=== PATIENT | male | born 1955 | race Caucasian/White ===

== ENCOUNTER 2017-04-11 06:36 | Inpatient (IN) | payer OTHER ==
[2017-04-04 09:37] VITALS: BMI 37.0
--- NOTE | 2017-04-04 10:21 | PAT Medication Instructions ---
Service Date Apr 04, 2017. Current Home Medication List Albuterol Sulf (Proventil 0.083% 2.5MG/3ML), 2.5 MG INH QID PRN for SOB/Wheezing Albuterol Sulfate (Proair Hfa), 2 PUFFS QID PRN Aspirin (Aspirin Ec), 81 MG PO QAM Atorvastatin (Lipitor), 40 MG PO QAM Indomethacin (Indocin), 25 MG PO TID PRN for GOUT Mometasone Furoate-Formoterol (Dulera 100/5 Mcg), 2 PUFFS INH BID Montelukast Sodium (Singulair), 10 MG PO QAM Sennosides-Docusate Sodium (Stool Softener), 1 TAB PO BID Medication Instructions For Your Scheduled Surgery - Check with surgeon for instructions: Indomethacin (Indocin), 25 MG PO TID PRN for GOUT - Hold the following medications the morning of surgery: Montelukast Sodium (Singulair), 10 MG PO QAM Sennosides-Docusate Sodium (Stool Softener), 1 TAB PO BID - Take the following medications the morning of surgery with a sip of water: Mometasone Furoate-Formoterol (Dulera 100/5 Mcg), 2 PUFFS INH BID Albuterol Sulf (Proventil 0.083% 2.5MG/3ML), 2.5 MG INH QID PRN for SOB/ Wheezing (if needed) Albuterol Sulfate (Proair Hfa), 2 PUFFS QID PRN (use if needed; please bring with you to hospital morning of surgery) Atorvastatin (Lipitor), 40 MG PO QAM Aspirin (Aspirin Ec), 81 MG PO QAM (okay to continue per surgeon) - Take the following medications as scheduled the night before surgery: Sennosides-Docusate Sodium (Stool Softener), 1 TAB PO BID Mometasone Furoate-Formoterol (Dulera 100/5 Mcg), 2 PUFFS INH BID Albuterol Sulf (Proventil 0.083% 2.5MG/3ML), 2.5 MG INH QID PRN for SOB/ Wheezing (if needed) Albuterol Sulfate (Proair Hfa), 2 PUFFS QID PRN (if needed) If you have any questions please call us at [phone] or [phone] or [phone]
--- NOTE | 2017-04-04 10:52 | DIAGNOSTIC IMAGING REPORT ---
CHEST PREADMISSION(PA/LAT) CLINICAL HISTORY: 62 years-old Male presenting with shortness of breath. TECHNIQUE: PA and lateral views of the chest were obtained. COMPARISON: 01/05/2014. FINDINGS: Atherosclerosis of the aortic arch. Normal cardiac silhouette. Lungs and pleural spaces clear. Osseous structures and upper abdomen normal. IMPRESSION: 1. No acute cardiopulmonary disease. Electronically signed by: Apollo Vincent 04/04/2017 10:51 AM Dictated Date/Time: 04/04/2017 10:49 AM
[2017-04-04 11:17] LABS: BASO % 0.5 %; BASO ABS # 0.03 K/uL (0-0.2); COMPLETE YES; EOS % 1.2 %; HEMATOCRIT 43.5 % (42-52); IG% 0.2 %; LYMPH % 20.2 %; LYMPH ABS # 1.32 K/uL (1.2-3.4); MEAN CELL VOLUME 88.6 fL (80-100); MEAN CORPUSCULAR HGB CONC 34.9 g/dl (32-36); MEAN PLATELET VOLUME 8.5 fL (7.4-10.4); MONO % 7.3 %; NEUT % 70.6 %; PLATELET COUNT 238 K/uL (130-400); RED BLOOD COUNT 4.91 M/uL (4.7-6.1); WHITE BLOOD COUNT 6.54 K/uL (4.8-10.8)
[2017-04-04 11:26] LABS: BUN/CREATININE RATIO 8.4 (10-20); CALCIUM 9.5 mg/dl (8.5-10.1); CREATININE 0.74 mg/dl (0.60-1.40); POTASSIUM 3.9 mmol/L (3.5-5.1)
[2017-04-11] VITALS (25 sets, daily range): BP systolic 113–151; BP diastolic 53–97; PULSE 59–105; TEMP 36.7–36.9; O2SAT 91–99; Ht 167.6 cm; Wt 97.2 kg
[~2017-04-11] VITALS: Ht 167.6 cm; Wt 97.2 kg
[~2017-04-11 06:36] MED LIST: ALBINS/ INH; ALBU1AER9; ASPI81TA28 PO; ATOR-24 PO; INDO-22 PO; LACTATED RINGER'S 1000ML 1,000 ML IV SCH; MOME100A INH; MONT1TAB3 PO; SENNTAB23 PO
--- NOTE | 2017-04-11 06:49 | History & Physical Bridge Note ---
H&P Re-Evaluation Bridge Note: I have examined the patient, reviewed the History & Physical and in the interval since the performance of the History & Physical I have noted the following changes of clinical significance: No changes noted pt marked
[2017-04-11] MEDS ORDERED: DEXAMETHASONE SOD INJ 4 MG/ML VIAL ONE ×2 (07:32→14:28)
[2017-04-11] MEDS ORDERED: MIDAZOLAM HCL 1 MG/ML 2ML VIAL ONE (07:32)
[2017-04-11] MEDS ORDERED: GLYCOPYRROLATE INJ 0.2 MG/ML VIAL ONE ×3 (07:32→14:28)
[2017-04-11] MEDS ORDERED: FENTANYL CITRATE INJ 50 MCG/1 ML 2 ML VIAL ONE ×3 (07:32→14:28)
[2017-04-11] MEDS ORDERED: LIDOCAINE HCL 2% 2 ML VIAL (20MG/ML) ONE ×2 (07:32→14:28)
[2017-04-11] MEDS ORDERED: ROCURONIUM BROMIDE 10 MG/ML 5 ML VIAL ONE ×2 (07:32→14:28)
[2017-04-11] MEDS ORDERED: NEOSTIGMINE METHYLSULFATE 5 MG/5 ML SYR ONE ×2 (07:32→14:28)
[2017-04-11] MEDS ORDERED: ONDANSETRON INJ 2 MG/ML 2 ML VIAL ONE ×2 (07:32→14:28)
[2017-04-11] MEDS ORDERED: PROPOFOL IV EMULSION 10 MG/ML 20 ML VIAL IV ONE ×3 (07:32→14:28)
[2017-04-11] MEDS ORDERED: HEPARIN SOD (PORCINE) 1000 UNIT/ML 10 ML VIAL ONE ×2 (07:56→09:06)
[2017-04-11] MEDS ORDERED: LIDOCAINE/EPINEPHRINE 1% 20 ML VIAL ONE (07:56)
[2017-04-11] MEDS ORDERED: BACITRACIN 50000 UNIT VIAL ONE (07:56)
[2017-04-11] MEDS ORDERED: PHENYLEPHRINE HCL INJ 10 MG/ML VIAL ONE (08:04)
[2017-04-11] MEDS ORDERED: NALOXONE HCL 0.4 MG/1 ML VIAL/CARP IV PRN ×2 (08:15→15:15)
[2017-04-11] MEDS ORDERED: FLUMAZENIL 0.1 MG/1 ML 10 ML VIAL IV PRN ×2 (08:15→15:15)
[2017-04-11] MEDS ORDERED: PHENYLEPHRINE 100MCG/ML 5ML SYR IV PRN ×2 (08:15→15:15)
[2017-04-11] MEDS ORDERED: ATROPINE SULFATE 0.1 MG/ML 5ML SYR IV PRN ×2 (08:15→15:15)
[2017-04-11] MEDS ORDERED: HYDROmorphone INJ 2 MG/ML SYR/VIAL IV PRN ×2 (08:15→15:15)
[2017-04-11] MEDS ORDERED: ONDANSETRON INJ 2 MG/ML 2 ML VIAL IV PRN ×3 (08:15→15:15)
[2017-04-11] MEDS ORDERED: MEPERIDINE HCL 25 MG/ML CARP IV PRN ×2 (08:15→15:15)
[2017-04-11] MEDS ORDERED: EpHEDrine SULFATE INJ 50 MG/ML AMP IV PRN ×2 (08:15→15:15)
[2017-04-11] MEDS ORDERED: FENTANYL CITRATE INJ 50 MCG/1 ML 2 ML VIAL IV PRN ×2 (08:15→15:15)
[2017-04-11] MEDS ORDERED: LABETALOL HCL IV 5 MG/ML 20ML IV PRN ×2 (08:15→15:15)
[2017-04-11] MEDS ORDERED: CEFAZOLIN SOD 1 GM VIAL ONE (08:46)
[2017-04-11] MEDS ORDERED: LARYING-O-JET KIT (LTA) ONE ×2 (08:48)
[2017-04-11] MEDS ORDERED: EpHEDrine SULFATE 50MG/5ML SYR ONE (08:55)
[2017-04-11] MEDS ORDERED: LABETALOL HCL IV 5 MG/ML 20ML IV ONE (09:14)
[2017-04-11] MEDS ORDERED: NITROGLYCERIN/D5W 100 MCG/ML 250 ML IV PRN (10:33)
[2017-04-11] MEDS ORDERED: HYDR-5688 PO (10:39)
--- NOTE | 2017-04-11 10:41 | Discharge Instructions ---
Discharge Instructions Date of Service Apr 11, 2017. Admission Reason for Admission: Carotid Artery Disease Discharge Discharge Diagnosis / Problem: carotid endarterectomy Discharge Goals Goal(s): Improve disease control Activity Recommendations Activity Limitations: as noted below Shower/Bathe: no limitations (ok to shower) Driving or Machine Use: no driving for 1 week . Instructions / Follow-Up Instructions / Follow-Up Dr. Childers in 1 week, call [phone] if you do not already have an appt or for any questions Current Hospital Diet Patient's current hospital diet: Clear Liquid Diet Discharge Diet Recommended Diet: Regular Diet Procedures Procedures Performed: Right Carotid Endarterectomy with Bovine Patch Pending Studies Studies pending at discharge: no Medical Emergencies . Who to Call and When: Medical Emergencies: If at any time you feel your situation is an emergency, please call 911 immediately. . Non-Emergent Contact Non-Emergency issues call your: Surgeon Call Non-Emergent contact if: you have a fever, temperature is above 101.5, your pain is not controlled, wound has increased redness, you have any medication questions . "Provider Documentation" section prepared by Leonidas Purdy. . VTE Core Measure Inpt VTE Proph given/why not?: SCD's [place] Drug Monitoring Program Search Results: no issues identified
[2017-04-11] MEDS ORDERED: MoRPHine SULFATE 2 MG/ML CARP IV PRN (10:45)
[2017-04-11] MEDS ORDERED: ALBUTEROL HFA 8 GM INHALER INH PRN (10:45)
[2017-04-11] MEDS ORDERED: HYDROCODONE/ACETAMOPHEN 5/325MG TAB PO PRN (10:45)
[2017-04-11] MEDS ORDERED: MoRPHine SULFATE 4 MG/ML 1 ML CARP\\VIAL IV PRN (10:45)
--- NOTE | 2017-04-11 11:23 | Anesthesiology Progress Note ---
Anesthesia Post Op Note Date & Time Apr 11, 2017 at 11:23 Vital Signs Pain Intensity: 0 Vital Signs Past 12 Hours Date Time Temp Pulse Resp B/P (MAP) Pulse Ox O2 Delivery O2 Flow Rate FiO2 04/11/17 11:21 148/82 04/11/17 11:18 67 11 04/11/17 11:18 67 11 93 04/11/17 11:16 126/72 04/11/17 11:15 36.6 61 15 126/72 93 Nasal Cannula 2 142/63 (93) 04/11/17 11:13 61 27 93 04/11/17 11:13 61 27 04/11/17 11:11 120/68 04/11/17 11:08 63 18 04/11/17 11:08 63 18 92 04/11/17 11:06 123/67 04/11/17 11:05 60 17 123/67 91 Nasal Cannula 2 121/51 (76) 04/11/17 11:03 64 13 96 04/11/17 11:03 64 13 04/11/17 11:01 134/78 04/11/17 10:58 62 14 04/11/17 10:58 62 14 99 04/11/17 10:56 128/67 04/11/17 10:53 68 15 98 04/11/17 10:53 69 15 04/11/17 10:52 123/81 04/11/17 10:51 66 21 98 04/11/17 10:51 58 21 04/11/17 10:46 78 24 133/83 99 04/11/17 10:46 78 24 04/11/17 10:43 127/57 04/11/17 10:41 69 22 99 04/11/17 10:41 69 22 04/11/17 10:37 126/70 04/11/17 10:36 36.2 73 16 126/70 100 Mask 10 04/11/17 10:36 65 23 04/11/17 10:36 67 23 94 04/11/17 07:55 60 18 95 Mask 6.0 04/11/17 07:08 36.8 59 20 116/68 91 Room Air 132/72 Notes Mental Status: alert / awake / arousable, participated in evaluation Pt Amnestic to Procedure: Yes Nausea / Vomiting: adequately controlled Pain: adequately controlled Airway Patency, RR, SpO2: stable & adequate BP & HR: stable & adequate Hydration State: stable & adequate Anesthetic Complications: no major complications apparent The patient did well. He is hemodynamically stable. He is awake and comfortable and moving all extremities.
--- NOTE | 2017-04-11 11:55 | [facility] Operative Report ---
Operative Report Operative Date Apr 11, 2017. Pre-Operative Diagnosis Critical Right Carotid Stenosis Post-Operative Diagnosis Critical Right Carotid Stenosis Procedure(s) Performed Right Carotid Endarterectomy with Bovine Patch angioplasty Surgeon Dr. Joey Childers Launch Check Out Surgeon(s) Leonidas Purdy PA-C Estimated Blood Loss 100ml Findings near total occlusion int car Specimens plaque Drains 1/4 inch brigitte op field via stab Disposition Surgical ICU Indications critical right car stenosis s/p acute total occlusion 1 year ago treated with TPA Description of Procedure general endotracheal anesthesia. sterile field 1% xyl with epi(6cc) injected along ant aspect SCM dissected ext int amd common controlled with vessel loops identified hypoglossal and retracted with vessel loop divided digastric, suspensory ligament 00442 U of heparin waited 5 minutes clamped int then ext and common, louie scissors for arteriotomy, int car fraible near total occlusion dissection started common circular fibers, inversion endarterectomy ext car ' endar taken to int car matt 4 cm beyond take off intima adherent at end point parachuted down bovine patch onto int car with 6-0 prolene and sutured circumferentially, prior to tying down patch 4 Bakes dilator intoint car past patch back bleeding controlled with [place] pick ups, flushed common ext, suctioned out artery before tying patch, ext car opened, 25 gauge needle punctured patch to free trapped air, common car clamp removed, few suture line bleeders controlled with 6-0 prolene flow reestablished int car, good pulse no thrill in int car past patch, minimal bleeding ,heparint not reversed, 1/4 brigitte via stab wound between heads of SCM placed along car bed, wound closed multiple layers interrupted vicryl 2-0 gumaro skin edges, dressing applied pt woke up neurologically intact and taken extubated to rec room ebl 100cc spec plaque I attest to the content of the Intraoperative Record and any orders documented therein. Any exceptions are noted below.
[2017-04-11] MEDS: SODIUM CHLORIDE 0.9% 1000ML 1,000 ML IV SCH (13:12)
[2017-04-11] MEDS: ALBUTEROL 0.083% NEBU SOLN 3 ML VIAL INH PRN ×2 (13:14→19:00)
--- NOTE | 2017-04-11 13:30 | Critical Care Consultation ---
Critical Care Consultation Date of Consultation: Apr 11, 2017. Attending Physician: Joey Childers M.D. Reason for Consultation: Hypertension/neurological monitoring--CEA History of Present Illness History of cerebrovascular disease and TPA in the past for a right hemispheric event. Critical stenosis in the left was treated surgical. Evaluation of the left also disclosed critical stenosis. CEA was performed today. Underlying mild asthma reported. HTN and hyperlipidemia also noted. The procedure went well. I spoke personally with the surgeon. Arterial line in place for close B/P monitoring and management. He is awake and alert. No new neurological changes. No target pain. Appears to be tolerating Rx well. Social History Smoking Status: Former Smoker Drug Use: none Marital Status: single Housing Status: lives alone Occupation Status: retired Allergies Coded Allergies: Dust (Verified Allergy, Unknown, hay fever, 04/04/17) NO KNOWN DRUG ALLERGIES (Verified Allergy, Unknown, NKDA, 04/04/17) POLLEN (Verified Allergy, Unknown, HAY FEVER, 04/04/17) Home Medications Scheduled Aspirin (Aspirin Ec), 81 MG PO QAM Atorvastatin (Lipitor), 40 MG PO QAM Mometasone Furoate-Formoterol (Dulera 100/5 Mcg), 2 PUFFS INH BID Montelukast Sodium (Singulair), 10 MG PO QAM Sennosides-Docusate Sodium (Stool Softener), 1 TAB PO BID Scheduled PRN Albuterol Sulf (Proventil 0.083% 2.5MG/3ML), 2.5 MG INH QID PRN for SOB/Wheezing Albuterol Sulfate (Proair Hfa), 2 PUFFS QID PRN Hydrocodone/Acetaminophen 5MG/325MG ([employer] 5MG/325MG), 1 TABLET PO Q4H PRN for Pain Indomethacin (Indocin), 25 MG PO TID PRN for GOUT Current Inpatient Medications Current Inpatient Medications Medications (Trade) Dose Ordered Sig/Linda Route Start Time Stop Time Status Last Admin Dose Admin Lactated Ringer's 1,000 ml @ 15 mls/hr Q24H IV 04/11/17 06:00 04/12/17 05:59 Morphine Sulfate (MoRPHine SULFATE INJ) 2 mg Q2H PRN IV 04/11/17 10:45 04/25/17 10:44 Nitroglycerin/ Dextrose 250 ml @ 0 mls/hr Q0M PRN IV 04/11/17 10:33 05/11/17 10:32 Ondansetron HCl (Zofran Inj) 4 mg Q6H PRN IV 04/11/17 10:45 05/11/17 10:44 Sodium Chloride 1,000 ml @ 100 mls/hr Q10H IV 04/11/17 13:00 05/11/17 12:59 04/11/17 13:12 100 MLS/HR Morphine Sulfate (MoRPHine SULFATE INJ) 4 mg Q4H PRN IV 04/11/17 10:45 04/25/17 10:44 Acetaminophen/ Hydrocodone Bitart ([employer] 5/325 Tab) FOR MODERATE PAIN ... Q4H PRN PO 04/11/17 10:45 04/25/17 10:44 Albuterol Sulfate (Ventolin 0.083% 2.5MG/3ML Neb) 2.5 mg QIDR PRN INH 04/11/17 10:45 05/11/17 10:44 04/11/17 13:14 2.5 MG Aspirin (Ecotrin Tab) 81 mg QAM PO 04/12/17 09:00 05/12/17 08:59 Atorvastatin Calcium (Lipitor Tab) 40 mg QAM PO 04/12/17 09:00 05/12/17 08:59 Montelukast Sodium (Singulair Tab) 10 mg HS PO 04/11/17 21:00 05/11/17 20:59 Senna/Docusate Sodium (Senokot S Tab) 1 tab BID PO 04/11/17 21:00 05/11/17 20:59 Miscellaneous Information (Order Awaiting Action) 1 ea QS N/A 04/11/17 16:00 05/11/17 15:59 Review of Systems 14 point is negative except for some mild dyspnea and wheezing. No new targets. The surgery was well tolerated. Physical Exam Date Time Temp Pulse Resp B/P (MAP) Pulse Ox O2 Delivery O2 Flow Rate FiO2 04/11/17 13:14 105 18 96 Nasal Cannula 4.0 04/11/17 11:27 64 12 04/11/17 11:27 67 12 93 04/11/17 11:26 121/67 04/11/17 11:25 36.6 60 16 121/67 94 Nasal Cannula 2 122/55 (77) 04/11/17 11:22 68 13 92 04/11/17 11:22 68 13 04/11/17 11:21 148/82 04/11/17 11:18 67 11 04/11/17 11:18 67 11 93 04/11/17 11:16 126/72 04/11/17 11:15 36.6 61 15 126/72 93 Nasal Cannula 2 142/63 (93) 04/11/17 11:13 61 27 93 04/11/17 11:13 61 27 04/11/17 11:11 120/68 04/11/17 11:08 63 18 04/11/17 11:08 63 18 92 04/11/17 11:06 123/67 04/11/17 11:05 60 17 123/67 91 Nasal Cannula 2 121/51 (76) 04/11/17 11:03 64 13 96 04/11/17 11:03 64 13 04/11/17 11:01 134/78 04/11/17 10:58 62 14 04/11/17 10:58 62 14 99 04/11/17 10:56 128/67 04/11/17 10:53 68 15 98 04/11/17 10:53 69 15 04/11/17 10:52 123/81 04/11/17 10:51 66 21 98 04/11/17 10:51 58 21 04/11/17 10:46 78 24 133/83 99 04/11/17 10:46 78 24 04/11/17 10:43 127/57 04/11/17 10:41 69 22 99 04/11/17 10:41 69 22 04/11/17 10:37 126/70 04/11/17 10:36 36.2 73 16 126/70 100 Mask 10 04/11/17 10:36 65 23 04/11/17 10:36 67 23 94 04/11/17 07:55 60 18 95 Mask 6.0 04/11/17 07:08 36.8 59 20 116/68 91 Room Air 132/72 The right neck is bandaged HEENT--no target new focal changes--expected edema Pulmonary--sparse exp. wheeze--exchange is ok Cardio--rate and volume appears acceptable GI-functional --negative Musculoskeletal--no edema/no erythema Neuro--no acute new focal changes. Psych--appropriate Derm--some bleeding at the drain==pressure application in progress. Assessment & Plan CEA/Cerebrovascular Disease/Mild Asthma 1. Neuro--stable 2. Pulmonary--toilette and Beta-2 if needed 3. Cardio--b/p good. Volume appropriate 4. GI--OBR 5. Dispo--pending response
[2017-04-11] MEDS: BACITRACIN 50000 UNIT VIAL ONE ×2 (14:00→15:00)
[2017-04-11] MEDS: HEPARIN SOD (PORCINE) 1000 UNIT/ML 10 ML VIAL ONE ×2 (14:00→15:00)
--- NOTE | 2017-04-11 14:11 | Surgery Progress Note ---
Surgery Progress Note Date of Service Apr 11, 2017. Subjective post op check apparently last few hours had bleeding from drain site and with direct pressure from Icu team appeared to stop Objective Vital Signs: Date Time Temp Pulse Resp B/P (MAP) Pulse Ox O2 Delivery O2 Flow Rate FiO2 04/11/17 13:14 105 18 96 Nasal Cannula 4.0 04/11/17 11:27 64 12 04/11/17 11:27 67 12 93 04/11/17 11:26 121/67 04/11/17 11:25 36.6 60 16 121/67 94 Nasal Cannula 2 122/55 (77) 04/11/17 11:22 68 13 92 04/11/17 11:22 68 13 04/11/17 11:21 148/82 04/11/17 11:18 67 11 04/11/17 11:18 67 11 93 04/11/17 11:16 126/72 04/11/17 11:15 36.6 61 15 126/72 93 Nasal Cannula 2 142/63 (93) 04/11/17 11:13 61 27 93 04/11/17 11:13 61 27 04/11/17 11:11 120/68 04/11/17 11:08 63 18 04/11/17 11:08 63 18 92 04/11/17 11:06 123/67 04/11/17 11:05 60 17 123/67 91 Nasal Cannula 2 121/51 (76) 04/11/17 11:03 64 13 96 04/11/17 11:03 64 13 04/11/17 11:01 134/78 04/11/17 10:58 62 14 04/11/17 10:58 62 14 99 04/11/17 10:56 128/67 04/11/17 10:53 68 15 98 04/11/17 10:53 69 15 04/11/17 10:52 123/81 04/11/17 10:51 66 21 98 04/11/17 10:51 58 21 04/11/17 10:46 78 24 133/83 99 04/11/17 10:46 78 24 04/11/17 10:43 127/57 04/11/17 10:41 69 22 99 04/11/17 10:41 69 22 04/11/17 10:37 126/70 04/11/17 10:36 36.2 73 16 126/70 100 Mask 10 04/11/17 10:36 65 23 04/11/17 10:36 67 23 94 04/11/17 07:55 60 18 95 Mask 6.0 04/11/17 07:08 36.8 59 20 116/68 91 Room Air 132/72 General Appearance: + pertinent finding (alert coherent in no dtress some trouble swallowing) Neck: + pertinent finding (marked swelling ant to incision consistent with large hematoma, trachea midline, venous oozing from drain) Respiratory/Chest: + pertinent finding (no respiratory compromise) Diagnostic Interpretation: post op hematoma bleed Assessment & Plan take back to [place] for neck incision exploration and evacuation hematoma discussed with pt and sister suspect tie came off s vein since pt had significant coughing spell prior to bleeding
[2017-04-11] MEDS: LIDOCAINE/EPINEPHRINE 1% 20 ML VIAL ONE ×2 (14:15→15:15)
--- NOTE | 2017-04-11 14:43 | DIAGNOSTIC IMAGING REPORT ---
CHEST ONE VIEW PORTABLE CLINICAL HISTORY: Difficulty breathing. COMPARISON STUDY: Chest radiograph April 04, 2017. FINDINGS: Right neck surgical skin gumaro are present. There is no pneumothorax or pleural effusion. There is mild left basilar opacity. There is no evidence of pulmonary edema. IMPRESSION: 1. Mild left basilar opacity. The appearance favors atelectasis although pneumonia could appear similar. 2. No evidence of pulmonary edema. 3. No pneumothorax. Electronically signed by: Pradip Jon M.D. 04/11/2017 2:42 PM Dictated Date/Time: 04/11/2017 2:41 PM
--- NOTE | 2017-04-11 15:34 | [facility] Operative Report ---
Operative Report Operative Date Apr 11, 2017. Pre-Operative Diagnosis Hematoma post op right car enadarterectomy Post-Operative Diagnosis same no active bleeder Procedure(s) Performed Evaluation Right Carotid Wound, Evacuation of Hematoma Surgeon Dr. Childers Director Of Health Care Marketing Surgeon(s) EDWARD Stallings Estimated Blood Loss 0 ml Findings tense hematoma but no active bleeding vessel Specimens none per surgeon Drains 1/4 inch brigitte op field via stab Complication(s) None Disposition Surgical ICU Indications post op hematoma Description of Procedure general area right neck prepped gumaro removed sub cut sutures removed subfscail platysma tense hematoma found evacuated , brigitte removed explored patch and whole op field no active bleeder found very smala amount of oozing appreciated scm sutures, area irrigated brigitte 1/4 placed wound closed multiple layers and gumaro for skin edges,dressing applied procedure tolerated well, no blood loss frpom exploration but found matt 10cc clothed blood I attest to the content of the Intraoperative Record and any orders documented therein. Any exceptions are noted below.
[2017-04-11] MEDS ORDERED: SURGICEL ABSORB HEMOSTAT 2IN X 14IN TOP ONE (15:52)
[2017-04-11] MEDS ORDERED: COUGH DROP (SUGAR FREE) LOZ 24 LOZ/1 BOX PO PRN (16:00)
--- NOTE | 2017-04-11 18:21 | Anesthesiology Progress Note ---
Anesthesia Post Op Note Date & Time Apr 11, 2017 at 18:20 Vital Signs Pain Intensity: 0.0 Vital Signs Past 12 Hours Date Time Temp Pulse Resp B/P (MAP) Pulse Ox O2 Delivery O2 Flow Rate FiO2 04/11/17 18:01 72 14 123/69 (85) 98 137/63 04/11/17 18:00 Nasal Cannula 4.0 04/11/17 17:31 77 24 128/87 (113) 96 146/69 04/11/17 17:05 Nasal Cannula 4.0 04/11/17 17:04 Nasal Cannula 4.0 04/11/17 17:03 36.9 04/11/17 17:02 75 14 121/74 (88) 94 04/11/17 16:46 79 18 133/83 (97) 95 04/11/17 16:15 81 15 126/70 93 Nasal Cannula 4 04/11/17 16:05 79 18 139/83 99 Mask 10 04/11/17 15:55 90 16 159/88 100 Mask 10 04/11/17 15:45 36.1 91 16 138/95 100 Mask 10 Arterial Line 04/11/17 14:01 72 22 127/78 (107) 94 138/68 04/11/17 14:00 74 21 (96) 93 144/70 04/11/17 13:30 70 15 (99) 95 144/74 04/11/17 13:14 105 18 96 Nasal Cannula 4.0 04/11/17 13:01 72 14 143/65 (107) 94 149/75 04/11/17 13:00 74 22 (101) 96 149/73 04/11/17 12:45 71 19 (104) 96 151/77 04/11/17 12:30 70 21 (85) 94 126/62 04/11/17 12:15 68 25 (83) 93 126/60 04/11/17 12:01 36.8 65 17 131/69 (95) 93 127/59 04/11/17 11:27 64 12 04/11/17 11:27 67 12 93 04/11/17 11:26 121/67 04/11/17 11:25 36.6 60 16 121/67 94 Nasal Cannula 2 122/55 (77) 04/11/17 11:22 68 13 92 04/11/17 11:22 68 13 04/11/17 11:21 148/82 04/11/17 11:18 67 11 04/11/17 11:18 67 11 93 04/11/17 11:16 126/72 04/11/17 11:15 36.6 61 15 126/72 93 Nasal Cannula 2 142/63 (93) 04/11/17 11:13 61 27 93 04/11/17 11:13 61 27 04/11/17 11:11 120/68 04/11/17 11:08 63 18 04/11/17 11:08 63 18 92 04/11/17 11:06 123/67 04/11/17 11:05 60 17 123/67 91 Nasal Cannula 2 121/51 (76) 04/11/17 11:03 64 13 96 04/11/17 11:03 64 13 04/11/17 11:01 134/78 04/11/17 10:58 62 14 04/11/17 10:58 62 14 99 04/11/17 10:56 128/67 04/11/17 10:53 68 15 98 04/11/17 10:53 69 15 04/11/17 10:52 123/81 04/11/17 10:51 66 21 98 04/11/17 10:51 58 21 04/11/17 10:46 78 24 133/83 99 04/11/17 10:46 78 24 04/11/17 10:43 127/57 04/11/17 10:41 69 22 99 04/11/17 10:41 69 22 04/11/17 10:37 126/70 04/11/17 10:36 36.2 73 16 126/70 100 Mask 10 04/11/17 10:36 65 23 04/11/17 10:36 67 23 94 04/11/17 07:55 60 18 95 Mask 6.0 04/11/17 07:08 36.8 59 20 116/68 91 Room Air 132/72 Notes Mental Status: alert / awake / arousable, participated in evaluation Pt Amnestic to Procedure: Yes Nausea / Vomiting: adequately controlled Pain: adequately controlled Airway Patency, RR, SpO2: stable & adequate BP & HR: stable & adequate Hydration State: stable & adequate Anesthetic Complications: no major complications apparent The patient did well following his take back. He is awake and comfortable.
[2017-04-11] MEDS: DOCUSATE SODIUM/SENNA 50/8.6MG TAB PO SCH (20:55)
[2017-04-11] MEDS ORDERED: MONTELUKAST SOD 10 MG TAB PO SCH (21:00)
[2017-04-12] VITALS (20 sets, daily range): BP systolic 99–151; BP diastolic 44–84; PULSE 55–72; TEMP 36.8–37.2; O2SAT 94–99
[2017-04-12] MEDS: SODIUM CHLORIDE 0.9% 1000ML 1,000 ML IV SCH ×2 (00:19→01:19)
[2017-04-12] MEDS: ALBUTEROL 0.083% NEBU SOLN 3 ML VIAL INH PRN (03:53)
[2017-04-12 05:48] LABS: BASO % 0.1 %; BASO ABS # 0.01 K/uL (0-0.2); COMPLETE YES; EOS % 0.1 %; HEMATOCRIT 34.3 % (42-52); IG% 0.1 %; LYMPH % 11.3 %; LYMPH ABS # 1.09 K/uL (1.2-3.4); MEAN CELL VOLUME 88.6 fL (80-100); MEAN CORPUSCULAR HGB CONC 33.8 g/dl (32-36); MEAN PLATELET VOLUME 8.6 fL (7.4-10.4); NEUT % 78.4 %; PLATELET COUNT 237 K/uL (130-400); RED BLOOD COUNT 3.87 M/uL (4.7-6.1); WHITE BLOOD COUNT 9.63 K/uL (4.8-10.8)
[2017-04-12 06:24] LABS: BUN/CREATININE RATIO 12.2 (10-20); CALCIUM 8.2 mg/dl (8.5-10.1); CREATININE 0.63 mg/dl (0.60-1.40)
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
--- NOTE | 2017-04-12 07:41 | Anesthesiology Progress Note ---
Anesthesia Post Op Note Date & Time Apr 12, 2017 at 07:40 Vital Signs Pain Intensity: 0.0 Vital Signs Past 12 Hours Date Time Temp Pulse Resp B/P (MAP) Pulse Ox O2 Delivery O2 Flow Rate FiO2 04/12/17 06:01 60 13 129/69 (108) 97 127/44 04/12/17 05:01 56 11 134/73 (105) 98 129/53 04/12/17 04:01 65 15 123/75 (84) 99 145/61 04/12/17 04:00 98 Nasal Cannula 2.0 04/12/17 04:00 36.8 04/12/17 03:53 62 14 98 Nasal Cannula 2.0 04/12/17 03:02 58 14 126/55 (88) 96 144/59 04/12/17 02:01 56 12 99/49 (77) 99 126/53 04/12/17 01:01 57 19 110/57 (82) 98 121/51 04/12/17 00:01 56 16 108/48 (80) 98 119/52 04/11/17 23:59 97 Nasal Cannula 2.0 04/11/17 23:59 36.7 04/11/17 23:01 60 12 119/66 (75) 95 135/56 04/11/17 22:01 61 12 121/67 (74) 97 130/53 04/11/17 21:01 69 18 121/97 (101) 96 130/56 04/11/17 20:01 83 17 113/70 (74) 96 121/54 04/11/17 20:00 97 Nasal Cannula 3.0 04/11/17 20:00 36.9 Notes Mental Status: alert / awake / arousable, participated in evaluation Pt Amnestic to Procedure: Yes Nausea / Vomiting: adequately controlled Pain: adequately controlled Airway Patency, RR, SpO2: stable & adequate BP & HR: stable & adequate Hydration State: stable & adequate Anesthetic Complications: no major complications apparent
[2017-04-12] MEDS: DOCUSATE SODIUM/SENNA 50/8.6MG TAB PO SCH (07:50)
[2017-04-12] MEDS ORDERED: ASPIRIN 81 MG ECTAB PO SCH (09:00)
[2017-04-12] MEDS ORDERED: ATORVASTATIN 20 MG TAB PO SCH (09:00)
--- NOTE | 2017-04-12 09:51 | Critical Care Progress Note ---
Critical Care Progress Note Date of Service Apr 12, 2017. ICU Day ICU Day Number: [address] Ordonez Subjective The neurological status is stable. No cardiopulmonary complaints. Rx tolerated. Objective HEENT--dressing looking dry Neuro--no focal changes. Cardio--B/P and volume ok Pulmonary--exchange is adequate GI--functional --negative Psych--stable Derm--no new active changes. Assessment & Plan CEA--clinically stable. Appropriate for move out of ICU per surgery. Consults & Procedures Consultants: see orders Procedures: none Data Medications: Current Inpatient Medications Medications (Trade) Dose Ordered Sig/Linda Route Start Time Stop Time Status Last Admin Dose Admin Ondansetron HCl (Zofran Inj) 4 mg Q6H PRN IV 04/11/17 10:45 05/11/17 10:44 Acetaminophen/ Hydrocodone Bitart ([place] 5/325 Tab) FOR MODERATE PAIN ... Q4H PRN PO 04/11/17 10:45 04/25/17 10:44 Albuterol Sulfate (Ventolin 0.083% 2.5MG/3ML Neb) 2.5 mg QIDR PRN INH 04/11/17 10:45 05/11/17 10:44 04/12/17 03:53 2.5 MG Aspirin (Ecotrin Tab) 81 mg QAM PO 04/12/17 09:00 05/12/17 08:59 04/12/17 07:50 81 MG Atorvastatin Calcium (Lipitor Tab) 40 mg QAM PO 04/12/17 09:00 05/12/17 08:59 04/12/17 07:50 40 MG Montelukast Sodium (Singulair Tab) 10 mg HS PO 04/11/17 21:00 05/11/17 20:59 04/11/17 20:55 10 MG Senna/Docusate Sodium (Senokot S Tab) 1 tab BID PO 04/11/17 21:00 05/11/17 20:59 04/12/17 07:50 1 TAB Miscellaneous Information (Order Awaiting Action) 1 ea QS N/A 04/11/17 16:00 05/11/17 15:59 Menthol (Nice Sergei) 1 sergei Q1HWA PRN PO 04/11/17 16:00 05/11/17 15:59 Vital Signs: Date Time Temp Pulse Resp B/P (MAP) Pulse Ox O2 Delivery O2 Flow Rate FiO2 04/12/17 09:24 37.2 58 16 151/84 (106) 99 Nasal Cannula 2.0 04/12/17 07:30 Nasal Cannula 2.0 04/12/17 07:30 37.2 60 16 147/72 (97) 99 Nasal Cannula 2.0 04/12/17 06:01 60 13 129/69 (108) 97 127/44 04/12/17 05:01 56 11 134/73 (105) 98 129/53 04/12/17 04:01 65 15 123/75 (84) 99 145/61 04/12/17 04:00 98 Nasal Cannula 2.0 04/12/17 04:00 36.8 04/12/17 03:53 62 14 98 Nasal Cannula 2.0 04/12/17 03:02 58 14 126/55 (88) 96 144/59 04/12/17 02:01 56 12 99/49 (77) 99 126/53 04/12/17 01:01 57 19 110/57 (82) 98 121/51 04/12/17 00:01 56 16 108/48 (80) 98 119/52 04/11/17 23:59 97 Nasal Cannula 2.0 04/11/17 23:59 36.7 04/11/17 23:01 60 12 119/66 (75) 95 135/56 04/11/17 22:01 61 12 121/67 (74) 97 130/53 04/11/17 21:01 69 18 121/97 (101) 96 130/56 04/11/17 20:01 83 17 113/70 (74) 96 121/54 04/11/17 20:00 97 Nasal Cannula 3.0 04/11/17 20:00 36.9 04/11/17 19:01 75 17 140/76 (94) 99 143/67 04/11/17 19:00 76 18 97 Nasal Cannula 3.0 04/11/17 18:01 72 14 123/69 (85) 98 137/63 04/11/17 18:00 Nasal Cannula 4.0 04/11/17 17:31 77 24 128/87 (113) 96 146/69 04/11/17 17:05 Nasal Cannula 4.0 04/11/17 17:04 Nasal Cannula 4.0 04/11/17 17:03 36.9 04/11/17 17:02 75 14 121/74 (88) 94 04/11/17 16:46 79 18 133/83 (97) 95 04/11/17 16:15 81 15 126/70 93 Nasal Cannula 4 04/11/17 16:05 79 18 139/83 99 Mask 10 04/11/17 15:55 90 16 159/88 100 Mask 10 04/11/17 15:45 36.1 91 16 138/95 100 Mask 10 Arterial Line 04/11/17 14:01 72 22 127/78 (107) 94 138/68 04/11/17 14:00 74 21 (96) 93 144/70 04/11/17 13:30 70 15 (99) 95 144/74 04/11/17 13:14 105 18 96 Nasal Cannula 4.0 04/11/17 13:01 72 14 143/65 (107) 94 149/75 04/11/17 13:00 74 22 (101) 96 149/73 04/11/17 12:45 71 19 (104) 96 151/77 04/11/17 12:30 70 21 (85) 94 126/62 04/11/17 12:15 68 25 (83) 93 126/60 04/11/17 12:01 36.8 65 17 131/69 (95) 93 127/59 04/11/17 11:27 64 12 04/11/17 11:27 67 12 93 04/11/17 11:26 121/67 04/11/17 11:25 36.6 60 16 121/67 94 Nasal Cannula 2 122/55 (77) 04/11/17 11:22 68 13 92 04/11/17 11:22 68 13 04/11/17 11:21 148/82 04/11/17 11:18 67 11 04/11/17 11:18 67 11 93 04/11/17 11:16 126/72 04/11/17 11:15 36.6 61 15 126/72 93 Nasal Cannula 2 142/63 (93) 04/11/17 11:13 61 27 93 04/11/17 11:13 61 27 04/11/17 11:11 120/68 04/11/17 11:08 63 18 04/11/17 11:08 63 18 92 04/11/17 11:06 123/67 04/11/17 11:05 60 17 123/67 91 Nasal Cannula 2 121/51 (76) 04/11/17 11:03 64 13 96 04/11/17 11:03 64 13 04/11/17 11:01 134/78 04/11/17 10:58 62 14 04/11/17 10:58 62 14 99 04/11/17 10:56 128/67 04/11/17 10:53 68 15 98 04/11/17 10:53 69 15 04/11/17 10:52 123/81 04/11/17 10:51 66 21 98 04/11/17 10:51 58 21 04/11/17 10:46 78 24 133/83 99 04/11/17 10:46 78 24 04/11/17 10:43 127/57 04/11/17 10:41 69 22 99 04/11/17 10:41 69 22 04/11/17 10:37 126/70 04/11/17 10:36 36.2 73 16 126/70 100 Mask 10 04/11/17 10:36 65 23 04/11/17 10:36 67 23 94 Laboratory Results: Last 24 Hours Test 04/11/17 17:15 04/11/17 20:50 04/12/17 05:28 04/12/17 05:33 Bedside Glucose 128 mg/dl 135 mg/dl 114 mg/dl White Blood Count 9.63 K/uL Red Blood Count 3.87 M/uL Hemoglobin 11.6 g/dL Hematocrit 34.3 % Mean Corpuscular Volume 88.6 fL Mean Corpuscular Hemoglobin 30.0 pg Mean Corpuscular Hemoglobin Concent 33.8 g/dl Platelet Count 237 K/uL Mean Platelet Volume 8.6 fL Neutrophils (%) (Auto) 78.4 % Lymphocytes (%) (Auto) 11.3 % Monocytes (%) (Auto) 10.0 % Eosinophils (%) (Auto) 0.1 % Basophils (%) (Auto) 0.1 % Neutrophils # (Auto) 7.55 K/uL Lymphocytes # (Auto) 1.09 K/uL Monocytes # (Auto) 0.96 K/uL Eosinophils # (Auto) 0.01 K/uL Basophils # (Auto) 0.01 K/uL RDW Standard Deviation 44.8 fL RDW Coefficient of Variation 13.8 % Immature Granulocyte % (Auto) 0.1 % Immature Granulocyte # (Auto) 0.01 K/uL Sodium Level 136 mmol/L Potassium Level 4.0 mmol/L Chloride Level 103 mmol/L Carbon Dioxide Level 27 mmol/L Anion Gap 6.0 mmol/L Blood Urea Nitrogen 8 mg/dl Creatinine 0.63 mg/dl Est Creatinine Clear Calc Drug Dose 129.2 ml/min Estimated GFR () 120.7 Estimated GFR (Non- 104.1 BUN/Creatinine Ratio 12.2 Random Glucose 106 mg/dl Calcium Level 8.2 mg/dl Hepatitis C Antibody Screen NEG
--- NOTE | 2017-04-12 10:09 | Discharge Summary ---
Discharge Summary Date of Service Apr 12, 2017. Admission Date/Reason Apr 11, 2017 at 10:38 Carotid Artery Disease. Discharge Date/Disposition Apr 12, 2017 Home Diagnosis Principal Diagnosis: Critical Right Carotid Stenosis Secondary Diagnoses/Problems: 1. Asthma 2. Dyslipidemia Procedure(s) Performed 1. Right Carotid Endarterectomy with Bovine Patch angioplasty 2. Evaluation Right Carotid Wound, Evacuation of Hematoma Consultations [facility] Libr[facility] Medication Reconciliation New Medications: Hydrocodone/Acetaminophen 5MG/325MG ([place] 5MG/325MG) Tab 1 TABLET PO Q4H PRN for Pain, #20 TAB Continued Medications: Albuterol Sulf (Proventil 0.083% 2.5MG/3ML) 2.5 Mg/3 Ml Nebu 2.5 MG INH QID PRN for SOB/Wheezing, EA Albuterol Sulfate (Proair Hfa) 108 Mcg/ Aer 2 PUFFS QID PRN Aspirin (Aspirin Ec) 81 Mg Tab 81 MG PO QAM Atorvastatin (Lipitor) 40 Mg Tab 40 MG PO QAM, TAB Indomethacin (Indocin) 25 Mg Cap 25 MG PO TID PRN for GOUT, CAP Mometasone Furoate-Formoterol (Dulera 100/5 Mcg) 1 Aer Aer 2 PUFFS INH BID for 30 Days, #13 GM 5 Refills Montelukast Sodium (Singulair) 10 Mg Tab 10 MG PO QAM, TAB Sennosides-Docusate Sodium (Stool Softener) 1 Tab Tab 1 TAB PO BID Admission Physical Exam As per Admitting History & Physical. Hospital Course 62 y/o male with critical right carotid stenosis brought in for right carotid endarterectomy. The procedure was well tolerated, he was transferred to ICU and arterial line continued for blood pressure monitoring. He had some coughing, he began to have oozing around the brigitte drain. He had increasing hematoma during the afternoon and was taken back to the operating room for wound exploration. Tense hematoma was evacuated although no active bleeding was identified. He was returned to ICU and did well overnight. Blood pressure remained stable. He had a small amount of drainage from the brigitte which was removed in the morning. Neurovascular exam remained intact. He was stable for discharge later in the day. Discharge Instructions Follow-up in [address] Childers Please refer to the electronic Patient Visit Report (Discharge Instructions) for additional information.
[2017-04-16] MEDS ORDERED: LVQ750 PO (11:19)
[2017-04-16] MEDS ORDERED: PRED10TA PO (11:19)
== END 2017-04-12 11:39 | disposition home or self-care (01) | DRG 38 ==
LOC: C.ACU 06:36 → C.MSICU 09:16 → UNDOADMIN 09:16 → C.MSICU 10:38 → ENRESERV 11:07
PROVIDERS: ADMIT Surgery; ATTEND Surgery
PROC: 03CM0ZZ Extirpation of Matter from Right External Carotid Artery, Open Approach (ICD-10-PCS; 2017-04-11)
PROC: 03CH0ZZ Extirpation of Matter from Right Common Carotid Artery, Open Approach (ICD-10-PCS; principal; 2017-04-11 08:30)
DX: I65.21 Occlusion and stenosis of right carotid artery (principal); I97.638 Postprocedural hematoma of a circulatory system organ or structure following other circulatory system procedure; E66.9 Obesity, unspecified; I10 Essential (primary) hypertension; E78.5 Hyperlipidemia, unspecified; J45.909 Unspecified asthma, uncomplicated; E78.00 Pure hypercholesterolemia, unspecified; M10.9 Gout, unspecified; Y92.230 Patient room in hospital as the place of occurrence of the external cause; R00.1 Bradycardia, unspecified; Y83.8 Other surgical procedures as the cause of abnormal reaction of the patient, or of later complication, without mention of misadventure at the time of the procedure; Z86.73 Personal history of transient ischemic attack (TIA), and cerebral infarction without residual deficits; Z79.82 Long term (current) use of aspirin; Z68.34 Body mass index [BMI] 34.0-34.9, adult; Z87.891 Personal history of nicotine dependence; Z79.51 Long term (current) use of inhaled steroids; Z79.899 Other long term (current) drug therapy

== ENCOUNTER 2017-04-14 08:07 | Inpatient (IN) | payer OTHER ==
[~2017-04-14] VITALS: Ht 167.6 cm; Wt 102.0 kg
[2017-04-14] VITALS (8 sets, daily range): BP systolic 122–145; BP diastolic 66–90; PULSE 65–88; TEMP 36.3–37; O2SAT 93–99; Ht 167.6 cm; Wt 102.0 kg
[~2017-04-14 08:07] MED LIST changes: +HYDR-5688 PO; -LACTATED RINGER'S 1000ML 1,000 ML IV SCH
[2017-04-14] MEDS ORDERED: METHYLPREDNISOLONE 125 MG VIAL IV STA (08:42)
[2017-04-14] MEDS ORDERED: SODIUM CHLORIDE 0.9% 1000ML 1,000 ML IV STA ×2 (08:42)
[2017-04-14] MEDS ORDERED: ALBUT/IPRATROP 3MG/0.5MG NEB 3 ML VIAL INH STA (08:42)
[2017-04-14 08:57] LABS: BASO % 0.1 %; BASO ABS # 0.01 K/uL (0-0.2); COMPLETE YES; EOS % 0.5 %; IG% 0.1 %; LYMPH % 7.3 %; LYMPH ABS # 0.63 K/uL (1.2-3.4); MEAN CELL VOLUME 89.1 fL (80-100); MEAN CORPUSCULAR HGB CONC 33.6 g/dl (32-36); MEAN PLATELET VOLUME 8.4 fL (7.4-10.4); MONO % 8.2 %; NEUT % 83.8 %; PLATELET COUNT 265 K/uL (130-400); RED BLOOD COUNT 4.04 M/uL (4.7-6.1); WHITE BLOOD COUNT 8.64 K/uL (4.8-10.8)
[2017-04-14] MEDS ORDERED: ALBU18002 INH (08:58)
--- NOTE | 2017-04-14 08:59 | DIAGNOSTIC IMAGING REPORT ---
CHEST ONE VIEW PORTABLE CLINICAL HISTORY: EVALUATE WEAKNESS dyspnea COMPARISON STUDY: 04/11/2017 FINDINGS: Improving atelectatic/infiltrative change left base. Lungs otherwise are clear. Diaphragms smooth. IMPRESSION: Improving atelectatic and/or infiltrative change left base. The above report was generated using voice recognition software. It may contain grammatical, syntax or spelling errors. Electronically signed by: Jorge Power M.D. 04/14/2017 8:58 AM Dictated Date/Time: 04/14/2017 8:57 AM
[2017-04-14 09:05] LABS: BUN/CREATININE RATIO 10.2 (10-20); CALCIUM 8.5 mg/dl (8.5-10.1); CREATININE 0.65 mg/dl (0.60-1.40); MAGNESIUM 1.8 mg/dl (1.8-2.4)
[2017-04-14 09:07] LABS: PARTIAL THROMBOPLASTIN RATIO 1.2; PROTHROMBIN TIME (PATIENT) 10.7 SECONDS (9.0-12.0)
[2017-04-14 09:20] LABS: CKMB/CK RATIO 1.2 (0-3.0); THYROID STIMULATING HORMONE 0.446 uIu/ml (0.300-4.500)
[2017-04-14] MEDS ORDERED: OPTIRAY 320 IV PRN (09:45)
--- NOTE | 2017-04-14 10:12 | DIAGNOSTIC IMAGING REPORT ---
(CHEST FOR PE) ANGIO WITH CT DOSE: 696.03 mGy.cm HISTORY: Chest pain dyspnea TECHNIQUE: Multiaxial CT images of the chest were performed following the intravenous administration of contrast to evaluate the pulmonary arteries. Maximal intensity projection images were also obtained. COMPARISON STUDY: None. FINDINGS: Vascular shows mild left ischemic change. There is no evidence for aneurysm or dissection. Pulmonary arteriovascular tear enhances appropriately. There is a parenchymal infiltrate at the left base. There is mild generalized peribronchial thickening throughout both hemithoraces. Minimal infiltrate right base There is moderate generalized soft tissue wall thickening. There is a very small hiatal hernia. IMPRESSION: No evidence for pulmonary embolus. Parenchymal infiltrate left base. Moderate generalized peribronchial thickening. Minimal infiltrative change right base. Generalized esophageal wall thickening The above report was generated using voice recognition software. It may contain grammatical, syntax or spelling errors. Electronically signed by: Jorge Power M.D. 04/14/2017 10:11 AM Dictated Date/Time: 04/14/2017 10:06 AM
[2017-04-14] MEDS ORDERED: LEVAQUIN 750MG / 150ML D5W IV STA (10:34)
[2017-04-14] MEDS ORDERED: VANCOMYCIN INJ 2,000 MG in SODIUM CHLORIDE 0.9% 500ML 500 ML IV STA (10:37)
[2017-04-14] MEDS ORDERED: ACETAMINOPHEN 325 MG TAB PO PRN (11:45)
[2017-04-14] MEDS ORDERED: ONDANSETRON INJ 2 MG/ML 2 ML VIAL IV PRN (11:45)
--- NOTE | 2017-04-14 11:55 | History and Physical ---
History & Physical Date & Time of Service: Apr 14, 2017 at 11:52 Chief Complaint: Asthma,Chest Tightness Primary Care Physician: Aydin Sylvester D.OAlex History of Present Illness Source: patient Patient is a 62 yr male with PMH of Carotid artery stenosis, Asthma, Gout, HLP, CVA with no residual weakness and former smoking history who was discharged 3 days ago after undergoing right carotid endarterectomy presents with history of developing diffuse chest tightness, chills, palpitations, cough which started yesterday night. He states chest tightness resolved after he received nebulizer treatment in ED. Denies any radiation of chest pain, no relation to exertion, also denies nausea, vomiting, dizziness, diaphoresis and believes it is similar to his asthma attack that he had previously. He used inhaler at home which did not help. Also reports having fever and chills this morning which resolved after take 2 aspirin at home. Reports yellowish productive cough and SOB associated with intermittent wheezing. Denies leg swelling, orthopnea, headache , visual changes, abdominal pain, urinary symptoms, numbness, weakness, diarrhea. Reports having mild soreness of neck at surgical site. CT chest was negative for PE. He was found to be hypoxic at 76% on Room air in ED. Past Medical/Surgical History Medical Problems: (1) Carotid artery stenosis Status: Resolved (2) Dyslipidemia Status: Chronic (3) Ischemic stroke Status: Resolved Family History Heart disease Hypertension Not contributory Social History Smoking Status: Former Smoker Alcohol Use: none Drug Use: none Marital Status: single Housing status: lives alone Occupational Status: retired Immunizations History of Influenza Vaccine: Unknown Influenza Vaccine Date: Jun 30, 2013 History of Tetanus Vaccine?: Unknown History of Pneumococcal: Unknown History of Hepatitis B Vaccine: Unknown Multi-Drug Resistant Organisms History of MDRO: No Allergies Coded Allergies: Dust (Verified Allergy, Unknown, hay fever, 04/14/17) NO KNOWN DRUG ALLERGIES (Verified Allergy, Unknown, NKDA, 04/14/17) POLLEN (Verified Allergy, Unknown, HAY FEVER, 04/14/17) Home Medications Scheduled Aspirin (Aspirin Ec), 81 MG PO QAM Atorvastatin (Lipitor), 40 MG PO QAM Mometasone Furoate-Formoterol (Dulera 100/5 Mcg), 2 PUFFS INH BID Montelukast Sodium (Singulair), 10 MG PO QAM Sennosides-Docusate Sodium (Stool Softener), 1 TAB PO BID Scheduled PRN Albuterol Sulf (Proventil 0.083% 2.5MG/3ML), 2.5 MG INH QID PRN for SOB/Wheezing Albuterol Sulfate (Proair Respiclick), 2 PUFFS INH QID PRN for SOB/Wheezing Indomethacin (Indocin), 25 MG PO TID PRN for GOUT Review of Systems See HPI for pertinent positives & negatives. A total of 10 systems reviewed and were otherwise negative. Physical Exam Vital Signs Date Time Temp Pulse Resp B/P (MAP) Pulse Ox O2 Delivery O2 Flow Rate FiO2 04/14/17 10:32 96 20 174/99 98 Mask 8.0 04/14/17 09:44 97 Mask 8.0 04/14/17 09:29 95 04/14/17 09:13 78 20 159/131 97 Nebulizer 04/14/17 09:13 96 Mask 8.0 04/14/17 08:11 36.7 106 24 139/87 76 Room Air General Appearance: WD/WN, no apparent distress Head: normocephalic, atraumatic Eyes: normal inspection, PERRL, EOMI, sclerae normal ENT: normal ENT inspection, hearing grossly normal Neck: supple, trachea midline, + pertinent finding (Surgical gumaro on right side of neck in bandage) Respiratory/Chest: chest non-tender, lungs clear, no respiratory distress, no accessory muscle use, + decreased breath sounds Cardiovascular: regular rate, rhythm, no murmur, + pertinent finding (Trace leg edema) Abdomen/GI: normal bowel sounds, non tender, soft, + pertinent finding ( Protuberant) Back: normal inspection Extremities/Musculoskelatal: normal inspection, + pertinent finding (Trace pedal edema) Neurologic/Psych: communications associate II-XII nml as tested, no motor/sensory deficits, alert, normal mood/affect, oriented x 3 Skin: normal color, warm/dry Diagnostics Laboratory Results Results Past 24 Hours Test 04/14/17 08:30 04/14/17 08:41 04/14/17 11:34 Range/Units White Blood Count 8.64 4.8-10.8 K/uL Red Blood Count 4.04 4.7-6.1 M/uL Hemoglobin 12.1 14.0-18.0 g/dL Hematocrit 36.0 42-52 % Mean Corpuscular Volume 89.1 80-100 fL Mean Corpuscular Hemoglobin 30.0 25-34 pg Mean Corpuscular Hemoglobin Concent 33.6 32-36 g/dl Platelet Count 265 130-400 K/uL Mean Platelet Volume 8.4 7.4-10.4 fL Neutrophils (%) (Auto) 83.8 % Lymphocytes (%) (Auto) 7.3 % Monocytes (%) (Auto) 8.2 % Eosinophils (%) (Auto) 0.5 % Basophils (%) (Auto) 0.1 % Neutrophils # (Auto) 7.24 1.4-6.5 K/uL Lymphocytes # (Auto) 0.63 1.2-3.4 K/uL Monocytes # (Auto) 0.71 0.11-0.59 K/uL Eosinophils # (Auto) 0.04 0-0.5 K/uL Basophils # (Auto) 0.01 0-0.2 K/uL RDW Standard Deviation 45.0 36.4-46.3 fL RDW Coefficient of Variation 13.6 11.5-14.5 % Immature Granulocyte % (Auto) 0.1 % Immature Granulocyte # (Auto) 0.01 0.00-0.02 K/uL Prothrombin Time 10.7 9.0-12.0 SECONDS Prothromb Time International Ratio 1.0 0.9-1.1 Activated Partial Thromboplast Time 31.0 21.0-31.0 SECONDS Partial Thromboplastin Ratio 1.2 Sodium Level 135 136-145 mmol/L Potassium Level 4.0 3.5-5.1 mmol/L Chloride Level 99 98-107 mmol/L Carbon Dioxide Level 31 21-32 mmol/L Anion Gap 5.0 3-11 mmol/L Blood Urea Nitrogen 7 7-18 mg/dl Creatinine 0.65 0.60-1.40 mg/dl Est Creatinine Clear Calc Drug Dose 128.4 ml/min Estimated GFR () 119.2 Estimated GFR (Non- 102.8 BUN/Creatinine Ratio 10.2 10-20 Random Glucose 114 70-99 mg/dl Calcium Level 8.5 8.5-10.1 mg/dl Magnesium Level 1.8 1.8-2.4 mg/dl Total Bilirubin 0.6 0.2-1 mg/dl Direct Bilirubin 0.1 0-0.2 mg/dl Aspartate Amino Transf (AST/SGOT) 19 15-37 U/L Alanine Aminotransferase (ALT/SGPT) 22 12-78 U/L Alkaline Phosphatase 66 45-117 U/L Total Creatine Kinase 208 39-308 U/L Creatine Kinase MB 2.5 0.5-3.6 ng/ml Creatine Kinase MB Ratio 1.2 0-3.0 Troponin I 0.090 0-0.045 ng/ml Total Protein 7.0 6.4-8.2 gm/dl Albumin 3.3 3.4-5.0 gm/dl Lipase 63 73-393 U/L Thyroid Stimulating Hormone (TSH) 0.446 0.300-4.500 uIu/ml Bedside Lactic Acid Venous 0.75 0.90-1.70 mmol/L Microbiology Results 04/14/17 Blood Culture, Received Pending 04/14/17 Blood Culture, Received Pending Diagnostic Radiology CT chest: No evidence for pulmonary embolus. Parenchymal infiltrate left base. Moderate generalized peribronchial thickening. Minimal infiltrative change right base. Generalized esophageal wall thickening Impression Assessment and Plan Acute respiratory failure secondary to Asthma Exacerbation and Pneumonia (HCAP) Hypoxia Start on broad spectrum antibiotics: Vanco, Zosyn and Levaquin Obtain blood and sputum cultures Start IV solumedrol, Bronchodilators No signs of sepsis Oxygen support PRN Appreciate Pulmonary input Troponin elevation: Likely secondary to demand ischemia from hypoxia Currently denies chest pain VICTOR HUGO: no signs of ischemia Trend cardiac enzymes Carotid artery stenosis S/P R endarterectomy Continue wound care Pain control Continue ASA, statins Gout: No acute issues Stable HLP: Continue statins H/O CVA: Continue ASA, statins DVT Px: Lovenox SQ Disposition: Monitor in tele Advanced Directives Existing Living Will: No Existing Power of Industrial Waste Treatment Technician: No VTE Prophylaxis VTE Risk Assessment Done? Y/N: Yes Risk Level: Low
[2017-04-14] MEDS ORDERED: HYDROCODONE/ACETAMOPHEN 5/325MG TAB PO PRN (12:00)
[2017-04-14 13:08] LABS: ARTERIAL BLD GAS O2 SATURATION 96.7 % (90-95); ARTERIAL BLOOD GAS BASE EXCESS 3.2 mEq/L (-9-1.8); ARTERIAL BLOOD GAS HCO3 28 mmol/L (19-24); ARTERIAL BLOOD GAS PO2 88 mm/Hg (80-95); ARTERIAL BLOOD GAS pH 7.42 (7.35-7.45)
[2017-04-14 13:09] LABS: ALLEN TEST POS (POS); O2 ADMINISTRATION 9L
--- NOTE | 2017-04-14 13:54 | EMERGENCY ROOM VISIT NOTE ---
History Report prepared by Sage: Delfina Lobo Under the Supervision of: Dr. Fitz Magaña M.D. First contact with patient: 08:34 Chief Complaint: RESPIRATORY PROBLEMS Stated Complaint: ASTHMA,CHEST TIGHTNESS Nursing Triage Summary: c/o SOB and increased swelling of right side of neck since surgery by gabriela productive cough and fever History of Present Illness The patient is a 62 year old male who presents to the Emergency Room with complaints of worsening respiratory problems that started last night. The patient used an inhaler at home prior to coming into the ED and it offered him minimal relief of his symptoms. He is also experiencing chest tightness and palpitations. He states that it feels like his heart is "racing." The patient is also experiencing fevers and a productive cough. Pt denies LOC, headache, chills, diaphoresis, visual changes, neck pain in the back of his neck, chest pain, nausea, vomiting, abdominal pain, back pain, melena, hematochezia, urinary symptoms, numbness, weakness, lymphadenopathy, rash, or other complaints. The patient states that he experienced similar respiratory problems in the past with asthma. The patient had surgery on his right carotid by Dr. Childers - Thoracic Surgery 3 days ago. The patient states that the edema in his neck is unchanged since the procedure and he states that it is not worse. The patient has a history of pneumonia. The patient adds that he had a stroke 4 years ago. Source of History: patient Onset: last night Position: chest Quality: other (respiratory problems) Timing: worsening Associated Symptoms: + fevers, + cough (productive) Note: chest tightness, palpitations Review of Systems See HPI for pertinent positives and negatives. A total of ten systems were reviewed and were otherwise negative. Past Medical & Surgical Medical Problems: (1) Carotid artery stenosis (2) Dyslipidemia (3) Ischemic stroke (4) Pneumonia Family History Heart disease Hypertension Social History Smoking Status: Former Smoker Alcohol Use: none Drug Use: none Marital Status: single Housing Status: lives alone Occupation Status: retired Current/Historical Medications Scheduled Aspirin (Aspirin Ec), 81 MG PO QAM Atorvastatin (Lipitor), 40 MG PO QAM Mometasone Furoate-Formoterol (Dulera 100/5 Mcg), 2 PUFFS INH BID Montelukast Sodium (Singulair), 10 MG PO QAM Sennosides-Docusate Sodium (Stool Softener), 1 TAB PO BID Scheduled PRN Albuterol Sulf (Proventil 0.083% 2.5MG/3ML), 2.5 MG INH QID PRN for SOB/Wheezing Albuterol Sulfate (Proair Respiclick), 2 PUFFS INH QID PRN for SOB/Wheezing Indomethacin (Indocin), 25 MG PO TID PRN for GOUT Allergies Coded Allergies: Dust (Verified Allergy, Unknown, hay fever, 04/14/17) NO KNOWN DRUG ALLERGIES (Verified Allergy, Unknown, NKDA, 04/14/17) POLLEN (Verified Allergy, Unknown, HAY FEVER, 04/14/17) Physical Exam Vital Signs Date Time Temp Pulse Resp B/P (MAP) Pulse Ox O2 Delivery O2 Flow Rate FiO2 04/14/17 10:32 96 20 174/99 98 Mask 8.0 04/14/17 09:44 97 Mask 8.0 04/14/17 09:29 95 04/14/17 09:13 78 20 159/131 97 Nebulizer 04/14/17 09:13 96 Mask 8.0 04/14/17 08:11 36.7 106 24 139/87 76 Room Air Physical Exam GENERAL: Awake, alert, well-appearing, in no distress HENT: Normocephalic, atraumatic. Oropharynx unremarkable. EYES: Normal conjunctiva. Sclera non-icteric. NECK: Supple. Surgical gumaro in place over right neck with minimal swelling. No nuchal rigidity. FROM. No JVD. RESPIRATORY: Wheezes and rhonchi bilaterally. CARDIAC: Regular rate, normal rhythm. Extremities warm and well perfused. Pulses equal. ABDOMEN: Soft, non-distended. No tenderness to palpation. No rebound or guarding. No masses. RECTAL: Deferred. MUSCULOSKELETAL: Ecchymosis to anterior chest wall. Chest examination reveals no tenderness. The back is symmetrical on inspection without obvious abnormality. There is no CVA tenderness to palpation. No joint edema. LOWER EXTREMITIES: Calves are equal size bilaterally and non-tender. 1+ edema bilaterally. No discoloration. NEURO: Normal sensorium. No sensory or motor deficits noted. SKIN: No rash or jaundice noted. Medical Decision & Procedures ER Provider Diagnostic Interpretation: Radiology results as stated below per my review and radiologist interpretation: CHEST ONE VIEW PORTABLE FINDINGS: Improving atelectatic/infiltrative change left base. Lungs otherwise are clear. Diaphragms smooth. IMPRESSION: Improving atelectatic and/or infiltrative change left base. The above report was generated using voice recognition software. It may contain grammatical, syntax or spelling errors. Electronically signed by: Jorge Power M.D. 04/14/2017 8:58 AM Dictated Date/Time: 04/14/2017 8:57 AM (CHEST FOR PE) ANGIO WITH FINDINGS: Vascular shows mild left ischemic change. There is no evidence for aneurysm or dissection. Pulmonary arteriovascular tear enhances appropriately. There is a parenchymal infiltrate at the left base. There is mild generalized peribronchial thickening throughout both hemithoraces. Minimal infiltrate right base There is moderate generalized soft tissue wall thickening. There is a very small hiatal hernia. IMPRESSION: No evidence for pulmonary embolus. Parenchymal infiltrate left base. Moderate generalized peribronchial thickening. Minimal infiltrative change right base. Generalized esophageal wall thickening The above report was generated using voice recognition software. It may contain grammatical, syntax or spelling errors. Electronically signed by: Jorge Power M.D. 04/14/2017 10:11 AM Dictated Date/Time: 04/14/2017 10:06 AM Laboratory Results 04/14/17 08:30 Red Blood Count 4.04, Mean Corpuscular Volume 89.1, Mean Corpuscular Hemoglobin 30.0, Mean Corpuscular Hemoglobin Concent 33.6, Mean Platelet Volume 8.4, Neutrophils (%) (Auto) 83.8, Lymphocytes (%) (Auto) 7.3, Monocytes (%) (Auto) 8.2, Eosinophils (%) (Auto) 0.5, Basophils (%) (Auto) 0.1, Neutrophils # (Auto) 7.24, Lymphocytes # (Auto) 0.63, Monocytes # (Auto) 0.71, Eosinophils # (Auto) 0.04, Basophils # (Auto) 0.01 04/14/17 08:30 Test 04/14/17 08:30 04/14/17 08:41 White Blood Count 8.64 K/uL (4.8-10.8) Red Blood Count 4.04 M/uL (4.7-6.1) Hemoglobin 12.1 g/dL (14.0-18.0) Hematocrit 36.0 % (42-52) Mean Corpuscular Volume 89.1 fL (80-100) Mean Corpuscular Hemoglobin 30.0 pg (25-34) Mean Corpuscular Hemoglobin Concent 33.6 g/dl (32-36) Platelet Count 265 K/uL (130-400) Mean Platelet Volume 8.4 fL (7.4-10.4) Neutrophils (%) (Auto) 83.8 % Lymphocytes (%) (Auto) 7.3 % Monocytes (%) (Auto) 8.2 % Eosinophils (%) (Auto) 0.5 % Basophils (%) (Auto) 0.1 % Neutrophils # (Auto) 7.24 K/uL (1.4-6.5) Lymphocytes # (Auto) 0.63 K/uL (1.2-3.4) Monocytes # (Auto) 0.71 K/uL (0.11-0.59) Eosinophils # (Auto) 0.04 K/uL (0-0.5) Basophils # (Auto) 0.01 K/uL (0-0.2) RDW Standard Deviation 45.0 fL (36.4-46.3) RDW Coefficient of Variation 13.6 % (11.5-14.5) Immature Granulocyte % (Auto) 0.1 % Immature Granulocyte # (Auto) 0.01 K/uL (0.00-0.02) Prothrombin Time 10.7 SECONDS (9.0-12.0) Prothromb Time International Ratio 1.0 (0.9-1.1) Activated Partial Thromboplast Time 31.0 SECONDS (21.0-31.0) Partial Thromboplastin Ratio 1.2 Anion Gap 5.0 mmol/L (3-11) Est Creatinine Clear Calc Drug Dose 128.4 ml/min Estimated GFR () 119.2 Estimated GFR (Non- 102.8 BUN/Creatinine Ratio 10.2 (10-20) Calcium Level 8.5 mg/dl (8.5-10.1) Magnesium Level 1.8 mg/dl (1.8-2.4) Total Bilirubin 0.6 mg/dl (0.2-1) Direct Bilirubin 0.1 mg/dl (0-0.2) Aspartate Amino Transf (AST/SGOT) 19 U/L (15-37) Alanine Aminotransferase (ALT/SGPT) 22 U/L (12-78) Alkaline Phosphatase 66 U/L (45-117) Total Creatine Kinase 208 U/L (39-308) Creatine Kinase MB 2.5 ng/ml (0.5-3.6) Creatine Kinase MB Ratio 1.2 (0-3.0) Troponin I 0.090 ng/ml (0-0.045) Total Protein 7.0 gm/dl (6.4-8.2) Albumin 3.3 gm/dl (3.4-5.0) Lipase 63 U/L (73-393) Thyroid Stimulating Hormone (TSH) 0.446 uIu/ml (0.300-4.500) Bedside Lactic Acid Venous 0.75 mmol/L (0.90-1.70) Laboratory results reviewed by me Medications Administered Medications (Trade) Dose Ordered Sig/Linda Route Start Time Stop Time Status Last Admin Dose Admin Sodium Chloride 1,000 ml @ 999 mls/hr Q1H1M STAT IV 04/14/17 08:42 04/14/17 09:42 DC 04/14/17 09:11 999 MLS/HR Sodium Chloride 1,000 ml @ 125 mls/hr Q8H STAT IV 04/14/17 08:42 04/14/17 12:46 DC 04/14/17 09:13 125 MLS/HR Albuterol/ Ipratropium (Duoneb) 3 ml NOW STAT INH 04/14/17 08:42 04/14/17 08:44 DC 04/14/17 09:07 3 ML Methylprednisolone Sodium Succinate (Solu-Medrol IV) 125 mg NOW STAT IV 04/14/17 08:42 04/14/17 08:44 DC 04/14/17 09:08 125 MG Levofloxacin (Levaquin / D5W) 750 mg NOW STAT IV 04/14/17 10:34 04/14/17 10:37 DC 04/14/17 10:59 750 MG Vancomycin HCl 2000 mg/Sodium Chloride 540 ml @ 200 mls/hr ONE STAT IV 04/14/17 10:37 04/14/17 13:18 DC 04/14/17 10:59 200 MLS/HR ECG Indication: SOB/dyspnea Rate (beats per minute): 97 Rhythm: normal sinus Findings: no acute ischemic change, no ectopy ED Course 0839: The patient was evaluated in room A11. A complete history and physical exam was performed. 0842: Ordered Solu-Medrol 125 mg IV, DuoNeb 3 ml INH, Sodium Chloride 1000 ml @ 125 mls/hr IV, Sodium Chloride 1000 ml @ 999 mls/hr IV 0928: I reassessed the patient and updated his family. 1034: Ordered Levofloxacin 750 mg IV 1037: Ordered Vancomycin HCl 2000 mg/Sodium Chloride 540 ml @ 200 mls/hr IV 1040: Upon reexamination, the patient was resting comfortably. I discussed the test results and treatment plan with the patient and his family. The patient will be evaluated for further management. 1052: Discussed the patient's case with Dr. Doherty of the [facility]. The patient will be evaluated for further treatment and disposition. Medical Decision Medication Reconciliation: I attest that I have personally reviewed the patient' s current medication list Blood pressure screening: Patient was found to have an elevated blood pressure and was referred to their primary doctor for recheck and further treatment. Triage Nursing notes reviewed. The patient's presentation and history were concerning for hypoxia and respiratory difficulty. Etiologies such as pneumonia, COPD, reactive airway disease, CHF, cardiac ischemia, pulmonary embolism, pneumothorax, musculoskeletal, infections, gastrointestinal, as well as others were entertained. The patient was evaluated. He was given supplemental oxygen. A DuoNeb and Solu -Medrol were given. The patient felt better with this. Chest imaging seemed to show improvement of the infiltrative process. His CBC and chemistry panel are unremarkable. The patient had an elevated troponin. ECG was nonischemic. The patient underwent CT imaging of his chest to rule out pulmonary embolism. This did show bibasilar infiltrates. Because of his recent surgery the patient was started on IV Levaquin and vancomycin. He will need further evaluation and management in the hospital. The patient was reassessed. He was in agreement. I did discuss his case with his family who was present in the room. He states was made with internal medicine. The patient was evaluated in the Emergency Room for further management. Consults Time Called: 103 Consulting Physician: Dr. Bessy Pepper Returned Call: [phone] Discussed the patient's case with Dr. Doherty of the [facility] Service. The patient will be evaluated for further treatment and disposition. Impression Primary Impression: Pneumonia Additional Impressions: Hypoxia Elevated troponin Scribe Attestation The scribe's documentation has been prepared under my direction and personally reviewed by me in its entirety. I confirm that the note above accurately reflects all work, treatment, procedures, and medical decision making performed by me. Departure Information Dispostion Being Evaluated By Hospitalist Referrals Aydin Sylvester D.O. (PCP) Patient Instructions My [facility] Problem Qualifiers Primary Impression: Pneumonia Pneumonia type: due to unspecified organism Laterality: bilateral Lung location: lower lobe of lung Qualified Codes: J18.9 - Pneumonia, unspecified organism
[2017-04-14] MEDS ORDERED: ENOXAPARIN 40 MG/0.4 ML SYR SC SCH (14:00)
[2017-04-14 14:39] LABS: URINE APPEARANCE CLEAR (CLEAR); URINE BILIRUBIN NEG (NEG); URINE COLOR YELLOW; URINE EPITHELIAL CELL AUTO 0-5 /lpf (0-5); URINE NITRITE NEG (NEG); URINE SPECIFIC GRAVITY 1.037 (1.000-1.030); UROBILINOGEN NEG (NEG); ZZUR CULT IF INDIC CLEAN CATCH NO
[2017-04-14 14:41] LABS: MANUAL MICROSCOPIC REQUIRED? NO; REVIEW REQ? NO
[2017-04-14] MEDS: LEVALBUTEROL 0.31MG/3 ML VIAL INH SCH ×2 (15:00→19:20)
--- NOTE | 2017-04-14 15:44 | Pulmonary Consultation ---
History General Date of Service: Apr 14, 2017. Stated Complaint: Asthma,Pneumonia HPI The patient is a 62 year old male who presents to [facility] [address] with complaints of Asthma,Pneumonia. The patient's primary care provider is Aydin Sylvester D.O.. Mr. Sainz is a 62-year-old male who presented this morning with complaints of acute chest tightness, palpitations, productive cough with yellowish sputum and intermittent wheezing that started last evening. He states that he took his albuterol nebulizer without symptomatic relief. He also noted that he had a low-grade fever of 100F which resolved with Tylenol. He feels that his symptoms are similar to previous asthma exacerbations. He states that he tries to be compliant with his medication and takes Dulera twice a day, Singulair po daily and albuterol when necessary. He denies any chills, shortness of breath , chest pain dyspnea on exertion, lower extremity swelling or weakness. He denies any abdominal pain, nausea, vomiting, diarrhea or constipation. He denies any genitourinary symptoms. He is status post right carotid endarterectomy done on 04/11/2017 with a short stay in ICU. He notes in right- sided mild neck pain and swelling pos procedure. Upon his initial presentation , his vital signs were temperature 36.7, pulse of 106 bpm, respiratory rate of 24, blood pressure 139/87 and pulse ox of 76% on room air. 8 L facemask and pulse ox improved to 96%. Chest x-ray showed infiltrate at left lung base. CT A of chest was done to rule out PE and negative. It was consistent with left lower lobe consolidation and peribronchial thickening. In the ED he received Solu-Medrol 125 mg IV, DuoNeb 3 mg nebulizer, Levaquin 750 mg IV, vancomycin IV , 2 L normal saline. Labs reviewed. ABG of pH 7.42, PCO2 of 45, PCO2 of 88, bicarbonate 28, O2 saturation of 96% on 9 L. At the time of my evaluation patient states he feels much improved and chest tightness and shortness of breath have resolved. He is currently saturating 95 % on 4 L nasal cannula. Historian: patient Onset: other (yesterday evening) Severity: moderate Complaint Status: improved Quality of Pain: other (patient denies any pain) Review of Systems Constitutional: reports: fever Eyes: reports: no symptoms ENT: reports: no symptoms, denies: stridor Cardiovascular: reports: no symptoms Respiratory: reports: as stated in HPI, cough, shortness of breath, wheezing, sputum production, denies: stridor, cyanosis, WU, PND, hemoptysis Gastrointestinal: reports: no symptoms Genitourinary - Male: reports: no symptoms Musculoskeletal: reports: no symptoms Integumentary: reports: as stated in HPI Neurologic: reports: no symptoms Psychiatric: reports: no symptoms (U1 week) Hematologic / Lymphatic: no symptoms Allergic / Immunologic: environmental allergies Past Medical History Past Medical History: Past medical history is significant for CVA in 2013 status post TPA with no residual weakness, morbid obesity, hyperlipidemia and asthma Past Surgical History: Previous surgical sutures today his sutures in her left hand after laceration of hand from glass. Family History Heart disease Hypertension Family history significant for hypertension and heart disease in both parents. Social History Patient lives with his sister. 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 Patient states that he has had asthma since childhood and his primary triggers are stress, heat and humidity. He denies any recent exacerbation and has never been intubated for asthma. He has previous history of tobacco use. Denies alcohol or illicit drug use. Hx Tobacco Use In Past Year?: No Smoking Status: Former Smoker Marital status: single Housing status: lives alone Occupational Status: retired Immunizations History of Influenza Vaccine: Unknown Influenza Vaccine Date: Jun 30, 2013 History of Tetanus Vaccine?: Unknown History of Pneumococcal: Unknown History of Hepatitis B Vaccine: Unknown History of MDRO History of MDRO: No Allergies Coded Allergies: Dust (Verified Allergy, Unknown, hay fever, 04/14/17) NO KNOWN DRUG ALLERGIES (Verified Allergy, Unknown, NKDA, 04/14/17) POLLEN (Verified Allergy, Unknown, HAY FEVER, 04/14/17) Current Medications Reported Home Medications Medications Dose Route/Sig Max Daily Dose Days Date Category Proair Respiclick (Albuterol Sulfate) 108 Mcg/Act Aer 2 Puffs INH QID PRN 04/14/17 Reported Indocin (Indomethacin) 25 Mg Cap 25 Mg PO TID PRN 04/04/17 Reported Dulera 100/5 Mcg (Mometasone Furoate-Formoterol) 1 Aer Aer 2 Puffs INH BID 30 04/04/17 Reported Aspirin Ec (Aspirin) 81 Mg Tab 81 Mg PO QAM 04/04/17 Reported Proventil 0.083% 2.5MG/3ML (Albuterol Sulf) 2.5 Mg/3 Ml Nebu 2.5 Mg INH QID PRN 04/04/17 Reported Stool Softener (Sennosides-Docusate Sodium) 1 Tab Tab 1 Tab PO BID 08/11/13 Reported Lipitor (Atorvastatin Calcium) 40 Mg Tab 40 Mg PO QAM 07/12/13 Reported Singulair (Montelukast Sodium) 10 Mg Tab 10 Mg PO QAM 03/21/13 Reported Physical Physical Exam Vital Signs: Date Time Temp Pulse Resp B/P (MAP) Pulse Ox O2 Delivery O2 Flow Rate FiO2 04/14/17 15:34 88 20 Nasal Cannula 2.0 04/14/17 12:30 37.0 80 20 145/87 (106) 99 Oxymask 8.0 04/14/17 12:30 Oxymask 8.0 04/14/17 12:14 82 20 134/90 99 04/14/17 11:56 82 20 134/90 99 Mask 8.0 04/14/17 11:46 111 04/14/17 10:32 96 20 174/99 98 Mask 8.0 04/14/17 09:44 97 Mask 8.0 04/14/17 09:29 95 04/14/17 09:13 78 20 159/131 97 Nebulizer 04/14/17 09:13 96 Mask 8.0 04/14/17 08:11 36.7 106 24 139/87 76 Room Air GENERAL: Awake, alert, well-appearing, in no distress HENT: Normocephalic, atraumatic. Oropharynx unremarkable. EYES: Normal conjunctiva. Sclera non-icteric. NECK: Supple. Right neck mildly edematous with sutures in place. Tender at incision site. No JVD, no nuchal rigidity. PULMONARY: No acute respiratory distress. Speaking in full sentences. Good air entry, no wheezing, sporadic rhonchi. There is no chest tenderness. CARDIAC: Regular rate, normal rhythm. Extremities warm and well perfused. Pulses equal. ABDOMEN: Soft, non-distended. No tenderness to palpation. No rebound or guarding. No masses. MUSCULOSKELETAL: Ecchymosis to anterior chest wall. Chest examination reveals no tenderness. The back is symmetrical on inspection without obvious abnormality. There is no CVA tenderness to palpation. No joint edema. LOWER EXTREMITIES: Trace edema bilaterally, no cyanosis, no clubbing bilaterally. Some excoriations noted on bilateral anterior shins. NEURO: Normal sensorium. No sensory or motor deficits noted. Mild speech impediment. SKIN: No rash or jaundice noted. Diagnostics Labs Results Past 24 Hours Test 04/14/17 08:30 04/14/17 08:41 04/14/17 12:48 04/14/17 14:15 Range/Units White Blood Count 8.64 4.8-10.8 K/uL Red Blood Count 4.04 4.7-6.1 M/uL Hemoglobin 12.1 14.0-18.0 g/dL Hematocrit 36.0 42-52 % Mean Corpuscular Volume 89.1 80-100 fL Mean Corpuscular Hemoglobin 30.0 25-34 pg Mean Corpuscular Hemoglobin Concent 33.6 32-36 g/dl Platelet Count 265 130-400 K/uL Mean Platelet Volume 8.4 7.4-10.4 fL Neutrophils (%) (Auto) 83.8 % Lymphocytes (%) (Auto) 7.3 % Monocytes (%) (Auto) 8.2 % Eosinophils (%) (Auto) 0.5 % Basophils (%) (Auto) 0.1 % Neutrophils # (Auto) 7.24 1.4-6.5 K/uL Lymphocytes # (Auto) 0.63 1.2-3.4 K/uL Monocytes # (Auto) 0.71 0.11-0.59 K/uL Eosinophils # (Auto) 0.04 0-0.5 K/uL Basophils # (Auto) 0.01 0-0.2 K/uL RDW Standard Deviation 45.0 36.4-46.3 fL RDW Coefficient of Variation 13.6 11.5-14.5 % Immature Granulocyte % (Auto) 0.1 % Immature Granulocyte # (Auto) 0.01 0.00-0.02 K/uL Prothrombin Time 10.7 9.0-12.0 SECONDS Prothromb Time International Ratio 1.0 0.9-1.1 Activated Partial Thromboplast Time 31.0 21.0-31.0 SECONDS Partial Thromboplastin Ratio 1.2 Sodium Level 135 136-145 mmol/L Potassium Level 4.0 3.5-5.1 mmol/L Chloride Level 99 98-107 mmol/L Carbon Dioxide Level 31 21-32 mmol/L Anion Gap 5.0 3-11 mmol/L Blood Urea Nitrogen 7 7-18 mg/dl Creatinine 0.65 0.60-1.40 mg/dl Est Creatinine Clear Calc Drug Dose 128.4 ml/min Estimated GFR () 119.2 Estimated GFR (Non- 102.8 BUN/Creatinine Ratio 10.2 10-20 Random Glucose 114 70-99 mg/dl Calcium Level 8.5 8.5-10.1 mg/dl Magnesium Level 1.8 1.8-2.4 mg/dl Total Bilirubin 0.6 0.2-1 mg/dl Direct Bilirubin 0.1 0-0.2 mg/dl Aspartate Amino Transf (AST/SGOT) 19 15-37 U/L Alanine Aminotransferase (ALT/SGPT) 22 12-78 U/L Alkaline Phosphatase 66 45-117 U/L Total Creatine Kinase 208 39-308 U/L Creatine Kinase MB 2.5 0.5-3.6 ng/ml Creatine Kinase MB Ratio 1.2 0-3.0 Troponin I 0.090 0-0.045 ng/ml Total Protein 7.0 6.4-8.2 gm/dl Albumin 3.3 3.4-5.0 gm/dl Lipase 63 73-393 U/L Thyroid Stimulating Hormone (TSH) 0.446 0.300-4.500 uIu/ml Bedside Lactic Acid Venous 0.75 0.90-1.70 mmol/L Arterial Blood pH 7.42 7.35-7.45 Arterial Blood Partial Pressure CO2 45 35-46 mmHg Arterial Blood Partial Pressure O2 88 80-95 mm/Hg Arterial Blood HCO3 28 19-24 mmol/L Arterial Blood Oxygen Saturation 96.7 90-95 % Arterial Blood Base Excess 3.2 -9-1.8 mEq/L Arterial Blood Gas Delivery 9L Collins Test POS POS Urine Color YELLOW Urine Appearance CLEAR CLEAR Urine pH 6.0 4.5-7.5 Urine Specific [place] 1.037 1.000-1.030 Urine Protein 1+ NEG Urine Glucose (UA) NEG NEG Urine Ketones 1+ NEG Urine Occult Blood NEG NEG Urine Nitrite NEG NEG Urine Bilirubin NEG NEG Urine Urobilinogen NEG NEG Urine Leukocyte Esterase NEG NEG Urine WBC (Auto) 0 0-5 /hpf Urine RBC (Auto) 0-4 0-4 /hpf Urine Hyaline Casts (Auto) 0 0-5 /lpf Urine Epithelial Cells (Auto) 0-5 0-5 /lpf Urine Bacteria (Auto) NEG NEG Test 04/14/17 14:22 Range/Units Creatine Kinase MB 2.1 0.5-3.6 ng/ml Creatine Kinase MB Ratio 0-3.0 Troponin I 0.080 0-0.045 ng/ml Microbiology Results 04/14/17 Blood Culture, Received Pending 04/14/17 Blood Culture, Received Pending Diagnostic Radiology Chest x-ray FINDINGS: Improving atelectatic/infiltrative change left base. Lungs otherwise are clear. Diaphragms smooth. IMPRESSION: Improving atelectatic and/or infiltrative change left base. CTA chest FINDINGS: Vascular shows mild left ischemic change. There is no evidence for aneurysm or dissection. Pulmonary arteriovascular tear enhances appropriately. There is a parenchymal infiltrate at the left base. There is mild generalized peribronchial thickening throughout both hemithoraces. Minimal infiltrate right base. There is moderate generalized soft tissue wall thickening. There is a very small hiatal hernia. IMPRESSION: No evidence for pulmonary embolus. Parenchymal infiltrate left base. Moderate generalized peribronchial thickening. Minimal infiltrative change right base. Generalized esophageal wall thickening Impression Assessment and Plan Hypoxia Asthma exacerbation Pneumonia Mr. Sainz appears to have an episode of acute respiratory distress suggestive of an exacerbation of asthma secondary to pneumonia. In light of patient's recent hospitalization I would treat this as a hospital acquired pneumonia to cover for MRSA as well as pseudomonas. I will obtain sputum cultures and Gram stain at this time. His symptoms have improved greatly after receiving Solu-Medrol and nebulizer treatments. He can continue with his home medications of Dulera twice a day as well as Singulair. There appears to be some radiological features of bronchiectasis on CT imaging. This may be chronic due to multiple episodes of pneumonia. He is a With his history of previous stroke and coughing while eating I feel that he may have some aspiration. He should have a barium swallow to rule this out. Continue with supplemental oxygenation to keep his SaO2 between 88-92%. The patient should have worsening respiratory distress at trial of BiPAP is warranted. I appreciate the consult. Please call me if you have any further questions or concerns.
[2017-04-14] MEDS ORDERED: PIPERACILL/TAZOBAC IV 4.5 GM in DEXTROSE 5% 100ML 100 ML IV ONE (16:40)
[2017-04-14] MEDS ORDERED: VANCOMYCIN CONSULT ACTIVE PRN (16:42)
[2017-04-14] MEDS: VANCOMYCIN INJ 1,450 MG in SODIUM CHLORIDE 0.9% 500ML 500 ML IV SCH (17:45)
[2017-04-14] MEDS: METHYLPREDNISOLONE IV 40 MG in SYRINGE 0 ML IV SCH (20:10)
[2017-04-14] MEDS: DOCUSATE SODIUM/SENNA 50/8.6MG TAB PO SCH (20:10)
[2017-04-14] MEDS ORDERED: PIPERACILL/TAZOBAC CONSULT ACTIVE PRN (20:30)
[2017-04-14] MEDS: PIPERACILL/TAZOBAC IV 4.5 GM in DEXTROSE 5% 100ML IV SCH (21:23)
--- NOTE | 2017-04-14 21:25 | Pharmacy Progress Note ---
Pharmacy Abx Initial Consult Date of Service Apr 14, 2017. Pharmacy Dosing Scope Date of Consult: 04/14/17 Consultation requested by: Dr. Doherty Pharmacy is consulted to initiate Vancomycin and Zosyn IV dosing therapy, order appropriate labs and adjust drug dose/frequency. Subjective The patient is a 62 year old male admitted on Apr 14, 2017 at 11:40. Objective Height (Feet): 5 Height (Inches): 6.00 Weight (Kilograms): 102.000 Vital Signs (Past 12Hrs) Vital Signs Past 12 Hours Date Time Temp Pulse Resp B/P (MAP) Pulse Ox O2 Delivery O2 Flow Rate FiO2 04/14/17 19:25 36.3 70 22 135/90 (105) 98 Room Air 04/14/17 19:20 87 20 97 Nasal Cannula 4.0 04/14/17 16:00 Nasal Cannula 4.0 04/14/17 15:34 88 20 Nasal Cannula 2.0 04/14/17 15:15 37.0 80 20 122/78 (93) 93 Nasal Cannula 5.0 04/14/17 12:30 37.0 80 20 145/87 (106) 99 Oxymask 8.0 04/14/17 12:30 Oxymask 8.0 04/14/17 12:14 82 20 134/90 99 04/14/17 11:56 82 20 134/90 99 Mask 8.0 04/14/17 11:46 111 04/14/17 10:32 96 20 174/99 98 Mask 8.0 04/14/17 09:44 97 Mask 8.0 04/14/17 09:29 95 04/14/17 09:13 78 20 159/131 97 Nebulizer 04/14/17 09:13 96 Mask 8.0 Lab Results (24Hrs) Laboratory Tests (24 Hours) Test 04/14/17 08:30 White Blood Count 8.64 K/uL (4.8-10.8) Red Blood Count 4.04 M/uL (4.7-6.1) L Hemoglobin 12.1 g/dL (14.0-18.0) L Hematocrit 36.0 % (42-52) L Mean Corpuscular Volume 89.1 fL (80-100) Mean Corpuscular Hemoglobin 30.0 pg (25-34) Mean Corpuscular Hemoglobin Concent 33.6 g/dl (32-36) Platelet Count 265 K/uL (130-400) Mean Platelet Volume 8.4 fL (7.4-10.4) Neutrophils (%) (Auto) 83.8 % Lymphocytes (%) (Auto) 7.3 % Monocytes (%) (Auto) 8.2 % Eosinophils (%) (Auto) 0.5 % Basophils (%) (Auto) 0.1 % Neutrophils # (Auto) 7.24 K/uL (1.4-6.5) H Lymphocytes # (Auto) 0.63 K/uL (1.2-3.4) L Monocytes # (Auto) 0.71 K/uL (0.11-0.59) H Eosinophils # (Auto) 0.04 K/uL (0-0.5) Basophils # (Auto) 0.01 K/uL (0-0.2) Total Creatine Kinase 208 U/L (39-308) Micro Results Date/Time Source Procedure Growth Status 04/14/17 08:30 Blood Blood Culture Pending Received 04/14/17 08:25 Blood Blood Culture Pending Received 04/14/17 16:30 Nasal MRSA DNA Surveillance Screen - Final Specimen Negative for MRSA by DNA Probe Complete 04/14/17 17:04 Sputum Expectorated Sputum Gram Stain Pending Received 04/14/17 17:04 Sputum Expectorated Sputum Sputum Culture Pending Received Risk Factors for Resistance * Resident in a [facility] or extended-care facility * Hospitalization for 48 hours or more within the past 90 days * Current hospitalization > 5 days * Chronic dialysis within the past 30 days * Immunocompromised (chronic steroid therapy, chemotherapy, immunomodulators) * History of infection with a multidrug-resistant organism: [organism] [site of infection] [date] * Antimicrobial use within the last 90 days [include specific drugs, if known] Assessment & Plan Assessment 62 year old male on empiric IV Vancomycin, Zosyn, and Levaquin (not a consult) for HCAP. Renal function appears to be at baseline. Most recent sCr = 0.65 mg/ dL with estimated CrCl >100 mL/min. Estimated pharmacokinetic parameters: * Ke ~0.104/hr, T1/2 ~6.7 hrs * Patient's BMI is 36.3 kg/m2; patient is at risk for drug accumulation, therefore will need to be cautious with dosing. Plan Vancomycin IV * Loading dose: 2000 mg (~20 mg/kg) * Maintenance dose: 1450 mg IV (~14 mg/kg) every 10 hours * Goal trough level for pneumonia : 15 to 20 mcg/mL * Trough level ordered for 04/16 @ 0930 (5th dose and therefore should be reflective of steady state) * A less than traditional dose and/or extended dosing interval has/have been selected due to likelihood of drug accumulation in obese patient Piperacillin/tazobactam * 4.5 g bolus administered over 30 minutes, then 4.5 g IV extended infusion every 8 hours for CrCl greater than 20 mL/min * Aggressive dosing selected due to critically ill status/BMI 35 or more/ history of cystic fibrosis. Pharmacy will continue to follow and will adjust dose/frequency as necessary. Thank you.
[2017-04-15] VITALS (13 sets, daily range): BP systolic 109–140; BP diastolic 65–85; PULSE 58–87; TEMP 36.7–37.2; O2SAT 93–100
[2017-04-15] MEDS: LEVALBUTEROL 0.31MG/3 ML VIAL INH SCH ×4 (02:04→19:13)
--- NOTE | 2017-04-15 03:53 | Surgery Consultation ---
Consultation Date of Consultation: Apr 15, 2017. Attending Physician: Panchito Doherty MD History of Present Illness Patient is a 62 yr male with PMH of Carotid artery stenosis, Asthma, Gout, HLP, CVA with no residual weakness and former smoking history who was discharged 3 days ago after undergoing right carotid endarterectomy presents with history of developing diffuse chest tightness, chills, palpitations, cough which started yesterday night. He states chest tightness resolved after he received nebulizer treatment in ED. Denies any radiation of chest pain, no relation to exertion, also denies nausea, vomiting, dizziness, diaphoresis and believes it is similar to his asthma attack that he had previously. He used inhaler at home which did not help. Also reports having fever and chills this morning which resolved after take 2 aspirin at home. Reports yellowish productive cough and SOB associated with intermittent wheezing. Denies leg swelling, orthopnea, headache , visual changes, abdominal pain, urinary symptoms, numbness, weakness, diarrhea. Reports having mild soreness of neck at surgical site. CT chest was negative for PE. He was found to be hypoxic at 76% on Room air in ED. patient had RCEA last week, with complicated incision bleeding, I got a call to check pt's incision, the right neck incision is intact, some swelling. pt denies fever, no drainage from right neck incision, Past Medical/Surgical History Medical Problems: (1) Elevated troponin Status: Acute (2) Hypoxia Status: Acute Family History Heart disease Hypertension Social History Smoking Status: Former Smoker Smokeless Tobacco Use: Unknown Alcohol Use: none Drug Use: none Marital Status: single Housing Status: lives alone Occupation Status: retired Allergies Coded Allergies: Dust (Verified Allergy, Unknown, hay fever, 04/14/17) NO KNOWN DRUG ALLERGIES (Verified Allergy, Unknown, NKDA, 04/14/17) POLLEN (Verified Allergy, Unknown, HAY FEVER, 04/14/17) Home Medications Scheduled Aspirin (Aspirin Ec), 81 MG PO QAM Atorvastatin (Lipitor), 40 MG PO QAM Mometasone Furoate-Formoterol (Dulera 100/5 Mcg), 2 PUFFS INH BID Montelukast Sodium (Singulair), 10 MG PO QAM Sennosides-Docusate Sodium (Stool Softener), 1 TAB PO BID Scheduled PRN Albuterol Sulf (Proventil 0.083% 2.5MG/3ML), 2.5 MG INH QID PRN for SOB/Wheezing Albuterol Sulfate (Proair Respiclick), 2 PUFFS INH QID PRN for SOB/Wheezing Indomethacin (Indocin), 25 MG PO TID PRN for GOUT Current Inpatient Medications Current Inpatient Medications Medications (Trade) Dose Ordered Sig/Linda Route Start Time Stop Time Status Last Admin Dose Admin Ioversol (Optiray 320) 111 ml UD PRN IV 04/14/17 09:45 04/18/17 09:44 Enoxaparin Sodium (Lovenox Inj) 40 mg Q24H SC 04/14/17 14:00 05/14/17 13:59 Future Hold 04/14/17 13:30 40 MG Acetaminophen (Tylenol Tab) 650 mg Q4H PRN PO 04/14/17 11:45 05/14/17 11:44 Ondansetron HCl (Zofran Inj) 4 mg Q6H PRN IV 04/14/17 11:45 05/14/17 11:44 Levofloxacin 750 mg/Prmx 150 ml @ 100 mls/hr Q24H IV 04/15/17 10:00 04/20/17 11:29 Methylprednisolone Sodium Succinate 40 mg/Syringe 0.64 ml @ 1.5 mls/min Q12H IV 04/14/17 21:00 05/14/17 20:59 04/14/17 20:10 1.5 MLS/MIN Levalbuterol (Xopenex 0.31MG/ 3ML Neb) 0.31 mg Q6R INH 04/14/17 15:00 05/14/17 14:59 04/14/17 19:20 0.31 MG Aspirin (Ecotrin Tab) 81 mg QAM PO 04/15/17 09:00 05/15/17 08:59 Atorvastatin Calcium (Lipitor Tab) 40 mg QAM PO 04/15/17 09:00 05/15/17 08:59 Montelukast Sodium (Singulair Tab) 10 mg QAM PO 04/15/17 09:00 05/15/17 08:59 Senna/Docusate Sodium (Senokot S Tab) 1 tab BID PO 04/14/17 21:00 8/15/17 20:59 04/14/17 20:10 1 TAB Miscellaneous Information (Order Awaiting Action) 1 ea QS N/A 04/14/17 16:00 05/14/17 15:59 Acetaminophen/ Hydrocodone Bitart ([place] 5/325 Tab) 1 tab Q6H PRN PO 04/14/17 12:00 04/28/17 11:59 Vancomycin HCl 1450 mg/Sodium Chloride 529 ml @ 200 mls/hr Q10H IV 04/14/17 18:00 04/21/17 17:59 04/14/17 17:45 200 MLS/HR Vancomycin HCl (Consult) 1 ea UD PRN N/A 04/14/17 16:42 05/14/17 16:41 Piperacillin Sod/ Tazobactam Sod 4.5 gm/Dextrose 120 ml @ 30 mls/hr Q8H IV 04/14/17 22:00 04/21/17 21:59 04/14/17 21:23 30 MLS/HR Piperacillin Sod/ Tazobactam Sod (Consult) 1 ea UD PRN N/A 04/14/17 20:30 05/14/17 20:29 Review of Systems Constitutional: No fever, No chills, No sweats, No weight loss, No weakness, No fatigue, No problem reported Eyes: No worsening of vision, No eye pain, No redness, No discharge, No diplopia, No problem reported ENT: No hearing loss, No unusual epistaxis, No nasal symptoms, No sore throat, No tinnitus, No dental problems, No trouble swallowing, No problem reported Respiratory: + cough, + sputum, + wheezing, + shortness of breath Cardiovascular: + problem reported (cardiac surgery history, ), No chest pain, No orthopnea, No PND, No edema, No claudication, No palpitations Abdomen: No pain, No nausea, No vomiting, No diarrhea, No constipation, No GI bleeding, No problem reported Musculoskeletal: No joint pain, No muscle pain, No swelling, No calf pain, No problem reported Neurologic: No memory loss, No paralysis, No weakness, No numbness/tingling, No vertigo, No balance problems, No problem reported Psychiatric: No depression symptoms, No anhedonism, No anxiety, No insomnia, No substance abuse, No problem reported Endocrine: No fatigue, No excessive thirst, No excessive urination, No problem reported Hematologic / Lymphatic: No abnormal bleeding/bruising, No clotting problems, No swollen lymph nodes, No night sweats, No problem reported Physical Exam Date Time Temp Pulse Resp B/P (MAP) Pulse Ox O2 Delivery O2 Flow Rate FiO2 04/15/17 00:00 98 Oxymask 4.0 04/14/17 23:25 36.5 65 14 123/66 (85) 95 Oxymask 4.0 04/14/17 20:00 96 Nasal Cannula 3.0 04/14/17 19:25 36.3 70 22 135/90 (105) 98 Room Air 04/14/17 19:20 87 20 97 Nasal Cannula 4.0 04/14/17 16:00 Nasal Cannula 4.0 04/14/17 15:34 88 20 Nasal Cannula 2.0 04/14/17 15:15 37.0 80 20 122/78 (93) 93 Nasal Cannula 5.0 04/14/17 12:30 37.0 80 20 145/87 (106) 99 Oxymask 8.0 04/14/17 12:30 Oxymask 8.0 04/14/17 12:14 82 20 134/90 99 04/14/17 11:56 82 20 134/90 99 Mask 8.0 04/14/17 11:46 111 04/14/17 10:32 96 20 174/99 98 Mask 8.0 04/14/17 09:44 97 Mask 8.0 04/14/17 09:29 95 04/14/17 09:13 78 20 159/131 97 Nebulizer 04/14/17 09:13 96 Mask 8.0 04/14/17 08:11 36.7 106 24 139/87 76 Room Air General Appearance: WD/WN, no apparent distress Head: normocephalic Eyes: normal inspection ENT: normal ENT inspection Neck: supple, no adenopathy, no JVD (the right neck incision is intact, some swelling, no redness, slightly tenderness, no drainage from incision , ) Respiratory/Chest: chest non-tender, lungs clear Cardiovascular: regular rate, rhythm, no edema, no gallop Abdomen/GI: normal bowel sounds, non tender, soft Extremities/Musculoskelatal: normal inspection, no calf tenderness Neurologic/Psych: alert, normal mood/affect Laboratory Results Last 24 Hours Test 04/14/17 08:30 04/14/17 08:41 04/14/17 12:48 04/14/17 14:15 White Blood Count 8.64 K/uL Red Blood Count 4.04 M/uL Hemoglobin 12.1 g/dL Hematocrit 36.0 % Mean Corpuscular Volume 89.1 fL Mean Corpuscular Hemoglobin 30.0 pg Mean Corpuscular Hemoglobin Concent 33.6 g/dl Platelet Count 265 K/uL Mean Platelet Volume 8.4 fL Neutrophils (%) (Auto) 83.8 % Lymphocytes (%) (Auto) 7.3 % Monocytes (%) (Auto) 8.2 % Eosinophils (%) (Auto) 0.5 % Basophils (%) (Auto) 0.1 % Neutrophils # (Auto) 7.24 K/uL Lymphocytes # (Auto) 0.63 K/uL Monocytes # (Auto) 0.71 K/uL Eosinophils # (Auto) 0.04 K/uL Basophils # (Auto) 0.01 K/uL RDW Standard Deviation 45.0 fL RDW Coefficient of Variation 13.6 % Immature Granulocyte % (Auto) 0.1 % Immature Granulocyte # (Auto) 0.01 K/uL Prothrombin Time 10.7 SECONDS Prothromb Time International Ratio 1.0 Activated Partial Thromboplast Time 31.0 SECONDS Partial Thromboplastin Ratio 1.2 Sodium Level 135 mmol/L Potassium Level 4.0 mmol/L Chloride Level 99 mmol/L Carbon Dioxide Level 31 mmol/L Anion Gap 5.0 mmol/L Blood Urea Nitrogen 7 mg/dl Creatinine 0.65 mg/dl Est Creatinine Clear Calc Drug Dose 128.4 ml/min Estimated GFR () 119.2 Estimated GFR (Non- 102.8 BUN/Creatinine Ratio 10.2 Random Glucose 114 mg/dl Calcium Level 8.5 mg/dl Magnesium Level 1.8 mg/dl Total Bilirubin 0.6 mg/dl Direct Bilirubin 0.1 mg/dl Aspartate Amino Transf (AST/SGOT) 19 U/L Alanine Aminotransferase (ALT/SGPT) 22 U/L Alkaline Phosphatase 66 U/L Total Creatine Kinase 208 U/L Creatine Kinase MB 2.5 ng/ml Creatine Kinase MB Ratio 1.2 Troponin I 0.090 ng/ml Total Protein 7.0 gm/dl Albumin 3.3 gm/dl Lipase 63 U/L Thyroid Stimulating Hormone (TSH) 0.446 uIu/ml Bedside Lactic Acid Venous 0.75 mmol/L Arterial Blood pH 7.42 Arterial Blood Partial Pressure CO2 45 mmHg Arterial Blood Partial Pressure O2 88 mm/Hg Arterial Blood HCO3 28 mmol/L Arterial Blood Oxygen Saturation 96.7 % Arterial Blood Base Excess 3.2 mEq/L Arterial Blood Gas Delivery 9L Collins Test POS Urine Color YELLOW Urine Appearance CLEAR Urine pH 6.0 Urine Specific [place] 1.037 Urine Protein 1+ Urine Glucose (UA) NEG Urine Ketones 1+ Urine Occult Blood NEG Urine Nitrite NEG Urine Bilirubin NEG Urine Urobilinogen NEG Urine Leukocyte Esterase NEG Urine WBC (Auto) 0 /hpf Urine RBC (Auto) 0-4 /hpf Urine Hyaline Casts (Auto) 0 /lpf Urine Epithelial Cells (Auto) 0-5 /lpf Urine Bacteria (Auto) NEG Test 04/14/17 14:22 04/14/17 20:15 Creatine Kinase MB 2.1 ng/ml 2.0 ng/ml Creatine Kinase MB Ratio Troponin I 0.080 ng/ml 0.065 ng/ml Assessment & Plan S/P RCEA the right neck incision is intact, no redness, no infection signs, no indication of surgery now pt will F/U his surgeon sign off today please call me if pt's incision condition is changed, Thanks.
[2017-04-15] MEDS: VANCOMYCIN INJ 1,450 MG in SODIUM CHLORIDE 0.9% 500ML 500 ML IV SCH ×2 (04:37→14:13)
[2017-04-15 06:34] LABS: COMPLETE YES; HEMATOCRIT 33.5 % (42-52); IG% 0.2 %; LYMPH ABS # 0.42 K/uL (1.2-3.4); MEAN CELL VOLUME 88.2 fL (80-100); MEAN CORPUSCULAR HEMOGLOBIN 29.7 pg (25-34); MEAN CORPUSCULAR HGB CONC 33.7 g/dl (32-36); MEAN PLATELET VOLUME 8.6 fL (7.4-10.4); MONO % 4.2 %; NEUT % 91.6 %; PLATELET COUNT 270 K/uL (130-400); WHITE BLOOD COUNT 10.39 K/uL (4.8-10.8)
--- NOTE | 2017-04-15 06:52 | Surgery Progress Note ---
Surgery Progress Note Date of Service Apr 15, 2017. Subjective Post OP Day: 4 + feeling well as per Dr Winslow's note readmitted yesterday with SOB pt well known to me 04/11/17 had rce with take back to evacuate hematoma(pt had persistent cough post car end that may have contributed to hematoma formation since no suture line bleed appeared to be venous in nature( no active bleeder found) was d/c next day 04/12 no further coughing and room ox 94% readmitted 04/14/17 neurologically intact wants more to eat Objective Vital Signs: Date Time Temp Pulse Resp B/P (MAP) Pulse Ox O2 Delivery O2 Flow Rate FiO2 04/15/17 04:00 100 Oxymask 4.0 04/15/17 03:38 37.2 58 24 140/65 (90) 98 04/15/17 00:00 98 Oxymask 4.0 04/14/17 23:25 36.5 65 14 123/66 (85) 95 Oxymask 4.0 04/14/17 20:00 96 Nasal Cannula 3.0 04/14/17 19:25 36.3 70 22 135/90 (105) 98 Room Air 04/14/17 19:20 87 20 97 Nasal Cannula 4.0 04/14/17 16:00 Nasal Cannula 4.0 04/14/17 15:34 88 20 Nasal Cannula 2.0 04/14/17 15:15 37.0 80 20 122/78 (93) 93 Nasal Cannula 5.0 04/14/17 12:30 37.0 80 20 145/87 (106) 99 Oxymask 8.0 04/14/17 12:30 Oxymask 8.0 04/14/17 12:14 82 20 134/90 99 04/14/17 11:56 82 20 134/90 99 Mask 8.0 04/14/17 11:46 111 04/14/17 10:32 96 20 174/99 98 Mask 8.0 04/14/17 09:44 97 Mask 8.0 04/14/17 09:29 95 04/14/17 09:13 78 20 159/131 97 Nebulizer 04/14/17 09:13 96 Mask 8.0 04/14/17 08:11 36.7 106 24 139/87 76 Room Air General Appearance: WD/WN, no apparent distress Head: + pertinent finding (good strong right sup temp pulse) Neck: + pertinent finding (result of hematoma unchanged some expected ecchymosis ant chest drain site without drainage) Incision(s): findings (intact no cellulitis or drainage healing well) Laboratory Results: Results Past 24 Hours Test 04/14/17 08:30 04/14/17 08:41 04/14/17 12:48 04/14/17 14:15 Range/Units White Blood Count 8.64 4.8-10.8 K/uL Red Blood Count 4.04 4.7-6.1 M/uL Hemoglobin 12.1 14.0-18.0 g/dL Hematocrit 36.0 42-52 % Mean Corpuscular Volume 89.1 80-100 fL Mean Corpuscular Hemoglobin 30.0 25-34 pg Mean Corpuscular Hemoglobin Concent 33.6 32-36 g/dl Platelet Count 265 130-400 K/uL Mean Platelet Volume 8.4 7.4-10.4 fL Neutrophils (%) (Auto) 83.8 % Lymphocytes (%) (Auto) 7.3 % Monocytes (%) (Auto) 8.2 % Eosinophils (%) (Auto) 0.5 % Basophils (%) (Auto) 0.1 % Neutrophils # (Auto) 7.24 1.4-6.5 K/uL Lymphocytes # (Auto) 0.63 1.2-3.4 K/uL Monocytes # (Auto) 0.71 0.11-0.59 K/uL Eosinophils # (Auto) 0.04 0-0.5 K/uL Basophils # (Auto) 0.01 0-0.2 K/uL RDW Standard Deviation 45.0 36.4-46.3 fL RDW Coefficient of Variation 13.6 11.5-14.5 % Immature Granulocyte % (Auto) 0.1 % Immature Granulocyte # (Auto) 0.01 0.00-0.02 K/uL Prothrombin Time 10.7 9.0-12.0 SECONDS Prothromb Time International Ratio 1.0 0.9-1.1 Activated Partial Thromboplast Time 31.0 21.0-31.0 SECONDS Partial Thromboplastin Ratio 1.2 Sodium Level 135 136-145 mmol/L Potassium Level 4.0 3.5-5.1 mmol/L Chloride Level 99 98-107 mmol/L Carbon Dioxide Level 31 21-32 mmol/L Anion Gap 5.0 3-11 mmol/L Blood Urea Nitrogen 7 7-18 mg/dl Creatinine 0.65 0.60-1.40 mg/dl Est Creatinine Clear Calc Drug Dose 128.4 ml/min Estimated GFR () 119.2 Estimated GFR (Non- 102.8 BUN/Creatinine Ratio 10.2 10-20 Random Glucose 114 70-99 mg/dl Calcium Level 8.5 8.5-10.1 mg/dl Magnesium Level 1.8 1.8-2.4 mg/dl Total Bilirubin 0.6 0.2-1 mg/dl Direct Bilirubin 0.1 0-0.2 mg/dl Aspartate Amino Transf (AST/SGOT) 19 15-37 U/L Alanine Aminotransferase (ALT/SGPT) 22 12-78 U/L Alkaline Phosphatase 66 45-117 U/L Total Creatine Kinase 208 39-308 U/L Creatine Kinase MB 2.5 0.5-3.6 ng/ml Creatine Kinase MB Ratio 1.2 0-3.0 Troponin I 0.090 0-0.045 ng/ml Total Protein 7.0 6.4-8.2 gm/dl Albumin 3.3 3.4-5.0 gm/dl Lipase 63 73-393 U/L Thyroid Stimulating Hormone (TSH) 0.446 0.300-4.500 uIu/ml Bedside Lactic Acid Venous 0.75 0.90-1.70 mmol/L Arterial Blood pH 7.42 7.35-7.45 Arterial Blood Partial Pressure CO2 45 35-46 mmHg Arterial Blood Partial Pressure O2 88 80-95 mm/Hg Arterial Blood HCO3 28 19-24 mmol/L Arterial Blood Oxygen Saturation 96.7 90-95 % Arterial Blood Base Excess 3.2 -9-1.8 mEq/L Arterial Blood Gas Delivery 9L Collins Test POS POS Urine Color YELLOW Urine Appearance CLEAR CLEAR Urine pH 6.0 4.5-7.5 Urine Specific [place] 1.037 1.000-1.030 Urine Protein 1+ NEG Urine Glucose (UA) NEG NEG Urine Ketones 1+ NEG Urine Occult Blood NEG NEG Urine Nitrite NEG NEG Urine Bilirubin NEG NEG Urine Urobilinogen NEG NEG Urine Leukocyte Esterase NEG NEG Urine WBC (Auto) 0 0-5 /hpf Urine RBC (Auto) 0-4 0-4 /hpf Urine Hyaline Casts (Auto) 0 0-5 /lpf Urine Epithelial Cells (Auto) 0-5 0-5 /lpf Urine Bacteria (Auto) NEG NEG Test 04/14/17 14:22 04/14/17 20:15 04/15/17 05:25 Range/Units Creatine Kinase MB 2.1 2.0 0.5-3.6 ng/ml Creatine Kinase MB Ratio 0-3.0 Troponin I 0.080 0.065 0-0.045 ng/ml White Blood Count 10.39 4.8-10.8 K/uL Red Blood Count 3.80 4.7-6.1 M/uL Hemoglobin 11.3 14.0-18.0 g/dL Hematocrit 33.5 42-52 % Mean Corpuscular Volume 88.2 80-100 fL Mean Corpuscular Hemoglobin 29.7 25-34 pg Mean Corpuscular Hemoglobin Concent 33.7 32-36 g/dl Platelet Count 270 130-400 K/uL Mean Platelet Volume 8.6 7.4-10.4 fL Neutrophils (%) (Auto) 91.6 % Lymphocytes (%) (Auto) 4.0 % Monocytes (%) (Auto) 4.2 % Eosinophils (%) (Auto) 0.0 % Basophils (%) (Auto) 0.0 % Neutrophils # (Auto) 9.51 1.4-6.5 K/uL Lymphocytes # (Auto) 0.42 1.2-3.4 K/uL Monocytes # (Auto) 0.44 0.11-0.59 K/uL Eosinophils # (Auto) 0.00 0-0.5 K/uL Basophils # (Auto) 0.00 0-0.2 K/uL RDW Standard Deviation 44.0 36.4-46.3 fL RDW Coefficient of Variation 13.5 11.5-14.5 % Immature Granulocyte % (Auto) 0.2 % Immature Granulocyte # (Auto) 0.02 0.00-0.02 K/uL Microbiology Results 04/14/17 Blood Culture, Received Pending 04/14/17 Blood Culture, Received Pending 04/14/17 MRSA DNA Surveillance Screen - Final, Complete Specimen Negative for MRSA by DNA Probe 04/14/17 Gram Stain, Received Pending 04/14/17 Sputum Culture, Received Pending Assessment & Plan 04/15/17 can be d[facility]c at [facility] will leave [facility] in matt 1 week(can f/u office later this week if d/c)
[2017-04-15 07:02] LABS: BUN/CREATININE RATIO 15.3 (10-20); CALCIUM 8.6 mg/dl (8.5-10.1); CREATININE 0.58 mg/dl (0.60-1.40); POTASSIUM 4.1 mmol/L (3.5-5.1)
[2017-04-15] MEDS: PIPERACILL/TAZOBAC IV 4.5 GM in DEXTROSE 5% 100ML IV SCH ×3 (07:09→22:09)
[2017-04-15] MEDS: METHYLPREDNISOLONE IV 40 MG in SYRINGE 0 ML IV SCH (07:55)
[2017-04-15] MEDS: ATORVASTATIN 40 MG TAB PO SCH (07:55)
[2017-04-15] MEDS: DOCUSATE SODIUM/SENNA 50/8.6MG TAB PO SCH ×2 (07:55→22:09)
[2017-04-15] MEDS: MONTELUKAST SOD 10 MG TAB PO SCH (07:56)
[2017-04-15] MEDS: ASPIRIN 81 MG ECTAB PO SCH (07:56)
--- NOTE | 2017-04-15 08:47 | Progress Note ---
Internal Med Progress Note Date of Service: Apr 15, 2017. Provider Documentation: SUBJECTIVE: Seen and examined at bedside. States SOB, cough and wheezing improved. Denies any chest pain. Offers no other complaints. OBJECTIVE: Vital Signs-as noted below General Appearance: WD/WN, no apparent distress Head: normocephalic, atraumatic Eyes: normal inspection, PERRL, EOMI, sclerae normal ENT: normal ENT inspection, hearing grossly normal Neck: supple, trachea midline, + pertinent finding (Surgical gumaro on right side of neck in bandage) Respiratory/Chest: chest non-tender, lungs clear, no respiratory distress, no accessory muscle use, + decreased breath sounds Cardiovascular: regular rate, rhythm, no murmur, + pertinent finding (Trace leg edema) Abdomen/GI: normal bowel sounds, non tender, soft, + pertinent finding ( Protuberant) Back: normal inspection Extremities/Musculoskelatal: normal inspection, + pertinent finding (Trace pedal edema) Neurologic/Psych: auditor tax II-XII nml as tested, no motor/sensory deficits, alert, normal mood/affect, oriented x 3 Skin: normal color, warm/dry Lab data as noted below. ASSESSMENT & PLAN: Acute respiratory failure secondary to Asthma Exacerbation and HCAP likely gram negative Hypoxia Continue Zosyn and Levaquin blood and sputum cultures pending Continue IV solumedrol, Bronchodilators No signs of sepsis Oxygen support PRN Appreciate Pulmonary input Barium swallow today to R/O Aspiration Titrate off oxygen as able Troponin elevation: Likely secondary to demand ischemia from hypoxia Denies chest pain VICTOR HUGO: no signs of ischemia Troponin trended down Carotid artery stenosis S/P R endarterectomy Continue wound care Pain control Continue ASA, statins No surgical needs Follow up with surgery as outpatient Gout: No acute issues Stable HLP: Continue statins H/O CVA: Continue ASA, statins DVT Px: Lovenox SQ Disposition: Monitor in tele Vital Signs: Date Time Temp Pulse Resp B/P (MAP) Pulse Ox O2 Delivery O2 Flow Rate FiO2 04/16/17 07:33 36.8 63 20 143/75 (97) 99 2.0 04/16/17 06:57 58 12 98 Nasal Cannula 2.0 04/16/17 04:40 36.9 59 18 130/75 (93) 92 Room Air 04/16/17 04:00 89 Room Air 04/16/17 00:00 88 Room Air 04/16/17 00:00 36.7 65 18 112/56 (74) 95 Room Air 04/15/17 20:00 94 Room Air 04/15/17 19:43 36.7 67 23 97 04/15/17 19:13 66 12 95 Nasal Cannula 2.0 04/15/17 18:43 36.7 67 23 120/74 (89) 97 Room Air 04/15/17 16:15 Nasal Cannula 1.5 04/15/17 15:11 37.0 79 20 109/69 (82) 94 Nasal Cannula 2.0 04/15/17 14:20 66 12 97 Nasal Cannula 2.0 04/15/17 12:10 Nasal Cannula 1.5 04/15/17 11:39 36.7 74 18 127/81 (96) 93 Nasal Cannula 2.0 04/15/17 08:20 93 Nasal Cannula 4.0 Lab Results:
--- NOTE | 2017-04-15 10:03 | Pulmonology Progress Note ---
Pulmonary Progress Note Date of Service Apr 15, 2017. Attending Dr. Huff Subjective Patient seen and examined today. He denies any episodes of further shortness of breath, chest tightness, cough or wheezing. He ate a full breakfast without any difficulty. States he feels much better and would like to go home. Objective Vital signs, medications, and laboratory data reviewed and listed below. GENERAL: Awake, alert, well-appearing, in no distress HENT: Normocephalic, atraumatic. Oropharynx unremarkable. EYES: Normal conjunctiva. Sclera non-icteric. NECK: Supple. Right neck mildly edematous with sutures in place. Tender at incision site. No JVD, no nuchal rigidity. PULMONARY: No acute respiratory distress. Speaking in full sentences. Good air entry, no wheezing, sporadic rhonchi. There is no chest tenderness. CARDIAC: Regular rate, normal rhythm. Extremities warm and well perfused. Pulses equal. ABDOMEN: Soft, non-distended. No tenderness to palpation. No rebound or guarding. No masses. MUSCULOSKELETAL: Ecchymosis to anterior chest wall. Chest examination reveals no tenderness. The back is symmetrical on inspection without obvious abnormality. There is no CVA tenderness to palpation. No joint edema. LOWER EXTREMITIES: Trace edema bilaterally, no cyanosis, no clubbing bilaterally. Some excoriations noted on bilateral anterior shins. NEURO: Normal sensorium. No sensory or motor deficits noted. Mild speech impediment. SKIN: No rash or jaundice noted. Sputum culture-normal selwyn Assessment & Plan Hypoxia Asthma exacerbation Pneumonia Mr. Sainz appears to have an episode of acute respiratory distress suggestive of an exacerbation of asthma secondary to pneumonia. There appears to be some radiological features of bronchiectasis on CT imaging. This may be chronic due to multiple episodes of pneumonia. Due to history of previous stroke and coughing while eating I feel that he may have some aspiration. Follow-up barium swallow. He is currently being treated for hospital-acquired pneumonia with vancomycin, Zosyn and Levaquin. Sputum culture and Gram stain are negative thus far. Can can be switched to 5 day prednisone taper. Continue with home medications of Dulera twice daily and Singulair. Continue with bronchodilators when necessary. His overall clinical status appears to be improving with less requirement of oxygen. Continue with supplemental oxygen as needed to maintain oxygen saturation between 88-92%. Last 24 Hours Test 04/14/17 12:48 04/14/17 14:15 04/14/17 14:22 04/14/17 20:15 Arterial Blood pH 7.42 Arterial Blood Partial Pressure CO2 45 mmHg Arterial Blood Partial Pressure O2 88 mm/Hg Arterial Blood HCO3 28 mmol/L Arterial Blood Oxygen Saturation 96.7 % Arterial Blood Base Excess 3.2 mEq/L Arterial Blood Gas Delivery 9L Collins Test POS Urine Color YELLOW Urine Appearance CLEAR Urine pH 6.0 Urine Specific [place] 1.037 Urine Protein 1+ Urine Glucose (UA) NEG Urine Ketones 1+ Urine Occult Blood NEG Urine Nitrite NEG Urine Bilirubin NEG Urine Urobilinogen NEG Urine Leukocyte Esterase NEG Urine WBC (Auto) 0 /hpf Urine RBC (Auto) 0-4 /hpf Urine Hyaline Casts (Auto) 0 /lpf Urine Epithelial Cells (Auto) 0-5 /lpf Urine Bacteria (Auto) NEG Creatine Kinase MB 2.1 ng/ml 2.0 ng/ml Creatine Kinase MB Ratio Troponin I 0.080 ng/ml 0.065 ng/ml Test 04/15/17 05:25 White Blood Count 10.39 K/uL Red Blood Count 3.80 M/uL Hemoglobin 11.3 g/dL Hematocrit 33.5 % Mean Corpuscular Volume 88.2 fL Mean Corpuscular Hemoglobin 29.7 pg Mean Corpuscular Hemoglobin Concent 33.7 g/dl Platelet Count 270 K/uL Mean Platelet Volume 8.6 fL Neutrophils (%) (Auto) 91.6 % Lymphocytes (%) (Auto) 4.0 % Monocytes (%) (Auto) 4.2 % Eosinophils (%) (Auto) 0.0 % Basophils (%) (Auto) 0.0 % Neutrophils # (Auto) 9.51 K/uL Lymphocytes # (Auto) 0.42 K/uL Monocytes # (Auto) 0.44 K/uL Eosinophils # (Auto) 0.00 K/uL Basophils # (Auto) 0.00 K/uL RDW Standard Deviation 44.0 fL RDW Coefficient of Variation 13.5 % Immature Granulocyte % (Auto) 0.2 % Immature Granulocyte # (Auto) 0.02 K/uL Sodium Level 137 mmol/L Potassium Level 4.1 mmol/L Chloride Level 102 mmol/L Carbon Dioxide Level 31 mmol/L Anion Gap 4.0 mmol/L Blood Urea Nitrogen 9 mg/dl Creatinine 0.58 mg/dl Est Creatinine Clear Calc Drug Dose 143.9 ml/min Estimated GFR () 124.9 Estimated GFR (Non- 107.7 BUN/Creatinine Ratio 15.3 Random Glucose 125 mg/dl Calcium Level 8.6 mg/dl Data Medications: Current Inpatient Medications Medications (Trade) Dose Ordered Sig/Linda Route Start Time Stop Time Status Last Admin Dose Admin Ioversol (Optiray 320) 111 ml UD PRN IV 04/14/17 09:45 04/18/17 09:44 Enoxaparin Sodium (Lovenox Inj) 40 mg Q24H SC 04/14/17 14:00 05/14/17 13:59 Future Hold 04/14/17 13:30 40 MG Acetaminophen (Tylenol Tab) 650 mg Q4H PRN PO 04/14/17 11:45 05/14/17 11:44 Ondansetron HCl (Zofran Inj) 4 mg Q6H PRN IV 04/14/17 11:45 05/14/17 11:44 Levofloxacin 750 mg/Prmx 150 ml @ 100 mls/hr Q24H IV 04/15/17 10:00 04/20/17 11:29 Methylprednisolone Sodium Succinate 40 mg/Syringe 0.64 ml @ 1.5 mls/min Q12H IV 04/14/17 21:00 05/14/17 20:59 04/15/17 07:55 1.5 MLS/MIN Levalbuterol (Xopenex 0.31MG/ 3ML Neb) 0.31 mg Q6R INH 04/14/17 15:00 05/14/17 14:59 04/15/17 07:06 0.31 MG Aspirin (Ecotrin Tab) 81 mg QAM PO 04/15/17 09:00 05/15/17 08:59 04/15/17 07:56 81 MG Atorvastatin Calcium (Lipitor Tab) 40 mg QAM PO 04/15/17 09:00 05/15/17 08:59 04/15/17 07:55 40 MG Montelukast Sodium (Singulair Tab) 10 mg QAM PO 04/15/17 09:00 05/15/17 08:59 04/15/17 07:56 10 MG Senna/Docusate Sodium (Senokot S Tab) 1 tab BID PO 04/14/17 21:00 8/15/17 20:59 04/15/17 07:55 1 TAB Miscellaneous Information (Order Awaiting Action) 1 ea QS N/A 04/14/17 16:00 05/14/17 15:59 Acetaminophen/ Hydrocodone Bitart ([place] 5/325 Tab) 1 tab Q6H PRN PO 04/14/17 12:00 04/28/17 11:59 Vancomycin HCl 1450 mg/Sodium Chloride 529 ml @ 200 mls/hr Q10H IV 04/14/17 18:00 04/21/17 17:59 04/15/17 04:37 200 MLS/HR Vancomycin HCl (Consult) 1 ea UD PRN N/A 04/14/17 16:42 05/14/17 16:41 Piperacillin Sod/ Tazobactam Sod 4.5 gm/Dextrose 120 ml @ 30 mls/hr Q8H IV 04/14/17 22:00 04/21/17 21:59 04/15/17 07:09 30 MLS/HR Piperacillin Sod/ Tazobactam Sod (Consult) 1 ea UD PRN N/A 04/14/17 20:30 05/14/17 20:29 Vital Signs: Date Time Temp Pulse Resp B/P (MAP) Pulse Ox O2 Delivery O2 Flow Rate FiO2 04/15/17 08:20 93 Nasal Cannula 4.0 04/15/17 07:18 36.9 87 18 140/85 (103) 93 Room Air 04/15/17 07:06 65 12 98 Mask 4.0 04/15/17 04:00 100 Oxymask 4.0 04/15/17 03:38 37.2 58 24 140/65 (90) 98 04/15/17 00:00 98 Oxymask 4.0 04/14/17 23:25 36.5 65 14 123/66 (85) 95 Oxymask 4.0 04/14/17 20:00 96 Nasal Cannula 3.0 04/14/17 19:25 36.3 70 22 135/90 (105) 98 Room Air 04/14/17 19:20 87 20 97 Nasal Cannula 4.0 04/14/17 16:00 Nasal Cannula 4.0 04/14/17 15:34 88 20 Nasal Cannula 2.0 04/14/17 15:15 37.0 80 20 122/78 (93) 93 Nasal Cannula 5.0 04/14/17 12:30 37.0 80 20 145/87 (106) 99 Oxymask 8.0 04/14/17 12:30 Oxymask 8.0 04/14/17 12:14 82 20 134/90 99 04/14/17 11:56 82 20 134/90 99 Mask 8.0 04/14/17 11:46 111 04/14/17 10:32 96 20 174/99 98 Mask 8.0 Laboratory Results: Last 24 Hours Test 04/14/17 12:48 04/14/17 14:15 04/14/17 14:22 04/14/17 20:15 Arterial Blood pH 7.42 Arterial Blood Partial Pressure CO2 45 mmHg Arterial Blood Partial Pressure O2 88 mm/Hg Arterial Blood HCO3 28 mmol/L Arterial Blood Oxygen Saturation 96.7 % Arterial Blood Base Excess 3.2 mEq/L Arterial Blood Gas Delivery 9L Collins Test POS Urine Color YELLOW Urine Appearance CLEAR Urine pH 6.0 Urine Specific [place] 1.037 Urine Protein 1+ Urine Glucose (UA) NEG Urine Ketones 1+ Urine Occult Blood NEG Urine Nitrite NEG Urine Bilirubin NEG Urine Urobilinogen NEG Urine Leukocyte Esterase NEG Urine WBC (Auto) 0 /hpf Urine RBC (Auto) 0-4 /hpf Urine Hyaline Casts (Auto) 0 /lpf Urine Epithelial Cells (Auto) 0-5 /lpf Urine Bacteria (Auto) NEG Creatine Kinase MB 2.1 ng/ml 2.0 ng/ml Creatine Kinase MB Ratio Troponin I 0.080 ng/ml 0.065 ng/ml Test 04/15/17 05:25 White Blood Count 10.39 K/uL Red Blood Count 3.80 M/uL Hemoglobin 11.3 g/dL Hematocrit 33.5 % Mean Corpuscular Volume 88.2 fL Mean Corpuscular Hemoglobin 29.7 pg Mean Corpuscular Hemoglobin Concent 33.7 g/dl Platelet Count 270 K/uL Mean Platelet Volume 8.6 fL Neutrophils (%) (Auto) 91.6 % Lymphocytes (%) (Auto) 4.0 % Monocytes (%) (Auto) 4.2 % Eosinophils (%) (Auto) 0.0 % Basophils (%) (Auto) 0.0 % Neutrophils # (Auto) 9.51 K/uL Lymphocytes # (Auto) 0.42 K/uL Monocytes # (Auto) 0.44 K/uL Eosinophils # (Auto) 0.00 K/uL Basophils # (Auto) 0.00 K/uL RDW Standard Deviation 44.0 fL RDW Coefficient of Variation 13.5 % Immature Granulocyte % (Auto) 0.2 % Immature Granulocyte # (Auto) 0.02 K/uL Sodium Level 137 mmol/L Potassium Level 4.1 mmol/L Chloride Level 102 mmol/L Carbon Dioxide Level 31 mmol/L Anion Gap 4.0 mmol/L Blood Urea Nitrogen 9 mg/dl Creatinine 0.58 mg/dl Est Creatinine Clear Calc Drug Dose 143.9 ml/min Estimated GFR () 124.9 Estimated GFR (Non- 107.7 BUN/Creatinine Ratio 15.3 Random Glucose 125 mg/dl Calcium Level 8.6 mg/dl
--- NOTE | 2017-04-15 10:54 | Clinical Documentation Query ---
CLINICAL DOCUMENTATION QUERY 62 year old male who was just DCed from this facility on 04/12 after having a CEA. Since that time he has developed pneumonia. In your clinical opinion is this patient being managed for: ( x ) Likely Staphylococcal or Gram negative pneumonia in setting of HCAP treated with IV Levofloxacin, IV Zosyn, IV Vancomycin ( ) Other explanation of clinical findings (Please Explain) ( ) Unable to determine (Please Define) ( ) Need to Discuss ( ) Not Agree The medical record reflects the following clinical findings, treatment, and risk factors. Clinical Indicators: As above. Hypoxia 76%, Treatment: IV Levofloxacin, IV Zosyn, IV Vancomycin, IV Solumedrol, Risk Factors: Recent healthcare facility contact. Please clarify and document your clinical opinion in the progress notes and discharge summary. Terms such as "probable", "suspected", "likely", "questionable", "possible", or "still to be ruled out" are acceptable. IF IN AGREEMENT, YOU MUST DOCUMENT ABOVE DIAGNOSTIC STATEMENT IN DAILY PROGRESS NOTES AND DISCHARGE SUMMARY. This document is not part of the patient's record. Thank You, Jonas Carrillo, VIVIAN [phone]
[2017-04-15] MEDS: LEVOFLOXACIN / D5W 750 MG in PREMIXED IN D5W 150 ML IV SCH (11:11)
--- NOTE | 2017-04-15 14:05 | DIAGNOSTIC IMAGING REPORT ---
(BARIUM SWALLOW) ESOPHAGUS CLINICAL HISTORY: 62 years-old Male presenting with r/o silent aspiration. TECHNIQUE: A standard air contrast barium esophagram is performed. Multiple spot images of the esophagus are acquired both upright and prone. COMPARISON: CT from 04/14/2017. FINDINGS: Postsurgical changes of the neck are evident with skin gumaro in place. The patient was able to ingest barium and the barium pill without difficulty. Pressure contractions evident in the esophagus consistent with dysmotility. No mucosal abnormality. No evidence of intrinsic or extrinsic mass lesion. No aspiration observed. The gastroesophageal junction distended normally. No gastroesophageal reflux observed. Fluoroscopy time: 1.4 minutes. Fluoroscopic images: 23. IMPRESSION: 1. No aspiration. If there is continuing clinical concern, a dedicated video swallow study could be obtained. 2. Esophageal dysmotility, likely presbyesophagus. Electronically signed by: Apollo Vincent M.D. 04/15/2017 2:04 PM Dictated Date/Time: 04/15/2017 2:02 PM
[2017-04-16] VITALS (7 sets, daily range): BP systolic 112–149; BP diastolic 56–75; PULSE 58–78; TEMP 36.7–36.9; O2SAT 88–99
[2017-04-16] MEDS: LEVALBUTEROL 0.31MG/3 ML VIAL INH SCH ×2 (02:25→06:56)
[2017-04-16] MEDS: PIPERACILL/TAZOBAC IV 4.5 GM in DEXTROSE 5% 100ML IV SCH (05:37)
[2017-04-16] MEDS: ATORVASTATIN 40 MG TAB PO SCH (07:57)
[2017-04-16] MEDS: ASPIRIN 81 MG ECTAB PO SCH (07:57)
[2017-04-16] MEDS: DOCUSATE SODIUM/SENNA 50/8.6MG TAB PO SCH (07:58)
[2017-04-16] MEDS: MONTELUKAST SOD 10 MG TAB PO SCH (07:58)
[2017-04-16] MEDS ORDERED: METHYLPREDNISOLONE IV 40 MG in SYRINGE 0 ML IV SCH (09:00)
[2017-04-16] MEDS: LEVOFLOXACIN / D5W 750 MG in PREMIXED IN D5W 150 ML IV SCH (09:19)
[2017-04-16] MEDS ORDERED: VANCOMYCIN TROUGH ONE (09:30)
--- NOTE | 2017-04-16 11:12 | Progress Note ---
Internal Med Progress Note Date of Service: Apr 16, 2017. Provider Documentation: SUBJECTIVE: Seen and examined at bedside. Patient feels well. Patient requests to be discharged secondary to Insurance issues despite explaining the risks and consequences Reports chronic wheezing. Denies any chest pain, SOB. Offers no other complaints. OBJECTIVE: Vital Signs-as noted below General Appearance: WD/WN, no apparent distress Head: normocephalic, atraumatic Eyes: normal inspection, PERRL, EOMI, sclerae normal ENT: normal ENT inspection, hearing grossly normal Neck: supple, trachea midline, + pertinent finding (Surgical gumaro on right side of neck in bandage) Respiratory/Chest: no respiratory distress, no accessory muscle use, + decreased breath sounds Cardiovascular: regular rate, rhythm, no murmur, + pertinent finding (Trace leg edema) Abdomen/GI: normal bowel sounds, non tender, soft, + pertinent finding ( Protuberant) Back: normal inspection Extremities/Musculoskelatal: normal inspection, + pertinent finding (Trace pedal edema) Neurologic/Psych: felt checker II-XII nml as tested, no motor/sensory deficits, alert, normal mood/affect, oriented x 3 Skin: normal color, warm/dry Lab data as noted below. ASSESSMENT & PLAN: Acute respiratory failure secondary to Asthma Exacerbation and HCAP likely gram negative Hypoxia Continue Zosyn and Levaquin>>> Will continue Levaquin blood and sputum cultures pending Continue IV solumedrol, Bronchodilators >>> taper to prednisone No signs of sepsis Oxygen support PRN Appreciate Pulmonary input Barium swallow today to R/O Aspiration Currently saturating 94% on room air 2 step: Did not qualify for oxygen Nocturnal Oximetry: Requires 2 L at bedtime Troponin elevation: Likely secondary to demand ischemia from hypoxia Denies chest pain VICTOR HUGO: no signs of ischemia Troponin trended down Carotid artery stenosis S/P R endarterectomy Continue wound care Pain control Continue ASA, statins No surgical needs Follow up with surgery as outpatient Gout: No acute issues Stable HLP: Continue statins H/O CVA: Continue ASA, statins DVT Px: Lovenox SQ Disposition: Plan to discharge home today Follow up with on Saturday04/19/17 at 11:15AM at [facility] office Follow up with for post surgery follow up Complete the antibiotic and prednisone course as prescribed. Seek immediate medical attention if your symptoms reoccur or worsen Get sleep study done as outpatient as advised. Use 2 liters of Oxygen via Nasal Cannula at bedtime as advised Vital Signs: Date Time Temp Pulse Resp B/P (MAP) Pulse Ox O2 Delivery O2 Flow Rate FiO2 04/16/17 07:33 36.8 63 20 143/75 (97) 99 2.0 04/16/17 07:30 Nasal Cannula 2.0 04/16/17 06:57 58 12 98 Nasal Cannula 2.0 04/16/17 04:40 36.9 59 18 130/75 (93) 92 Room Air 04/16/17 04:00 89 Room Air 04/16/17 00:00 88 Room Air 04/16/17 00:00 36.7 65 18 112/56 (74) 95 Room Air 04/15/17 20:00 94 Room Air 04/15/17 19:43 36.7 67 23 97 04/15/17 19:13 66 12 95 Nasal Cannula 2.0 04/15/17 18:43 36.7 67 23 120/74 (89) 97 Room Air 04/15/17 16:15 Nasal Cannula 1.5 04/15/17 15:11 37.0 79 20 109/69 (82) 94 Nasal Cannula 2.0 04/15/17 14:20 66 12 97 Nasal Cannula 2.0 04/15/17 12:10 Nasal Cannula 1.5 04/15/17 11:39 36.7 74 18 127/81 (96) 93 Nasal Cannula 2.0
[2017-04-16] MEDS ORDERED: LVQ750 PO (11:19)
[2017-04-16] MEDS ORDERED: PRED10TA PO (11:19)
--- NOTE | 2017-04-16 11:22 | Discharge Summary ---
Discharge Summary Date of Service Apr 16, 2017. Discharge Summary Admission Date: Apr 14, 2017 at 11:40 Discharge Date: Apr 16, 2017 Discharge Disposition: Home Principal Diagnosis: Asthma Exacerbation, Pneumonia Procedures: CTA: No evidence for pulmonary embolus. Parenchymal infiltrate left base. Moderate generalized peribronchial thickening. Minimal infiltrative change right base. Generalized esophageal wall thickening Barium Swallow: 1. No aspiration. If there is continuing clinical concern, a dedicated video swallow study could be obtained. 2. Esophageal dysmotility, likely presbyesophagus. Consultations: Pulmonology Pending Studies/Follow-Up: Follow up with on Saturday04/19/17 at 11:15AM at [facility] office Follow up with for post surgery follow up Complete the antibiotic and prednisone course as prescribed. Seek immediate medical attention if your symptoms reoccur or worsen Get sleep study done as outpatient as advised. Use 2 liters of Oxygen via Nasal Cannula at bedtime as advised Medication Reconciliation New Medications: Levofloxacin (Levofloxacin) 750 Mg Tab 750 MG PO DAILY for 5 Days, #5 Prednisone Tab (Prednisone) 10 Mg Tab 10 MG PO UD for 8 Days, #20 TAB Start taking daily 40mg for 2 days, then 30mg for 2 days, then 20mg for 2 days, then 10mg for 2 days and stop Continued Medications: Albuterol Sulf (Proventil 0.083% 2.5MG/3ML) 2.5 Mg/3 Ml Nebu 2.5 MG INH QID PRN for SOB/Wheezing, EA Albuterol Sulfate (Proair Respiclick) 108 Mcg/Act Aer 2 PUFFS INH QID PRN for SOB/Wheezing Aspirin (Aspirin Ec) 81 Mg Tab 81 MG PO QAM Atorvastatin (Lipitor) 40 Mg Tab 40 MG PO QAM, TAB Indomethacin (Indocin) 25 Mg Cap 25 MG PO TID PRN for GOUT, CAP Mometasone Furoate-Formoterol (Dulera 100/5 Mcg) 1 Aer Aer 2 PUFFS INH BID for 30 Days, #13 GM 5 Refills Montelukast Sodium (Singulair) 10 Mg Tab 10 MG PO QAM, TAB Sennosides-Docusate Sodium (Stool Softener) 1 Tab Tab 1 TAB PO BID Admission Information HPI (per Admitting provider): Patient is a 62 yr male with PMH of Carotid artery stenosis, Asthma, Gout, HLP, CVA with no residual weakness and former smoking history who was discharged 3 days ago after undergoing right carotid endarterectomy presents with history of developing diffuse chest tightness, chills, palpitations, cough which started yesterday night. He states chest tightness resolved after he received nebulizer treatment in ED. Denies any radiation of chest pain, no relation to exertion, also denies nausea, vomiting, dizziness, diaphoresis and believes it is similar to his asthma attack that he had previously. He used inhaler at home which did not help. Also reports having fever and chills this morning which resolved after take 2 aspirin at home. Reports yellowish productive cough and SOB associated with intermittent wheezing. Denies leg swelling, orthopnea, headache , visual changes, abdominal pain, urinary symptoms, numbness, weakness, diarrhea. Reports having mild soreness of neck at surgical site. CT chest was negative for PE. He was found to be hypoxic at 76% on Room air in ED. Physical Exam (per Admitting): General Appearance: WD/WN, no apparent distress Head: normocephalic, atraumatic Eyes: normal inspection, PERRL, EOMI, sclerae normal ENT: normal ENT inspection, hearing grossly normal Neck: supple, trachea midline, + pertinent finding (Surgical gumaro on right side of neck in bandage) Respiratory/Chest: chest non-tender, lungs clear, no respiratory distress, no accessory muscle use, + decreased breath sounds Cardiovascular: regular rate, rhythm, no murmur, + pertinent finding (Trace leg edema) Abdomen/GI: normal bowel sounds, non tender, soft, + pertinent finding ( Protuberant) Back: normal inspection Extremities/Musculoskelatal: normal inspection, + pertinent finding (Trace pedal edema) Neurologic/Psych: resume specialist II-XII nml as tested, no motor/sensory deficits, alert , normal mood/affect, oriented x 3 Skin: normal color, warm/dry Hospital Course Acute respiratory failure secondary to Asthma Exacerbation and HCAP likely gram negative Hypoxia Continue Zosyn and Levaquin>>> Will continue Levaquin blood and sputum cultures pending Continue IV solumedrol, Bronchodilators >>> taper to prednisone No signs of sepsis Oxygen support PRN Appreciate Pulmonary input Barium swallow today to R/O Aspiration Currently saturating 94% on room air 2 step: Did not qualify for oxygen Nocturnal Oximetry: Requires 2 L at bedtime Troponin elevation: Likely secondary to demand ischemia from hypoxia Denies chest pain VICTOR HUGO: no signs of ischemia Troponin trended down Carotid artery stenosis S/P R endarterectomy Continue wound care Pain control Continue ASA, statins No surgical needs Follow up with surgery as outpatient Gout: No acute issues Stable HLP: Continue statins H/O CVA: Continue ASA, statins DVT Px: Lovenox SQ Disposition: Plan to discharge home today Follow up with on Saturday04/19/17 at 11:15AM at [facility] office Follow up with for post surgery follow up Complete the antibiotic and prednisone course as prescribed. Seek immediate medical attention if your symptoms reoccur or worsen Get sleep study done as outpatient as advised. Use 2 liters of Oxygen via Nasal Cannula at bedtime as advised Total time spent on discharge = 35 minutes This includes examination of the patient, discharge planning, medication reconciliation, and communication with other providers. Discharge Instructions Discharge Instructions Date of Service Apr 16, 2017. Admission Reason for Admission: Asthma,Pneumonia Discharge Discharge Diagnosis / Problem: Asthma Exacerbation, Pneumonia Discharge Goals Goal(s): Decrease discomfort, Improve function Activity Recommendations Activity Limitations: resume your previous activity Exercise/Sports Limitations: as tolerated . Instructions / Follow-Up Instructions / Follow-Up Follow up with on Saturday04/19/17 at 11:15AM at [facility] office Follow up with for post surgery follow up Complete the antibiotic and prednisone course as prescribed. Seek immediate medical attention if your symptoms reoccur or worsen Get sleep study done as outpatient as advised. Use 2 liters of Oxygen via Nasal Cannula at bedtime as advised Current Hospital Diet Patient's current hospital diet: AHA Diet (Heart Healthy) Discharge Diet Recommended Diet: AHA Diet (Heart Healthy) Pending Studies Studies pending at discharge: no Medical Emergencies . Who to Call and When: Medical Emergencies: If at any time you feel your situation is an emergency, please call 911 immediately. . Non-Emergent Contact Non-Emergency issues call your: Primary Care Provider Call Non-Emergent contact if: you have a fever, your pain is not controlled, your pain is worsening, your pain is unusual for you, you have any medication questions If you have shortness of breath or your wheezing is worsening . . "Provider Documentation" section prepared by Panchito Doherty. . VTE Core Measure Inpt VTE Proph given/why not?: Enoxaparin (Lovenox)SQ
== END 2017-04-16 12:45 | disposition home or self-care (01) | DRG 177 ==
LOC: C.EDB 08:08 → C.2E 11:40 → ENRESERV 11:59
PROVIDERS: ADMIT Internal Medicine; ATTEND Internal Medicine
DX: J15.6 Pneumonia due to other Gram-negative bacteria (principal); J96.01 Acute respiratory failure with hypoxia; J45.901 Unspecified asthma with (acute) exacerbation; I24.8 Other forms of acute ischemic heart disease; E66.01 Morbid (severe) obesity due to excess calories; M1A.9XX0 Chronic gout, unspecified, without tophus (tophi); E78.5 Hyperlipidemia, unspecified; Z86.73 Personal history of transient ischemic attack (TIA), and cerebral infarction without residual deficits; Z87.891 Personal history of nicotine dependence; Z98.890 Other specified postprocedural states; Z68.36 Body mass index [BMI] 36.0-36.9, adult

== ENCOUNTER 2017-11-15 13:09 | Inpatient (IN) | payer OTHER ==
[2017-11-15] VITALS (11 sets, daily range): BP systolic 112–149; BP diastolic 67–89; PULSE 58–92; TEMP 36.3–37.3; O2SAT 88–98; Ht 170.2 cm; Wt 90.6 kg
[~2017-11-15] VITALS: Ht 170.2 cm; Wt 90.6 kg
[~2017-11-15 13:09] MED LIST changes: +ALBU18002 INH; -ALBU1AER9; -HYDR-5688 PO; +LVQ750 PO
[2017-11-15] MEDS ORDERED: METHYLPREDNISOLONE 125 MG VIAL IV STA (13:27)
[2017-11-15] MEDS ORDERED: ALBUT/IPRATROP 3MG/0.5MG NEB 3 ML VIAL INH ONE (13:30)
--- NOTE | 2017-11-15 13:31 | EMERGENCY ROOM VISIT NOTE ---
History Report prepared by Sage: Ritchie Angel Under the Supervision of: Dr. Dillon Hunter M.D. First contact with patient: 13:24 Chief Complaint: SHORTNESS OF BREATH Stated Complaint: BREATHING DIFFICULTY Nursing Triage Summary: triage note: Pt reports shortness of breath for the past couple weeks. pt reports he has a productive cough "sometimes." pt was seen at [facility] today and sent to ed for further eval. pt refused ambulace to ed. History of Present Illness The patient is a 62 year old male who presents to the Emergency Room for shortness of breath. 3 weeks worsening breathing with shortness of breath. Worse with exertion. Associated productive cough, fevers and lightheaded. Denies chest pain, syncope, nausea, vomiting, falls, leg swelling, nor other symptoms. No history of cardiac disease. Smoker formerly. No medications prior to arrival. Worse with exertion, better with sitting up/rest. Seen by PCP who sent for evaluation. Denies sick contacts. Source of History: patient Onset: 3 weeks Position: other (global) Timing: constant Associated Symptoms: + fevers, + cough, + SOB Review of Systems See HPI for pertinent positives & negatives. A total of 10 systems reviewed and were otherwise negative. Past Medical & Surgical Medical Problems: (1) Carotid artery stenosis (2) Dyslipidemia (3) Ischemic stroke (4) Pneumonia (5) Respiratory failure Family History Heart disease Hypertension Social History Smoking Status: Former Smoker Alcohol Use: none Drug Use: none Marital Status: single Housing Status: lives alone Occupation Status: retired Current/Historical Medications Scheduled Aspirin (Aspirin Ec), 81 MG PO QAM Atorvastatin (Lipitor), 80 MG PO DAILY Mometasone Furoate-Formoterol (Dulera 100/5 Mcg), 2 PUFFS INH BID Montelukast Sodium (Singulair), 10 MG PO QAM Scheduled PRN Albuterol Sulfate (Proair Respiclick), 2 PUFFS INH QID PRN for SOB/Wheezing Allergies Coded Allergies: Dust (Verified Allergy, Unknown, hay fever, 11/15/17) NO KNOWN DRUG ALLERGIES (Verified Allergy, Unknown, NKDA, 11/15/17) POLLEN (Verified Allergy, Unknown, HAY FEVER, 11/15/17) Physical Exam Vital Signs Date Time Temp Pulse Resp B/P (MAP) Pulse Ox O2 Delivery O2 Flow Rate FiO2 11/15/17 15:00 81 24 146/76 94 Non-Rebreather 15.0 11/15/17 14:33 76 22 114/62 97 BiPAP 70 11/15/17 14:05 71 24 114/68 97 BiPAP 70 11/15/17 13:54 78 96 65 11/15/17 13:53 78 18 93 Non-Rebreather 15.0 11/15/17 13:37 78 11/15/17 13:16 37.6 87 20 127/78 76 Room Air Physical Exam GENERAL: Patient is acutely ill appearing and in mild distress. Disheveled. HEENT: No acute trauma, normocephalic atraumatic, mucous membranes moist, no nasal congestion, no scleral icterus. NECK: No stridor, no adenopathy, no meningismus, trachea is midline. LUNGS: Severely dyspneic, tachypneic, with diffuse wheezing. Wet cough. Clear to auscultation and equal bilaterally. No rhonchi. Multifocal pneumonia. HEART: Regular rate and rhythm. No murmurs, rubs, gallops appreciated. ABDOMEN: Soft, nontender, bowel sounds positive, no masses appreciated, no peritonitis. BACK: No midline tenderness, no CVA tenderness EXTREMITIES: Normal motion all extremities, no cyanosis, no edema. NEUROLOGIC: Alert and oriented, no acute motor or sensory deficits, no focal weakness, cranial nerves grossly intact. SKIN: No rash, no jaundice, no diaphoresis. Medical Decision & Procedures ER Provider Diagnostic Interpretation: Radiology results and stated below per my review and radiologist interpretation: CHEST ONE VIEW PORTABLE HISTORY: 62 years-old Male SHOB acute shortness of breath with dyspnea COMPARISON: Chest radiograph 04/14/2017, CTA of the chest 04/14/2017 TECHNIQUE: Portable AP view of the chest FINDINGS: Cardiomediastinal and hilar silhouettes are within normal limits. There is atherosclerosis of the aorta. There is no pneumothorax or pleural effusion. Patchy ill-defined airspace opacities are noted within the lateral left midlung, right midlung and left lung base. No overt pulmonary edema. Bones of the chest appear grossly intact. Mild convex left curvature of the lower thoracic spine. IMPRESSION: Patchy alveolar opacities of the mid lungs and left lung base suggest multifocal pneumonia. Follow-up imaging to document resolution is recommended. The above report was generated using voice recognition software. It may contain grammatical, syntax or spelling errors. Electronically signed by: Jerry Avery M.D. 11/15/2017 1:52 PM Dictated Date/Time: 11/15/2017 1:50 PM Laboratory Results 11/15/17 13:30 Red Blood Count 4.78, Mean Corpuscular Volume 85.4, Mean Corpuscular Hemoglobin 29.9, Mean Corpuscular Hemoglobin Concent 35.0, Mean Platelet Volume 9.1, Neutrophils (%) (Auto) 82.2, Lymphocytes (%) (Auto) 7.8, Monocytes (%) (Auto) 9.4, Eosinophils (%) (Auto) 0.0, Basophils (%) (Auto) 0.1, Neutrophils # (Auto) 9.10, Lymphocytes # (Auto) 0.86, Monocytes # (Auto) 1.04, Eosinophils # (Auto) 0.00, Basophils # (Auto) 0.01 11/15/17 13:30 Test 11/15/17 13:30 11/15/17 13:42 11/15/17 13:45 11/15/17 13:49 White Blood Count 11.06 K/uL (4.8-10.8) Red Blood Count 4.78 M/uL (4.7-6.1) Hemoglobin 14.3 g/dL (14.0-18.0) Hematocrit 40.8 % (42-52) Mean Corpuscular Volume 85.4 fL (80-100) Mean Corpuscular Hemoglobin 29.9 pg (25-34) Mean Corpuscular Hemoglobin Concent 35.0 g/dl (32-36) Platelet Count 192 K/uL (130-400) Mean Platelet Volume 9.1 fL (7.4-10.4) Neutrophils (%) (Auto) 82.2 % Lymphocytes (%) (Auto) 7.8 % Monocytes (%) (Auto) 9.4 % Eosinophils (%) (Auto) 0.0 % Basophils (%) (Auto) 0.1 % Neutrophils # (Auto) 9.10 K/uL (1.4-6.5) Lymphocytes # (Auto) 0.86 K/uL (1.2-3.4) Monocytes # (Auto) 1.04 K/uL (0.11-0.59) Eosinophils # (Auto) 0.00 K/uL (0-0.5) Basophils # (Auto) 0.01 K/uL (0-0.2) RDW Standard Deviation 48.0 fL (36.4-46.3) RDW Coefficient of Variation 15.2 % (11.5-14.5) Immature Granulocyte % (Auto) 0.5 % Immature Granulocyte # (Auto) 0.05 K/uL (0.00-0.02) Prothrombin Time 11.5 SECONDS (9.0-12.0) Prothromb Time International Ratio 1.1 (0.9-1.1) Activated Partial Thromboplast Time 27.5 SECONDS (21.0-31.0) Partial Thromboplastin Ratio 1.1 D-Dimer 890 ug/L FEU (0-500) Est Creatinine Clear Calc Drug Dose 124.6 ml/min Estimated GFR () 122.3 Estimated GFR (Non- 105.5 BUN/Creatinine Ratio 12.0 (10-20) Calcium Level 9.5 mg/dl (8.5-10.1) Magnesium Level 1.9 mg/dl (1.8-2.4) Total Creatine Kinase 68 U/L (39-308) Creatine Kinase MB 1.0 ng/ml (0.5-3.6) Creatine Kinase MB Ratio 1.5 (0-3.0) Troponin I < 0.015 ng/ml (0-0.045) Pro-B-Type Natriuretic Peptide 190 pg/ml (0-900) Bedside Hemoglobin 14.3 g/dl (14.0-18.0) Bedside Hematocrit 42 % (42-52) Bedside Sodium 133 mEq/L (135-144) Bedside Potassium 3.3 mEq/L (3.3-5.0) Bedside Chloride 92 mEq/L (101-112) Bedside Total CO2 27 mEq/l (24-31) Anion Gap 18.0 mmol/L (16-25) Bedside Blood Urea Nitrogen 7 mg/dl (7-18) Bedside Creatinine 0.5 mg/dl (0.6-1.3) Bedside Glucose (other) 108 mg/dl (70-99) Bedside Ionized Calcium (Mariaa) 1.10 mmol/l (1.12-1.32) Venous Blood pH 7.46 (7.36-7.41) Venous Blood Partial Pressure CO2 43 mmHg (38.0-50.0) Venous Blood Partial Pressure O2 51 mmHg Venous Blood HCO3 30 mmol/L Venous Blood Oxygen Saturation 84.8 % Venous Blood Base Excess 5.8 mEq/L Bedside Lactic Acid Venous 1.08 mmol/L (0.90-1.70) Test 11/15/17 13:50 Influenza Type A Antigen Neg for Influ A (NEG) Influenza Type B Antigen Neg for Influ B (NEG) Laboratory results as reviewed by me. Medications Administered Medications (Trade) Dose Ordered Sig/Linda Route Start Time Stop Time Status Last Admin Dose Admin Albuterol/ Ipratropium (Duoneb) 12 ml ONE ONCE INH 11/15/17 13:30 11/15/17 13:31 DC 11/15/17 13:51 12 ML Methylprednisolone Sodium Succinate (Solu-Medrol IV) 125 mg NOW STAT IV 11/15/17 13:27 11/15/17 13:29 DC 11/15/17 13:58 125 MG Piperacillin Sod/ Tazobactam Sod (Zosyn Iv) 4.5 gm NOW STAT IV 11/15/17 13:54 11/15/17 13:56 DC 11/15/17 14:04 4.5 GM Vancomycin HCl 2000 mg/Sodium Chloride 540 ml @ 200 mls/hr ONE STAT IV 11/15/17 13:54 11/15/17 16:35 DC 11/15/17 14:53 200 MLS/HR Miscellaneous Information (Consult) 1 ea UD PRN N/A 11/15/17 14:00 11/15/17 18:11 DC 11/15/17 14:20 1 EA ECG Per My Interpretation Indication: SOB/dyspnea Rate (beats per minute): 81 Rhythm: normal sinus Findings: no acute ischemic change, no ectopy Change: EKG: Electrocardiogram per my interpretation. ED Course 1324: The patient was evaluated in room A1. A complete history and physical exam was performed. 1354: I checked on the patient and he feels much better. His oxygen saturation is at 97%. 1439: I discussed the patient's case with Ivory Pabon PA-C. The patient will be evaluated for further treatment and disposition. 1445: I spoke with the patient and he is agreeable to admission. He is currently breathing on BiPAP. 1515: Upon reevaluation, the patient is doing well. Discussed results and treatment plan with the patient. He verbalized understanding and agreement with the treatment plan. The patient will be evaluated for further management. Medical Decision Differential: Infectious, Reactive Airway Disease, Pneumonia, Pneumothorax, COPD , CHF, ACS, Pulmonary Embolism, MSK, GI, Dissection, amongst other etiologies entertained. 62 yr old male arrives with acute shortness of breath in respiratory failure. Hypoxic and in severe distress. He was urgently placed in bipap with continuous neb and IV steroids with vast improvement in his breathing and much more comfortable He is no longer in extremis and is feeling much better. Cultures, lactic acid obtained. CXR with multifocal pneumonia noted for which broad spectrum abx given. No clear evidence of ACS nor acute CHF by exam. Symptoms not consistent with dissection. Given he has pneumonia and symptoms there-of I do not feel this is PE nor requires CT PE emergently. Hospitalist consulted for further evaluation/treatment. Medication Reconcilliation Current Medication List: was personally reviewed by me Blood Pressure Screening Patient's blood pressure: Normal blood pressure Blood pressure disposition: Did not require urgent referral Consults Time Called: [id number] Consulting Physician: Ivory Pabon PA-C Returned Call: [phone] Discussed the patient's case. The patient will be evaluated for further treatment and disposition. Impression Primary Impression: Acute respiratory failure Additional Impressions: Multifocal pneumonia Hypoxia Critical Care I have personally spent greater than 45 minutes of critical care time in the direct management of this patient. This was a life/limb threatening event. This includes time spent evaluating patient, direct bedside care, chart review, placing orders, interpretation of diagnostic studies, discussion with consultants, patient, and family members, as well as other required patient management activities. This 45 minutes is in excess of all separately billable procedures. Scribe Attestation The scribe's documentation has been prepared under my direction and personally reviewed by me in its entirety. I confirm that the note above accurately reflects all work, treatment, procedures, and medical decision making performed by me. Departure Information Referrals No Doctor, Assigned (PCP) Patient Instructions [facility] Problem Qualifiers
[2017-11-15 13:49] LABS: BASO % 0.1 %; BASO ABS # 0.01 K/uL (0-0.2); HEMATOCRIT 40.8 % (42-52); HEMOGLOBIN 14.3 g/dL (14.0-18.0); IG# 0.05 K/uL (0.00-0.02); LYMPH % 7.8 %; LYMPH ABS # 0.86 K/uL (1.2-3.4); MEAN CELL VOLUME 85.4 fL (80-100); MEAN CORPUSCULAR HEMOGLOBIN 29.9 pg (25-34); MEAN PLATELET VOLUME 9.1 fL (7.4-10.4); MONO % 9.4 %; MONO ABS # 1.04 K/uL (0.11-0.59); NEUT % 82.2 %; PLATELET COUNT 192 K/uL (130-400); RED CELL DISTRIBUTION WIDTH CV 15.2 % (11.5-14.5); WHITE BLOOD COUNT 11.06 K/uL (4.8-10.8)
--- NOTE | 2017-11-15 13:53 | DIAGNOSTIC IMAGING REPORT ---
CHEST ONE VIEW PORTABLE HISTORY: 62 years-old Male SHOB acute shortness of breath with dyspnea COMPARISON: Chest radiograph 04/14/2017, CTA of the chest 04/14/2017 TECHNIQUE: Portable AP view of the chest FINDINGS: Cardiomediastinal and hilar silhouettes are within normal limits. There is atherosclerosis of the aorta. There is no pneumothorax or pleural effusion. Patchy ill-defined airspace opacities are noted within the lateral left midlung, right midlung and left lung base. No overt pulmonary edema. Bones of the chest appear grossly intact. Mild convex left curvature of the lower thoracic spine. IMPRESSION: Patchy alveolar opacities of the mid lungs and left lung base suggest multifocal pneumonia. Follow-up imaging to document resolution is recommended. The above report was generated using voice recognition software. It may contain grammatical, syntax or spelling errors. Electronically signed by: Jerry Avery M.D. 11/15/2017 1:52 PM Dictated Date/Time: 11/15/2017 1:50 PM
[2017-11-15] MEDS ORDERED: PIPERACILLIN/TAZOBACTAM 4.5 GM/100ML D5W IV STA (13:54)
[2017-11-15] MEDS ORDERED: VANCOMYCIN INJ 2,000 MG in SODIUM CHLORIDE 0.9% 500ML 500 ML IV STA (13:54)
[2017-11-15 13:57] LABS: ISTAT CREATININE 0.5 mg/dl (0.6-1.3); ISTAT IONIZED CALCIUM 1.1 mmol/l (1.12-1.32); ISTAT POTASSIUM 3.3 mEq/L (3.3-5.0)
[2017-11-15 13:59] LABS: INR 1.1 (0.9-1.1); PTT PATIENT 27.5 SECONDS (21.0-31.0)
[2017-11-15] MEDS ORDERED: VANCOMYCIN CONSULT ACTIVE PRN ×2 (14:00→18:30)
[2017-11-15 14:05] LABS: BLOOD UREA NITROGEN 7 mg/dl (7-18); CALCIUM 9.5 mg/dl (8.5-10.1); CARBON DIOXIDE 28 mmol/L (21-32); CREATININE 0.61 mg/dl (0.60-1.40); GLUCOSE 100 mg/dl (70-99); POTASSIUM 3.3 mmol/L (3.5-5.1); SODIUM 131 mmol/L (136-145)
[2017-11-15 14:22] LABS: INFLUENZA B ANTIGEN Neg for Influ B (NEG)
[2017-11-15] MEDS ORDERED: ATOR-26 PO (14:55)
--- NOTE | 2017-11-15 15:07 | History and Physical ---
History & Physical Date & Time of Service: Nov 15, 2017 at 15:07 Chief Complaint: Breathing Difficulty Primary Care Physician: No Doctor, Assigned History of Present Illness Source: patient, clinic records, hospital records 62 yo M with past medical hx of Asthma , COPD , carotid artery disease , presented to Clinic at [facility] with complain of progressive SOB pt mentions that past 2-3 weeks , he has been experiencing SOB , WU, coughing , nasal congestion and wheeze pt was evaluated at the Clinic on Nov 08 for similar symptom and prescribed oral prednisone taper and Z pack -with no improvement of symptom pt was found to be tachypneic, Spo2 77% in RA , pt was directed to ER on arrival to ER ,pt continued to be hypoxic , required Bipap support CT chest shows bilateral multifocal pneumonia with cavitary lesions Past Medical/Surgical History Medical Problems: (1) Carotid artery stenosis Status: Resolved (2) Dyslipidemia Status: Chronic (3) Ischemic stroke Status: Resolved Family History Heart disease Hypertension Social History Smoking Status: Former Smoker Drug Use: none Marital Status: single Housing status: lives alone Occupational Status: retired Immunizations History of Influenza Vaccine: Unknown Influenza Vaccine Date: Jun 30, 2013 History of Tetanus Vaccine?: Unknown History of Pneumococcal: Unknown History of Hepatitis B Vaccine: Unknown Multi-Drug Resistant Organisms History of MDRO: No Allergies Coded Allergies: Dust (Verified Allergy, Unknown, hay fever, 11/15/17) NO KNOWN DRUG ALLERGIES (Verified Allergy, Unknown, NKDA, 11/15/17) POLLEN (Verified Allergy, Unknown, HAY FEVER, 11/15/17) Home Medications Scheduled Aspirin (Aspirin Ec), 81 MG PO QAM Atorvastatin (Lipitor), 80 MG PO DAILY Mometasone Furoate-Formoterol (Dulera 100/5 Mcg), 2 PUFFS INH BID Montelukast Sodium (Singulair), 10 MG PO QAM Scheduled PRN Albuterol Sulfate (Proair Respiclick), 2 PUFFS INH QID PRN for SOB/Wheezing Review of Systems Constitutional: + fever, + chills, + sweats, + weight loss, + weakness, + fatigue ENT: + sore throat Respiratory: + cough, + sputum, + wheezing, + shortness of breath, + dyspnea on exertion, + dyspnea at rest Cardiovascular: + orthopnea Neurologic: + weakness, + numbness/tingling, + vertigo Psychiatric: + anxiety Physical Exam Vital Signs Date Time Temp Pulse Resp B/P (MAP) Pulse Ox O2 Delivery O2 Flow Rate FiO2 11/15/17 15:00 81 24 146/76 94 Non-Rebreather 15.0 11/15/17 14:33 76 22 114/62 97 BiPAP 70 11/15/17 14:05 71 24 114/68 97 BiPAP 70 11/15/17 13:54 78 96 65 11/15/17 13:53 78 18 93 Non-Rebreather 15.0 11/15/17 13:37 78 11/15/17 13:16 37.6 87 20 127/78 76 Room Air General Appearance: no apparent distress Head: normocephalic, atraumatic Eyes: sclerae normal Neck: no JVD Respiratory/Chest: + decreased breath sounds, + crackles Cardiovascular: regular rate, rhythm Abdomen/GI: normal bowel sounds, non tender, soft Neurologic/Psych: no motor/sensory deficits, alert, oriented x 3 Diagnostics Laboratory Results Results Past 24 Hours Test 11/15/17 13:30 11/15/17 13:42 11/15/17 13:45 11/15/17 13:49 Range/Units White Blood Count 11.06 4.8-10.8 K/uL Red Blood Count 4.78 4.7-6.1 M/uL Hemoglobin 14.3 14.0-18.0 g/dL Hematocrit 40.8 42-52 % Mean Corpuscular Volume 85.4 80-100 fL Mean Corpuscular Hemoglobin 29.9 25-34 pg Mean Corpuscular Hemoglobin Concent 35.0 32-36 g/dl Platelet Count 192 130-400 K/uL Mean Platelet Volume 9.1 7.4-10.4 fL Neutrophils (%) (Auto) 82.2 % Lymphocytes (%) (Auto) 7.8 % Monocytes (%) (Auto) 9.4 % Eosinophils (%) (Auto) 0.0 % Basophils (%) (Auto) 0.1 % Neutrophils # (Auto) 9.10 1.4-6.5 K/uL Lymphocytes # (Auto) 0.86 1.2-3.4 K/uL Monocytes # (Auto) 1.04 0.11-0.59 K/uL Eosinophils # (Auto) 0.00 0-0.5 K/uL Basophils # (Auto) 0.01 0-0.2 K/uL RDW Standard Deviation 48.0 36.4-46.3 fL RDW Coefficient of Variation 15.2 11.5-14.5 % Immature Granulocyte % (Auto) 0.5 % Immature Granulocyte # (Auto) 0.05 0.00-0.02 K/uL Prothrombin Time 11.5 9.0-12.0 SECONDS Prothromb Time International Ratio 1.1 0.9-1.1 Activated Partial Thromboplast Time 27.5 21.0-31.0 SECONDS Partial Thromboplastin Ratio 1.1 Sodium Level 131 136-145 mmol/L Potassium Level 3.3 3.5-5.1 mmol/L Chloride Level 93 98-107 mmol/L Carbon Dioxide Level 28 21-32 mmol/L Anion Gap 10.0 18.0 16-25 mmol/L Blood Urea Nitrogen 7 7-18 mg/dl Creatinine 0.61 0.60-1.40 mg/dl Est Creatinine Clear Calc Drug Dose 124.6 ml/min Estimated GFR () 122.3 Estimated GFR (Non- 105.5 BUN/Creatinine Ratio 12.0 10-20 Random Glucose 100 70-99 mg/dl Calcium Level 9.5 8.5-10.1 mg/dl Magnesium Level 1.9 1.8-2.4 mg/dl Total Creatine Kinase 68 39-308 U/L Creatine Kinase MB 1.0 0.5-3.6 ng/ml Creatine Kinase MB Ratio 1.5 0-3.0 Troponin I < 0.015 0-0.045 ng/ml Pro-B-Type Natriuretic Peptide 190 0-900 pg/ml Bedside Hemoglobin 14.3 14.0-18.0 g/dl Bedside Hematocrit 42 42-52 % Bedside Sodium 133 135-144 mEq/L Bedside Potassium 3.3 3.3-5.0 mEq/L Bedside Chloride 92 101-112 mEq/L Bedside Total CO2 27 24-31 mEq/l Bedside Blood Urea Nitrogen 7 7-18 mg/dl Bedside Creatinine 0.5 0.6-1.3 mg/dl Bedside Glucose (other) 108 70-99 mg/dl Bedside Ionized Calcium (Mariaa) 1.10 1.12-1.32 mmol/l Venous Blood pH 7.46 7.36-7.41 Venous Blood Partial Pressure CO2 43 38.0-50.0 mmHg Venous Blood Partial Pressure O2 51 mmHg Venous Blood HCO3 30 mmol/L Venous Blood Oxygen Saturation 84.8 % Venous Blood Base Excess 5.8 mEq/L Bedside Lactic Acid Venous 1.08 0.90-1.70 mmol/L Test 11/15/17 13:50 Range/Units Influenza Type A Antigen Neg for Influ A NEG Influenza Type B Antigen Neg for Influ B NEG Microbiology Results 11/15/17 Blood Culture, Received Pending 11/15/17 Blood Culture, Received Pending Diagnostic Radiology CHEST ONE VIEW PORTABLE HISTORY: 62 years-old Male SHOB acute shortness of breath with dyspnea COMPARISON: Chest radiograph 04/14/2017, CTA of the chest 04/14/2017 TECHNIQUE: Portable AP view of the chest FINDINGS: Cardiomediastinal and hilar silhouettes are within normal limits. There is atherosclerosis of the aorta. There is no pneumothorax or pleural effusion. Patchy ill-defined airspace opacities are noted within the lateral left midlung, right midlung and left lung base. No overt pulmonary edema. Bones of the chest appear grossly intact. Mild convex left curvature of the lower thoracic spine. IMPRESSION: Patchy alveolar opacities of the mid lungs and left lung base suggest multifocal pneumonia. Follow-up imaging to document resolution is recommended. CT CHEST WITH CONTRAST : IMPRESSION: 1. No pulmonary emboli identified although segmental and subsegmental pulmonary arteries suboptimally assessed due to respiratory motion. 2. Extensive multifocal airspace opacities throughout the lungs, including a 3.3 cm cavitary opacity within the superior segment of the left lower lobe. The findings suggest multifocal pneumonia with cavitation. Statistically, the findings represent a typical bacterial pneumonia. However, tuberculosis is within the differential. Fungal infection or septic emboli could appear similar. Discussed with Dr. Kessler at time of dictation. 3. Bilateral lower lobe tree-in-bud nodules with bronchial wall thickening consistent with an infectious process. 4. Mild mediastinal and left hilar lymphadenopathy which is likely reactive. EKG Vent. rate 81 BPM ND interval 128 ms QRS duration 82 ms QT/QTc 370/429 ms P-R-T axes 68 39 31 Normal sinus rhythm Normal ECG When compared with ECG of 14-APR-2017 08:25, No significant change was found Impression Assessment and Plan ACUTE HYPOXEMIC RESPIRATORY FAILURE : presents with 2-3 wks SOB , cough , fever developed wheeze, respiratory distress -possible due to PNA failed out pt treatment respiratory status improved with Bipap now able to be transitioned to Nasal Canula Pulmonology consult requested cont resp support , ordered for neb tx , IV steroids MULTIFOCAL PNEUMONIA WITH CAVITARY LESION noted in CT chest with contrast possible bacterial pneumonia -ordered for sputum for culture and gram statin blood culture X2 ordered rule out TB , no hx of exposure ordered sputum for ABF stain /Quatifron TB test cont Isolation protocol /negative pressure empiric Abx with Zosyn and Vancomycin ID and Pulm eval requested CAROTID ARTERY DISEASE : cont aspirin /statin FULL CODE DVT PROPHYLAXIS : sub q heparin DISPOSITION : expected to be discharged home when medically stable PT/OT eval requested social service consulted for discharge planning Level of Care Telemetry Resuscitation Status FULL RESUSCITATION VTE Prophylaxis VTE Risk Assessment Done? Y/N: Yes Risk Level: Moderate Given or contraindicated: Unfractionated heparin SQ Additional Copies To Cindy Chaidez D.O.
[2017-11-15] MEDS ORDERED: OPTIRAY 320 IV PRN (15:45)
[2017-11-15] MEDS ORDERED: ACETAMINOPHEN 325 MG TAB PO PRN (18:00)
[2017-11-15] MEDS ORDERED: NITROGLYCERIN 0.4 MG SL PER TAB CHARGE SL PRN (18:00)
[2017-11-15] MEDS ORDERED: ALUMINUM/MAGNESIUM/SIMETH (MAALOX MAX) 30 ML UDC PO PRN (18:00)
[2017-11-15] MEDS ORDERED: MAGNESIUM HYDROXIDE SUSP 30 ML UDC PO PRN (18:00)
[2017-11-15] MEDS ORDERED: NSS + 20MEQ KCL 1000ML 1,000 ML IV SCH (18:00)
[2017-11-15] MEDS ORDERED: POLYETHYLENE (MIRALAX) 17 GM PACK PO PRN (18:00)
[2017-11-15] MEDS ORDERED: POTASSIUM CHLORIDE 10 MEQ TABCR PO STA (18:07)
--- NOTE | 2017-11-15 18:17 | DIAGNOSTIC IMAGING REPORT ---
CT ANGIOGRAPHY OF THE CHEST, PULMONARY EMBOLUS PROTOCOL CLINICAL HISTORY: Shortness of breath. Hypoxia. Breathing difficulty. COMPARISON STUDY: Chest CT April 14, 2017 and chest radiograph performed earlier today. TECHNIQUE: Following IV administration of 96 mL of [id number]-320, helical axial images of the chest were obtained utilizing the pulmonary embolus protocol. Maximal intensity projections and sagittal and coronal reformats were viewed on an independent 3D workstation. IV contrast was administered without complication. A dose lowering technique was utilized adhering to the principles of ALARA. CT DOSE: 420.70 mGy.cm FINDINGS: No pulmonary emboli are identified although the segmental and subsegmental pulmonary arteries are suboptimally assessed due to respiratory motion. The heart is mildly enlarged. There is no pericardial effusion. Note is made of a mildly enlarged subcarinal lymph node measures 1.3 cm in short axis diameter. A prominent left hilar node measures 1 cm in short axis diameter. There is no thoracic aortic dissection. Multifocal airspace opacities are noted within the lungs, including a cavitary 3.3 cm opacity within the superior segment of the left lower lobe. Extensive bilateral lower lobe tree-in-bud nodules are noted with extensive bronchial wall thickening. There is no pneumothorax. There may be trace bilateral pleural effusions. Lungs are suboptimally assessed due to respiratory motion. There may be slight cavitation of a opacity within the anterior segment of the right upper lobe. Bony thorax is unremarkable with exception of multiple old bilateral rib fractures. Left adrenal nodularity is unchanged since exam of April 14, 2017. IMPRESSION: 1. No pulmonary emboli identified although segmental and subsegmental pulmonary arteries suboptimally assessed due to respiratory motion. 2. Extensive multifocal airspace opacities throughout the lungs, including a 3.3 cm cavitary opacity within the superior segment of the left lower lobe. The findings suggest multifocal pneumonia with cavitation. Statistically, the findings represent a typical bacterial pneumonia. However, tuberculosis is within the differential. Fungal infection or septic emboli could appear similar. Discussed with Dr. Kessler at time of dictation. 3. Bilateral lower lobe tree-in-bud nodules with bronchial wall thickening consistent with an infectious process. 4. Mild mediastinal and left hilar lymphadenopathy which is likely reactive. Electronically signed by: Pradip Jon M.D. 11/15/2017 6:16 PM Dictated Date/Time: 11/15/2017 4:32 PM
[2017-11-15] MEDS ORDERED: PIPERACILL/TAZOBAC CONSULT ACTIVE PRN (18:30)
[2017-11-15] MEDS ORDERED: ALBUTEROL HFA 8 GM INHALER INH PRN (18:45)
[2017-11-15] MEDS ORDERED: LEVALBUTEROL 1.25MG/0.5ML NEB INH PRN (19:00)
[2017-11-15] MEDS ORDERED: IPRATROPIUM BROMIDE NEB SOLN 0.02% 2.5 ML VIAL INH PRN (19:00)
[2017-11-15] MEDS: LEVOFLOXACIN / D5W 750 MG in PREMIXED IN D5W 150 ML IV SCH (19:00)
[2017-11-15] MEDS: PIPERACILL/TAZOBAC IV 3.375 GM in DEXTROSE 5% 100ML 100 ML IV SCH (19:56)
[2017-11-15] MEDS: LEVALBUTEROL 1.25MG/0.5ML NEB INH SCH (20:53)
[2017-11-15] MEDS: IPRATROPIUM BROMIDE NEB SOLN 0.02% 2.5 ML VIAL INH SCH (20:53)
[2017-11-15] MEDS ORDERED: LEVALBUTEROL/IPRATROPIUM NEB INH SCH (21:00)
--- NOTE | 2017-11-15 21:02 | Pharmacy Progress Note ---
Pharmacy Abx Initial Consult Date of Service Nov 15, 2017. Pharmacy Dosing Scope Date of Consult: 11/15/17 Consultation requested by: Dr. Kessler Pharmacy is consulted to initiate Vanc and Zosyn IV dosing therapy, order appropriate labs and adjust drug dose/frequency. Subjective The patient is a 62 year old male admitted on Nov 15, 2017 at 15:06. Objective Height (Feet): 5 Height (Inches): 7.00 Weight (Kilograms): 84.400 Vital Signs (Past 12Hrs) Vital Signs Past 12 Hours Date Time Temp Pulse Resp B/P (MAP) Pulse Ox O2 Delivery O2 Flow Rate FiO2 11/15/17 20:54 79 21 98 BiPAP/CPAP 60 11/15/17 19:08 79 97 60 11/15/17 18:00 37.3 92 22 146/67 (93) 90 Nasal Cannula 6.0 11/15/17 17:34 88 BiPAP 11/15/17 17:27 37.0 88 22 132/67 11/15/17 17:00 90 BiPAP 11/15/17 17:00 37.0 88 22 132/67 (88) 88 Non-Rebreather 11/15/17 16:05 81 30 131/62 94 11/15/17 15:00 81 24 146/76 94 Non-Rebreather 15.0 11/15/17 14:33 76 22 114/62 97 BiPAP 70 11/15/17 14:05 71 24 114/68 97 BiPAP 70 11/15/17 13:54 78 96 65 11/15/17 13:53 78 18 93 Non-Rebreather 15.0 11/15/17 13:37 78 11/15/17 13:16 37.6 87 20 127/78 76 Room Air Lab Results (24Hrs) Laboratory Tests (24 Hours) Test 11/15/17 13:30 11/15/17 19:16 White Blood Count 11.06 K/uL (4.8-10.8) H Red Blood Count 4.78 M/uL (4.7-6.1) Hemoglobin 14.3 g/dL (14.0-18.0) Hematocrit 40.8 % (42-52) L Mean Corpuscular Volume 85.4 fL (80-100) Mean Corpuscular Hemoglobin 29.9 pg (25-34) Mean Corpuscular Hemoglobin Concent 35.0 g/dl (32-36) Platelet Count 192 K/uL (130-400) Mean Platelet Volume 9.1 fL (7.4-10.4) Neutrophils (%) (Auto) 82.2 % Lymphocytes (%) (Auto) 7.8 % Monocytes (%) (Auto) 9.4 % Eosinophils (%) (Auto) 0.0 % Basophils (%) (Auto) 0.1 % Neutrophils # (Auto) 9.10 K/uL (1.4-6.5) H Lymphocytes # (Auto) 0.86 K/uL (1.2-3.4) L Monocytes # (Auto) 1.04 K/uL (0.11-0.59) H Eosinophils # (Auto) 0.00 K/uL (0-0.5) Basophils # (Auto) 0.01 K/uL (0-0.2) Total Creatine Kinase 68 U/L (39-308) Procalcitonin < 0.05 ng/ml (0-0.5) Micro Results Date/Time Source Procedure Growth Status 11/15/17 13:45 Blood Blood Culture Pending Received 11/15/17 13:39 Blood Blood Culture Pending Received 11/15/17 00:00 Nasal MRSA DNA Surveillance Screen - Final Specimen Negative for MRSA by DNA Probe Complete Assessment & Plan Assessment 62 year old male admitted with SOB, cough and fever. Empiric antibiotic therapy initiated for pneumonia * Mild leukocytosis and febrile at time of admission Plan Vanc, Zosyn, and Levaquin IV for treatment of pneumonia Vancomycin IV * Loading dose: 2000 mg (24 mg/kg) * Maintenance dose: 1250 mg IV (15 mg/kg) every 8 hours * Goal trough level for pnx : 15 to 20 mcg/mL * Trough level ordered for 11/16/17 Zosyn * 4.5g IV load in the ER, then 3.375g IV q 8 hours (extended infusion) Levaquin 750 mg IV q24 hours - not pharmacy consult Pharmacy will continue to follow and will adjust dose/frequency as necessary. Thank you.
[2017-11-15] MEDS: VANCOMYCIN INJ 1,250 MG in SODIUM CHLORIDE 0.9% 250ML 250 ML IV SCH (21:22)
[2017-11-15] MEDS: METHYLPREDNISOLONE IV 40 MG in SYRINGE 0 ML IV SCH (21:22)
[2017-11-15] MEDS: HEPARIN SOD 5000 UNIT/0.5 ML CARP SQ SCH (21:23)
[2017-11-16] VITALS (11 sets, daily range): BP systolic 127–160; BP diastolic 68–87; PULSE 59–85; TEMP 36.3–36.9; O2SAT 89–96
[2017-11-16] MEDS: IPRATROPIUM BROMIDE NEB SOLN 0.02% 2.5 ML VIAL INH SCH ×4 (02:13→19:59)
[2017-11-16] MEDS: LEVALBUTEROL 1.25MG/0.5ML NEB INH SCH ×4 (02:13→19:59)
[2017-11-16] MEDS: PIPERACILL/TAZOBAC IV 3.375 GM in DEXTROSE 5% 100ML 100 ML IV SCH ×3 (03:17→19:50)
[2017-11-16 05:50] LABS: HEMATOCRIT 36.3 % (42-52); HEMOGLOBIN 12.8 g/dL (14.0-18.0); MEAN CORPUSCULAR HGB CONC 35.3 g/dl (32-36); MEAN PLATELET VOLUME 9.5 fL (7.4-10.4); PLATELET COUNT 183 K/uL (130-400); RED CELL DISTRIBUTION WIDTH CV 15.3 % (11.5-14.5); RED CELL DISTRIBUTION WIDTH SD 47.5 fL (36.4-46.3); WHITE BLOOD COUNT 6.38 K/uL (4.8-10.8)
[2017-11-16] MEDS: METHYLPREDNISOLONE IV 40 MG in SYRINGE 0 ML IV SCH ×3 (06:08→21:06)
[2017-11-16] MEDS: VANCOMYCIN INJ 1,250 MG in SODIUM CHLORIDE 0.9% 250ML 250 ML IV SCH ×2 (06:08→14:00)
[2017-11-16] MEDS: HEPARIN SOD 5000 UNIT/0.5 ML CARP SQ SCH ×3 (06:09→21:06)
[2017-11-16 06:27] LABS: CALCIUM 8.4 mg/dl (8.5-10.1); CREATININE 0.7 mg/dl (0.60-1.40); POTASSIUM 3.7 mmol/L (3.5-5.1)
--- NOTE | 2017-11-16 06:41 | DIAGNOSTIC IMAGING REPORT ---
BILATERAL LOWER EXTREMITY VENOUS DOPPLER HISTORY: Leg swelling. COMPARISON STUDY: None. FINDINGS: There is normal compressibility, flow, and augmentation within the bilateral lower extremity deep venous systems. IMPRESSION: No DVT within the right or left lower extremity. Electronically signed by: Álvaro Palomo M.D. 11/16/2017 6:40 AM Dictated Date/Time: 11/16/2017 6:40 AM
[2017-11-16] MEDS: ATORVASTATIN 40 MG TAB PO SCH (08:02)
[2017-11-16] MEDS: ASPIRIN 81 MG ECTAB PO SCH (08:02)
[2017-11-16] MEDS: MONTELUKAST SOD 10 MG TAB PO SCH (08:03)
[2017-11-16] MEDS ORDERED: VANCOMYCIN TROUGH ONE (13:30)
--- NOTE | 2017-11-16 14:13 | Pharmacy Progress Note ---
Pharmacy Abx Dose Short Note Date of Service Nov 16, 2017. Assessment & Plan Assessment 62 year old male receiving vanc/zosyn for treatment of pneumonia Day # 2 of antimicrobial therapy. Plan Vancomycin * Trough level of 15.4 mcg/mL is therapeutic. * Continue dose of 1250 mg IV every 8 hours * Goal trough level for pneumonia : 15 to 20 mcg/mL * Trough or random level ordered for: repeat as clinically indicated Pharmacy will continue to follow and will adjust dose/frequency as necessary. Thank you.
--- NOTE | 2017-11-16 14:19 | Pulmonary Consultation ---
History General Date of Service: Nov 16, 2017. Stated Complaint: Respiratory Failure, and diffuse pulmonary infiltrates/cavitary nodule seen on CT imaging. HPI The patient is a 62 year old male who presents to [facility] with complaints of Respiratory Failure. The patient's primary care provider is No Doctor, Assigned. This 62-year-old gentleman with admission to the [facility] for acute on chronic respiratory insufficiency. He has a PmHx: Significant for COPD/ACOS, carotid artery disease, dyslipidemia, ischemic stroke 2013 status post tPA and history of morbid obesity. The patient was previously admitted to the [facility] in March of [address] Snow Huff from the Pulmonary Division at that time was noted to have a COPD/asthma exacerbation with infiltrate/bronchiectatic changes and his lower lobes left greater than right with possible aspiration. A barium swallow performed 04/15/2017 showed some esophageal dysmotility but no signs of karen aspiration. On speaking with the patient he notes since that time in even probably 6 months prior he is having progressive fatigue and shortness of Breath but no consistent cough, mucus production, pleurisy or chest pain noted. He also denied hemoptysis or other B type symptoms are GI signs and symptoms over that time as well. This really started coming to a head 2-3 weeks ago when he noted progressive dyspnea on exertion and presented to [facility] clinic on 11/08/2017 and treated with prednisone and a Z-Terence with no notable improvement. He went to the clinic once again on the day of admission was notably showing signs of respiratory insufficiency with tachypnea and had an SaO2 of only 77% on room air. He was then placed on supplemental oxygen and brought to the emergency room. Since his admission his saturations have ranged from 76% (RA) to 98% with oxygen supplementation. During the time of our conversation the patient continues to reiterate he is feeling ill in notably fatigue but has a difficult time characterizing his illness. Patient does note he lost over 100 pounds in the last 2 years which he says was intentional and per our records from [id number] he lost 50 pounds. Current workup EKG normal sinus rhythm rate of 73 WBC: 11K (Neut#>9.10----6K Platelet: 183K VB.46/43 corrected to 7.49/36 CEA: >3.3 PSA: =0.275 Procalcitonin: <0.05 Microbiology: Pending (blood, sputum) Influenza a antigen: Negative Influenza B antigen: Negative Legionella culture: Canceled Legionella urine antigen: Pending Aspergillus antibodies: Pending QuantiFERON GOLD study: Pending Beta D galactomannan: Pending CT angio of the chest 11/15/2017 Mediastinal adenopathy, subcarinal and 4R regions notably prominent No pulmonary emboli noted Bilateral lower lobe atelectasis left greater than right Bilateral ground-glass changes upper and middle lobe predominant Left lower lobe nodule possibly cavitating with possible air-fluid level Previous workup Pulmonary function studies 08/18/2015 Pre post %W[place]low FEV1/FVC 65 FEV1 1.62/50% 1.59/49% -1 FVC 2.47/61% 2.42/59% -2 SVC 2.45/60% TLC 11.85/191% RV/TLC 79 DLCO 51% DL/VA 83% Barium swallow 04/15/2017 Esophageal dysmotility No aspiration noted Historian: patient, EMS Review of Systems Constitutional: reports: malaise, weakness, weight loss Eyes: reports: no symptoms ENT: reports: no symptoms Cardiovascular: reports: as stated in HPI Respiratory: reports: as stated in HPI Gastrointestinal: reports: as stated in HPI Genitourinary - Male: reports: no symptoms Musculoskeletal: reports: myalgias Integumentary: reports: no symptoms Neurologic: reports: no symptoms Psychiatric: reports: anxiety Endocrine: no symptoms Hematologic / Lymphatic: no symptoms Allergic / Immunologic: no symptoms Past Medical History Past Medical History: 1. Carotid artery disease 2. Gout 3. High cholesterol 4. Asthma since childhood 5. Asthma combined obstructive syndrome (ACOS) 6. Dyslipidemia 7. Ischemic stroke 2012/status post TPA with no associated residual weakness 8. Morbid obesity Past Surgical History: 1. History of Carotid Thromboendarterectomy 2. Right carotid endarterectomy 04/11/2017 3. History of Complete Colonoscopy 4. 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 [employer] Hx Tobacco Use In Past Year?: No Smoking Status: Former Smoker Marital status: single Housing status: lives alone Occupational Status: retired Immunizations History of Influenza Vaccine: Unknown Influenza Vaccine Date: Jun 30, 2013 History of Tetanus Vaccine?: Unknown History of Pneumococcal: Unknown History of Hepatitis B Vaccine: Unknown History of MDRO History of MDRO: No Allergies Coded Allergies: Dust (Verified Allergy, Unknown, hay fever, 11/15/17) NO KNOWN DRUG ALLERGIES (Verified Allergy, Unknown, NKDA, 11/15/17) POLLEN (Verified Allergy, Unknown, HAY FEVER, 11/15/17) Current Medications Reported Home Medications Medications Dose Route/Sig Max Daily Dose Days Date Category Lipitor (Atorvastatin Calcium) 80 Mg Tab 80 Mg PO DAILY 11/15/17 Reported Proair Respiclick (Albuterol Sulfate) 108 Mcg/Act Aer 2 Puffs INH QID PRN 04/14/17 Reported Dulera 100/5 Mcg (Mometasone Furoate-Formoterol) 1 Aer Aer 2 Puffs INH BID 04/04/17 Reported Aspirin Ec (Aspirin) 81 Mg Tab 81 Mg PO QAM 04/04/17 Reported Singulair (Montelukast Sodium) 10 Mg Tab 10 Mg PO QAM 03/21/13 Reported Physical Physical Exam Vital Signs: Date Time Temp Pulse Resp B/P (MAP) Pulse Ox O2 Delivery O2 Flow Rate FiO2 11/16/17 12:00 36.7 80 18 127/70 (89) 89 Nasal Cannula 5.0 11/16/17 12:00 89 Nasal Cannula 5.0 11/16/17 08:00 90 Nasal Cannula 5.0 11/16/17 08:00 36.8 72 18 132/76 (94) 90 Nasal Cannula 5.0 11/16/17 07:19 59 18 90 Nasal Cannula 5.0 11/16/17 04:00 96 Nasal Cannula 5.0 11/16/17 04:00 36.4 74 19 160/87 (111) 96 Nasal Cannula 3.0 11/16/17 02:13 68 18 93 Nasal Cannula 5.0 11/15/17 23:59 93 Nasal Cannula 5.0 11/15/17 23:59 36.7 58 17 149/89 (109) 93 Nasal Cannula 5.0 11/15/17 20:54 79 21 98 BiPAP/CPAP 60 11/15/17 20:06 36.3 64 22 112/71 (85) 96 Nasal Cannula 5.0 11/15/17 20:00 95 BiPAP 70 11/15/17 19:08 79 97 60 11/15/17 18:00 37.3 92 22 146/67 (93) 90 Nasal Cannula 6.0 11/15/17 17:34 88 BiPAP 11/15/17 17:27 37.0 88 22 132/67 11/15/17 17:00 90 BiPAP 11/15/17 17:00 37.0 88 22 132/67 (88) 88 Non-Rebreather 11/15/17 16:05 81 30 131/62 94 11/15/17 15:00 81 24 146/76 94 Non-Rebreather 15.0 11/15/17 14:33 76 22 114/62 97 BiPAP 70 11/15/17 14:05 71 24 114/68 97 BiPAP 70 11/15/17 13:54 78 96 65 11/15/17 13:53 78 18 93 Non-Rebreather 15.0 General Appearance: uncomfortable Head: NORMOCEPHALIC, ATRAUMATIC Eyes: PERRLA, NO DISCHARGE, EOMI ENT: NORMAL EAR EXAM, NORMAL NASAL EXAM, NORMAL MOUTH EXAM, NORMAL THROAT EXAM Neck: NORMAL RANGE OF MOTION, NO TENDERNESS, TRACHEA MIDLINE Respiratory: other (Expiratory wheezing bilaterally with minimal rhonchi) Cardiovasular: other (Tachycardia but S1-S2 no murmurs rubs or gallops appreciated) Abdomen: NON TENDER, NORMAL BOWEL SOUNDS, NO REBOUND, NO MASSES, NO GUARDING, NO ORGANOMEGALY Genitourinary - Male: EXTERNAL GENITALIA NORMAL Back: NORMAL INSPECTION, NO MIDLINE TENDERNESS, NO CVA TENDERNESS, NO PARAVERTEBRAL TTP Upper Extremities: NO EDEMA, NO DEFORMITY, NORMAL ROM Lower Extremities: NO EDEMA, NO DEFORMITY, NORMAL ROM Pulses: carotid (R) (1+), carotid (L) (1+), posterior tibial (R) (2+), posterior tibial (L) (2+) Neuro: ALERT, ORIENTED x 3, NORMAL MOTOR EXAM, NORMAL SENSATION Reflexes: biceps (R) (2+), bicpes (L) (2+), achilles (R) (2+), achilles (L) (2+ ) Babinski Testing: right (downgoing), left (downgoing) Psychiatric: flat affect Diagnostics Labs Results Past 24 Hours Test 11/15/17 13:49 11/15/17 13:50 11/15/17 18:09 11/15/17 19:16 Range/Units Bedside Lactic Acid Venous 1.08 0.90-1.70 mmol/L Influenza Type A Antigen Neg for Influ A NEG Influenza Type B Antigen Neg for Influ B NEG Carcinoembryonic Antigen 3.3 0-2.5 ng/ml Prostate Specific Antigen 0.275 0.000-4.000 ng/ml Procalcitonin < 0.05 0-0.5 ng/ml Test 11/15/17 22:00 11/16/17 05:26 11/16/17 13:24 Range/Units White Blood Count 6.38 4.8-10.8 K/uL Red Blood Count 4.27 4.7-6.1 M/uL Hemoglobin 12.8 14.0-18.0 g/dL Hematocrit 36.3 42-52 % Mean Corpuscular Volume 85.0 80-100 fL Mean Corpuscular Hemoglobin 30.0 25-34 pg Mean Corpuscular Hemoglobin Concent 35.3 32-36 g/dl RDW Standard Deviation 47.5 36.4-46.3 fL RDW Coefficient of Variation 15.3 11.5-14.5 % Platelet Count 183 130-400 K/uL Mean Platelet Volume 9.5 7.4-10.4 fL Sodium Level 134 136-145 mmol/L Potassium Level 3.7 3.5-5.1 mmol/L Chloride Level 99 98-107 mmol/L Carbon Dioxide Level 28 21-32 mmol/L Anion Gap 7.0 3-11 mmol/L Blood Urea Nitrogen 13 7-18 mg/dl Creatinine 0.70 0.60-1.40 mg/dl Est Creatinine Clear Calc Drug Dose 109.2 ml/min Estimated GFR () 115.6 Estimated GFR (Non- 99.7 BUN/Creatinine Ratio 19.0 10-20 Random Glucose 143 70-99 mg/dl Calcium Level 8.4 8.5-10.1 mg/dl Magnesium Level 2.0 1.8-2.4 mg/dl Diagnostic Radiology CT angio of the chest 11/15/2017 Mediastinal adenopathy, subcarinal and 4R regions notably prominent No pulmonary emboli noted Bilateral lower lobe atelectasis left greater than right Bilateral ground-glass changes upper and middle lobe predominant Left lower lobe nodule possibly cavitating with possible air-fluid level EKG Interpretation: NORMAL EKG Impression Assessment and Plan 62-year-old male admitted with acute on chronic respiratory insufficiency: 1. Respiratory Insufficiency: This patient did have pulmonary function studies performed 08/18/2015 that did show moderately severe obstructive ventilatory disease based off ATS standards. Was also no signs of reversibility suggesting asthma at that time. I do believe we should continue the patient on steroids but I will decrease the dose to q.12 hour window as well as continue on his nebulizers. Patient will also require continued oxygen supplementation at this time. 2. Abnormal CT scan: The patient does have an abnormal CT scan with notable left lower lobe possibly even cavitary nodule. The nodule also appears to have an air-fluid level but this is difficult to discern as there was a great deal of motion artifact associated with this imaging. I would like the patient is stable eyes and then possibly repeat his high-resolution CT scan in the next 24- 48 hours to help better define his nodules. Is concerning as the patient has lost a great deal of weight in the last 6-8 months and now presents with progressive fatigue, dyspnea and abnormal CT scan. This will most likely require a bronchoscopic intervention but poor advance with EBUS and ENB bronchoscopy when the patient is stable enough to move forward with the procedures. I did send off a CEA but is only mildly elevated. Also waiting on a fungal workup at this time. I will also send off a sed rate and an ANCA for further evaluation. 3. Pneumonia: Patient is currently on vancomycin, Zosyn and levofloxacin 750 mg. At this time I will discontinue the vancomycin as the patient's nasal swab is negative as well as his Zosyn as previous swallow evaluation did not show signs of aspiration. He also is notable that the patient's procalcitonin and white blood cell count were within normal limits. I will continue the levofloxacin at current dosing of 750 mg as the patient is at high risk for community-acquired infection and was treated with steroids prior to admission and could possibly be immuno incompetent secondary to underlying malignancy versus vasculitis. The as the patient could be immuno incompetent and was previously treated with steroids I will also send off a PCR influenza A and B study. I will hold off on initiating Tamiflu as the patient does not have classic presentation and could have secondary etiology for his current condition such as malignancy and/or vasculitic disorder.
--- NOTE | 2017-11-16 14:21 | ECHOCARDIOGRAM REPORT ---
*NOTICE TO RECEIVING [employer] This information is strictly Confidential and protected under [place] law. [place] law prohibits you from making any further disclosure of this information unless further disclosure is expressly permitted by the written consent of the person to whom it pertains or is authorized by law. A general authorization for the release of medical or other information is not sufficient for this purpose. Hospital accepts no responsibility if the information is made available to any other person, INCLUDING THE PATIENT. Interpretation Summary * Name: KIANA FARMER Study Date: 11/16/2017 09:29 AM BP: 132/76 mmHg * Patient Location: .MSICU\S\E105\S\1 HR: 72 * : 1955 (M/d/yyy) Gender: Male Height: 67 in * Age: 62 yrs Ethnicity: CA Weight: 186 lb * Ordering Physician: Chen Kessler * Referring Physician: Self, Referred * Performed By: Sandy Cervantes RDCS * * Reason For Study: CHEST PAIN * BSA: 2.0 m2 * -- Conclusions -- * The left ventricle is normal in size. * There is normal left ventricular wall thickness. * The left ventricular wall motion is normal. * Left ventricular systolic function is normal. * Ejection Fraction = 60-65%. * Aortic valve sclerosis mild, without significant aortic valvular stenosis. * The aortic root is normal size. * There is no pericardial effusion. Procedure Details * A contrast injection of Definity was performed to improve assessment of LV function. * Contrast was injected into an intravenous site in the right arm. * One vial of Definity ultrasound contrast was diluted in normal saline to a total volume of 10 ml. A total of '1' ml of solution was administered during imaging. * Lot # [id number] of Definity utilized for procedure. * Expiration date OCT 18. * The attending nurse who injected the contrast agent was JOO MCKEON RN. * A complete two-dimensional transthoracic echocardiogram was performed (2D, M-mode, Doppler and color flow Doppler). Left Ventricle * The left ventricle is normal in size. * There is normal left ventricular wall thickness. * Ejection Fraction = 60-65%. * Left ventricular systolic function is normal. * The left ventricular wall motion is normal. Right Ventricle * The right ventricle is normal in size and function. Atria * The left atrium is mildly dilated. * Right atrial size is normal. * No ASD detected; PFO is not assessed. Mitral Valve * The mitral valve anatomy is normal. * There is no mitral valve stenosis. * There is trace mitral regurgitation. Tricuspid Valve * The tricuspid valve anatomy is normal. * There is no tricuspid stenosis. * There is trace tricuspid regurgitation. Aortic Valve * Aortic valve sclerosis mild, without significant aortic valvular stenosis. * No aortic regurgitation is present. Pulmonic Valve * The pulmonic valve is not well visualized. Great Vessels * The aortic root is normal size. Pericardium/Pleural * There is no pericardial effusion. Great Vessels * Normal inferior vena cava diameter and respiratory variation suggests normal central venous pressure. Left Ventricular Diastolic Function * Diastolic dysfunction, Grade II (pseudonormalization pattern). MMode 2D Measurements and Calculations IVSd 0.91 cm IVSs 1.3 cm LVIDd 4.7 cm LVIDs 3.1 cm LVPWd 1.1 cm LVPWs 1.6 cm IVS/LVPW 0.83 FS 33.8 % EDV(Teich) 101.0 ml ESV(Teich) 37.8 ml EF(Teich) 62.6 % EDV(cubed) 102.1 ml ESV(cubed) 29.6 ml EF(cubed) 71.0 % % IVS thick 41.9 % % LVPW thick 45.6 % LV mass(C)d 164.1 grams LV mass(C)dI 83.7 grams/m\S\2 LV mass(C)s 154.5 grams LV mass(C)sI 78.8 grams/m\S\2 SV(Teich) 63.3 ml SI(Teich) 32.3 ml/m\S\2 SV(cubed) 72.5 ml SI(cubed) 37.0 ml/m\S\2 Ao root diam 3.2 cm Ao root area 8.0 cm\S\2 LA dimension 4.4 cm LA/Ao 1.4 LVAd ap4 36.7 cm\S\2 LVLd ap4 9.0 cm EDV(MOD-sp4) 122.0 ml EDV(sp4-el) 126.8 ml LVAs ap4 19.6 cm\S\2 LVLs ap4 7.5 cm ESV(MOD-sp4) 42.8 ml ESV(sp4-el) 43.5 ml EF(MOD-sp4) 64.9 % EF(sp4-el) 65.7 % LVAd ap2 32.3 cm\S\2 LVLd ap2 8.0 cm EDV(MOD-sp2) 107.9 ml EDV(sp2-el) 110.1 ml LVAs ap2 17.7 cm\S\2 LVLs ap2 6.6 cm ESV(MOD-sp2) 38.4 ml ESV(sp2-el) 40.8 ml EF(MOD-sp2) 64.4 % EF(sp2-el) 62.9 % LVLd %diff -11.96 % EDV(MOD-bp) 121.8 ml LVLs %diff -14.75 % ESV(MOD-bp) 42.5 ml EF(MOD-bp) 65.1 % SV(MOD-sp4) 79.2 ml SI(MOD-sp4) 40.4 ml/m\S\2 SV(MOD-sp2) 69.5 ml SI(MOD-sp2) 35.4 ml/m\S\2 SV(MOD-bp) 79.3 ml SI(MOD-bp) 40.5 ml/m\S\2 SV(sp4-el) 83.4 ml SI(sp4-el) 42.5 ml/m\S\2 SV(sp2-el) 69.3 ml SI(sp2-el) 35.4 ml/m\S\2 Doppler Measurements and Calculations MV E max edvin 98.7 cm/sec MV A max edvin 83.1 cm/sec MV E/A 1.2 MV dec time 0.19 sec Ao V2 max 133.6 cm/sec Ao max PG 7.1 mmHg Ao max PG (full) 2.0 mmHg LV V1 max PG 5.1 mmHg LV V1 max 113.3 cm/sec
[2017-11-16 15:40] LABS: INFLUENZA A PCR Neg for Influ A (NEG); INFLUENZA B PCR Neg for Influ B (NEG)
--- NOTE | 2017-11-16 17:09 | Progress Note ---
Medicine Progress Note Date & Time of Visit: Nov 16, 2017 at 16:48. Subjective Pt was seen and examined Sitting at the edge of the bed Continue required 5L oxygen Denies any chest pain, palpitation, dizziness Objective Last 8 Hrs Date Time Temp Pulse Resp B/P (MAP) Pulse Ox O2 Delivery O2 Flow Rate FiO2 11/16/17 16:00 36.9 74 20 132/68 (89) 92 Nasal Cannula 5.0 11/16/17 16:00 92 Nasal Cannula 5.0 11/16/17 12:00 36.7 80 18 127/70 (89) 89 Nasal Cannula 5.0 11/16/17 12:00 89 Nasal Cannula 5.0 Physical Exam: General- No acute distress Head- atraumatic Eyes- PERRL, EOMI ENT- oropharynx clear Neck- supple, no JVD Lungs- +wheezing Heart- regular rhythm Abdomen- normal bowel sounds Neuro- alert, oriented x 3; PERRL Skin- warm & dry Laboratory Results: Last 24 Hours Test 11/15/17 18:09 11/15/17 19:16 11/15/17 22:00 11/16/17 05:26 Carcinoembryonic Antigen 3.3 ng/ml Prostate Specific Antigen 0.275 ng/ml Procalcitonin < 0.05 ng/ml White Blood Count 6.38 K/uL Red Blood Count 4.27 M/uL Hemoglobin 12.8 g/dL Hematocrit 36.3 % Mean Corpuscular Volume 85.0 fL Mean Corpuscular Hemoglobin 30.0 pg Mean Corpuscular Hemoglobin Concent 35.3 g/dl RDW Standard Deviation 47.5 fL RDW Coefficient of Variation 15.3 % Platelet Count 183 K/uL Mean Platelet Volume 9.5 fL Sodium Level 134 mmol/L Potassium Level 3.7 mmol/L Chloride Level 99 mmol/L Carbon Dioxide Level 28 mmol/L Anion Gap 7.0 mmol/L Blood Urea Nitrogen 13 mg/dl Creatinine 0.70 mg/dl Est Creatinine Clear Calc Drug Dose 109.2 ml/min Estimated GFR () 115.6 Estimated GFR (Non- 99.7 BUN/Creatinine Ratio 19.0 Random Glucose 143 mg/dl Calcium Level 8.4 mg/dl Magnesium Level 2.0 mg/dl Test 11/16/17 13:24 11/16/17 14:30 Vancomycin Level Trough 15.4 mcg/ml Influenza Type A (RT-PCR) Neg for Influ A Influenza Type B (RT-PCR) Neg for Influ B Date/Time Source Procedure Growth Status 11/16/17 14:30 Sputum Expectorated Sputum Acid Fast Stain Pending Received 11/16/17 14:30 Sputum Expectorated Sputum Mycobacterial Culture Pending Received 11/16/17 14:30 Sputum Expectorated Sputum Gram Stain Pending Received 11/16/17 14:30 Sputum Expectorated Sputum Sputum Culture Pending Received Assessment & Plan ACUTE HYPOXEMIC RESPIRATORY FAILURE Mostly related to Pneumonia CTA chest showed Extensive multifocal airspace opacities throughout the lungs, including a 3.3 cm cavitary opacity within the superior segment of the left lower lobe Continue oxygen supplement NO evidence of PE on CTA chest Pulmonology on board Plan to repeat CT chest after 24 to 48 hr Will need a bronch once medically stable to assess for the lung cavity Will decrease solumedrol to q12h Will d/c vanco Continue levaquin and Zosyn for now quantiferon, Sputum AFB, aspergillus ab, antigen pcr, anca, ESR blood cx and sputum cx pending ID on board Continue monitor Echo showed * The left ventricle is normal in size. * There is normal left ventricular wall thickness. * The left ventricular wall motion is normal. * Left ventricular systolic function is normal. * Ejection Fraction = 60-65%. * Aortic valve sclerosis mild, without significant aortic valvular stenosis. * The aortic root is normal size. * There is no pericardial effusion. MULTIFOCAL PNEUMONIA WITH CAVITARY LESION possible related to bacterial pneumonia Need to R/o TB and malignancy Sputum for AFB /Quatifron TB test /Sputum cx and Aspergillus pending Blood cx pending Continue airbones isoloation D/C vanvo On Zosyn and levaquin procalcitonin negative Will need bronch once medically stable CAROTID ARTERY DISEASE : cont aspirin /statin stable FULL CODE DVT PROPHYLAXIS : sub q heparin CODE STATUS FULL CODE Consultants: Pulm ID Current Inpatient Medications: Current Inpatient Medications Medications (Trade) Dose Ordered Sig/Linda Route Start Time Stop Time Status Last Admin Dose Admin Ioversol (Optiray 320) 125 ml UD PRN IV 11/15/17 15:45 11/19/17 15:44 Heparin Sodium (Porcine) (Heparin Sq 5000 Unit/0.5ml) 5,000 unit Q8 SQ 11/15/17 22:00 12/15/17 21:59 11/16/17 14:00 5,000 UNIT Acetaminophen (Tylenol Tab) 650 mg Q4H PRN PO 11/15/17 18:00 12/15/17 17:59 Al Hydrox/Mg Hydrox/Simethicone (Maalox Max Susp) 15 ml Q4H PRN PO 11/15/17 18:00 12/15/17 17:59 Magnesium Hydroxide (Milk Of Magnesia Susp) 30 ml Q12H PRN PO 11/15/17 18:00 12/15/17 17:59 Nitroglycerin (Nitrostat Tab) 0.4 mg UD PRN SL 11/15/17 18:00 12/15/17 17:59 Polyethylene (Miralax Powder Packet) 17 gm DAILY PRN PO 11/15/17 18:00 12/15/17 17:59 Piperacillin Sod/ Tazobactam Sod 3.375 gm/Dextrose 115 ml @ 28.75 mls/ hr Q8H IV 11/15/17 20:00 11/22/17 13:59 11/16/17 11:23 28.75 MLS/HR Miscellaneous Information (Consult) 1 ea UD PRN N/A 11/15/17 18:30 12/15/17 18:29 Vancomycin HCl 1250 mg/Sodium Chloride 275 ml @ 125 mls/hr Q8H IV 11/15/17 22:00 11/22/17 14:59 11/16/17 14:00 125 MLS/HR Miscellaneous Information (Consult) 1 ea UD PRN N/A 11/15/17 18:30 12/15/17 18:29 Aspirin (Ecotrin Tab) 81 mg QAM PO 11/16/17 09:00 12/16/17 08:59 11/16/17 08:02 81 MG Atorvastatin Calcium (Lipitor Tab) 80 mg DAILY PO 11/16/17 09:00 12/16/17 08:59 11/16/17 08:02 80 MG Montelukast Sodium (Singulair Tab) 10 mg QAM PO 11/16/17 09:00 12/16/17 08:59 11/16/17 08:03 10 MG Albuterol (Ventolin Hfa Inhaler) 2 puffs QID PRN INH 11/15/17 18:45 12/15/17 18:44 Miscellaneous Information (Order Awaiting Action) 1 ea QS N/A 11/16/17 00:00 12/16/17 00:00 Methylprednisolone Sodium Succinate 40 mg/Syringe 0.64 ml @ 1.5 mls/min Q8H IV 11/15/17 22:00 12/15/17 21:59 11/16/17 14:01 1.5 MLS/MIN Ipratropium [place] (Atrovent 0.02% 0.5MG/2.5ML Neb) 0.5 mg Q6R INH 11/15/17 21:00 12/15/17 20:59 11/16/17 07:19 0.5 MG Levalbuterol (Xopenex 1.25MG/ 0.5ML Neb) 1.25 mg Q6R INH 11/15/17 21:00 12/15/17 20:59 11/16/17 07:19 1.25 MG Levalbuterol (Xopenex 1.25MG/ 0.5ML Neb) 1.25 mg Q2H PRN INH 11/15/17 19:00 12/15/17 18:59 Ipratropium [place] (Atrovent 0.02% 0.5MG/2.5ML Neb) 0.5 mg Q2H PRN INH 11/15/17 19:00 12/15/17 18:59 Levofloxacin 750 mg/Prmx 150 ml @ 100 mls/hr Q24H IV 11/15/17 19:00 11/22/17 18:59 11/15/17 19:00 100 MLS/HR
--- NOTE | 2017-11-16 17:23 | Medical Consult ---
Consultation Date of Consultation: Nov 16, 2017. Attending Physician: Colin Menjivar M.D. Reason for Consultation: Multifocal pneumonia, cavitary lesion History of Present Illness 62-year-old male with longstanding COPD, admission in March for respiratory infection with pneumonia with possibility of aspiration, who was now readmitted to the hospital with several weeks of progressively worsening shortness of breath and cough. He was seen earlier this month and treated with a course of prednisone and azithromycin without improvement. Shortness of breath continued to worsen, and patient is now found to be significantly hypoxic. Chest x-ray and CT scan, read by me, shows evidence of multifocal pneumonia with possible cavitary lesion. Patient admits to 50 lb weight loss over the last 6 months. Denies hemoptysis. No significant fever. Cultures are pending. Past Medical/Surgical History Medical Problems: (1) Acute respiratory failure Status: Acute (2) Elevated troponin Status: Acute (3) Hypoxia Status: Acute (4) Hypoxia Status: Acute (5) Multifocal pneumonia Status: Acute Past Medical History Past Medical History: 1. Carotid artery disease 2. Gout 3. High cholesterol 4. Asthma since childhood 5. Asthma combined obstructive syndrome (ACOS) 6. Dyslipidemia 7. Ischemic stroke 2012/status post TPA with no associated residual weakness 8. Morbid obesity Past Surgical History: 1. History of Carotid Thromboendarterectomy 2. Right carotid endarterectomy 04/11/2017 3. History of Complete Colonoscopy 4. Sutures and left hand laceration/trauma Family History Heart disease Hypertension Social History Smoking Status: Former Smoker Drug Use: none Marital Status: single Housing Status: lives alone Occupation Status: retired Allergies Coded Allergies: Dust (Verified Allergy, Unknown, hay fever, 11/15/17) NO KNOWN DRUG ALLERGIES (Verified Allergy, Unknown, NKDA, 11/15/17) POLLEN (Verified Allergy, Unknown, HAY FEVER, 11/15/17) Current Inpatient Medications Current Inpatient Medications Medications (Trade) Dose Ordered Sig/Linda Route Start Time Stop Time Status Last Admin Dose Admin Ioversol (Optiray 320) 125 ml UD PRN IV 11/15/17 15:45 11/19/17 15:44 Heparin Sodium (Porcine) (Heparin Sq 5000 Unit/0.5ml) 5,000 unit Q8 SQ 11/15/17 22:00 12/15/17 21:59 11/16/17 14:00 5,000 UNIT Acetaminophen (Tylenol Tab) 650 mg Q4H PRN PO 11/15/17 18:00 12/15/17 17:59 Al Hydrox/Mg Hydrox/Simethicone (Maalox Max Susp) 15 ml Q4H PRN PO 11/15/17 18:00 12/15/17 17:59 Magnesium Hydroxide (Milk Of Magnesia Susp) 30 ml Q12H PRN PO 11/15/17 18:00 12/15/17 17:59 Nitroglycerin (Nitrostat Tab) 0.4 mg UD PRN SL 11/15/17 18:00 12/15/17 17:59 Polyethylene (Miralax Powder Packet) 17 gm DAILY PRN PO 11/15/17 18:00 12/15/17 17:59 Piperacillin Sod/ Tazobactam Sod 3.375 gm/Dextrose 115 ml @ 28.75 mls/ hr Q8H IV 11/15/17 20:00 11/22/17 13:59 11/16/17 11:23 28.75 MLS/HR Miscellaneous Information (Consult) 1 ea UD PRN N/A 11/15/17 18:30 12/15/17 18:29 Miscellaneous Information (Consult) 1 ea UD PRN N/A 11/15/17 18:30 12/15/17 18:29 Aspirin (Ecotrin Tab) 81 mg QAM PO 11/16/17 09:00 12/16/17 08:59 11/16/17 08:02 81 MG Atorvastatin Calcium (Lipitor Tab) 80 mg DAILY PO 11/16/17 09:00 12/16/17 08:59 11/16/17 08:02 80 MG Montelukast Sodium (Singulair Tab) 10 mg QAM PO 11/16/17 09:00 12/16/17 08:59 11/16/17 08:03 10 MG Albuterol (Ventolin Hfa Inhaler) 2 puffs QID PRN INH 11/15/17 18:45 12/15/17 18:44 Miscellaneous Information (Order Awaiting Action) 1 ea QS N/A 11/16/17 00:00 12/16/17 00:00 Ipratropium [place] (Atrovent 0.02% 0.5MG/2.5ML Neb) 0.5 mg Q6R INH 11/15/17 21:00 12/15/17 20:59 11/16/17 07:19 0.5 MG Levalbuterol (Xopenex 1.25MG/ 0.5ML Neb) 1.25 mg Q6R INH 11/15/17 21:00 12/15/17 20:59 11/16/17 07:19 1.25 MG Levalbuterol (Xopenex 1.25MG/ 0.5ML Neb) 1.25 mg Q2H PRN INH 11/15/17 19:00 12/15/17 18:59 Ipratropium [place] (Atrovent 0.02% 0.5MG/2.5ML Neb) 0.5 mg Q2H PRN INH 11/15/17 19:00 12/15/17 18:59 Levofloxacin 750 mg/Prmx 150 ml @ 100 mls/hr Q24H IV 11/15/17 19:00 11/22/17 18:59 11/15/17 19:00 100 MLS/HR Methylprednisolone Sodium Succinate 40 mg/Syringe 0.64 ml @ 1.5 mls/min Q12 IV 11/16/17 21:00 12/15/17 21:59 UNV Review of Systems Constitutional: + weight loss, + fatigue, No fever Eyes: No problem reported ENT: No problem reported Respiratory: + cough, + shortness of breath, No hemoptysis Cardiovascular: No chest pain Abdomen: No problem reported Musculoskeletal: No problem reported Genitourinary - Male: No problem reported Neurologic: No problem reported Psychiatric: No problem reported Endocrine: No problem reported Hematologic / Lymphatic: No problem reported Integumentary: No problem reported Allergic / Immunologic: No problem reported Physical Exam Date Time Temp Pulse Resp B/P (MAP) Pulse Ox O2 Delivery O2 Flow Rate FiO2 11/16/17 16:00 36.9 74 20 132/68 (89) 92 Nasal Cannula 5.0 11/16/17 16:00 92 Nasal Cannula 5.0 11/16/17 12:00 36.7 80 18 127/70 (89) 89 Nasal Cannula 5.0 11/16/17 12:00 89 Nasal Cannula 5.0 11/16/17 08:00 90 Nasal Cannula 5.0 11/16/17 08:00 36.8 72 18 132/76 (94) 90 Nasal Cannula 5.0 11/16/17 07:19 59 18 90 Nasal Cannula 5.0 11/16/17 04:00 96 Nasal Cannula 5.0 11/16/17 04:00 36.4 74 19 160/87 (111) 96 Nasal Cannula 3.0 11/16/17 02:13 68 18 93 Nasal Cannula 5.0 11/15/17 23:59 93 Nasal Cannula 5.0 11/15/17 23:59 36.7 58 17 149/89 (109) 93 Nasal Cannula 5.0 11/15/17 20:54 79 21 98 BiPAP/CPAP 60 11/15/17 20:06 36.3 64 22 112/71 (85) 96 Nasal Cannula 5.0 11/15/17 20:00 95 BiPAP 70 11/15/17 19:08 79 97 60 11/15/17 18:00 37.3 92 22 146/67 (93) 90 Nasal Cannula 6.0 11/15/17 17:34 88 BiPAP 11/15/17 17:27 37.0 88 22 132/67 General Appearance: WD/WN, no apparent distress Head: normocephalic, atraumatic Eyes: normal inspection, EOMI, sclerae normal ENT: normal ENT inspection, hearing grossly normal, pharynx normal Neck: supple, no adenopathy, thyroid normal, trachea midline Respiratory/Chest: chest non-tender, no respiratory distress, no accessory muscle use, + rhonchi, + wheezing Cardiovascular: regular rate, rhythm, no gallop, no murmur Abdomen/GI: normal bowel sounds, non tender, soft, no organomegaly Back: normal inspection, no CVA tenderness Extremities/Musculoskelatal: no calf tenderness, normal capillary refill, non- tender Neurologic/Psych: alert, oriented x 3 Skin: normal color, warm/dry, no rash Lymphatic: no adenopathy Laboratory Results Date/Time Source Procedure Growth Status 11/16/17 14:30 Sputum Expectorated Sputum Acid Fast Stain Pending Received 11/16/17 14:30 Sputum Expectorated Sputum Mycobacterial Culture Pending Received 11/16/17 14:30 Sputum Expectorated Sputum Gram Stain Pending Received 11/16/17 14:30 Sputum Expectorated Sputum Sputum Culture Pending Received Last 24 Hours Test 11/15/17 18:09 2/16/18 19:16 11/15/17 22:00 11/16/17 05:26 Carcinoembryonic Antigen 3.3 ng/ml Prostate Specific Antigen 0.275 ng/ml Procalcitonin < 0.05 ng/ml White Blood Count 6.38 K/uL Red Blood Count 4.27 M/uL Hemoglobin 12.8 g/dL Hematocrit 36.3 % Mean Corpuscular Volume 85.0 fL Mean Corpuscular Hemoglobin 30.0 pg Mean Corpuscular Hemoglobin Concent 35.3 g/dl RDW Standard Deviation 47.5 fL RDW Coefficient of Variation 15.3 % Platelet Count 183 K/uL Mean Platelet Volume 9.5 fL Sodium Level 134 mmol/L Potassium Level 3.7 mmol/L Chloride Level 99 mmol/L Carbon Dioxide Level 28 mmol/L Anion Gap 7.0 mmol/L Blood Urea Nitrogen 13 mg/dl Creatinine 0.70 mg/dl Est Creatinine Clear Calc Drug Dose 109.2 ml/min Estimated GFR () 115.6 Estimated GFR (Non- 99.7 BUN/Creatinine Ratio 19.0 Random Glucose 143 mg/dl Calcium Level 8.4 mg/dl Magnesium Level 2.0 mg/dl Test 11/16/17 13:24 11/16/17 14:30 Vancomycin Level Trough 15.4 mcg/ml Influenza Type A (RT-PCR) Neg for Influ A Influenza Type B (RT-PCR) Neg for Influ B Patient Name: KIANA FARMER Unit Number: [id number] Dictated: 11/15/171631 Transcribed: 11/15/171647 JOY Printed Date/Time: [~ rep prt dt]/[~ rep prt tm] [~ rep ct labl] - [~ rep ct ivnm] [facility] [place] [address] Dictated: 11/15/171631 Transcribed: 11/15/171647 JOY Printed Date/Time: [~ rep prt dt]/[~ rep prt tm] [~ rep ct labl] - [~ rep ct ivnm] CT ANGIOGRAPHY OF THE CHEST, PULMONARY EMBOLUS PROTOCOL CLINICAL HISTORY: Shortness of breath. Hypoxia. Breathing difficulty. COMPARISON STUDY: Chest CT April 14, 2017 and chest radiograph performed earlier today. TECHNIQUE: Following IV administration of 96 mL of [id number]-320, helical axial images of the chest were obtained utilizing the pulmonary embolus protocol. Maximal intensity projections and sagittal and coronal reformats were viewed on an independent 3D workstation. IV contrast was administered without complication. A dose lowering technique was utilized adhering to the principles of ALARA. CT DOSE: 420.70 mGy.cm FINDINGS: No pulmonary emboli are identified although the segmental and subsegmental pulmonary arteries are suboptimally assessed due to respiratory motion. The heart is mildly enlarged. There is no pericardial effusion. Note is made of a mildly enlarged subcarinal lymph node measures 1.3 cm in short axis diameter. A prominent left hilar node measures 1 cm in short axis diameter. There is no thoracic aortic dissection. Multifocal airspace opacities are noted within the lungs, including a cavitary 3.3 cm opacity within the superior segment of the left lower lobe. Extensive bilateral lower lobe tree-in-bud nodules are noted with extensive bronchial wall thickening. There is no pneumothorax. There may be trace bilateral pleural effusions. Lungs are suboptimally assessed due to respiratory motion. There may be slight cavitation of a opacity within the anterior segment of the right upper lobe. Bony thorax is unremarkable with exception of multiple old bilateral rib fractures. Left adrenal nodularity is unchanged since exam of April 14, 2017. IMPRESSION: 1. No pulmonary emboli identified although segmental and subsegmental pulmonary arteries suboptimally assessed due to respiratory motion. 2. Extensive multifocal airspace opacities throughout the lungs, including a 3.3 cm cavitary opacity within the superior segment of the left lower lobe. The findings suggest multifocal pneumonia with cavitation. Statistically, the findings represent a typical bacterial pneumonia. However, tuberculosis is within the differential. Fungal infection or septic emboli could appear similar. Discussed with Dr. Kessler at time of dictation. 3. Bilateral lower lobe tree-in-bud nodules with bronchial wall thickening consistent with an infectious process. 4. Mild mediastinal and left hilar lymphadenopathy which is likely reactive. Electronically signed by: Pradip Jon M.D. 11/15/2017 6:16 PM Dictated Date/Time: 11/15/2017 4:32 PM The status of this report is Signed. Draft = Not yet reviewed or approved by Radiologist. Signed = Reviewed and approved by Radiologist. <AttendingPhy>Colin Menjivar M.D.</AttendingPhy> <FamilyPhy>No Doctor, Assigned</FamilyPhy> <PrimaryPhy>No Doctor, Assigned</PrimaryPhy> <UnitNumber> [id number]</UnitNumber> <VisitNumber>[id number]</VisitNumber> <PatientName> KIANA FARMER</PatientName> <DateOfBirth>1955</DateOfBirth> < Location>[facility]</Location> <ServiceDate>11/15/17</ServiceDate> <MNE>ESINDI</MNE > <OrderingPhy>Chen Kessler MD</OrderingPhy> <OrderingPhyMNE>f rep ord dr betancourt</OrderingPhyMNE> <DictatingPhyMNE>f rep dict dr betancourt</DictatingPhyMNE> < CCListMNE>f rep ct mne</CCListMNE> <AdmittingPhyMNE>f pt admit dr betancourt</ AdmittingPhyMNE> <AttendingPhyMNE>f pt attend dr betancourt</AttendingPhyMNE> <ConsultingPhyMNE>f pt consult dr betancourt</ConsultingPhyMNE> <FamilyPhyMNE>f pt fam dr betancourt</FamilyPhyMNE> <OtherPhyMNE>f pt other dr betancourt</OtherPhyMNE> < PrimaryPhyMNE>f pt prim care dr betancourt</PrimaryPhyMNE> <ReferringPhyMNE>f pt referring dr betancourt</ReferringPhyMNE> Assessment & Plan 62-year-old male presents with respiratory failure with bilateral infiltrates with possible cavitary lesion. Given normal procalcitonin, weight loss, and chronicity worry about possibility of malignancy. However, agree with treatment for possible community-acquired pneumonia with levofloxacin pending further culture results and lab data. Agree that patient will likely require bronchoscopy for definitive diagnosis. Will follow.
[2017-11-16] MEDS: LEVOFLOXACIN / D5W 750 MG in PREMIXED IN D5W 150 ML IV SCH (19:50)
[2017-11-17] VITALS (20 sets, daily range): BP systolic 118–156; BP diastolic 66–98; PULSE 59–74; TEMP 36.4–37; O2SAT 86–96
[2017-11-17] MEDS: LEVALBUTEROL 1.25MG/0.5ML NEB INH SCH ×4 (01:38→20:20)
[2017-11-17] MEDS: IPRATROPIUM BROMIDE NEB SOLN 0.02% 2.5 ML VIAL INH SCH ×4 (01:38→20:20)
[2017-11-17] MEDS: PIPERACILL/TAZOBAC IV 3.375 GM in DEXTROSE 5% 100ML 100 ML IV SCH ×2 (03:48→11:36)
[2017-11-17] MEDS: HEPARIN SOD 5000 UNIT/0.5 ML CARP SQ SCH ×3 (06:24→20:56)
[2017-11-17] MEDS: MONTELUKAST SOD 10 MG TAB PO SCH (07:17)
[2017-11-17] MEDS: ASPIRIN 81 MG ECTAB PO SCH (07:17)
[2017-11-17] MEDS: ATORVASTATIN 40 MG TAB PO SCH (07:17)
[2017-11-17] MEDS: METHYLPREDNISOLONE IV 40 MG in SYRINGE 0 ML IV SCH ×2 (07:18→20:55)
--- NOTE | 2017-11-17 07:39 | DIAGNOSTIC IMAGING REPORT ---
CHEST ONE VIEW PORTABLE CLINICAL HISTORY: MULTIFOCAL PNEUMONIA COMPARISON STUDY: Chest radiograph and chest CT November 15, 2017. FINDINGS: There is no pneumothorax or pleural effusion. The left upper lobe focus is less prominent. Left basilar opacity persists. Cardiomediastinal silhouette is stable. There is no evidence for pulmonary edema. IMPRESSION: 1. Interval improvement in the left upper lobe cavitary opacity. 2. Persistent bibasilar opacities, left greater than right, which could reflect an infectious process or atelectasis. Electronically signed by: Pradip Jon M.D. 11/17/2017 7:37 AM Dictated Date/Time: 11/17/2017 7:35 AM
[2017-11-17 08:00] LABS: HEMATOCRIT 36.1 % (42-52); HEMOGLOBIN 12.6 g/dL (14.0-18.0); MEAN CELL VOLUME 85.7 fL (80-100); MEAN CORPUSCULAR HEMOGLOBIN 29.9 pg (25-34); MEAN CORPUSCULAR HGB CONC 34.9 g/dl (32-36); MEAN PLATELET VOLUME 9.5 fL (7.4-10.4); PLATELET COUNT 237 K/uL (130-400); RED CELL DISTRIBUTION WIDTH CV 15.1 % (11.5-14.5); RED CELL DISTRIBUTION WIDTH SD 47.7 fL (36.4-46.3); WHITE BLOOD COUNT 12.56 K/uL (4.8-10.8)
[2017-11-17 08:31] LABS: CALCIUM 8.6 mg/dl (8.5-10.1); CREATININE 0.62 mg/dl (0.60-1.40); POTASSIUM 3.4 mmol/L (3.5-5.1)
--- NOTE | 2017-11-17 10:06 | Pulmonology Progress Note ---
Pulmonary Progress Note Date of Service Nov 17, 2017. Attending Dr. Andrews Subjective Patient continues to have dyspnea on exertion but does note some mild improvement on the high flow system. He does find the high flow system difficult to work with. 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 muscular function 5 out of 5 bilaterally Echocardiogram 11/16/2017 LV: EF=60-65%, function WNL RV: WNL Left Atrium: Mildly dilated Right atrium: Normal size IVC: Normal collapsibility Grade 2 pseudonormalization pattern/diastolic dysfunction CT angio of the chest 11/15/2017 Mediastinal adenopathy, subcarinal and 4R regions notably prominent No pulmonary emboli noted Bilateral lower lobe atelectasis left greater than right Bilateral ground-glass changes upper and middle lobe predominant Left lower lobe nodule possibly cavitating with possible air-fluid level Previous workup Pulmonary function studies 08/18/2015 Pre post %[place] FEV1/FVC 65 FEV1 1.62/50% 1.59/49% -1 FVC 2.47/61% 2.42/59% -2 SVC 2.45/60% TLC 11.85/191% RV/TLC 79 DLCO 51% DL/VA 83% Assessment & Plan 62-year-old male admitted with acute on chronic respiratory insufficiency and multiple pulmonary nodules: 1. Respiratory Insufficiency/Hypoxia: We will switch the patient to a high flow system as he was notably desaturating on 5-6 L of nasal cannula down to the mid 80s. No evidence of patient have an acute inflammatory process pneumonia versus metastatic disease and also has underlying moderate severe obstructive ventilatory disease and possibly diastolic dysfunction evaluated by echocardiogram on 11/16/2016. This time I continued high flow system, current medication regimen and monitor the patient's eyes and nose. 2. Abnormal CT Scan: Patient has multiple pulmonary infiltrates largest being in the superior subsegment of the left lower lobe with possible cavitation and even an air-fluid level. There was some much motion artifact that is difficult to get a clear view of these particular infiltrative process. When the patient is stable I do suggest we move forward with a repeat high resolution CAT scan for more definitive image. There continues to be infiltrative process I do believe moving forward at that time with an EBUS/ENT evaluation would be warranted but is difficult as the patient is notably to hypoxic at this time. If the patient does require intubation I would like to perform bronchoscopy at that time and BAL for more definitive workup for infection and sent off for cytologic evaluation as well. 3. Pneumonia: Currently being treated with levofloxacin 750 mg and Zosyn. I did discontinue the vancomycin yesterday after the negative nasal swab but the patient did have a mild increase in his WBC count from 11K to 13K clinically has been stable so will not reintroduce the vancomycin at this time. The patient was seen by infectious disease and I will defer to their judgment as to his antibiotic course Data Medications: Current Inpatient Medications Medications (Trade) Dose Ordered Sig/Linda Route Start Time Stop Time Status Last Admin Dose Admin Ioversol (Optiray 320) 125 ml UD PRN IV 11/15/17 15:45 11/19/17 15:44 Heparin Sodium (Porcine) (Heparin Sq 5000 Unit/0.5ml) 5,000 unit Q8 SQ 11/15/17 22:00 12/15/17 21:59 11/17/17 06:24 5,000 UNIT Acetaminophen (Tylenol Tab) 650 mg Q4H PRN PO 11/15/17 18:00 12/15/17 17:59 Al Hydrox/Mg Hydrox/Simethicone (Maalox Max Susp) 15 ml Q4H PRN PO 11/15/17 18:00 12/15/17 17:59 Magnesium Hydroxide (Milk Of Magnesia Susp) 30 ml Q12H PRN PO 11/15/17 18:00 12/15/17 17:59 Nitroglycerin (Nitrostat Tab) 0.4 mg UD PRN SL 11/15/17 18:00 12/15/17 17:59 Polyethylene (Miralax Powder Packet) 17 gm DAILY PRN PO 11/15/17 18:00 12/15/17 17:59 Piperacillin Sod/ Tazobactam Sod 3.375 gm/Dextrose 115 ml @ 28.75 mls/ hr Q8H IV 11/15/17 20:00 2/23/18 13:59 11/17/17 03:48 28.75 MLS/HR Miscellaneous Information (Consult) 1 ea UD PRN N/A 11/15/17 18:30 12/15/17 18:29 Aspirin (Ecotrin Tab) 81 mg QAM PO 11/16/17 09:00 12/16/17 08:59 11/17/17 07:17 81 MG Atorvastatin Calcium (Lipitor Tab) 80 mg DAILY PO 11/16/17 09:00 12/16/17 08:59 11/17/17 07:17 80 MG Montelukast Sodium (Singulair Tab) 10 mg QAM PO 11/16/17 09:00 12/16/17 08:59 11/17/17 07:17 10 MG Albuterol (Ventolin Hfa Inhaler) 2 puffs QID PRN INH 11/15/17 18:45 12/15/17 18:44 Miscellaneous Information (Order Awaiting Action) 1 ea QS N/A 11/16/17 00:00 12/16/17 00:00 Ipratropium [place] (Atrovent 0.02% 0.5MG/2.5ML Neb) 0.5 mg Q6R INH 11/15/17 21:00 12/15/17 20:59 11/17/17 07:24 0.5 MG Levalbuterol (Xopenex 1.25MG/ 0.5ML Neb) 1.25 mg Q6R INH 11/15/17 21:00 12/15/17 20:59 11/17/17 07:24 1.25 MG Levalbuterol (Xopenex 1.25MG/ 0.5ML Neb) 1.25 mg Q2H PRN INH 11/15/17 19:00 12/15/17 18:59 Ipratropium [place] (Atrovent 0.02% 0.5MG/2.5ML Neb) 0.5 mg Q2H PRN INH 11/15/17 19:00 12/15/17 18:59 Levofloxacin 750 mg/Prmx 150 ml @ 100 mls/hr Q24H IV 11/15/17 19:00 11/22/17 18:59 11/16/17 19:50 100 MLS/HR Methylprednisolone Sodium Succinate 40 mg/Syringe 0.64 ml @ 1.5 mls/min Q12H IV 11/16/17 21:00 12/16/17 20:59 11/17/17 07:18 1.5 MLS/MIN Vital Signs: Date Time Temp Pulse Resp B/P (MAP) Pulse Ox O2 Delivery O2 Flow Rate FiO2 11/17/17 08:00 91 Nasal Cannula 5.0 11/17/17 07:25 74 16 92 Nasal Cannula 5.0 11/17/17 07:00 36.5 69 20 144/66 (92) 91 Nasal Cannula 5.0 11/17/17 06:00 65 20 86 11/17/17 05:00 71 20 95 11/17/17 04:00 36.4 60 20 94 11/17/17 04:00 90 Nasal Cannula 5.0 11/17/17 03:51 71 20 156/73 (100) 95 11/17/17 03:00 70 20 93 11/17/17 02:00 68 20 92 11/17/17 01:38 64 16 96 Nasal Cannula 5.0 11/17/17 01:00 59 20 94 11/17/17 00:10 36.5 63 20 122/70 (87) 93 11/17/17 00:00 90 Nasal Cannula 5.0 11/17/17 00:00 62 20 93 11/16/17 23:00 72 20 90 11/16/17 22:00 64 20 89 11/16/17 21:00 71 20 90 11/16/17 20:00 90 Nasal Cannula 5.0 11/16/17 20:00 63 18 95 Nasal Cannula 5.0 11/16/17 20:00 36.3 65 20 96 11/16/17 19:00 85 20 95 11/16/17 16:00 36.9 74 20 132/68 (89) 92 Nasal Cannula 5.0 11/16/17 16:00 92 Nasal Cannula 5.0 11/16/17 12:00 36.7 80 18 127/70 (89) 89 Nasal Cannula 5.0 11/16/17 12:00 89 Nasal Cannula 5.0 Laboratory Results: Last 24 Hours Test 11/16/17 13:24 11/16/17 14:30 11/17/17 07:47 Vancomycin Level Trough 15.4 mcg/ml Influenza Type A (RT-PCR) Neg for Influ A Influenza Type B (RT-PCR) Neg for Influ B White Blood Count 12.56 K/uL Red Blood Count 4.21 M/uL Hemoglobin 12.6 g/dL Hematocrit 36.1 % Mean Corpuscular Volume 85.7 fL Mean Corpuscular Hemoglobin 29.9 pg Mean Corpuscular Hemoglobin Concent 34.9 g/dl RDW Standard Deviation 47.7 fL RDW Coefficient of Variation 15.1 % Platelet Count 237 K/uL Mean Platelet Volume 9.5 fL Erythrocyte Sedimentation Rate 34 mm/hr Sodium Level 135 mmol/L Potassium Level 3.4 mmol/L Chloride Level 97 mmol/L Carbon Dioxide Level 28 mmol/L Anion Gap 9.0 mmol/L Blood Urea Nitrogen 13 mg/dl Creatinine 0.62 mg/dl Est Creatinine Clear Calc Drug Dose 124.5 ml/min Estimated GFR () 121.5 Estimated GFR (Non- 104.8 BUN/Creatinine Ratio 21.1 Random Glucose 138 mg/dl Calcium Level 8.6 mg/dl Magnesium Level 1.9 mg/dl Prealbumin 10.7 mg/dl Procalcitonin < 0.05 ng/ml
[2017-11-17] MEDS ORDERED: POTASSIUM CHLORIDE 20 MEQ TABCR PO ONE (13:45)
--- NOTE | 2017-11-17 18:07 | Progress Note ---
Medicine Progress Note Date & Time of Visit: Nov 17, 2017 at 18:00. Subjective Pt was seen and examined Lying in bed, continue required high flow oxygen Sister at bedside and was updated (patient gave permission) He said that he feels slightly better Denies any chest pain, palpitation and fever Objective Last 8 Hrs Date Time Temp Pulse Resp B/P (MAP) Pulse Ox O2 Delivery O2 Flow Rate FiO2 11/17/17 16:00 90 Nasal Cannula 5.0 11/17/17 16:00 36.7 71 16 145/73 (97) 90 Nasal Cannula 5.0 11/17/17 14:51 70 18 90 Nasal Cannula 4.5 11/17/17 12:00 88 Nasal Cannula 5.0 11/17/17 12:00 37.0 71 20 118/98 (105) 88 Nasal Cannula 5.0 Physical Exam: General- No acute distress Head- atraumatic Eyes- PERRL, EOMI ENT- oropharynx clear Neck- supple, no JVD Lungs- +wheezing Heart- regular rhythm Abdomen- normal bowel sounds Neuro- alert, oriented x 3; PERRL Skin- warm & dry Laboratory Results: Last 24 Hours Test 11/17/17 07:47 White Blood Count 12.56 K/uL Red Blood Count 4.21 M/uL Hemoglobin 12.6 g/dL Hematocrit 36.1 % Mean Corpuscular Volume 85.7 fL Mean Corpuscular Hemoglobin 29.9 pg Mean Corpuscular Hemoglobin Concent 34.9 g/dl RDW Standard Deviation 47.7 fL RDW Coefficient of Variation 15.1 % Platelet Count 237 K/uL Mean Platelet Volume 9.5 fL Erythrocyte Sedimentation Rate 34 mm/hr Sodium Level 135 mmol/L Potassium Level 3.4 mmol/L Chloride Level 97 mmol/L Carbon Dioxide Level 28 mmol/L Anion Gap 9.0 mmol/L Blood Urea Nitrogen 13 mg/dl Creatinine 0.62 mg/dl Est Creatinine Clear Calc Drug Dose 124.5 ml/min Estimated GFR () 121.5 Estimated GFR (Non- 104.8 BUN/Creatinine Ratio 21.1 Random Glucose 138 mg/dl Calcium Level 8.6 mg/dl Magnesium Level 1.9 mg/dl Prealbumin 10.7 mg/dl Procalcitonin < 0.05 ng/ml Assessment & Plan ACUTE HYPOXEMIC RESPIRATORY FAILURE Mostly related to Pneumonia CTA chest showed Extensive multifocal airspace opacities throughout the lungs, including a 3.3 cm cavitary opacity within the superior segment of the left lower lobe Continue oxygen supplement NO evidence of PE on CTA chest Pulmonology on board Plan to repeat CT chest after 24 to 48 hr Will need a bronch once medically stable to assess for the lung cavity Continue solumedrol to q12h D/C Vanco and Zosyn Continue levaquin Elevated ESR blood cx and sputum cx no growth Quantiferon, Sputum AFB, aspergillus ab, antigen pcr, anca, ID on board Continue monitor Echo showed * The left ventricle is normal in size. * There is normal left ventricular wall thickness. * The left ventricular wall motion is normal. * Left ventricular systolic function is normal. * Ejection Fraction = 60-65%. * Aortic valve sclerosis mild, without significant aortic valvular stenosis. * The aortic root is normal size. * There is no pericardial effusion. MULTIFOCAL PNEUMONIA WITH CAVITARY LESION possible related to bacterial pneumonia Need to R/o TB and malignancy Sputum for AFB /Quatifron TB test /Sputum cx and Aspergillus pending Repeat CXR today showed interval improvement in the left upper lobe cavitary opacity Blood cx no growth Procalcitonin normal Continue airbones isolation D/C vanvo and Zosyn Continue Levaquin Pulmonary on board and consider bronch once medically stable ELEVATED WBC Mostly related to steroid Afebrile procalcitonin normal continue monitor CBC Continue levaquin CAROTID ARTERY DISEASE : cont aspirin /statin stable FULL CODE DVT PROPHYLAXIS : sub q heparin CODE STATUS FULL CODE Consultants: Pulm ID Current Inpatient Medications: Current Inpatient Medications Medications (Trade) Dose Ordered Sig/Linda Route Start Time Stop Time Status Last Admin Dose Admin Ioversol (Optiray 320) 125 ml UD PRN IV 11/15/17 15:45 11/19/17 15:44 Heparin Sodium (Porcine) (Heparin Sq 5000 Unit/0.5ml) 5,000 unit Q8 SQ 11/15/17 22:00 12/15/17 21:59 11/17/17 13:45 5,000 UNIT Acetaminophen (Tylenol Tab) 650 mg Q4H PRN PO 11/15/17 18:00 12/15/17 17:59 Al Hydrox/Mg Hydrox/Simethicone (Maalox Max Susp) 15 ml Q4H PRN PO 11/15/17 18:00 12/15/17 17:59 Magnesium Hydroxide (Milk Of Magnesia Susp) 30 ml Q12H PRN PO 11/15/17 18:00 12/15/17 17:59 Nitroglycerin (Nitrostat Tab) 0.4 mg UD PRN SL 11/15/17 18:00 12/15/17 17:59 Polyethylene (Miralax Powder Packet) 17 gm DAILY PRN PO 11/15/17 18:00 12/15/17 17:59 Aspirin (Ecotrin Tab) 81 mg QAM PO 11/16/17 09:00 12/16/17 08:59 11/17/17 07:17 81 MG Atorvastatin Calcium (Lipitor Tab) 80 mg DAILY PO 11/16/17 09:00 12/16/17 08:59 11/17/17 07:17 80 MG Montelukast Sodium (Singulair Tab) 10 mg QAM PO 11/16/17 09:00 12/16/17 08:59 11/17/17 07:17 10 MG Albuterol (Ventolin Hfa Inhaler) 2 puffs QID PRN INH 11/15/17 18:45 12/15/17 18:44 Miscellaneous Information (Order Awaiting Action) 1 ea QS N/A 11/16/17 00:00 12/16/17 00:00 Ipratropium [place] (Atrovent 0.02% 0.5MG/2.5ML Neb) 0.5 mg Q6R INH 11/15/17 21:00 12/15/17 20:59 11/17/17 14:51 0.5 MG Levalbuterol (Xopenex 1.25MG/ 0.5ML Neb) 1.25 mg Q6R INH 11/15/17 21:00 12/15/17 20:59 11/17/17 14:51 1.25 MG Levalbuterol (Xopenex 1.25MG/ 0.5ML Neb) 1.25 mg Q2H PRN INH 11/15/17 19:00 12/15/17 18:59 Ipratropium [place] (Atrovent 0.02% 0.5MG/2.5ML Neb) 0.5 mg Q2H PRN INH 11/15/17 19:00 12/15/17 18:59 Levofloxacin 750 mg/Prmx 150 ml @ 100 mls/hr Q24H IV 11/15/17 19:00 11/22/17 18:59 11/16/17 19:50 100 MLS/HR Methylprednisolone Sodium Succinate 40 mg/Syringe 0.64 ml @ 1.5 mls/min Q12H IV 11/16/17 21:00 12/16/17 20:59 11/17/17 07:18 1.5 MLS/MIN
[2017-11-17] MEDS: LEVOFLOXACIN / D5W 750 MG in PREMIXED IN D5W 150 ML IV SCH (20:56)
[2017-11-18] VITALS (10 sets, daily range): BP systolic 121–145; BP diastolic 56–85; PULSE 58–84; TEMP 36.2–36.8; O2SAT 90–100
[2017-11-18] MEDS: IPRATROPIUM BROMIDE NEB SOLN 0.02% 2.5 ML VIAL INH SCH ×4 (01:51→19:19)
[2017-11-18] MEDS: LEVALBUTEROL 1.25MG/0.5ML NEB INH SCH ×4 (01:51→19:19)
[2017-11-18 05:57] LABS: CALCIUM 8.4 mg/dl (8.5-10.1); CREATININE 0.69 mg/dl (0.60-1.40); POTASSIUM 3.6 mmol/L (3.5-5.1)
[2017-11-18] MEDS: HEPARIN SOD 5000 UNIT/0.5 ML CARP SQ SCH ×3 (06:00→21:37)
[2017-11-18 09:24] LABS: HEMOGLOBIN 12.2 g/dL (14.0-18.0); MEAN CELL VOLUME 85.2 fL (80-100); MEAN CORPUSCULAR HEMOGLOBIN 29.7 pg (25-34); MEAN CORPUSCULAR HGB CONC 34.9 g/dl (32-36); MEAN PLATELET VOLUME 8.8 fL (7.4-10.4); PLATELET COUNT 270 K/uL (130-400); RED CELL DISTRIBUTION WIDTH CV 15.3 % (11.5-14.5); RED CELL DISTRIBUTION WIDTH SD 47.8 fL (36.4-46.3); WHITE BLOOD COUNT 11.18 K/uL (4.8-10.8)
[2017-11-18 09:58] LABS: CALCIUM 8.6 mg/dl (8.5-10.1); CREATININE 0.63 mg/dl (0.60-1.40); POTASSIUM 3.3 mmol/L (3.5-5.1)
[2017-11-18] MEDS: METHYLPREDNISOLONE IV 40 MG in SYRINGE 0 ML IV SCH ×3 (10:19→21:34)
[2017-11-18] MEDS: MONTELUKAST SOD 10 MG TAB PO SCH (10:19)
[2017-11-18] MEDS: ASPIRIN 81 MG ECTAB PO SCH (10:20)
[2017-11-18] MEDS: ATORVASTATIN 40 MG TAB PO SCH (10:20)
[2017-11-18] MEDS ORDERED: POTASSIUM CHLORIDE 20 MEQ TABCR PO ONE (12:00)
[2017-11-18 13:19] LABS: QUANTIF MITOGEN-NIL 1.29 IU/ML; QUANTIFERON NEGATIVE (NEGATIVE); QUANTIFERON NIL 0.04 IU/ML
--- NOTE | 2017-11-18 15:45 | Pulmonology Progress Note ---
Pulmonary Progress Note Date of Service Nov 18, 2017. Attending Dr. Anival Belcher The patient continued on oxygen mask with FiO2 requirement approximately 6 L. The patient denies any shortness of breath. He does have cough occasionally without sputum production. No hemoptysis. The patient denies any hematuria, no rash, no increased swelling in his lower extremity. 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 5 out of 5 bilaterally Echocardiogram 11/16/2017 LV: EF=60-65%, function WNL RV: WNL Left Atrium: Mildly dilated Right atrium: Normal size IVC: Normal collapsibility Grade 2 pseudonormalization pattern/diastolic dysfunction CT angio of the chest 11/15/2017 Mediastinal adenopathy, subcarinal and 4R regions notably prominent No pulmonary emboli noted Bilateral lower lobe atelectasis left greater than right Bilateral ground-glass changes upper and middle lobe predominant Left lower lobe nodule possibly cavitating with possible air-fluid level Previous workup Pulmonary function studies 08/18/2015 Pre post %[place] FEV1/FVC 65 FEV1 1.62/50% 1.59/49% -1 FVC 2.47/61% 2.42/59% -2 SVC 2.45/60% TLC 11.85/191% RV/TLC 79 DLCO 51% DL/VA 83% The CAT scan of the chest reviewed personally, which revealed multiple infiltrates appear to be metastatic in nature with cavitation in 2 of them highly suspicious for septic emboli. On 11/18/2017, his physical exam revealed stable vital signs, the patient does have scattered crackles bilaterally, S1-S2 regular rate and rhythm, pacemaker in place, abdomen is benign, no edema in the periphery. Assessment & Plan 62-year-old male admitted with acute on chronic respiratory insufficiency and multiple pulmonary nodules: 1. Respiratory Insufficiency/Hypoxia: We will switch the patient to a high flow system as he was notably desaturating on 5-6 L of nasal cannula down to the mid 80s. No evidence of patient have an acute inflammatory process pneumonia versus metastatic disease and also has underlying moderate severe obstructive ventilatory disease and possibly diastolic dysfunction evaluated by echocardiogram on 11/16/2016. This time I continued high flow system, current medication regimen and monitor the patient's eyes and nose. 2. Abnormal CT Scan: Patient has multiple pulmonary infiltrates largest being in the superior subsegment of the left lower lobe with possible cavitation and even an air-fluid level. There was some much motion artifact that is difficult to get a clear view of these particular infiltrative process. When the patient is stable I do suggest we move forward with a repeat high resolution CAT scan for more definitive image. There continues to be infiltrative process I do believe moving forward at that time with an EBUS/ENT evaluation would be warranted but is difficult as the patient is notably to hypoxic at this time. If the patient does require intubation I would like to perform bronchoscopy at that time and BAL for more definitive workup for infection and sent off for cytologic evaluation as well. 3. Pneumonia: Currently being treated with levofloxacin 750 mg and Zosyn. I did discontinue the vancomycin yesterday after the negative nasal swab but the patient did have a mild increase in his WBC count from 11K to 13K clinically has been stable so will not reintroduce the vancomycin at this time. The patient was seen by infectious disease and I will defer to their judgment as to his antibiotic course Pulmonary assessment and plan on 11/18/2017. #1 multiple infiltrate with cavitation is classic for septic emboli until proven otherwise. #2 Mediastinal lymphadenopathy of unknown etiology likely infectious. #3 other infectious process in the differential including Nocardia and Actinomyces to a lesser degree. Fungal infection such as aspergillosis cannot be totally ruled out as well. However, I would expect the patient to be a lot sicker and had comorbidity. I be surprised if it is malignant process. And the patient also showing features that could be related to vasculitis. Mostly MPA versus North's. Very unlikely with absence of eosinophils to be CSS. #4 history of COPD and currently have bilateral wheezing. Plan: #1 I have sent serology to evaluate for connective tissue disease. #2 obtaining PRACHI. #3 start the patient empirically on steroids. #4 continue bronchodilators. #5 oxygen via Oxymizer mask. #6 agree with my colleague Dr. Andrews notes. Thank you, will follow. Data Medications: Current Inpatient Medications Medications (Trade) Dose Ordered Sig/Linda Route Start Time Stop Time Status Last Admin Dose Admin Ioversol (Optiray 320) 125 ml UD PRN IV 11/15/17 15:45 11/19/17 15:44 Heparin Sodium (Porcine) (Heparin Sq 5000 Unit/0.5ml) 5,000 unit Q8 SQ 11/15/17 22:00 12/15/17 21:59 11/18/17 12:36 5,000 UNIT Acetaminophen (Tylenol Tab) 650 mg Q4H PRN PO 11/15/17 18:00 12/15/17 17:59 Al Hydrox/Mg Hydrox/Simethicone (Maalox Max Susp) 15 ml Q4H PRN PO 11/15/17 18:00 12/15/17 17:59 Magnesium Hydroxide (Milk Of Magnesia Susp) 30 ml Q12H PRN PO 11/15/17 18:00 12/15/17 17:59 Nitroglycerin (Nitrostat Tab) 0.4 mg UD PRN SL 11/15/17 18:00 12/15/17 17:59 Polyethylene (Miralax Powder Packet) 17 gm DAILY PRN PO 11/15/17 18:00 12/15/17 17:59 Aspirin (Ecotrin Tab) 81 mg QAM PO 11/16/17 09:00 12/16/17 08:59 11/18/17 10:20 81 MG Atorvastatin Calcium (Lipitor Tab) 80 mg DAILY PO 11/16/17 09:00 12/16/17 08:59 11/18/17 10:20 80 MG Montelukast Sodium (Singulair Tab) 10 mg QAM PO 11/16/17 09:00 12/16/17 08:59 11/18/17 10:19 10 MG Albuterol (Ventolin Hfa Inhaler) 2 puffs QID PRN INH 11/15/17 18:45 12/15/17 18:44 Miscellaneous Information (Order Awaiting Action) 1 ea QS N/A 11/16/17 00:00 12/16/17 00:00 Ipratropium [place] (Atrovent 0.02% 0.5MG/2.5ML Neb) 0.5 mg Q6R INH 11/15/17 21:00 12/15/17 20:59 11/18/17 14:27 0.5 MG Levalbuterol (Xopenex 1.25MG/ 0.5ML Neb) 1.25 mg Q6R INH 11/15/17 21:00 12/15/17 20:59 11/18/17 14:27 1.25 MG Levalbuterol (Xopenex 1.25MG/ 0.5ML Neb) 1.25 mg Q2H PRN INH 11/15/17 19:00 12/15/17 18:59 Ipratropium [place] (Atrovent 0.02% 0.5MG/2.5ML Neb) 0.5 mg Q2H PRN INH 11/15/17 19:00 12/15/17 18:59 Levofloxacin 750 mg/Prmx 150 ml @ 100 mls/hr Q24H IV 11/15/17 19:00 11/22/17 18:59 11/17/17 20:56 100 MLS/HR Methylprednisolone Sodium Succinate 40 mg/Syringe 0.64 ml @ 1.5 mls/min Q6H IV 11/18/17 16:00 12/18/17 15:59 I & O: 24-Hour Column 11/19/17 08:00 Intake Total 325 ml Output Total 100 ml Balance 225 ml Vital Signs: Date Time Temp Pulse Resp B/P (MAP) Pulse Ox O2 Delivery O2 Flow Rate FiO2 11/18/17 14:27 58 20 100 Mask 6.0 11/18/17 12:00 Oxymask 6.0 11/18/17 11:40 36.7 65 19 136/65 (88) 90 Nasal Cannula 7.0 11/18/17 08:18 36.7 80 20 121/56 (77) 92 Mask 7.0 11/18/17 08:00 Oxymask 6.0 11/18/17 07:10 78 20 92 Mask 7.0 11/18/17 04:00 Nasal Cannula 6.0 Oxymask 11/18/17 03:12 36.3 84 26 138/74 (95) 90 Oxymask 7.0 11/18/17 01:51 65 18 90 Nasal Cannula 5.0 11/18/17 00:00 Nasal Cannula 5.0 11/17/17 23:26 36.6 69 21 149/79 (102) 91 Nasal Cannula 5.0 11/17/17 20:20 63 18 91 Nasal Cannula 5.0 11/17/17 20:00 Nasal Cannula 5.0 11/17/17 19:55 36.6 66 24 136/67 (90) 90 Nasal Cannula 5.0 11/17/17 18:10 36.6 72 22 149/74 (99) 89 Nasal Cannula 5.0 11/17/17 16:00 90 Nasal Cannula 5.0 11/17/17 16:00 36.7 71 16 145/73 (97) 90 Nasal Cannula 5.0 Laboratory Results: Last 24 Hours Test 11/18/17 04:53 11/18/17 08:50 11/18/17 13:04 11/18/17 13:56 Sodium Level 135 mmol/L 134 mmol/L Potassium Level 3.6 mmol/L 3.3 mmol/L Chloride Level 99 mmol/L 99 mmol/L Carbon Dioxide Level 28 mmol/L 30 mmol/L Anion Gap 8.0 mmol/L 5.0 mmol/L Blood Urea Nitrogen 13 mg/dl 12 mg/dl Creatinine 0.69 mg/dl 0.63 mg/dl Est Creatinine Clear Calc Drug Dose 111.8 ml/min 122.4 ml/min Estimated GFR () 116.3 120.7 Estimated GFR (Non- 100.3 104.1 BUN/Creatinine Ratio 18.9 19.2 Random Glucose 194 mg/dl 169 mg/dl Calcium Level 8.4 mg/dl 8.6 mg/dl Magnesium Level 1.8 mg/dl White Blood Count 11.18 K/uL Red Blood Count 4.11 M/uL Hemoglobin 12.2 g/dL Hematocrit 35.0 % Mean Corpuscular Volume 85.2 fL Mean Corpuscular Hemoglobin 29.7 pg Mean Corpuscular Hemoglobin Concent 34.9 g/dl RDW Standard Deviation 47.8 fL RDW Coefficient of Variation 15.3 % Platelet Count 270 K/uL Mean Platelet Volume 8.8 fL Cyclic Citrullinated Peptide IgG Ab < 0.40 U/mL Erythrocyte Sedimentation Rate 29 mm/hr
--- NOTE | 2017-11-18 18:47 | Progress Note ---
Medicine Progress Note Date & Time of Visit: Nov 18, 2017 at 11:44. Subjective Pt was seen and examined Sitting in chair with no distress Pt said that he feels a little better today he continue required 5-6 L oxygen Denies any SOB, palpitation and chest pain Objective Last 8 Hrs Date Time Temp Pulse Resp B/P (MAP) Pulse Ox O2 Delivery O2 Flow Rate FiO2 11/18/17 16:37 36.8 71 18 130/85 (100) 91 Oxymask 6.0 11/18/17 16:01 Oxymask 6.0 11/18/17 14:27 58 20 100 Mask 6.0 11/18/17 12:00 Oxymask 6.0 11/18/17 11:40 36.7 65 19 136/65 (88) 90 Nasal Cannula 7.0 Physical Exam: General- No acute distress Head- atraumatic Eyes- PERRL, EOMI ENT- oropharynx clear Neck- supple, no JVD Lungs- +wheezing Heart- regular rhythm Abdomen- normal bowel sounds Neuro- alert, oriented x 3; PERRL Skin- warm & dry Laboratory Results: Last 24 Hours Test 11/18/17 04:53 11/18/17 08:50 11/18/17 13:04 11/18/17 13:56 Sodium Level 135 mmol/L 134 mmol/L Potassium Level 3.6 mmol/L 3.3 mmol/L Chloride Level 99 mmol/L 99 mmol/L Carbon Dioxide Level 28 mmol/L 30 mmol/L Anion Gap 8.0 mmol/L 5.0 mmol/L Blood Urea Nitrogen 13 mg/dl 12 mg/dl Creatinine 0.69 mg/dl 0.63 mg/dl Est Creatinine Clear Calc Drug Dose 111.8 ml/min 122.4 ml/min Estimated GFR () 116.3 120.7 Estimated GFR (Non- 100.3 104.1 BUN/Creatinine Ratio 18.9 19.2 Random Glucose 194 mg/dl 169 mg/dl Calcium Level 8.4 mg/dl 8.6 mg/dl Magnesium Level 1.8 mg/dl White Blood Count 11.18 K/uL Red Blood Count 4.11 M/uL Hemoglobin 12.2 g/dL Hematocrit 35.0 % Mean Corpuscular Volume 85.2 fL Mean Corpuscular Hemoglobin 29.7 pg Mean Corpuscular Hemoglobin Concent 34.9 g/dl RDW Standard Deviation 47.8 fL RDW Coefficient of Variation 15.3 % Platelet Count 270 K/uL Mean Platelet Volume 8.8 fL Cyclic Citrullinated Peptide IgG Ab < 0.40 U/mL Erythrocyte Sedimentation Rate 29 mm/hr Date/Time Source Procedure Growth Status 11/18/17 05:20 Stool C.difficile Toxin B Gene (PCR) - Final No C. difficile toxin B gene detected Complete Assessment & Plan ACUTE HYPOXEMIC RESPIRATORY FAILURE Mostly related to Pneumonia CTA chest showed Extensive multifocal airspace opacities throughout the lungs, including a 3.3 cm cavitary opacity within the superior segment of the left lower lobe Continue oxygen supplement NO evidence of PE on CTA chest Pulmonology on board Plan to repeat CT chest after 24 to 48 hr Will need a bronch once medically stable to assess for the lung cavity Continue solumedrol to q12h D/C Vanco and Zosyn Continue levaquin Elevated ESR blood cx and sputum cx no growth Quantiferon, Sputum AFB, aspergillus ab, antigen pcr, anca, pending ID on board Continue monitor Echo showed * The left ventricle is normal in size. * There is normal left ventricular wall thickness. * The left ventricular wall motion is normal. * Left ventricular systolic function is normal. * Ejection Fraction = 60-65%. * Aortic valve sclerosis mild, without significant aortic valvular stenosis. * The aortic root is normal size. * There is no pericardial effusion. MULTIFOCAL PNEUMONIA WITH CAVITARY LESION possible related to bacterial pneumonia Need to R/o TB and malignancy Sputum for AFB /Quatifron TB test /Sputum cx and Aspergillus pending Repeat CXR today showed interval improvement in the left upper lobe cavitary opacity Blood cx no growth Procalcitonin normal Continue airbones isolation D/C vanvo and Zosyn Continue Levaquin Pulmonary on board and consider bronch once medically stable ELEVATED WBC Mostly related to steroid Afebrile procalcitonin normal continue monitor CBC Continue Levaquin CAROTID ARTERY DISEASE : cont aspirin /statin stable FULL CODE DVT PROPHYLAXIS : sub q heparin CODE STATUS FULL CODE Consultants: Pulm ID Current Inpatient Medications: Current Inpatient Medications Medications (Trade) Dose Ordered Sig/Linda Route Start Time Stop Time Status Last Admin Dose Admin Ioversol (Optiray 320) 125 ml UD PRN IV 11/15/17 15:45 11/19/17 15:44 Heparin Sodium (Porcine) (Heparin Sq 5000 Unit/0.5ml) 5,000 unit Q8 SQ 11/15/17 22:00 12/15/17 21:59 11/18/17 12:36 5,000 UNIT Acetaminophen (Tylenol Tab) 650 mg Q4H PRN PO 11/15/17 18:00 12/15/17 17:59 Al Hydrox/Mg Hydrox/Simethicone (Maalox Max Susp) 15 ml Q4H PRN PO 11/15/17 18:00 12/15/17 17:59 Magnesium Hydroxide (Milk Of Magnesia Susp) 30 ml Q12H PRN PO 11/15/17 18:00 12/15/17 17:59 Nitroglycerin (Nitrostat Tab) 0.4 mg UD PRN SL 11/15/17 18:00 12/15/17 17:59 Polyethylene (Miralax Powder Packet) 17 gm DAILY PRN PO 11/15/17 18:00 12/15/17 17:59 Aspirin (Ecotrin Tab) 81 mg QAM PO 11/16/17 09:00 12/16/17 08:59 11/18/17 10:20 81 MG Atorvastatin Calcium (Lipitor Tab) 80 mg DAILY PO 11/16/17 09:00 12/16/17 08:59 11/18/17 10:20 80 MG Montelukast Sodium (Singulair Tab) 10 mg QAM PO 11/16/17 09:00 12/16/17 08:59 11/18/17 10:19 10 MG Albuterol (Ventolin Hfa Inhaler) 2 puffs QID PRN INH 11/15/17 18:45 12/15/17 18:44 Miscellaneous Information (Order Awaiting Action) 1 ea QS N/A 11/16/17 00:00 12/16/17 00:00 Ipratropium [place] (Atrovent 0.02% 0.5MG/2.5ML Neb) 0.5 mg Q6R INH 11/15/17 21:00 18 20:59 11/18/17 14:27 0.5 MG Levalbuterol (Xopenex 1.25MG/ 0.5ML Neb) 1.25 mg Q6R INH 11/15/17 21:00 3/18/18 20:59 11/18/17 14:27 1.25 MG Levalbuterol (Xopenex 1.25MG/ 0.5ML Neb) 1.25 mg Q2H PRN INH 11/15/17 19:00 12/15/17 18:59 Ipratropium [place] (Atrovent 0.02% 0.5MG/2.5ML Neb) 0.5 mg Q2H PRN INH 11/15/17 19:00 12/15/17 18:59 Levofloxacin 750 mg/Prmx 150 ml @ 100 mls/hr Q24H IV 11/15/17 19:00 11/22/17 18:59 11/17/17 20:56 100 MLS/HR Methylprednisolone Sodium Succinate 40 mg/Syringe 0.64 ml @ 1.5 mls/min Q6H IV 11/18/17 16:00 12/18/17 15:59 11/18/17 15:29 1.5 MLS/MIN
[2017-11-18] MEDS: LEVOFLOXACIN / D5W 750 MG in PREMIXED IN D5W 150 ML IV SCH (19:53)
[2017-11-19] VITALS (13 sets, daily range): BP systolic 123–151; BP diastolic 58–75; PULSE 60–92; TEMP 36.3–37.1; O2SAT 82–95
[2017-11-19] MEDS: IPRATROPIUM BROMIDE NEB SOLN 0.02% 2.5 ML VIAL INH SCH ×4 (02:04→19:26)
[2017-11-19] MEDS: LEVALBUTEROL 1.25MG/0.5ML NEB INH SCH ×3 (02:04→19:28)
[2017-11-19] MEDS: METHYLPREDNISOLONE IV 40 MG in SYRINGE 0 ML IV SCH ×4 (03:48→21:27)
[2017-11-19] MEDS: HEPARIN SOD 5000 UNIT/0.5 ML CARP SQ SCH ×2 (05:31→13:55)
[2017-11-19 06:46] LABS: HEMATOCRIT 36.4 % (42-52); HEMOGLOBIN 12.5 g/dL (14.0-18.0); MEAN CELL VOLUME 85.8 fL (80-100); MEAN CORPUSCULAR HEMOGLOBIN 29.5 pg (25-34); MEAN CORPUSCULAR HGB CONC 34.3 g/dl (32-36); MEAN PLATELET VOLUME 9.1 fL (7.4-10.4); PLATELET COUNT 272 K/uL (130-400); RED CELL DISTRIBUTION WIDTH CV 15.4 % (11.5-14.5); RED CELL DISTRIBUTION WIDTH SD 48.4 fL (36.4-46.3); WHITE BLOOD COUNT 8.71 K/uL (4.8-10.8)
[2017-11-19 07:21] LABS: CALCIUM 8.5 mg/dl (8.5-10.1); CREATININE 0.54 mg/dl (0.60-1.40); POTASSIUM 3.8 mmol/L (3.5-5.1)
[2017-11-19] MEDS: ATORVASTATIN 40 MG TAB PO SCH (08:08)
[2017-11-19] MEDS: MONTELUKAST SOD 10 MG TAB PO SCH (08:08)
[2017-11-19] MEDS: ASPIRIN 81 MG ECTAB PO SCH (08:09)
--- NOTE | 2017-11-19 17:04 | Pulmonology Progress Note ---
Pulmonary Progress Note Date of Service Nov 19, 2017. Attending Dr. Florian Subjective The patient stated feeling better however his oxygen requirement is only 5 L via oximask. No cough and no chest pain, no sputum production. No events overnight. Objective Patient is doing well able to sit up and have complete sentences without signs of tachypnea or accessory muscle use on the high flow system Vital signs: Saturations of 89-90% on high flow system during our conversation Respiratory: Notable rhonchi and wheezes bilaterally throughout the lungs Cardiac: S1-S2 regular rate and rhythm no murmurs rubs or gallops appreciated Extremities: Minimal edema appreciated in the dependent regions Abdomen: Positive bowel sounds soft nontender SUPPLIER QUALITY: Cranial nerves II through XII intact muscular function 5 out of 5 bilaterally Echocardiogram 11/16/2017 LV: EF=60-65%, function WNL RV: WNL Left Atrium: Mildly dilated Right atrium: Normal size IVC: Normal collapsibility Grade 2 pseudonormalization pattern/diastolic dysfunction CT angio of the chest 11/15/2017 Mediastinal adenopathy, subcarinal and 4R regions notably prominent No pulmonary emboli noted Bilateral lower lobe atelectasis left greater than right Bilateral ground-glass changes upper and middle lobe predominant Left lower lobe nodule possibly cavitating with possible air-fluid level Previous workup Pulmonary function studies 08/18/2015 Pre post %[place] FEV1/FVC 65 FEV1 1.62/50% 1.59/49% -1 FVC 2.47/61% 2.42/59% -2 SVC 2.45/60% TLC 11.85/191% RV/TLC 79 DLCO 51% DL/VA 83% The CAT scan of the chest reviewed personally, which revealed multiple infiltrates appear to be metastatic in nature with cavitation in 2 of them highly suspicious for septic emboli. On 11/18/2017, his physical exam revealed stable vital signs, the patient does have scattered crackles bilaterally, S1-S2 regular rate and rhythm, pacemaker in place, abdomen is benign, no edema in the periphery. On 11/19/2017, the patient physical exam revealed stable vital signs, his O2 saturation is 95% on 6 L, scattered crackles were audible, S1-S2 regular rate and rhythm, pacemaker in place, abdomen is benign, no edema, no rash. I have reviewed his most recent serology which I sent showing so far normal PRAMOD , the rest of serology including vasculitis, connective tissue disease, fungal and 20 QuantiFERON are still pending. Assessment & Plan 62-year-old male admitted with acute on chronic respiratory insufficiency and multiple pulmonary nodules: 1. Respiratory Insufficiency/Hypoxia: We will switch the patient to a high flow system as he was notably desaturating on 5-6 L of nasal cannula down to the mid 80s. No evidence of patient have an acute inflammatory process pneumonia versus metastatic disease and also has underlying moderate severe obstructive ventilatory disease and possibly diastolic dysfunction evaluated by echocardiogram on 11/16/2016. This time I continued high flow system, current medication regimen and monitor the patient's eyes and nose. 2. Abnormal CT Scan: Patient has multiple pulmonary infiltrates largest being in the superior subsegment of the left lower lobe with possible cavitation and even an air-fluid level. There was some much motion artifact that is difficult to get a clear view of these particular infiltrative process. When the patient is stable I do suggest we move forward with a repeat high resolution CAT scan for more definitive image. There continues to be infiltrative process I do believe moving forward at that time with an EBUS/ENT evaluation would be warranted but is difficult as the patient is notably to hypoxic at this time. If the patient does require intubation I would like to perform bronchoscopy at that time and BAL for more definitive workup for infection and sent off for cytologic evaluation as well. 3. Pneumonia: Currently being treated with levofloxacin 750 mg and Zosyn. I did discontinue the vancomycin yesterday after the negative nasal swab but the patient did have a mild increase in his WBC count from 11K to 13K clinically has been stable so will not reintroduce the vancomycin at this time. The patient was seen by infectious disease and I will defer to their judgment as to his antibiotic course Pulmonary assessment and plan on 11/18/2017. #1 multiple infiltrate with cavitation is classic for septic emboli until proven otherwise. #2 Mediastinal lymphadenopathy of unknown etiology likely infectious. #3 other infectious process in the differential including Nocardia and Actinomyces to a lesser degree. Fungal infection such as aspergillosis cannot be totally ruled out as well. However, I would expect the patient to be a lot sicker and had comorbidity. I be surprised if it is malignant process. And the patient also showing features that could be related to vasculitis. Mostly MPA versus North's. Very unlikely with absence of eosinophils to be CSS. #4 history of COPD and currently have bilateral wheezing. Plan: #1 I have sent serology to evaluate for connective tissue disease. #2 obtaining PRACHI. #3 start the patient empirically on steroids. #4 continue bronchodilators. #5 oxygen via Oxymizer mask. #6 agree with my colleague Dr. Andrews notes. Thank you, will follow. Pulmonary assessment on 11/19/2017, #1 multilobar infiltrates with cavitation highly suspicious for septic emboli versus latent infection such as aspergillosis versus other type of infections including Actinomyces and Nocardia. Possibility of multiple abscesses due to poor dentures with strep species cannot be excluded. Vasculitis versus connective tissue disease is also on the differential. It is white scope of differential diagnosis. #2 mediastinal lymphadenopathy which is related also to the process in his lungs. Plan: #1 I have discussed with the patient the need for bronchoscopy with ebus, and I will spoken to the sister who is a caregiver, her name is Ashley Saldaña, and I was planning to schedule him for the procedure in the morning. The patient will need to be intubated on the procedure should be done under [facility]. I have explained to her the procedure however she would like Dr. Andrews to follow up the patient and perform the procedure as she states that she had good asim in him. #2 continue to follow the serology, I doubt that the patient has TB, awaiting QuantiFERON results. #3 I do believe that the patient should get a bronchoscopy with endobronchial ultrasound to sample the lymph nodes as well as the lung tissue. Septic emboli also will require PRACHI in my opinion to ruled out. The patient does not have enough WBC to perform Indium scan. #4 based on the family request, I have called Dr. Andrews and left a message for him. And I'll pass on the case to him. Thank you for your kind referral. I will sign off this case to Dr. Andrews. Data Medications: Current Inpatient Medications Medications (Trade) Dose Ordered Sig/Linda Route Start Time Stop Time Status Last Admin Dose Admin Heparin Sodium (Porcine) (Heparin Sq 5000 Unit/0.5ml) 5,000 unit Q8 SQ 11/15/17 22:00 12/15/17 21:59 11/19/17 13:55 5,000 UNIT Acetaminophen (Tylenol Tab) 650 mg Q4H PRN PO 11/15/17 18:00 12/15/17 17:59 Al Hydrox/Mg Hydrox/Simethicone (Maalox Max Susp) 15 ml Q4H PRN PO 11/15/17 18:00 12/15/17 17:59 Magnesium Hydroxide (Milk Of Magnesia Susp) 30 ml Q12H PRN PO 11/15/17 18:00 12/15/17 17:59 Nitroglycerin (Nitrostat Tab) 0.4 mg UD PRN SL 11/15/17 18:00 12/15/17 17:59 Polyethylene (Miralax Powder Packet) 17 gm DAILY PRN PO 11/15/17 18:00 12/15/17 17:59 Aspirin (Ecotrin Tab) 81 mg QAM PO 11/16/17 09:00 12/16/17 08:59 11/19/17 08:09 81 MG Atorvastatin Calcium (Lipitor Tab) 80 mg DAILY PO 11/16/17 09:00 12/16/17 08:59 11/19/17 08:08 80 MG Montelukast Sodium (Singulair Tab) 10 mg QAM PO 11/16/17 09:00 12/16/17 08:59 11/19/17 08:08 10 MG Albuterol (Ventolin Hfa Inhaler) 2 puffs QID PRN INH 11/15/17 18:45 12/15/17 18:44 Miscellaneous Information (Order Awaiting Action) 1 ea QS N/A 11/16/17 00:00 12/16/17 00:00 Ipratropium [place] (Atrovent 0.02% 0.5MG/2.5ML Neb) 0.5 mg Q6R INH 11/15/17 21:00 12/15/17 20:59 11/19/17 07:19 0.5 MG Levalbuterol (Xopenex 1.25MG/ 0.5ML Neb) 1.25 mg Q6R INH 11/15/17 21:00 12/15/17 20:59 11/19/17 07:19 1.25 MG Levalbuterol (Xopenex 1.25MG/ 0.5ML Neb) 1.25 mg Q2H PRN INH 11/15/17 19:00 12/15/17 18:59 Ipratropium [place] (Atrovent 0.02% 0.5MG/2.5ML Neb) 0.5 mg Q2H PRN INH 11/15/17 19:00 12/15/17 18:59 Levofloxacin 750 mg/Prmx 150 ml @ 100 mls/hr Q24H IV 11/15/17 19:00 11/22/17 18:59 11/18/17 19:53 100 MLS/HR Methylprednisolone Sodium Succinate 40 mg/Syringe 0.64 ml @ 1.5 mls/min Q6H IV 11/18/17 16:00 12/18/17 15:59 11/19/17 15:45 1.5 MLS/MIN I & O: 24-Hour Column 11/20/17 07:59 Intake Total 550 ml Balance 550 ml Vital Signs: Date Time Temp Pulse Resp B/P (MAP) Pulse Ox O2 Delivery O2 Flow Rate FiO2 11/19/17 16:00 Oxymask 6.0 11/19/17 15:41 36.3 70 26 123/59 (80) 90 Mask 6.0 11/19/17 12:00 92 Oxymask 6.0 11/19/17 11:27 36.9 92 22 129/60 (83) 91 Oxymask 6.0 11/19/17 08:00 92 Oxymask 6.0 11/19/17 07:43 37.1 78 20 141/69 (93) 87 Nasal Cannula 6.0 11/19/17 07:19 67 18 95 Mask 6.0 11/19/17 04:00 93 Oxymask 6.0 11/19/17 03:44 36.7 63 20 151/68 (95) 91 Nasal Cannula 6.0 11/19/17 02:06 86 16 82 Room Air 11/19/17 00:00 93 Nasal Cannula 6.0 11/18/17 23:47 36.2 63 20 145/81 (102) 90 Nasal Cannula 5.0 11/18/17 20:33 36.7 75 20 145/81 (102) 91 Oxymask 6.0 11/18/17 20:13 Oxymask 6.0 11/18/17 19:22 58 16 93 Mask 6.0 Laboratory Results: Last 24 Hours Test 11/19/17 06:14 White Blood Count 8.71 K/uL Red Blood Count 4.24 M/uL Hemoglobin 12.5 g/dL Hematocrit 36.4 % Mean Corpuscular Volume 85.8 fL Mean Corpuscular Hemoglobin 29.5 pg Mean Corpuscular Hemoglobin Concent 34.3 g/dl RDW Standard Deviation 48.4 fL RDW Coefficient of Variation 15.4 % Platelet Count 272 K/uL Mean Platelet Volume 9.1 fL Sodium Level 133 mmol/L Potassium Level 3.8 mmol/L Chloride Level 97 mmol/L Carbon Dioxide Level 30 mmol/L Anion Gap 6.0 mmol/L Blood Urea Nitrogen 14 mg/dl Creatinine 0.54 mg/dl Est Creatinine Clear Calc Drug Dose 141.9 ml/min Estimated GFR () 128.6 Estimated GFR (Non- 111.0 BUN/Creatinine Ratio 25.3 Random Glucose 131 mg/dl Calcium Level 8.5 mg/dl Magnesium Level 2.2 mg/dl
[2017-11-19] MEDS: POTASSIUM CHLR 10 MEQ / WTR 10 MEQ in PREMIXED WATER 100 ML IV SCH (18:46)
[2017-11-19] MEDS: LEVOFLOXACIN / D5W 750 MG in PREMIXED IN D5W 150 ML IV SCH (20:09)
--- NOTE | 2017-11-19 20:13 | Progress Note ---
Medicine Progress Note Date & Time of Visit: Nov 19, 2017 at 20:08. Subjective Seen resting in bed comfortable States he feels improved compared to yesterday Has less cough, less white sputum Denies chest pain Denies other symptoms Objective Last 8 Hrs Date Time Temp Pulse Resp B/P (MAP) Pulse Ox O2 Delivery O2 Flow Rate FiO2 11/19/17 16:00 Oxymask 6.0 11/19/17 15:41 36.3 70 26 123/59 (80) 90 Mask 6.0 Physical Exam: General-oriented 3 not in distress. Speaks in sentences, no accessory muscle use Head- atraumatic Eyes- PERRL, EOMI, anicteric ENT- oropharynx clear Neck- supple, no JVD, no adenopathy, no thyromegaly; carotids +2/2 Lungs-mild rales bilaterally mid to base Heart- regular rhythm; no murmur, normal rate Abdomen- normal bowel sounds, soft, nontender Extremities- no pretibial edema, no calf tenderness; peripheral pulses intact Neuro- alert, oriented x 3; no gross focal neurologic deficits Skin- warm & dry Laboratory Results: Last 24 Hours Test 11/19/17 06:14 White Blood Count 8.71 K/uL Red Blood Count 4.24 M/uL Hemoglobin 12.5 g/dL Hematocrit 36.4 % Mean Corpuscular Volume 85.8 fL Mean Corpuscular Hemoglobin 29.5 pg Mean Corpuscular Hemoglobin Concent 34.3 g/dl RDW Standard Deviation 48.4 fL RDW Coefficient of Variation 15.4 % Platelet Count 272 K/uL Mean Platelet Volume 9.1 fL Sodium Level 133 mmol/L Potassium Level 3.8 mmol/L Chloride Level 97 mmol/L Carbon Dioxide Level 30 mmol/L Anion Gap 6.0 mmol/L Blood Urea Nitrogen 14 mg/dl Creatinine 0.54 mg/dl Est Creatinine Clear Calc Drug Dose 141.9 ml/min Estimated GFR () 128.6 Estimated GFR (Non- 111.0 BUN/Creatinine Ratio 25.3 Random Glucose 131 mg/dl Calcium Level 8.5 mg/dl Magnesium Level 2.2 mg/dl Assessment & Plan ACUTE HYPOXEMIC RESPIRATORY FAILURE LIKELY SECONDARY TO MULTIFOCAL PNEUMONIA CTA chest showed Extensive multifocal airspace opacities throughout the lungs, including a 3.3 cm cavitary opacity within the superior segment of the left lower lobe NO evidence of PE on CTA chest blood cx and sputum cx no growth Quantiferon, Sputum AFB, aspergillus ab, antigen pcr, anca, pending Still on 6 L of oxygen supplement Continue Levaquin and Solu-Medrol Pulmonary on board, Dr. Andrews consulted, possible bronchoscopy as next step ID on board CAROTID ARTERY DISEASE : cont aspirin /statin stable FULL CODE DVT PROPHYLAXIS : Hold aspirin and heparin for possible bronchoscopy CODE STATUS FULL CODE Consultants: Pulm ID DISPOSITION Anticipate discharge home medically stable and cleared by pulmonary Consultants: Pulm ID Current Inpatient Medications: Current Inpatient Medications Medications (Trade) Dose Ordered Sig/Linda Route Start Time Stop Time Status Last Admin Dose Admin Acetaminophen (Tylenol Tab) 650 mg Q4H PRN PO 11/15/17 18:00 12/15/17 17:59 Al Hydrox/Mg Hydrox/Simethicone (Maalox Max Susp) 15 ml Q4H PRN PO 11/15/17 18:00 12/15/17 17:59 Magnesium Hydroxide (Milk Of Magnesia Susp) 30 ml Q12H PRN PO 11/15/17 18:00 12/15/17 17:59 Nitroglycerin (Nitrostat Tab) 0.4 mg UD PRN SL 11/15/17 18:00 12/15/17 17:59 Polyethylene (Miralax Powder Packet) 17 gm DAILY PRN PO 11/15/17 18:00 12/15/17 17:59 Atorvastatin Calcium (Lipitor Tab) 80 mg DAILY PO 11/16/17 09:00 12/16/17 08:59 11/19/17 08:08 80 MG Montelukast Sodium (Singulair Tab) 10 mg QAM PO 11/16/17 09:00 12/16/17 08:59 11/19/17 08:08 10 MG Albuterol (Ventolin Hfa Inhaler) 2 puffs QID PRN INH 11/15/17 18:45 12/15/17 18:44 Miscellaneous Information (Order Awaiting Action) 1 ea QS N/A 11/16/17 00:00 12/16/17 00:00 Ipratropium [place] (Atrovent 0.02% 0.5MG/2.5ML Neb) 0.5 mg Q6R INH 11/15/17 21:00 12/15/17 20:59 11/19/17 19:25 0.5 MG Levalbuterol (Xopenex 1.25MG/ 0.5ML Neb) 1.25 mg Q6R INH 11/15/17 21:00 12/15/17 20:59 11/19/17 19:28 1.25 MG Levalbuterol (Xopenex 1.25MG/ 0.5ML Neb) 1.25 mg Q2H PRN INH 11/15/17 19:00 12/15/17 18:59 Ipratropium [place] (Atrovent 0.02% 0.5MG/2.5ML Neb) 0.5 mg Q2H PRN INH 11/15/17 19:00 12/15/17 18:59 Levofloxacin 750 mg/Prmx 150 ml @ 100 mls/hr Q24H IV 11/15/17 19:00 11/22/17 18:59 11/18/17 19:53 100 MLS/HR Methylprednisolone Sodium Succinate 40 mg/Syringe 0.64 ml @ 1.5 mls/min Q6H IV 11/18/17 16:00 12/18/17 15:59 11/19/17 15:45 1.5 MLS/MIN Potassium Chloride 10 meq/ Prmx 100 ml @ 100 mls/hr Q1H IV 11/19/17 18:30 11/19/17 20:29 11/19/17 18:46 100 MLS/HR
[2017-11-20] VITALS (15 sets, daily range): BP systolic 118–146; BP diastolic 55–79; PULSE 59–80; TEMP 36.5–37.1; O2SAT 87–98
[2017-11-20] MEDS: LEVALBUTEROL 1.25MG/0.5ML NEB INH SCH ×4 (01:45→19:25)
[2017-11-20] MEDS: IPRATROPIUM BROMIDE NEB SOLN 0.02% 2.5 ML VIAL INH SCH ×4 (01:45→19:25)
[2017-11-20] MEDS: METHYLPREDNISOLONE IV 40 MG in SYRINGE 0 ML IV SCH ×4 (04:29→21:12)
[2017-11-20 07:42] LABS: HEMATOCRIT 36.8 % (42-52); HEMOGLOBIN 12.6 g/dL (14.0-18.0); IG# 0.04 K/uL (0.00-0.02); LYMPH % 3.7 %; LYMPH ABS # 0.39 K/uL (1.2-3.4); MEAN CELL VOLUME 85.8 fL (80-100); MEAN CORPUSCULAR HEMOGLOBIN 29.4 pg (25-34); MEAN CORPUSCULAR HGB CONC 34.2 g/dl (32-36); MEAN PLATELET VOLUME 9.1 fL (7.4-10.4); MONO % 4.2 %; MONO ABS # 0.44 K/uL (0.11-0.59); NEUT % 91.7 %; NEUT ABS # 9.63 K/uL (1.4-6.5); PLATELET COUNT 274 K/uL (130-400); RED CELL DISTRIBUTION WIDTH CV 15.3 % (11.5-14.5); RED CELL DISTRIBUTION WIDTH SD 48.2 fL (36.4-46.3)
[2017-11-20 08:08] LABS: CALCIUM 8.5 mg/dl (8.5-10.1); CREATININE 0.65 mg/dl (0.60-1.40); POTASSIUM 3.9 mmol/L (3.5-5.1)
[2017-11-20] MEDS: ATORVASTATIN 40 MG TAB PO SCH (09:06)
[2017-11-20] MEDS: MONTELUKAST SOD 10 MG TAB PO SCH (09:06)
[2017-11-20 09:40] LABS: QUANTIF MITOGEN-NIL 1.96 IU/ML; QUANTIFERON NEGATIVE (NEGATIVE); QUANTIFERON NIL 0.02 IU/ML
--- NOTE | 2017-11-20 11:05 | Pulmonology Progress Note ---
Pulmonary Progress Note Date of Service Nov 20, 2017. Attending Dr. Andrews Subjective Patient notes that his respiratory status is improved but still requires 6 L oxygen mask and becomes dyspneic with exertion, Objective Patient is sitting up in bed having full conversation on 6 L oxygen mask but not showing any signs of respiratory insufficiency such as tachypnea or accessory muscle use Vital signs: Stable on 6 L oxygen mask Respiratory: Minimal expiratory wheezing bilaterally with some rhonchi at the bases left greater than Cardiac: S1-S2 regular rate and rhythm no murmurs rubs or gallops appreciated Extremities: Minimal edema appreciated in the dependent regions Abdomen: Positive bowel sounds 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: Cranial nerves II through XII intact muscular function 5 out of 5 bilaterally Echocardiogram 11/16/2017 LV: EF=60-65%, function WNL RV: WNL Left Atrium: Mildly dilated Right atrium: Normal size IVC: Normal collapsibility Grade 2 pseudonormalization pattern/diastolic dysfunction CT angio of the chest 11/15/2017 Mediastinal adenopathy, subcarinal and 4R regions notably prominent No pulmonary emboli noted Bilateral lower lobe atelectasis left greater than right Bilateral ground-glass changes upper and middle lobe predominant Left lower lobe nodule possibly cavitating with possible air-fluid level Previous workup Pulmonary function studies 08/18/2015 Pre post %[place] FEV1/FVC 65 FEV1 1.62/50% 1.59/49% -1 FVC 2.47/61% 2.42/59% -2 SVC 2.45/60% TLC 11.85/191% RV/TLC 79 DLCO 51% DL/VA 83% QuantiFERON gold negative Assessment & Plan 62-year-old male admitted with acute on chronic respiratory insufficiency and multiple pulmonary nodules: 1. Respiratory Insufficiency/Hypoxia: Patient is currently responding well to steroids and antibiotics but still has notable oxygen requirements. At this time I like to repeat a high-resolution CAT scan to better define the infiltrative and possibly cavitary nodules in his lung. I spoken to the patient and the sister and informed them I will follow up and talk to them about the results. At that time we might move forward with bronchoscopic intervention. Data Medications: Current Inpatient Medications Medications (Trade) Dose Ordered Sig/Linda Route Start Time Stop Time Status Last Admin Dose Admin Acetaminophen (Tylenol Tab) 650 mg Q4H PRN PO 11/15/17 18:00 12/15/17 17:59 Al Hydrox/Mg Hydrox/Simethicone (Maalox Max Susp) 15 ml Q4H PRN PO 11/15/17 18:00 12/15/17 17:59 Magnesium Hydroxide (Milk Of Magnesia Susp) 30 ml Q12H PRN PO 11/15/17 18:00 12/15/17 17:59 Nitroglycerin (Nitrostat Tab) 0.4 mg UD PRN SL 11/15/17 18:00 12/15/17 17:59 Polyethylene (Miralax Powder Packet) 17 gm DAILY PRN PO 11/15/17 18:00 12/15/17 17:59 Atorvastatin Calcium (Lipitor Tab) 80 mg DAILY PO 11/16/17 09:00 12/16/17 08:59 11/20/17 09:06 80 MG Montelukast Sodium (Singulair Tab) 10 mg QAM PO 11/16/17 09:00 12/16/17 08:59 11/20/17 09:06 10 MG Albuterol (Ventolin Hfa Inhaler) 2 puffs QID PRN INH 11/15/17 18:45 12/15/17 18:44 Miscellaneous Information (Order Awaiting Action) 1 ea QS N/A 11/16/17 00:00 12/16/17 00:00 Ipratropium [place] (Atrovent 0.02% 0.5MG/2.5ML Neb) 0.5 mg Q6R INH 11/15/17 21:00 12/15/17 20:59 11/20/17 07:04 0.5 MG Levalbuterol (Xopenex 1.25MG/ 0.5ML Neb) 1.25 mg Q6R INH 11/15/17 21:00 12/15/17 20:59 11/20/17 07:04 1.25 MG Levalbuterol (Xopenex 1.25MG/ 0.5ML Neb) 1.25 mg Q2H PRN INH 11/15/17 19:00 18 18:59 11/20/17 05:11 1.25 MG Ipratropium [place] (Atrovent 0.02% 0.5MG/2.5ML Neb) 0.5 mg Q2H PRN INH 11/15/17 19:00 12/15/17 18:59 11/20/17 05:11 0.5 MG Levofloxacin 750 mg/Prmx 150 ml @ 100 mls/hr Q24H IV 11/15/17 19:00 11/22/17 18:59 11/19/17 20:09 100 MLS/HR Methylprednisolone Sodium Succinate 40 mg/Syringe 0.64 ml @ 1.5 mls/min Q6H IV 11/18/17 16:00 12/18/17 15:59 11/20/17 09:54 1.5 MLS/MIN Vital Signs: Date Time Temp Pulse Resp B/P (MAP) Pulse Ox O2 Delivery O2 Flow Rate FiO2 11/20/17 08:00 92 Oxymask 6.0 11/20/17 07:50 37.1 76 18 142/79 (100) 95 11/20/17 07:04 80 20 92 Mask 12.0 11/20/17 07:00 92 Oxymask 6.0 11/20/17 05:11 67 16 87 Mask 9.0 11/20/17 04:00 91 Oxymask 6.0 11/20/17 03:33 36.7 59 18 146/71 (96) 91 Oxymask 8.0 11/20/17 01:45 62 20 92 Mask 8.0 11/20/17 00:00 Oxymask 6.0 11/19/17 23:52 36.7 60 17 129/75 (93) 91 Oxymask 8.0 11/19/17 20:18 36.3 65 26 126/58 (80) 90 Nasal Cannula 6.0 11/19/17 20:00 Oxymask 6.0 11/19/17 19:28 79 20 88 Mask 6.0 11/19/17 16:00 Oxymask 6.0 11/19/17 15:41 36.3 70 26 123/59 (80) 90 Mask 6.0 11/19/17 12:00 92 Oxymask 6.0 11/19/17 11:27 36.9 92 22 129/60 (83) 91 Oxymask 6.0 Laboratory Results: Last 24 Hours Test 11/20/17 06:41 White Blood Count 10.50 K/uL Red Blood Count 4.29 M/uL Hemoglobin 12.6 g/dL Hematocrit 36.8 % Mean Corpuscular Volume 85.8 fL Mean Corpuscular Hemoglobin 29.4 pg Mean Corpuscular Hemoglobin Concent 34.2 g/dl Platelet Count 274 K/uL Mean Platelet Volume 9.1 fL Neutrophils (%) (Auto) 91.7 % Lymphocytes (%) (Auto) 3.7 % Monocytes (%) (Auto) 4.2 % Eosinophils (%) (Auto) 0.0 % Basophils (%) (Auto) 0.0 % Neutrophils # (Auto) 9.63 K/uL Lymphocytes # (Auto) 0.39 K/uL Monocytes # (Auto) 0.44 K/uL Eosinophils # (Auto) 0.00 K/uL Basophils # (Auto) 0.00 K/uL RDW Standard Deviation 48.2 fL RDW Coefficient of Variation 15.3 % Immature Granulocyte % (Auto) 0.4 % Immature Granulocyte # (Auto) 0.04 K/uL Sodium Level 132 mmol/L Potassium Level 3.9 mmol/L Chloride Level 95 mmol/L Carbon Dioxide Level 32 mmol/L Anion Gap 5.0 mmol/L Blood Urea Nitrogen 13 mg/dl Creatinine 0.65 mg/dl Est Creatinine Clear Calc Drug Dose 117.8 ml/min Estimated GFR () 119.2 Estimated GFR (Non- 102.8 BUN/Creatinine Ratio 20.6 Random Glucose 147 mg/dl Calcium Level 8.5 mg/dl
--- NOTE | 2017-11-20 13:11 | Infectious Disease Progress Nt ---
Progress Note Date of Service Nov 20, 2017. Subjective Pt evaluation today including: conversation w/ patient, physical exam, chart review, lab review, review of studies, conversation w/ career consultant, review of inpatient medication list Recent events reviewed. Patient feeling better, still requiring 6 L of oxygen. Remains afebrile. No current increase in cough. No hemoptysis. Tolerating antibiotic without apparent difficulty. All Other Systems: Reviewed and Negative Medications Current Inpatient Medications Medications (Trade) Dose Ordered Sig/Linda Route Start Time Stop Time Status Last Admin Dose Admin Acetaminophen (Tylenol Tab) 650 mg Q4H PRN PO 11/15/17 18:00 12/15/17 17:59 Al Hydrox/Mg Hydrox/Simethicone (Maalox Max Susp) 15 ml Q4H PRN PO 11/15/17 18:00 12/15/17 17:59 Magnesium Hydroxide (Milk Of Magnesia Susp) 30 ml Q12H PRN PO 11/15/17 18:00 12/15/17 17:59 Nitroglycerin (Nitrostat Tab) 0.4 mg UD PRN SL 11/15/17 18:00 12/15/17 17:59 Polyethylene (Miralax Powder Packet) 17 gm DAILY PRN PO 11/15/17 18:00 12/15/17 17:59 Atorvastatin Calcium (Lipitor Tab) 80 mg DAILY PO 11/16/17 09:00 12/16/17 08:59 11/20/17 09:06 80 MG Montelukast Sodium (Singulair Tab) 10 mg QAM PO 11/16/17 09:00 12/16/17 08:59 11/20/17 09:06 10 MG Albuterol (Ventolin Hfa Inhaler) 2 puffs QID PRN INH 11/15/17 18:45 12/15/17 18:44 Miscellaneous Information (Order Awaiting Action) 1 ea QS N/A 11/16/17 00:00 12/16/17 00:00 Ipratropium [place] (Atrovent 0.02% 0.5MG/2.5ML Neb) 0.5 mg Q6R INH 11/15/17 21:00 12/15/17 20:59 11/20/17 07:04 0.5 MG Levalbuterol (Xopenex 1.25MG/ 0.5ML Neb) 1.25 mg Q6R INH 11/15/17 21:00 12/15/17 20:59 11/20/17 07:04 1.25 MG Levalbuterol (Xopenex 1.25MG/ 0.5ML Neb) 1.25 mg Q2H PRN INH 11/15/17 19:00 12/15/17 18:59 11/20/17 05:11 1.25 MG Ipratropium [place] (Atrovent 0.02% 0.5MG/2.5ML Neb) 0.5 mg Q2H PRN INH 11/15/17 19:00 12/15/17 18:59 11/20/17 05:11 0.5 MG Levofloxacin 750 mg/Prmx 150 ml @ 100 mls/hr Q24H IV 11/15/17 19:00 11/22/17 18:59 11/19/17 20:09 100 MLS/HR Methylprednisolone Sodium Succinate 40 mg/Syringe 0.64 ml @ 1.5 mls/min Q6H IV 11/18/17 16:00 12/18/17 15:59 11/20/17 09:54 1.5 MLS/MIN Objective Vital Signs Date Time Temp Pulse Resp B/P (MAP) Pulse Ox O2 Delivery O2 Flow Rate FiO2 11/20/17 11:40 36.9 59 16 140/76 (97) 98 11/20/17 08:00 92 Oxymask 6.0 11/20/17 07:50 37.1 76 18 142/79 (100) 95 11/20/17 07:04 80 20 92 Mask 12.0 11/20/17 07:00 92 Oxymask 6.0 11/20/17 05:11 67 16 87 Mask 9.0 11/20/17 04:00 91 Oxymask 6.0 11/20/17 03:33 36.7 59 18 146/71 (96) 91 Oxymask 8.0 11/20/17 01:45 62 20 92 Mask 8.0 11/20/17 00:00 Oxymask 6.0 11/19/17 23:52 36.7 60 17 129/75 (93) 91 Oxymask 8.0 11/19/17 20:18 36.3 65 26 126/58 (80) 90 Nasal Cannula 6.0 11/19/17 20:00 Oxymask 6.0 11/19/17 19:28 79 20 88 Mask 6.0 11/19/17 16:00 Oxymask 6.0 11/19/17 15:41 36.3 70 26 123/59 (80) 90 Mask 6.0 Physical Exam General Appearance: WD/WN, no apparent distress Eyes: normal inspection, EOMI, sclerae normal ENT: normal ENT inspection, pharynx normal Neck: supple, no adenopathy, thyroid normal, trachea midline Respiratory/Chest: chest non-tender, no respiratory distress, no accessory muscle use, + rhonchi, + wheezing Cardiovascular: regular rate, rhythm, no gallop, no murmur Abdomen: normal bowel sounds, non tender, soft, no organomegaly Extremities: non-tender, no calf tenderness, normal capillary refill Neurologic/Psychiatric: alert, oriented x 3 Skin: normal color, warm/dry, no rash Lymphatic: no adenopathy Laboratory Results RUN DATE: 11/18/17 [facility] PAGE 1 RUN TIME: 0844 Specimen Inquiry 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 : 1955 BED: 1 DIS : STATUS: ADM IN TLOC: SPEC #: [id number] HUMBERTO: 11/16/17 STATUS: COMP REQ #: [id number] RECD: 11/16/[address] [facility] [address]: Chen Kessler M.D. SOURCE: SPUTUM ENTR: 11/16/17 [facility] DR: Vamsi Durand MD SPDESC: EXP.SPUTUM Colin Menjivar M.D. No Doctor, London Cohen M.D. Schreckengost, Janea ., PA-C ORDERED: SPUT CULT/SMR COMMENTS: Has Specimen Been Obtained/Collected? Y Procedure Result Verified Site GRAM STAIN Final 11/17/17 RESULT FEW EPITHELIAL CELLS MANY POLYS RARE GRAM POSITIVE COCCI RARE GRAM NEGATIVE BACILLI SPUTUM CULTURE Final 11/18/17 SCANT NORMAL FOUZIA. Last 24 Hours Test 11/20/17 06:41 White Blood Count 10.50 K/uL Red Blood Count 4.29 M/uL Hemoglobin 12.6 g/dL Hematocrit 36.8 % Mean Corpuscular Volume 85.8 fL Mean Corpuscular Hemoglobin 29.4 pg Mean Corpuscular Hemoglobin Concent 34.2 g/dl Platelet Count 274 K/uL Mean Platelet Volume 9.1 fL Neutrophils (%) (Auto) 91.7 % Lymphocytes (%) (Auto) 3.7 % Monocytes (%) (Auto) 4.2 % Eosinophils (%) (Auto) 0.0 % Basophils (%) (Auto) 0.0 % Neutrophils # (Auto) 9.63 K/uL Lymphocytes # (Auto) 0.39 K/uL Monocytes # (Auto) 0.44 K/uL Eosinophils # (Auto) 0.00 K/uL Basophils # (Auto) 0.00 K/uL RDW Standard Deviation 48.2 fL RDW Coefficient of Variation 15.3 % Immature Granulocyte % (Auto) 0.4 % Immature Granulocyte # (Auto) 0.04 K/uL Sodium Level 132 mmol/L Potassium Level 3.9 mmol/L Chloride Level 95 mmol/L Carbon Dioxide Level 32 mmol/L Anion Gap 5.0 mmol/L Blood Urea Nitrogen 13 mg/dl Creatinine 0.65 mg/dl Est Creatinine Clear Calc Drug Dose 117.8 ml/min Estimated GFR () 119.2 Estimated GFR (Non- 102.8 BUN/Creatinine Ratio 20.6 Random Glucose 147 mg/dl Calcium Level 8.5 mg/dl CHEST ONE VIEW PORTABLE CLINICAL HISTORY: MULTIFOCAL PNEUMONIA COMPARISON STUDY: Chest radiograph and chest CT November 15, 2017. FINDINGS: There is no pneumothorax or pleural effusion. The left upper lobe focus is less prominent. Left basilar opacity persists. Cardiomediastinal silhouette is stable. There is no evidence for pulmonary edema. IMPRESSION: 1. Interval improvement in the left upper lobe cavitary opacity. 2. Persistent bibasilar opacities, left greater than right, which could reflect an infectious process or atelectasis. Electronically signed by: Pradip Jon M.D. 11/17/2017 7:37 AM Dictated Date/Time: 11/17/2017 7:35 AM Assessment and Plan 62-year-old male with respiratory failure with bilateral infiltrates with possible cavitary lesion. Patient appears to be clinically improving although still requiring significant oxygen supplementation. Patient to have follow-up CT scan, to continue on levofloxacin for now. Will follow.
--- NOTE | 2017-11-20 13:48 | DIAGNOSTIC IMAGING REPORT ---
CT SCAN OF THE CHEST WITHOUT IV CONTRAST CLINICAL HISTORY: Follow-up cavitary pulmonary nodule. COMPARISON STUDY: Chest CT scans dated 11/15/2017 and 04/14/2017. TECHNIQUE: CT scan of the thorax was performed from the thoracic inlet to the upper abdomen. Images are reviewed in the axial, sagittal, and coronal planes. IV contrast was not administered for this examination as per the referring clinician. A dose lowering technique was utilized adhering to the principles of ALARA. The examination is modestly degraded by motion artifact. CT DOSE: 371.21 mGy.cm FINDINGS: Thyroid: Imaged portions of the thyroid gland are normal in size and attenuation. Thoracic aorta: There is atherosclerotic calcification of the thoracic aorta, which is normal in caliber and demonstrates bovine variant arch anatomy. Heart: The heart is normal in size and without pericardial effusion. The coronary arteries and aortic valve leaflets are densely calcified. Lungs and pleural spaces: Mild emphysema is identified. Secretions are seen within the right mainstem bronchus. The trachea is clear. There is increasing groundglass consolidation seen throughout both lungs. This is most confluent in the upper lobes, right greater than left. Foci of tree-in-bud nodularity are present in the lower lobes, left greater than right. A cavitary lesion in the left lower lobe is again seen on image #116 and measures 3.7 x 3.5 cm in aggregate dimension. This is increasingly cystic as compared to the 11/15/2017 examination with dependent debris/soft tissue material. A subcentimeter cavitary lesion is suggestive image #99, numerous additional small foci of cavitation are suggested in the upper lobes (payable representative lesions are seen on image #63). Trace pleural effusions are noted. Mediastinum: There is no mediastinal lymphadenopathy. Vicki: Not well assessed without IV contrast. Axillae: There is no axillary lymphadenopathy. Upper abdomen: There is mild thickening of the left adrenal gland. Partially visualized upper abdominal viscera is otherwise grossly within normal limits. Skeletal structures: The skeletal structures are osteopenic. Degenerative change is seen throughout the thoracic spine. There is a mild superior endplate compression deformity of T4. There are healed bilateral rib fractures. No lytic or blastic bony lesions are seen. IMPRESSION: 1. Mild emphysema. 2. Again seen is a cavitary lesion in the left lower lobe. This is similar in size to the 11/15/2017 examination, and the lesion is increasingly cystic/air filled. Internal fluid/debris has decreased from 11/15/2017 and this lesion is new from 04/14/2017. The appearance favors cavitary pneumonia or possibly the sequelae of a septic embolus. A superimposed fungal infection would be impossible to exclude. Continued CT follow-up to resolution is recommended. 3. Numerous additional subcentimeter foci of cavitation are suggested, greatest in the upper lobes. 4. There is increasingly confluent groundglass consolidation seen throughout the upper lobes, left greater than right. This likely represents a worsening infectious/inflammatory pneumonitis. 5. Tree-in-bud nodularity in the lower lobes is similar to previous, and is also likely on an infectious/inflammatory basis. 6. No mediastinal adenopathy is seen. 7. Trace pleural effusions. Electronically signed by: Alexis Cordova M.D. 11/20/2017 1:46 PM Dictated Date/Time: 11/20/2017 1:34 PM
--- NOTE | 2017-11-20 17:56 | Progress Note ---
Medicine Progress Note Date & Time of Visit: Nov 20, 2017 at 17:52. Subjective seen resting in bed, comfortable still on 6 liters oxymask denies dyspnea, has intermittent cough with white phlegm denies chest pain no other symptom Objective Last 8 Hrs Date Time Temp Pulse Resp B/P (MAP) Pulse Ox O2 Delivery O2 Flow Rate FiO2 11/20/17 16:00 Nasal Cannula 6.0 11/20/17 15:24 36.7 78 28 143/66 (91) 92 Nasal Cannula 7.0 11/20/17 14:15 74 20 91 Nasal Cannula 6.0 11/20/17 12:00 94 Oxymask 6.0 11/20/17 11:40 36.9 59 16 140/76 (97) 98 Physical Exam: General-oriented 3 not in distress. Speaks in sentences, no accessory muscle use Eyes-anicteric Neck- supple, no JVD Lungs-mild rhonchi bilaterally mid to base Heart- regular rhythm; no murmur, normal rate Abdomen- normal bowel sounds, soft, nontender Extremities- no pretibial edema, no calf tenderness Neuro- alert, oriented x 3; no gross focal neurologic deficits Skin- warm & dry Laboratory Results: Last 24 Hours Test 11/20/17 06:41 White Blood Count 10.50 K/uL Red Blood Count 4.29 M/uL Hemoglobin 12.6 g/dL Hematocrit 36.8 % Mean Corpuscular Volume 85.8 fL Mean Corpuscular Hemoglobin 29.4 pg Mean Corpuscular Hemoglobin Concent 34.2 g/dl Platelet Count 274 K/uL Mean Platelet Volume 9.1 fL Neutrophils (%) (Auto) 91.7 % Lymphocytes (%) (Auto) 3.7 % Monocytes (%) (Auto) 4.2 % Eosinophils (%) (Auto) 0.0 % Basophils (%) (Auto) 0.0 % Neutrophils # (Auto) 9.63 K/uL Lymphocytes # (Auto) 0.39 K/uL Monocytes # (Auto) 0.44 K/uL Eosinophils # (Auto) 0.00 K/uL Basophils # (Auto) 0.00 K/uL RDW Standard Deviation 48.2 fL RDW Coefficient of Variation 15.3 % Immature Granulocyte % (Auto) 0.4 % Immature Granulocyte # (Auto) 0.04 K/uL Sodium Level 132 mmol/L Potassium Level 3.9 mmol/L Chloride Level 95 mmol/L Carbon Dioxide Level 32 mmol/L Anion Gap 5.0 mmol/L Blood Urea Nitrogen 13 mg/dl Creatinine 0.65 mg/dl Est Creatinine Clear Calc Drug Dose 117.8 ml/min Estimated GFR () 119.2 Estimated GFR (Non- 102.8 BUN/Creatinine Ratio 20.6 Random Glucose 147 mg/dl Calcium Level 8.5 mg/dl Assessment & Plan ACUTE HYPOXEMIC RESPIRATORY FAILURE LIKELY SECONDARY TO MULTIFOCAL PNEUMONIA CTA chest showed Extensive multifocal airspace opacities throughout the lungs, including a 3.3 cm cavitary opacity within the superior segment of the left lower lobe NO evidence of PE on CTA chest blood cx and sputum cx no growth Quantifero negative aspergillus ab: negative anca, pending Still on 6 L of oxygen supplement Continue Levaquin and Solu-Medrol Pulmonary on board, Dr. Andrews consulted repeat Ct chest today possible Bronch tomorrow or Fri CAROTID ARTERY DISEASE : aspirin held for possible bronchoscopy Statin continued stable FULL CODE DVT PROPHYLAXIS : Hold aspirin and heparin for possible bronchoscopy CODE STATUS FULL CODE Consultants: Pulm ID DISPOSITION Anticipate discharge home medically stable and cleared by pulmonary Consultants: Pulm ID Current Inpatient Medications: Current Inpatient Medications Medications (Trade) Dose Ordered Sig/Linda Route Start Time Stop Time Status Last Admin Dose Admin Acetaminophen (Tylenol Tab) 650 mg Q4H PRN PO 11/15/17 18:00 12/15/17 17:59 Al Hydrox/Mg Hydrox/Simethicone (Maalox Max Susp) 15 ml Q4H PRN PO 11/15/17 18:00 12/15/17 17:59 Magnesium Hydroxide (Milk Of Magnesia Susp) 30 ml Q12H PRN PO 11/15/17 18:00 12/15/17 17:59 Nitroglycerin (Nitrostat Tab) 0.4 mg UD PRN SL 11/15/17 18:00 12/15/17 17:59 Polyethylene (Miralax Powder Packet) 17 gm DAILY PRN PO 11/15/17 18:00 12/15/17 17:59 Atorvastatin Calcium (Lipitor Tab) 80 mg DAILY PO 11/16/17 09:00 12/16/17 08:59 11/20/17 09:06 80 MG Montelukast Sodium (Singulair Tab) 10 mg QAM PO 11/16/17 09:00 12/16/17 08:59 11/20/17 09:06 10 MG Albuterol (Ventolin Hfa Inhaler) 2 puffs QID PRN INH 11/15/17 18:45 12/15/17 18:44 Miscellaneous Information (Order Awaiting Action) 1 ea QS N/A 11/16/17 00:00 12/16/17 00:00 Ipratropium [place] (Atrovent 0.02% 0.5MG/2.5ML Neb) 0.5 mg Q6R INH 11/15/17 21:00 12/15/17 20:59 11/20/17 14:15 0.5 MG Levalbuterol (Xopenex 1.25MG/ 0.5ML Neb) 1.25 mg Q6R INH 11/15/17 21:00 12/15/17 20:59 11/20/17 14:15 1.25 MG Levalbuterol (Xopenex 1.25MG/ 0.5ML Neb) 1.25 mg Q2H PRN INH 11/15/17 19:00 12/15/17 18:59 11/20/17 05:11 1.25 MG Ipratropium [place] (Atrovent 0.02% 0.5MG/2.5ML Neb) 0.5 mg Q2H PRN INH 11/15/17 19:00 12/15/17 18:59 11/20/17 05:11 0.5 MG Levofloxacin 750 mg/Prmx 150 ml @ 100 mls/hr Q24H IV 11/15/17 19:00 11/22/17 18:59 11/19/17 20:09 100 MLS/HR Methylprednisolone Sodium Succinate 40 mg/Syringe 0.64 ml @ 1.5 mls/min Q6H IV 11/18/17 16:00 12/18/17 15:59 11/20/17 16:34 1.5 MLS/MIN
[2017-11-20] MEDS: LEVOFLOXACIN / D5W 750 MG in PREMIXED IN D5W 150 ML IV SCH (19:25)
[2017-11-21] VITALS (13 sets, daily range): BP systolic 108–134; BP diastolic 51–82; PULSE 56–69; TEMP 36.2–37.4; O2SAT 88–97
[2017-11-21] MEDS: IPRATROPIUM BROMIDE NEB SOLN 0.02% 2.5 ML VIAL INH SCH ×4 (02:05→19:22)
[2017-11-21] MEDS: LEVALBUTEROL 1.25MG/0.5ML NEB INH SCH ×4 (02:05→19:23)
[2017-11-21] MEDS: METHYLPREDNISOLONE IV 40 MG in SYRINGE 0 ML IV SCH ×3 (04:32→16:22)
[2017-11-21 06:26] LABS: HEMATOCRIT 37.5 % (42-52); HEMOGLOBIN 12.6 g/dL (14.0-18.0); IG# 0.03 K/uL (0.00-0.02); LYMPH % 4.1 %; LYMPH ABS # 0.37 K/uL (1.2-3.4); MEAN CELL VOLUME 85.4 fL (80-100); MEAN CORPUSCULAR HEMOGLOBIN 28.7 pg (25-34); MEAN CORPUSCULAR HGB CONC 33.6 g/dl (32-36); MONO % 5.9 %; MONO ABS # 0.53 K/uL (0.11-0.59); NEUT % 89.7 %; NEUT ABS # 8.08 K/uL (1.4-6.5); PLATELET COUNT 286 K/uL (130-400); RED CELL DISTRIBUTION WIDTH CV 15.1 % (11.5-14.5); RED CELL DISTRIBUTION WIDTH SD 47.2 fL (36.4-46.3); WHITE BLOOD COUNT 9.01 K/uL (4.8-10.8)
[2017-11-21 07:04] LABS: CALCIUM 8.3 mg/dl (8.5-10.1); CREATININE 0.71 mg/dl (0.60-1.40); POTASSIUM 4.1 mmol/L (3.5-5.1)
[2017-11-21] MEDS: ATORVASTATIN 40 MG TAB PO SCH (07:46)
[2017-11-21] MEDS: MONTELUKAST SOD 10 MG TAB PO SCH (07:46)
--- NOTE | 2017-11-21 07:56 | Pulmonology Progress Note ---
Pulmonary Progress Note Date of Service Nov 21, 2017. Attending Dr. Andrews Subjective Patient was easily arousable and was able to complete full sentences that showing signs of respiratory insufficiency Objective VS: I/Os: +6.4L SaO2%: 88-92% FiO2: 3-7.5 L RR: 18-21 HR: 57-66 Resp: Bilateral expiratory rhonchi with minimal wheezing Card: S1-S2 regular rate and rhythm distant heart sounds Abd: Positive bowel sounds soft nontender Ext: No clubbing cyanosis or edema General: Orientated 3, easily arousable, no focal weakness Studies Anka: Negative CCP: <0.40 QuantiFERON gold: Negative Aspergillus titers: Negative Legionella urine antigen: Negative Microbiology: C. difficile: Not detected Expectorate sputum 11/16/2009: AFP pending Expectorate sputum 11/16/2012: Scant normal [place] Blood 11/15/2009: No growth 2 MRSA nasal swab: Negative Active pulmonary Medications: 1. Methylprednisolone 40 mg every 6 hours 2. Levofloxacin 750 mg day 7 3. Albuterol nebulizer Echocardiogram 11/16/2017 LV: EF=60-65%, function WNL RV: WNL Left Atrium: Mildly dilated Right atrium: Normal size IVC: Normal collapsibility Grade 2 pseudonormalization pattern/diastolic dysfunction CT angio of the chest 11/15/2017 Mediastinal adenopathy, subcarinal and 4R regions notably prominent No pulmonary emboli noted Bilateral lower lobe atelectasis left greater than right Bilateral ground-glass changes upper and middle lobe predominant Left lower lobe nodule possibly cavitating with possible air-fluid level CT angiogram of the chest 11/20/2019 Bilateral diffuse groundglass changes in the greater upper lobes Left lower lobe thin-walled cavitary nodule with dependent proportion Previous workup Pulmonary function studies 08/18/2015 Pre post %[place] FEV1/FVC 65 FEV1 1.62/50% 1.59/49% -1 FVC 2.47/61% 2.42/59% -2 SVC 2.45/60% TLC 11.85/191% RV/TLC 79 DLCO 51% DL/VA 83% QuantiFERON gold negative Assessment & Plan 62-year-old male admitted with hypoxemia: 1. Hypoxemic: Patient continues to require elevated oxygen supplementation currently at 7.5 L. His CAT scan does show diffuse infiltrative process/ groundglass changes especially in the upper lobes and his left lower lobe does show thin-walled cavitary lesion. At this time I will talk to the patient and family about moving forward for traditional bronchoscopy and bronchial lavage with CD4 count as well as cytology specimens along with the classic microbiologic and fungal workup. I believe this will be less accurate on this patient is currently on steroids as well as antibiotics but also been more difficult as he is requiring higher levels of oxygen which makes this procedure more risky at this time. To the new CAT scan probability of infection and vasculitis are probably higher on her list of differential diagnosis than actual metastatic CA. In the future this patient actually might require surgical lung biopsy for more definitive answer. 2. Cavitary nodule: Patient now has a thin-walled cavitary nodule in the superior subsegment of the left lower lobe. Performing traditional transbronchial biopsies or fine-needle aspiration on this places the patient a much higher risk for pneumothoraces. This would more likely require full wedge resection. Data Medications: Current Inpatient Medications Medications (Trade) Dose Ordered Sig/Linda Route Start Time Stop Time Status Last Admin Dose Admin Acetaminophen (Tylenol Tab) 650 mg Q4H PRN PO 11/15/17 18:00 12/15/17 17:59 Al Hydrox/Mg Hydrox/Simethicone (Maalox Max Susp) 15 ml Q4H PRN PO 11/15/17 18:00 12/15/17 17:59 Magnesium Hydroxide (Milk Of Magnesia Susp) 30 ml Q12H PRN PO 11/15/17 18:00 12/15/17 17:59 Nitroglycerin (Nitrostat Tab) 0.4 mg UD PRN SL 11/15/17 18:00 12/15/17 17:59 Polyethylene (Miralax Powder Packet) 17 gm DAILY PRN PO 11/15/17 18:00 12/15/17 17:59 Atorvastatin Calcium (Lipitor Tab) 80 mg DAILY PO 11/16/17 09:00 12/16/17 08:59 11/21/17 07:46 80 MG Montelukast Sodium (Singulair Tab) 10 mg QAM PO 11/16/17 09:00 12/16/17 08:59 11/21/17 07:46 10 MG Albuterol (Ventolin Hfa Inhaler) 2 puffs QID PRN INH 11/15/17 18:45 12/15/17 18:44 Miscellaneous Information (Order Awaiting Action) 1 ea QS N/A 11/16/17 00:00 12/16/17 00:00 11/21/17 07:44 1 EA Ipratropium [place] (Atrovent 0.02% 0.5MG/2.5ML Neb) 0.5 mg Q6R INH 11/15/17 21:00 12/15/17 20:59 11/21/17 07:10 0.5 MG Levalbuterol (Xopenex 1.25MG/ 0.5ML Neb) 1.25 mg Q6R INH 11/15/17 21:00 12/15/17 20:59 11/21/17 07:10 1.25 MG Levalbuterol (Xopenex 1.25MG/ 0.5ML Neb) 1.25 mg Q2H PRN INH 11/15/17 19:00 12/15/17 18:59 11/20/17 05:11 1.25 MG Ipratropium [place] (Atrovent 0.02% 0.5MG/2.5ML Neb) 0.5 mg Q2H PRN INH 11/15/17 19:00 12/15/17 18:59 11/20/17 05:11 0.5 MG Levofloxacin 750 mg/Prmx 150 ml @ 100 mls/hr Q24H IV 11/15/17 19:00 11/22/17 18:59 11/20/17 19:25 100 MLS/HR Methylprednisolone Sodium Succinate 40 mg/Syringe 0.64 ml @ 1.5 mls/min Q6H IV 11/18/17 16:00 12/18/17 15:59 11/21/17 04:32 1.5 MLS/MIN Vital Signs: Date Time Temp Pulse Resp B/P (MAP) Pulse Ox O2 Delivery O2 Flow Rate FiO2 11/21/17 07:10 63 18 88 Room Air 11/21/17 04:00 Nasal Cannula 6.0 11/21/17 03:49 37.0 66 21 134/82 (99) 91 Nasal Cannula 3.0 11/21/17 02:07 57 18 92 Nasal Cannula 6.0 11/20/17 23:59 Nasal Cannula 6.0 11/20/17 23:52 36.6 69 18 118/58 (78) 90 Nasal Cannula 6.0 11/20/17 20:00 Nasal Cannula 6.0 11/20/17 19:27 66 22 90 Nasal Cannula 6.0 11/20/17 19:09 36.5 68 27 125/55 (78) 90 Nasal Cannula 7.0 11/20/17 16:00 Nasal Cannula 6.0 11/20/17 15:24 36.7 78 28 143/66 (91) 92 Nasal Cannula 7.0 11/20/17 14:15 74 20 91 Nasal Cannula 6.0 11/20/17 12:00 94 Oxymask 6.0 11/20/17 11:40 36.9 59 16 140/76 (97) 98 11/20/17 08:00 92 Oxymask 6.0 11/20/17 07:50 37.1 76 18 142/79 (100) 95 Laboratory Results: Last 24 Hours Test 11/21/17 05:48 White Blood Count 9.01 K/uL Red Blood Count 4.39 M/uL Hemoglobin 12.6 g/dL Hematocrit 37.5 % Mean Corpuscular Volume 85.4 fL Mean Corpuscular Hemoglobin 28.7 pg Mean Corpuscular Hemoglobin Concent 33.6 g/dl Platelet Count 286 K/uL Mean Platelet Volume 9.0 fL Neutrophils (%) (Auto) 89.7 % Lymphocytes (%) (Auto) 4.1 % Monocytes (%) (Auto) 5.9 % Eosinophils (%) (Auto) 0.0 % Basophils (%) (Auto) 0.0 % Neutrophils # (Auto) 8.08 K/uL Lymphocytes # (Auto) 0.37 K/uL Monocytes # (Auto) 0.53 K/uL Eosinophils # (Auto) 0.00 K/uL Basophils # (Auto) 0.00 K/uL RDW Standard Deviation 47.2 fL RDW Coefficient of Variation 15.1 % Immature Granulocyte % (Auto) 0.3 % Immature Granulocyte # (Auto) 0.03 K/uL Sodium Level 133 mmol/L Potassium Level 4.1 mmol/L Chloride Level 95 mmol/L Carbon Dioxide Level 33 mmol/L Anion Gap 4.0 mmol/L Blood Urea Nitrogen 18 mg/dl Creatinine 0.71 mg/dl Est Creatinine Clear Calc Drug Dose 107.7 ml/min Estimated GFR () 114.9 Estimated GFR (Non- 99.2 BUN/Creatinine Ratio 25.1 Random Glucose 140 mg/dl Calcium Level 8.3 mg/dl
--- NOTE | 2017-11-21 15:20 | Progress Note ---
Medicine Progress Note Date & Time of Visit: Nov 21, 2017 at 15:20. Subjective resting in bed, comfortable still on 6-7 L via oxymask denies active SOB cough is less no other symptom Objective Last 8 Hrs Date Time Temp Pulse Resp B/P (MAP) Pulse Ox O2 Delivery O2 Flow Rate FiO2 11/21/17 14:01 69 18 93 Nasal Cannula 6.0 11/21/17 12:00 37.4 61 22 123/73 (90) 97 Nasal Cannula 11/21/17 12:00 88 Nasal Cannula 6.0 11/21/17 08:00 90 Oxymask 6.0 11/21/17 07:51 36.6 68 20 128/61 (83) 90 Nasal Cannula 6.0 Physical Exam: General-oriented 3 not in distress. Speaks in sentences, no accessory muscle use Neck- no JVD Lungs-mild rhonchi bilaterally mid to base, no wheezes Heart- regular rhythm; no murmur, normal rate Abdomen- normal bowel sounds, soft, nontender Extremities- no pretibial edema, no calf tenderness Neuro- alert, oriented x 3; no gross focal neurologic deficits Skin- warm & dry Laboratory Results: Last 24 Hours Test 11/21/17 05:48 White Blood Count 9.01 K/uL Red Blood Count 4.39 M/uL Hemoglobin 12.6 g/dL Hematocrit 37.5 % Mean Corpuscular Volume 85.4 fL Mean Corpuscular Hemoglobin 28.7 pg Mean Corpuscular Hemoglobin Concent 33.6 g/dl Platelet Count 286 K/uL Mean Platelet Volume 9.0 fL Neutrophils (%) (Auto) 89.7 % Lymphocytes (%) (Auto) 4.1 % Monocytes (%) (Auto) 5.9 % Eosinophils (%) (Auto) 0.0 % Basophils (%) (Auto) 0.0 % Neutrophils # (Auto) 8.08 K/uL Lymphocytes # (Auto) 0.37 K/uL Monocytes # (Auto) 0.53 K/uL Eosinophils # (Auto) 0.00 K/uL Basophils # (Auto) 0.00 K/uL RDW Standard Deviation 47.2 fL RDW Coefficient of Variation 15.1 % Immature Granulocyte % (Auto) 0.3 % Immature Granulocyte # (Auto) 0.03 K/uL Sodium Level 133 mmol/L Potassium Level 4.1 mmol/L Chloride Level 95 mmol/L Carbon Dioxide Level 33 mmol/L Anion Gap 4.0 mmol/L Blood Urea Nitrogen 18 mg/dl Creatinine 0.71 mg/dl Est Creatinine Clear Calc Drug Dose 107.7 ml/min Estimated GFR () 114.9 Estimated GFR (Non- 99.2 BUN/Creatinine Ratio 25.1 Random Glucose 140 mg/dl Calcium Level 8.3 mg/dl Assessment & Plan ACUTE HYPOXEMIC RESPIRATORY FAILURE LIKELY SECONDARY TO MULTIFOCAL PNEUMONIA CTA chest showed Extensive multifocal airspace opacities throughout the lungs, including a 3.3 cm cavitary opacity within the superior segment of the left lower lobe NO evidence of PE on CTA chest blood cx and sputum cx no growth Quantifero negative aspergillus ab: negative anca, pending Still on 6 L of oxygen supplement Continue Levaquin and Solu-Medrol Pulmonary on board, Dr. nAdrews consulted repeat Ct chest done possible Bronch CAROTID ARTERY DISEASE : aspirin held for possible bronchoscopy Statin continued stable FULL CODE DVT PROPHYLAXIS : Hold aspirin and heparin for possible bronchoscopy CODE STATUS FULL CODE Consultants: Pulm ID DISPOSITION Anticipate discharge home medically stable and cleared by pulmonary Consultants: Pulm ID Current Inpatient Medications: Current Inpatient Medications Medications (Trade) Dose Ordered Sig/Linda Route Start Time Stop Time Status Last Admin Dose Admin Acetaminophen (Tylenol Tab) 650 mg Q4H PRN PO 11/15/17 18:00 12/15/17 17:59 Al Hydrox/Mg Hydrox/Simethicone (Maalox Max Susp) 15 ml Q4H PRN PO 11/15/17 18:00 12/15/17 17:59 Magnesium Hydroxide (Milk Of Magnesia Susp) 30 ml Q12H PRN PO 11/15/17 18:00 12/15/17 17:59 Nitroglycerin (Nitrostat Tab) 0.4 mg UD PRN SL 11/15/17 18:00 12/15/17 17:59 Polyethylene (Miralax Powder Packet) 17 gm DAILY PRN PO 11/15/17 18:00 12/15/17 17:59 Atorvastatin Calcium (Lipitor Tab) 80 mg DAILY PO 11/16/17 09:00 12/16/17 08:59 11/21/17 07:46 80 MG Montelukast Sodium (Singulair Tab) 10 mg QAM PO 11/16/17 09:00 12/16/17 08:59 11/21/17 07:46 10 MG Albuterol (Ventolin Hfa Inhaler) 2 puffs QID PRN INH 11/15/17 18:45 12/15/17 18:44 Miscellaneous Information (Order Awaiting Action) 1 ea QS N/A 11/16/17 00:00 12/16/17 00:00 11/21/17 07:44 1 EA Ipratropium [place] (Atrovent 0.02% 0.5MG/2.5ML Neb) 0.5 mg Q6R INH 11/15/17 21:00 12/15/17 20:59 11/21/17 14:01 0.5 MG Levalbuterol (Xopenex 1.25MG/ 0.5ML Neb) 1.25 mg Q6R INH 11/15/17 21:00 12/15/17 20:59 11/21/17 14:01 1.25 MG Levalbuterol (Xopenex 1.25MG/ 0.5ML Neb) 1.25 mg Q2H PRN INH 11/15/17 19:00 12/15/17 18:59 11/20/17 05:11 1.25 MG Ipratropium [place] (Atrovent 0.02% 0.5MG/2.5ML Neb) 0.5 mg Q2H PRN INH 11/15/17 19:00 12/15/17 18:59 11/20/17 05:11 0.5 MG Levofloxacin 750 mg/Prmx 150 ml @ 100 mls/hr Q24H IV 11/15/17 19:00 11/22/17 18:59 11/20/17 19:25 100 MLS/HR Methylprednisolone Sodium Succinate 40 mg/Syringe 0.64 ml @ 1.5 mls/min Q6H IV 11/18/17 16:00 12/18/17 15:59 11/21/17 10:11 1.5 MLS/MIN
--- NOTE | 2017-11-21 19:39 | Infectious Disease Progress Nt ---
Progress Note Date of Service Nov 21, 2017. Subjective Pt evaluation today including: conversation w/ patient, physical exam, chart review, lab review, review of studies, conversation w/ community resource consultant, review of inpatient medication list Patient feeling slightly better today with less shortness of breath and cough. Remains afebrile. Continues to tolerate levofloxacin without apparent difficulty. All Other Systems: Reviewed and Negative Medications Current Inpatient Medications Medications (Trade) Dose Ordered Sig/Linda Route Start Time Stop Time Status Last Admin Dose Admin Acetaminophen (Tylenol Tab) 650 mg Q4H PRN PO 11/15/17 18:00 12/15/17 17:59 Al Hydrox/Mg Hydrox/Simethicone (Maalox Max Susp) 15 ml Q4H PRN PO 11/15/17 18:00 12/15/17 17:59 Magnesium Hydroxide (Milk Of Magnesia Susp) 30 ml Q12H PRN PO 11/15/17 18:00 12/15/17 17:59 Nitroglycerin (Nitrostat Tab) 0.4 mg UD PRN SL 11/15/17 18:00 12/15/17 17:59 Polyethylene (Miralax Powder Packet) 17 gm DAILY PRN PO 11/15/17 18:00 12/15/17 17:59 Atorvastatin Calcium (Lipitor Tab) 80 mg DAILY PO 11/16/17 09:00 12/16/17 08:59 11/21/17 07:46 80 MG Montelukast Sodium (Singulair Tab) 10 mg QAM PO 11/16/17 09:00 12/16/17 08:59 11/21/17 07:46 10 MG Albuterol (Ventolin Hfa Inhaler) 2 puffs QID PRN INH 11/15/17 18:45 12/15/17 18:44 Miscellaneous Information (Order Awaiting Action) 1 ea QS N/A 11/16/17 00:00 12/16/17 00:00 11/21/17 07:44 1 EA Ipratropium [place] (Atrovent 0.02% 0.5MG/2.5ML Neb) 0.5 mg Q6R INH 11/15/17 21:00 12/15/17 20:59 11/21/17 19:22 0.5 MG Levalbuterol (Xopenex 1.25MG/ 0.5ML Neb) 1.25 mg Q6R INH 11/15/17 21:00 12/15/17 20:59 11/21/17 19:23 1.25 MG Levalbuterol (Xopenex 1.25MG/ 0.5ML Neb) 1.25 mg Q2H PRN INH 11/15/17 19:00 18 18:59 11/20/17 05:11 1.25 MG Ipratropium [place] (Atrovent 0.02% 0.5MG/2.5ML Neb) 0.5 mg Q2H PRN INH 11/15/17 19:00 12/15/17 18:59 11/20/17 05:11 0.5 MG Levofloxacin 750 mg/Prmx 150 ml @ 100 mls/hr Q24H IV 11/15/17 19:00 11/22/17 18:59 11/20/17 19:25 100 MLS/HR Methylprednisolone Sodium Succinate 40 mg/Syringe 0.64 ml @ 1.5 mls/min Q6H IV 11/18/17 16:00 12/18/17 15:59 11/21/17 16:22 1.5 MLS/MIN Objective Vital Signs Date Time Temp Pulse Resp B/P (MAP) Pulse Ox O2 Delivery O2 Flow Rate FiO2 11/21/17 19:24 65 18 90 Nasal Cannula 6.0 11/21/17 16:00 91 Oxymask 6.0 11/21/17 15:48 36.6 66 21 124/51 (75) 96 Nasal Cannula 6.0 11/21/17 14:01 69 18 93 Nasal Cannula 6.0 11/21/17 12:00 37.4 61 22 123/73 (90) 97 Nasal Cannula 11/21/17 12:00 88 Nasal Cannula 6.0 11/21/17 08:00 90 Oxymask 6.0 11/21/17 07:51 36.6 68 20 128/61 (83) 90 Nasal Cannula 6.0 11/21/17 07:10 63 18 88 Room Air 11/21/17 04:00 Nasal Cannula 6.0 11/21/17 03:49 37.0 66 21 134/82 (99) 91 Nasal Cannula 3.0 11/21/17 02:07 57 18 92 Nasal Cannula 6.0 11/20/17 23:59 Nasal Cannula 6.0 11/20/17 23:52 36.6 69 18 118/58 (78) 90 Nasal Cannula 6.0 11/20/17 20:00 Nasal Cannula 6.0 Physical Exam General Appearance: WD/WN, no apparent distress Eyes: normal inspection, EOMI, sclerae normal ENT: normal ENT inspection, hearing grossly normal, pharynx normal Neck: supple, no adenopathy, thyroid normal, trachea midline Respiratory/Chest: chest non-tender, no respiratory distress, no accessory muscle use, + rhonchi Cardiovascular: regular rate, rhythm, no gallop, no murmur Abdomen: normal bowel sounds, non tender, soft, no organomegaly Extremities: non-tender, no calf tenderness Neurologic/Psychiatric: alert, oriented x 3 Skin: normal color, warm/dry, no rash Lymphatic: no adenopathy Laboratory Results Last 24 Hours Test 11/21/17 05:48 White Blood Count 9.01 K/uL Red Blood Count 4.39 M/uL Hemoglobin 12.6 g/dL Hematocrit 37.5 % Mean Corpuscular Volume 85.4 fL Mean Corpuscular Hemoglobin 28.7 pg Mean Corpuscular Hemoglobin Concent 33.6 g/dl Platelet Count 286 K/uL Mean Platelet Volume 9.0 fL Neutrophils (%) (Auto) 89.7 % Lymphocytes (%) (Auto) 4.1 % Monocytes (%) (Auto) 5.9 % Eosinophils (%) (Auto) 0.0 % Basophils (%) (Auto) 0.0 % Neutrophils # (Auto) 8.08 K/uL Lymphocytes # (Auto) 0.37 K/uL Monocytes # (Auto) 0.53 K/uL Eosinophils # (Auto) 0.00 K/uL Basophils # (Auto) 0.00 K/uL RDW Standard Deviation 47.2 fL RDW Coefficient of Variation 15.1 % Immature Granulocyte % (Auto) 0.3 % Immature Granulocyte # (Auto) 0.03 K/uL Sodium Level 133 mmol/L Potassium Level 4.1 mmol/L Chloride Level 95 mmol/L Carbon Dioxide Level 33 mmol/L Anion Gap 4.0 mmol/L Blood Urea Nitrogen 18 mg/dl Creatinine 0.71 mg/dl Est Creatinine Clear Calc Drug Dose 107.7 ml/min Estimated GFR () 114.9 Estimated GFR (Non- 99.2 BUN/Creatinine Ratio 25.1 Random Glucose 140 mg/dl Calcium Level 8.3 mg/dl CT SCAN OF THE CHEST WITHOUT IV CONTRAST CLINICAL HISTORY: Follow-up cavitary pulmonary nodule. COMPARISON STUDY: Chest CT scans dated 11/15/2017 and 04/14/2017. TECHNIQUE: CT scan of the thorax was performed from the thoracic inlet to the upper abdomen. Images are reviewed in the axial, sagittal, and coronal planes. IV contrast was not administered for this examination as per the referring clinician. A dose lowering technique was utilized adhering to the principles of ALARA. The examination is modestly degraded by motion artifact. CT DOSE: 371.21 mGy.cm FINDINGS: Thyroid: Imaged portions of the thyroid gland are normal in size and attenuation. Thoracic aorta: There is atherosclerotic calcification of the thoracic aorta, which is normal in caliber and demonstrates bovine variant arch anatomy. Heart: The heart is normal in size and without pericardial effusion. The coronary arteries and aortic valve leaflets are densely calcified. Lungs and pleural spaces: Mild emphysema is identified. Secretions are seen within the right mainstem bronchus. The trachea is clear. There is increasing groundglass consolidation seen throughout both lungs. This is most confluent in the upper lobes, right greater than left. Foci of tree-in-bud nodularity are present in the lower lobes, left greater than right. A cavitary lesion in the left lower lobe is again seen on image #116 and measures 3.7 x 3.5 cm in aggregate dimension. This is increasingly cystic as compared to the 11/15/2017 examination with dependent debris/soft tissue material. A subcentimeter cavitary lesion is suggestive image #99, numerous additional small foci of cavitation are suggested in the upper lobes (dermatology sales representative lesions are seen on image #63). Trace pleural effusions are noted. Mediastinum: There is no mediastinal lymphadenopathy. Vicki: Not well assessed without IV contrast. Axillae: There is no axillary lymphadenopathy. Upper abdomen: There is mild thickening of the left adrenal gland. Partially visualized upper abdominal viscera is otherwise grossly within normal limits. Skeletal structures: The skeletal structures are osteopenic. Degenerative change is seen throughout the thoracic spine. There is a mild superior endplate compression deformity of T4. There are healed bilateral rib fractures. No lytic or blastic bony lesions are seen. IMPRESSION: 1. Mild emphysema. 2. Again seen is a cavitary lesion in the left lower lobe. This is similar in size to the 11/15/2017 examination, and the lesion is increasingly cystic/air filled. Internal fluid/debris has decreased from 11/15/2017 and this lesion is new from 04/14/2017. The appearance favors cavitary pneumonia or possibly the sequelae of a septic embolus. A superimposed fungal infection would be impossible to exclude. Continued CT follow-up to resolution is recommended. 3. Numerous additional subcentimeter foci of cavitation are suggested, greatest in the upper lobes. 4. There is increasingly confluent groundglass consolidation seen throughout the upper lobes, left greater than right. This likely represents a worsening infectious/inflammatory pneumonitis. 5. Tree-in-bud nodularity in the lower lobes is similar to previous, and is also likely on an infectious/inflammatory basis. 6. No mediastinal adenopathy is seen. Assessment and Plan 62-year-old male with respiratory failure with bilateral infiltrates with possible cavitary lesion. Patient appears to be clinically improving although still requiring significant oxygen supplementation. Will continue on levofloxacin and steroids for now. Will discuss with all involved.
[2017-11-21] MEDS: LEVOFLOXACIN / D5W 750 MG in PREMIXED IN D5W 150 ML IV SCH (20:04)
[2017-11-21 20:37] LABS: ANA SCREEN TC 249X NEGATIVE (NEGATIVE)
[2017-11-22] VITALS (10 sets, daily range): BP systolic 99–134; BP diastolic 59–77; PULSE 54–72; TEMP 36.5–36.7; O2SAT 90–95
[2017-11-22] MEDS: LEVALBUTEROL 1.25MG/0.5ML NEB INH SCH ×4 (01:37→19:09)
[2017-11-22] MEDS: IPRATROPIUM BROMIDE NEB SOLN 0.02% 2.5 ML VIAL INH SCH ×4 (01:37→19:09)
[2017-11-22] MEDS: METHYLPREDNISOLONE IV 40 MG in SYRINGE 0 ML IV SCH ×4 (04:33→21:07)
[2017-11-22 06:21] LABS: HEMATOCRIT 37.8 % (42-52); HEMOGLOBIN 12.9 g/dL (14.0-18.0); IG# 0.04 K/uL (0.00-0.02); LYMPH % 4.1 %; LYMPH ABS # 0.46 K/uL (1.2-3.4); MEAN CELL VOLUME 85.3 fL (80-100); MEAN CORPUSCULAR HEMOGLOBIN 29.1 pg (25-34); MEAN CORPUSCULAR HGB CONC 34.1 g/dl (32-36); MEAN PLATELET VOLUME 9.2 fL (7.4-10.4); NEUT % 87.5 %; PLATELET COUNT 286 K/uL (130-400); RED CELL DISTRIBUTION WIDTH CV 15.2 % (11.5-14.5); RED CELL DISTRIBUTION WIDTH SD 47.8 fL (36.4-46.3)
[2017-11-22 06:51] LABS: CALCIUM 8.5 mg/dl (8.5-10.1); CREATININE 0.68 mg/dl (0.60-1.40); POTASSIUM 4.2 mmol/L (3.5-5.1)
[2017-11-22] MEDS: MONTELUKAST SOD 10 MG TAB PO SCH (08:40)
[2017-11-22] MEDS: ATORVASTATIN 40 MG TAB PO SCH (08:40)
--- NOTE | 2017-11-22 18:40 | Progress Note ---
Medicine Progress Note Date & Time of Visit: Nov 22, 2017 at 18:37. Subjective seen resting in bed, comfortable in good spirits states he feels ok states breathing is slowly improving, less cough no hemoptysis no chest pain denies other symptoms Objective Last 8 Hrs Date Time Temp Pulse Resp B/P (MAP) Pulse Ox O2 Delivery O2 Flow Rate FiO2 11/22/17 16:00 Nasal Cannula 6.0 Humidified Oxygen 11/22/17 16:00 36.5 66 18 128/59 (82) 90 Nasal Cannula 6.0 Humidified Oxygen 11/22/17 14:27 72 18 91 Nasal Cannula 6.0 11/22/17 12:00 Nasal Cannula 6.0 Humidified Oxygen 11/22/17 11:49 36.7 59 20 128/60 (82) 91 6.0 Physical Exam: General-oriented 3 not in distress. Speaks in sentences, no accessory muscle use Neck- no JVD Lungs-mild rhonchi bilaterally , no wheezing Heart- regular rhythm; no murmur, normal rate Abdomen- normal bowel sounds, soft, nontender, non distended Extremities- no pretibial edema, no calf tenderness Neuro- alert, oriented x 3; no gross focal neurologic deficits Skin- warm & dry Laboratory Results: Last 24 Hours Test 11/22/17 05:46 White Blood Count 11.20 K/uL Red Blood Count 4.43 M/uL Hemoglobin 12.9 g/dL Hematocrit 37.8 % Mean Corpuscular Volume 85.3 fL Mean Corpuscular Hemoglobin 29.1 pg Mean Corpuscular Hemoglobin Concent 34.1 g/dl Platelet Count 286 K/uL Mean Platelet Volume 9.2 fL Neutrophils (%) (Auto) 87.5 % Lymphocytes (%) (Auto) 4.1 % Monocytes (%) (Auto) 8.0 % Eosinophils (%) (Auto) 0.0 % Basophils (%) (Auto) 0.0 % Neutrophils # (Auto) 9.80 K/uL Lymphocytes # (Auto) 0.46 K/uL Monocytes # (Auto) 0.90 K/uL Eosinophils # (Auto) 0.00 K/uL Basophils # (Auto) 0.00 K/uL RDW Standard Deviation 47.8 fL RDW Coefficient of Variation 15.2 % Immature Granulocyte % (Auto) 0.4 % Immature Granulocyte # (Auto) 0.04 K/uL Sodium Level 131 mmol/L Potassium Level 4.2 mmol/L Chloride Level 94 mmol/L Carbon Dioxide Level 30 mmol/L Anion Gap 7.0 mmol/L Blood Urea Nitrogen 18 mg/dl Creatinine 0.68 mg/dl Est Creatinine Clear Calc Drug Dose 113.7 ml/min Estimated GFR () 117.0 Estimated GFR (Non- 100.9 BUN/Creatinine Ratio 26.0 Random Glucose 120 mg/dl Calcium Level 8.5 mg/dl Assessment & Plan ACUTE HYPOXEMIC RESPIRATORY FAILURE LIKELY SECONDARY TO MULTIFOCAL PNEUMONIA CTA chest showed Extensive multifocal airspace opacities throughout the lungs, including a 3.3 cm cavitary opacity within the superior segment of the left lower lobe NO evidence of PE on CTA chest blood cx and sputum cx no growth Quantifero negative aspergillus ab: negative anca: negative Still on 6 L of oxygen supplement Continue Levaquin and Solu-Medrol wean off O2 accordingly Pulmonary on board, Dr. Andrews consulted repeat Ct chest done possible Bronchoscopy contemplated when 02 supplementation requirement is less CAROTID ARTERY DISEASE : aspirin, Statin continued stable FULL CODE DVT PROPHYLAXIS : Heparin SC CODE STATUS FULL CODE Consultants: Pulm ID DISPOSITION Anticipate discharge home medically stable and cleared by pulmonary Consultants: Pulm ID Current Inpatient Medications: Current Inpatient Medications Medications (Trade) Dose Ordered Sig/Linda Route Start Time Stop Time Status Last Admin Dose Admin Acetaminophen (Tylenol Tab) 650 mg Q4H PRN PO 11/15/17 18:00 12/15/17 17:59 Al Hydrox/Mg Hydrox/Simethicone (Maalox Max Susp) 15 ml Q4H PRN PO 11/15/17 18:00 12/15/17 17:59 Magnesium Hydroxide (Milk Of Magnesia Susp) 30 ml Q12H PRN PO 11/15/17 18:00 12/15/17 17:59 Nitroglycerin (Nitrostat Tab) 0.4 mg UD PRN SL 11/15/17 18:00 12/15/17 17:59 Polyethylene (Miralax Powder Packet) 17 gm DAILY PRN PO 11/15/17 18:00 12/15/17 17:59 Atorvastatin Calcium (Lipitor Tab) 80 mg DAILY PO 11/16/17 09:00 12/16/17 08:59 11/22/17 08:40 80 MG Montelukast Sodium (Singulair Tab) 10 mg QAM PO 11/16/17 09:00 12/16/17 08:59 11/22/17 08:40 10 MG Albuterol (Ventolin Hfa Inhaler) 2 puffs QID PRN INH 11/15/17 18:45 12/15/17 18:44 Miscellaneous Information (Order Awaiting Action) 1 ea QS N/A 11/16/17 00:00 12/16/17 00:00 11/21/17 07:44 1 EA Ipratropium [place] (Atrovent 0.02% 0.5MG/2.5ML Neb) 0.5 mg Q6R INH 11/15/17 21:00 12/15/17 20:59 11/22/17 14:26 0.5 MG Levalbuterol (Xopenex 1.25MG/ 0.5ML Neb) 1.25 mg Q6R INH 11/15/17 21:00 12/15/17 20:59 11/22/17 14:26 1.25 MG Levalbuterol (Xopenex 1.25MG/ 0.5ML Neb) 1.25 mg Q2H PRN INH 11/15/17 19:00 12/15/17 18:59 11/20/17 05:11 1.25 MG Ipratropium [place] (Atrovent 0.02% 0.5MG/2.5ML Neb) 0.5 mg Q2H PRN INH 11/15/17 19:00 12/15/17 18:59 11/20/17 05:11 0.5 MG Levofloxacin 750 mg/Prmx 150 ml @ 100 mls/hr Q24H IV 11/15/17 19:00 11/22/17 18:59 11/21/17 20:04 100 MLS/HR Methylprednisolone Sodium Succinate 40 mg/Syringe 0.64 ml @ 1.5 mls/min Q6H IV 11/18/17 16:00 12/18/17 15:59 11/22/17 16:25 1.5 MLS/MIN
[2017-11-22] MEDS: HEPARIN SOD 5000 UNIT/0.5 ML CARP SQ SCH (21:09)
[2017-11-23] VITALS (10 sets, daily range): BP systolic 114–144; BP diastolic 50–75; PULSE 57–73; TEMP 36.3–36.6; O2SAT 90–95
[2017-11-23] MEDS: IPRATROPIUM BROMIDE NEB SOLN 0.02% 2.5 ML VIAL INH SCH ×4 (01:56→20:15)
[2017-11-23] MEDS: LEVALBUTEROL 1.25MG/0.5ML NEB INH SCH ×4 (01:56→20:15)
[2017-11-23] MEDS: METHYLPREDNISOLONE IV 40 MG in SYRINGE 0 ML IV SCH ×4 (04:32→21:51)
[2017-11-23] MEDS: HEPARIN SOD 5000 UNIT/0.5 ML CARP SQ SCH ×3 (05:41→21:54)
[2017-11-23 06:38] LABS: HEMATOCRIT 38.2 % (42-52); IG# 0.03 K/uL (0.00-0.02); LYMPH % 2.8 %; LYMPH ABS # 0.26 K/uL (1.2-3.4); MEAN CELL VOLUME 85.3 fL (80-100); MONO % 6.3 %; MONO ABS # 0.59 K/uL (0.11-0.59); NEUT % 90.6 %; NEUT ABS # 8.47 K/uL (1.4-6.5); PLATELET COUNT 269 K/uL (130-400); RED CELL DISTRIBUTION WIDTH CV 15.2 % (11.5-14.5); RED CELL DISTRIBUTION WIDTH SD 47.7 fL (36.4-46.3); WHITE BLOOD COUNT 9.35 K/uL (4.8-10.8)
[2017-11-23 07:19] LABS: CALCIUM 8.4 mg/dl (8.5-10.1); CREATININE 0.69 mg/dl (0.60-1.40)
[2017-11-23] MEDS: ASPIRIN 81 MG ECTAB PO SCH (08:03)
[2017-11-23] MEDS: MONTELUKAST SOD 10 MG TAB PO SCH (08:03)
[2017-11-23] MEDS: ATORVASTATIN 40 MG TAB PO SCH (08:03)
--- NOTE | 2017-11-23 09:26 | Pulmonology Progress Note ---
Pulmonary Progress Note Date of Service Nov 23, 2017. Attending Dr. Florian Subjective Patient is feeling well this morning. He continues on 6L via nasal cannula. During attempted taper this morning to 5L, the patient was noted to desaturate to 85% within a few minutes of tapering. He was increased back up to 6L. He is anxious to get a bronchoscopy done. Dr. Durand's most recent noted reviewed- noted to continue abx therapy and prednisone. Patient does not have any pain. He is having some on and off coughing, but no sputum production today. CT scan viewed and reviewed. Labs reviewed as below. Objective VS reviewed: Afebrile HR 59 RR 18 SaO2 90-94% on 6 L. Nursing did note that the patient was weaned down to 5L this morning for a few minutes and desaturated to 85%. General: Patient is awake, alert, cooperative, and in no acute distress. Well developed. Well-nourished. Head: Normocephalic, Atraumatic. ENT: PERRLA, No discharge, EOMI, Sclera normal Neck: Normal ROM. Trachea midline. No stridor Respiratory: Rhonchi throughout b/l lower lobes. Some mild high pitched wheezing throughout at as well. He continues on 6 L via nasal canula. Cardiovascular: Regular rate and rhythm. No murmur appreciate. Normal S1/S2. Abdomen: Normal bowel sounds hear throughout. Back: Normal inspection. Extremities: No edema, cyanosis. Normal ROM Neuro: Alert, Oriented x 3. CN II-XII grossly intact. Sensation and motor function grossly intact. Psych: Mood and affect are normal. Workup: ANCA: Negative PRAMOD: Negative CCP: <0.40 QuantiFERON gold: Negative Aspergillus titers: Negative Legionella urine antigen: Negative Microbiology: C. difficile: Not detected Expectorate sputum 11/16/2009: AFP pending. Smear negative Expectorate sputum 11/16/2012: Scant normal [place] Blood 11/15/2009: No growth 2 MRSA nasal swab: Negative Active pulmonary Medications: 1. Methylprednisolone 40 mg every 6 hours 2. Levofloxacin 750 mg 3. Albuterol nebulizer 4. Montelukast 10 mg daily 5. Levalbuterol, Ipratropium neb Echocardiogram 11/16/2017 LV: EF=60-65%, function WNL RV: WNL Left Atrium: Mildly dilated Right atrium: Normal size IVC: Normal collapsibility Grade 2 pseudonormalization pattern/diastolic dysfunction Previous workup Pulmonary function studies 08/18/2015 Pre post %[place] FEV1/FVC 65 FEV1 1.62/50% 1.59/49% -1 FVC 2.47/61% 2.42/59% -2 SVC 2.45/60% TLC 11.85/191% RV/TLC 79 DLCO 51% DL/VA 83% Assessment & Plan 62-year-old male admitted with hypoxemia: 1. Hypoxemic: Continues to require high level of O2 supplementation at 6L today. He is slightly down from previous 7-8L. He continues on nebulizer treatments throughout the day, high dose prednisone, montelukast. He does continue to have rhonchi and wheezing throughout, but is awaiting possible bronchoscopic evaluation by Dr. Andrews. The patient previously completed 7 days of IV Levaquin. Recommended by ID to continue abx therapy pending further improvement, therefore will restart IV Levaquin for now (was discontinued due to reaching stop date on 11/21). Probable that after completion of 10-14 days abx can be d/c'd. With continued rhonchi, wheezing, and cough- Will add flutter valve and vibration vest for more aggressive pulmonary toilet pending bronchoscopic evaluation. Seems likely that overall, IV steroids and abx therapy will be the most beneficial for this patient pending further workup. Continue to attempt to wean O2 as tolerated. Maintain SaO2 >90% 2. Cavitary nodule: Patient now has a thin-walled cavitary nodule in the superior subsegment of the left lower lobe. Performing traditional transbronchial biopsies or fine-needle aspiration on this places the patient a much higher risk for pneumothoraces. This would may require full wedge resection pending further workup. Data Medications: Current Inpatient Medications Medications (Trade) Dose Ordered Sig/Linda Route Start Time Stop Time Status Last Admin Dose Admin Acetaminophen (Tylenol Tab) 650 mg Q4H PRN PO 11/15/17 18:00 3 17:59 Al Hydrox/Mg Hydrox/Simethicone (Maalox Max Susp) 15 ml Q4H PRN PO 11/15/17 18:00 12/15/17 17:59 Magnesium Hydroxide (Milk Of Magnesia Susp) 30 ml Q12H PRN PO 11/15/17 18:00 12/15/17 17:59 Nitroglycerin (Nitrostat Tab) 0.4 mg UD PRN SL 11/15/17 18:00 12/15/17 17:59 Polyethylene (Miralax Powder Packet) 17 gm DAILY PRN PO 11/15/17 18:00 12/15/17 17:59 Atorvastatin Calcium (Lipitor Tab) 80 mg DAILY PO 11/16/17 09:00 12/16/17 08:59 11/23/17 08:03 80 MG Montelukast Sodium (Singulair Tab) 10 mg QAM PO 11/16/17 09:00 12/16/17 08:59 11/23/17 08:03 10 MG Albuterol (Ventolin Hfa Inhaler) 2 puffs QID PRN INH 11/15/17 18:45 12/15/17 18:44 Miscellaneous Information (Order Awaiting Action) 1 ea QS N/A 11/16/17 00:00 12/16/17 00:00 11/21/17 07:44 1 EA Ipratropium [place] (Atrovent 0.02% 0.5MG/2.5ML Neb) 0.5 mg Q6R INH 11/15/17 21:00 12/15/17 20:59 11/23/17 07:09 0.5 MG Levalbuterol (Xopenex 1.25MG/ 0.5ML Neb) 1.25 mg Q6R INH 11/15/17 21:00 12/15/17 20:59 11/23/17 07:09 1.25 MG Levalbuterol (Xopenex 1.25MG/ 0.5ML Neb) 1.25 mg Q2H PRN INH 11/15/17 19:00 12/15/17 18:59 11/20/17 05:11 1.25 MG Ipratropium [place] (Atrovent 0.02% 0.5MG/2.5ML Neb) 0.5 mg Q2H PRN INH 11/15/17 19:00 18 18:59 11/20/17 05:11 0.5 MG Methylprednisolone Sodium Succinate 40 mg/Syringe 0.64 ml @ 1.5 mls/min Q6H IV 11/18/17 16:00 12/18/17 15:59 11/23/17 04:32 1.5 MLS/MIN Heparin Sodium (Porcine) (Heparin Sq 5000 Unit/0.5ml) 5,000 unit Q8 SQ 11/22/17 22:00 12/22/17 21:59 11/23/17 05:41 5,000 UNIT Aspirin (Ecotrin Tab) 81 mg QAM PO 11/23/17 09:00 12/23/17 08:59 11/23/17 08:03 81 MG Levofloxacin 750 mg/Prmx 150 ml @ 100 mls/hr Q24H IV 11/23/17 09:00 11/30/17 08:44 Vital Signs: Date Time Temp Pulse Resp B/P (MAP) Pulse Ox O2 Delivery O2 Flow Rate FiO2 11/23/17 07:37 36.4 59 18 142/73 (96) 94 6.0 11/23/17 07:09 57 20 90 Nasal Cannula 6.0 11/23/17 04:00 Nasal Cannula 6.0 11/23/17 03:40 36.4 62 20 144/67 (92) 94 Nasal Cannula 6.0 11/23/17 01:56 59 18 95 Nasal Cannula 6.0 11/22/17 23:59 Nasal Cannula 6.0 11/22/17 23:40 36.6 64 24 132/64 (86) 93 Nasal Cannula 6.0 11/22/17 20:00 Nasal Cannula 6.0 11/22/17 19:23 36.5 64 18 99/62 (74) 90 Nasal Cannula Humidified Oxygen 11/22/17 19:09 65 18 91 Nasal Cannula 6.0 11/22/17 16:00 Nasal Cannula 6.0 Humidified Oxygen 11/22/17 16:00 36.5 66 18 128/59 (82) 90 Nasal Cannula 6.0 Humidified Oxygen 11/22/17 14:27 72 18 91 Nasal Cannula 6.0 11/22/17 12:00 Nasal Cannula 6.0 Humidified Oxygen 11/22/17 11:49 36.7 59 20 128/60 (82) 91 6.0 Laboratory Results: Last 24 Hours Test 11/23/17 06:16 White Blood Count 9.35 K/uL Red Blood Count 4.48 M/uL Hemoglobin 13.0 g/dL Hematocrit 38.2 % Mean Corpuscular Volume 85.3 fL Mean Corpuscular Hemoglobin 29.0 pg Mean Corpuscular Hemoglobin Concent 34.0 g/dl Platelet Count 269 K/uL Mean Platelet Volume 9.0 fL Neutrophils (%) (Auto) 90.6 % Lymphocytes (%) (Auto) 2.8 % Monocytes (%) (Auto) 6.3 % Eosinophils (%) (Auto) 0.0 % Basophils (%) (Auto) 0.0 % Neutrophils # (Auto) 8.47 K/uL Lymphocytes # (Auto) 0.26 K/uL Monocytes # (Auto) 0.59 K/uL Eosinophils # (Auto) 0.00 K/uL Basophils # (Auto) 0.00 K/uL RDW Standard Deviation 47.7 fL RDW Coefficient of Variation 15.2 % Immature Granulocyte % (Auto) 0.3 % Immature Granulocyte # (Auto) 0.03 K/uL Sodium Level 133 mmol/L Potassium Level 4.0 mmol/L Chloride Level 95 mmol/L Carbon Dioxide Level 32 mmol/L Anion Gap 6.0 mmol/L Blood Urea Nitrogen 19 mg/dl Creatinine 0.69 mg/dl Est Creatinine Clear Calc Drug Dose 112.5 ml/min Estimated GFR () 116.3 Estimated GFR (Non- 100.3 BUN/Creatinine Ratio 27.2 Random Glucose 154 mg/dl Calcium Level 8.4 mg/dl
[2017-11-23] MEDS: LEVOFLOXACIN / D5W 750 MG in PREMIXED IN D5W 150 ML IV SCH (11:09)
[2017-11-24] VITALS (10 sets, daily range): BP systolic 131–154; BP diastolic 64–81; PULSE 60–78; TEMP 36.3–36.9; O2SAT 89–96
--- NOTE | 2017-11-24 05:14 | Progress Note ---
Medicine Progress Note Date & Time of Visit: Nov 24, 2017 at 05:13. Subjective seen resting in bed, comfortable, watching TV states he feels ok now on 4 liters NC no dyspnea, less cough denies other symptoms Objective Last 8 Hrs Date Time Temp Pulse Resp B/P (MAP) Pulse Ox O2 Delivery O2 Flow Rate FiO2 11/24/17 04:22 36.3 76 20 131/69 (89) 91 Nasal Cannula 4.0 11/24/17 04:00 Nasal Cannula 5.0 11/24/17 00:00 Nasal Cannula 5.0 11/23/17 23:30 36.5 73 20 126/75 (92) 91 Nasal Cannula 4.0 Physical Exam: General-oriented 3 not in distress. Speaks in sentences, no accessory muscle use Neck- no JVD Lungs-mild rhonchi bilaterally- about the same , no wheezing Heart- regular rhythm; no murmur, normal rate Abdomen- normal bowel sounds, soft, nontender, non distended Extremities- no pretibial edema, no calf tenderness Neuro- alert, oriented x 3; no gross focal neurologic deficits Skin- warm & dry Laboratory Results: Last 24 Hours Test 11/23/17 06:16 11/24/17 04:44 White Blood Count 9.35 K/uL Red Blood Count 4.48 M/uL Hemoglobin 13.0 g/dL Hematocrit 38.2 % Mean Corpuscular Volume 85.3 fL Mean Corpuscular Hemoglobin 29.0 pg Mean Corpuscular Hemoglobin Concent 34.0 g/dl Platelet Count 269 K/uL Mean Platelet Volume 9.0 fL Neutrophils (%) (Auto) 90.6 % Lymphocytes (%) (Auto) 2.8 % Monocytes (%) (Auto) 6.3 % Eosinophils (%) (Auto) 0.0 % Basophils (%) (Auto) 0.0 % Neutrophils # (Auto) 8.47 K/uL Lymphocytes # (Auto) 0.26 K/uL Monocytes # (Auto) 0.59 K/uL Eosinophils # (Auto) 0.00 K/uL Basophils # (Auto) 0.00 K/uL RDW Standard Deviation 47.7 fL RDW Coefficient of Variation 15.2 % Immature Granulocyte % (Auto) 0.3 % Immature Granulocyte # (Auto) 0.03 K/uL Sodium Level 133 mmol/L Potassium Level 4.0 mmol/L Chloride Level 95 mmol/L Carbon Dioxide Level 32 mmol/L Anion Gap 6.0 mmol/L Blood Urea Nitrogen 19 mg/dl Creatinine 0.69 mg/dl Est Creatinine Clear Calc Drug Dose 112.5 ml/min Estimated GFR () 116.3 Estimated GFR (Non- 100.3 BUN/Creatinine Ratio 27.2 Random Glucose 154 mg/dl Calcium Level 8.4 mg/dl Assessment & Plan ACUTE HYPOXEMIC RESPIRATORY FAILURE LIKELY SECONDARY TO MULTIFOCAL PNEUMONIA CTA chest showed Extensive multifocal airspace opacities throughout the lungs, including a 3.3 cm cavitary opacity within the superior segment of the left lower lobe NO evidence of PE on CTA chest blood cx and sputum cx no growth Quantifero negative aspergillus ab: negative anca: negative now on 4 liters NC Continue Levaquin and Solu-Medrol wean off O2 accordingly Pulmonary on board, Dr. Andrews consulted repeat Ct chest done possible Bronchoscopy contemplated when 02 supplementation requirement is less CAROTID ARTERY DISEASE : aspirin, Statin continued stable FULL CODE DVT PROPHYLAXIS : Heparin SC CODE STATUS FULL CODE Consultants: Pulm ID DISPOSITION Anticipate discharge home medically stable and cleared by pulmonary Consultants: Pulm ID Current Inpatient Medications: Current Inpatient Medications Medications (Trade) Dose Ordered Sig/Linda Route Start Time Stop Time Status Last Admin Dose Admin Acetaminophen (Tylenol Tab) 650 mg Q4H PRN PO 11/15/17 18:00 12/15/17 17:59 Al Hydrox/Mg Hydrox/Simethicone (Maalox Max Susp) 15 ml Q4H PRN PO 11/15/17 18:00 12/15/17 17:59 Magnesium Hydroxide (Milk Of Magnesia Susp) 30 ml Q12H PRN PO 11/15/17 18:00 12/15/17 17:59 Nitroglycerin (Nitrostat Tab) 0.4 mg UD PRN SL 11/15/17 18:00 12/15/17 17:59 Polyethylene (Miralax Powder Packet) 17 gm DAILY PRN PO 11/15/17 18:00 12/15/17 17:59 Atorvastatin Calcium (Lipitor Tab) 80 mg DAILY PO 11/16/17 09:00 12/16/17 08:59 11/23/17 08:03 80 MG Montelukast Sodium (Singulair Tab) 10 mg QAM PO 11/16/17 09:00 12/16/17 08:59 11/23/17 08:03 10 MG Albuterol (Ventolin Hfa Inhaler) 2 puffs QID PRN INH 11/15/17 18:45 12/15/17 18:44 Miscellaneous Information (Order Awaiting Action) 1 ea QS N/A 11/16/17 00:00 12/16/17 00:00 11/21/17 07:44 1 EA Ipratropium [place] (Atrovent 0.02% 0.5MG/2.5ML Neb) 0.5 mg Q6R INH 11/15/17 21:00 12/15/17 20:59 11/23/17 20:15 0.5 MG Levalbuterol (Xopenex 1.25MG/ 0.5ML Neb) 1.25 mg Q6R INH 11/15/17 21:00 12/15/17 20:59 11/23/17 20:15 1.25 MG Levalbuterol (Xopenex 1.25MG/ 0.5ML Neb) 1.25 mg Q2H PRN INH 11/15/17 19:00 12/15/17 18:59 11/20/17 05:11 1.25 MG Ipratropium [place] (Atrovent 0.02% 0.5MG/2.5ML Neb) 0.5 mg Q2H PRN INH 11/15/17 19:00 12/15/17 18:59 11/20/17 05:11 0.5 MG Methylprednisolone Sodium Succinate 40 mg/Syringe 0.64 ml @ 1.5 mls/min Q6H IV 11/18/17 16:00 12/18/17 15:59 11/23/17 21:51 1.5 MLS/MIN Heparin Sodium (Porcine) (Heparin Sq 5000 Unit/0.5ml) 5,000 unit Q8 SQ 11/22/17 22:00 12/22/17 21:59 11/23/17 21:54 5,000 UNIT Aspirin (Ecotrin Tab) 81 mg QAM PO 11/23/17 09:00 12/23/17 08:59 11/23/17 08:03 81 MG Levofloxacin 750 mg/Prmx 150 ml @ 100 mls/hr Q24H IV 11/23/17 09:00 11/30/17 08:44 2/24/18 11:09 100 MLS/HR
[2017-11-24] MEDS: METHYLPREDNISOLONE IV 40 MG in SYRINGE 0 ML IV SCH ×4 (05:24→20:58)
[2017-11-24] MEDS: HEPARIN SOD 5000 UNIT/0.5 ML CARP SQ SCH ×3 (05:26→20:58)
[2017-11-24 06:05] LABS: HEMATOCRIT 38.1 % (42-52); HEMOGLOBIN 13.4 g/dL (14.0-18.0); IG# 0.04 K/uL (0.00-0.02); LYMPH % 6.2 %; LYMPH ABS # 0.82 K/uL (1.2-3.4); MEAN CELL VOLUME 84.7 fL (80-100); MEAN CORPUSCULAR HEMOGLOBIN 29.8 pg (25-34); MEAN CORPUSCULAR HGB CONC 35.2 g/dl (32-36); MEAN PLATELET VOLUME 8.8 fL (7.4-10.4); MONO % 2.4 %; MONO ABS # 0.32 K/uL (0.11-0.59); NEUT % 91.1 %; PLATELET COUNT 249 K/uL (130-400); RED CELL DISTRIBUTION WIDTH CV 15.4 % (11.5-14.5); RED CELL DISTRIBUTION WIDTH SD 47.6 fL (36.4-46.3); WHITE BLOOD COUNT 13.18 K/uL (4.8-10.8)
[2017-11-24 06:38] LABS: CREATININE 0.67 mg/dl (0.60-1.40)
[2017-11-24] MEDS: IPRATROPIUM BROMIDE NEB SOLN 0.02% 2.5 ML VIAL INH SCH ×3 (07:15→19:17)
[2017-11-24] MEDS: LEVALBUTEROL 1.25MG/0.5ML NEB INH SCH ×3 (07:15→19:17)
[2017-11-24] MEDS: MONTELUKAST SOD 10 MG TAB PO SCH (08:46)
[2017-11-24] MEDS: ASPIRIN 81 MG ECTAB PO SCH (08:46)
[2017-11-24] MEDS: ATORVASTATIN 40 MG TAB PO SCH (08:46)
[2017-11-24] MEDS: LEVOFLOXACIN / D5W 750 MG in PREMIXED IN D5W 150 ML IV SCH (08:46)
[2017-11-25] VITALS (11 sets, daily range): BP systolic 127–168; BP diastolic 64–80; PULSE 61–82; TEMP 36.2–37; O2SAT 91–95
[2017-11-25] MEDS: IPRATROPIUM BROMIDE NEB SOLN 0.02% 2.5 ML VIAL INH SCH ×4 (02:00→18:54)
[2017-11-25] MEDS: LEVALBUTEROL 1.25MG/0.5ML NEB INH SCH ×4 (02:00→18:54)
[2017-11-25] MEDS: METHYLPREDNISOLONE IV 40 MG in SYRINGE 0 ML IV SCH ×4 (04:49→22:15)
[2017-11-25] MEDS: HEPARIN SOD 5000 UNIT/0.5 ML CARP SQ SCH ×3 (04:50→22:16)
--- NOTE | 2017-11-25 05:51 | Progress Note ---
Medicine Progress Note Date & Time of Visit: Nov 25, 2017 at 05:49. Subjective delayed entry date of service 11/24/17 seen resting in chair watching tv back to oxymask 6 L states his breathing is fine less cough no other symptoms Objective Last 8 Hrs Date Time Temp Pulse Resp B/P (MAP) Pulse Ox O2 Delivery O2 Flow Rate FiO2 11/25/17 04:00 Oxymask 7.0 11/25/17 03:30 36.2 73 22 139/74 (95) 94 Mask 6.0 11/25/17 02:00 71 20 95 Mask 6.0 11/24/17 23:59 Oxymask 7.0 11/24/17 23:40 36.6 78 23 154/81 (105) 92 Nasal Cannula 6.0 Physical Exam: General-oriented 3 not in distress. Speaks in sentences, no accessory muscle use Neck- no JVD Lungs-mild rhonchi bilaterally- same, no wheezing Heart- regular rhythm; no murmur, normal rate Abdomen- normal bowel sounds, non distended, soft, nontender Extremities- no pretibial edema, no calf tenderness Neuro- alert, oriented x 3; no gross focal neurologic deficits Skin- warm & dry Laboratory Results: Last 24 Hours Test 11/24/17 05:54 White Blood Count 13.18 K/uL Red Blood Count 4.50 M/uL Hemoglobin 13.4 g/dL Hematocrit 38.1 % Mean Corpuscular Volume 84.7 fL Mean Corpuscular Hemoglobin 29.8 pg Mean Corpuscular Hemoglobin Concent 35.2 g/dl Platelet Count 249 K/uL Mean Platelet Volume 8.8 fL Neutrophils (%) (Auto) 91.1 % Lymphocytes (%) (Auto) 6.2 % Monocytes (%) (Auto) 2.4 % Eosinophils (%) (Auto) 0.0 % Basophils (%) (Auto) 0.0 % Neutrophils # (Auto) 12.00 K/uL Lymphocytes # (Auto) 0.82 K/uL Monocytes # (Auto) 0.32 K/uL Eosinophils # (Auto) 0.00 K/uL Basophils # (Auto) 0.00 K/uL RDW Standard Deviation 47.6 fL RDW Coefficient of Variation 15.4 % Immature Granulocyte % (Auto) 0.3 % Immature Granulocyte # (Auto) 0.04 K/uL Sodium Level 131 mmol/L Potassium Level 4.0 mmol/L Chloride Level 94 mmol/L Carbon Dioxide Level 31 mmol/L Anion Gap 6.0 mmol/L Blood Urea Nitrogen 19 mg/dl Creatinine 0.67 mg/dl Est Creatinine Clear Calc Drug Dose 115.9 ml/min Estimated GFR () 117.7 Estimated GFR (Non- 101.5 BUN/Creatinine Ratio 27.8 Random Glucose 146 mg/dl Calcium Level 8.0 mg/dl Assessment & Plan ACUTE HYPOXEMIC RESPIRATORY FAILURE LIKELY SECONDARY TO MULTIFOCAL PNEUMONIA CTA chest showed Extensive multifocal airspace opacities throughout the lungs, including a 3.3 cm cavitary opacity within the superior segment of the left lower lobe NO evidence of PE on CTA chest blood cx and sputum cx no growth Quantifero negative aspergillus ab: negative anca: negative on 6 L today Continue Levaquin and Solu-Medrol wean off O2 accordingly Pulmonary on board, Dr. Andrews consulted repeat Ct chest done possible Bronchoscopy contemplated when 02 supplementation requirement is less CAROTID ARTERY DISEASE : aspirin, Statin continued stable FULL CODE DVT PROPHYLAXIS : Heparin SC CODE STATUS FULL CODE Consultants: Pulm ID DISPOSITION Anticipate discharge home medically stable and cleared by pulmonary Consultants: Pulm ID Current Inpatient Medications: Current Inpatient Medications Medications (Trade) Dose Ordered Sig/Linda Route Start Time Stop Time Status Last Admin Dose Admin Acetaminophen (Tylenol Tab) 650 mg Q4H PRN PO 11/15/17 18:00 12/15/17 17:59 Al Hydrox/Mg Hydrox/Simethicone (Maalox Max Susp) 15 ml Q4H PRN PO 11/15/17 18:00 12/15/17 17:59 Magnesium Hydroxide (Milk Of Magnesia Susp) 30 ml Q12H PRN PO 11/15/17 18:00 12/15/17 17:59 Nitroglycerin (Nitrostat Tab) 0.4 mg UD PRN SL 11/15/17 18:00 12/15/17 17:59 Polyethylene (Miralax Powder Packet) 17 gm DAILY PRN PO 11/15/17 18:00 12/15/17 17:59 Atorvastatin Calcium (Lipitor Tab) 80 mg DAILY PO 11/16/17 09:00 12/16/17 08:59 11/24/17 08:46 80 MG Montelukast Sodium (Singulair Tab) 10 mg QAM PO 11/16/17 09:00 12/16/17 08:59 11/24/17 08:46 10 MG Albuterol (Ventolin Hfa Inhaler) 2 puffs QID PRN INH 11/15/17 18:45 12/15/17 18:44 Miscellaneous Information (Order Awaiting Action) 1 ea QS N/A 11/16/17 00:00 12/16/17 00:00 11/21/17 07:44 1 EA Ipratropium [place] (Atrovent 0.02% 0.5MG/2.5ML Neb) 0.5 mg Q6R INH 11/15/17 21:00 12/15/17 20:59 11/25/17 02:00 0.5 MG Levalbuterol (Xopenex 1.25MG/ 0.5ML Neb) 1.25 mg Q6R INH 11/15/17 21:00 12/15/17 20:59 11/25/17 02:00 1.25 MG Levalbuterol (Xopenex 1.25MG/ 0.5ML Neb) 1.25 mg Q2H PRN INH 11/15/17 19:00 12/15/17 18:59 11/20/17 05:11 1.25 MG Ipratropium [place] (Atrovent 0.02% 0.5MG/2.5ML Neb) 0.5 mg Q2H PRN INH 11/15/17 19:00 12/15/17 18:59 11/20/17 05:11 0.5 MG Methylprednisolone Sodium Succinate 40 mg/Syringe 0.64 ml @ 1.5 mls/min Q6H IV 11/18/17 16:00 12/18/17 15:59 11/25/17 04:49 1.5 MLS/MIN Heparin Sodium (Porcine) (Heparin Sq 5000 Unit/0.5ml) 5,000 unit Q8 SQ 11/22/17 22:00 12/22/17 21:59 11/25/17 04:50 5,000 UNIT Aspirin (Ecotrin Tab) 81 mg QAM PO 11/23/17 09:00 12/23/17 08:59 11/24/17 08:46 81 MG Levofloxacin 750 mg/Prmx 150 ml @ 100 mls/hr Q24H IV 11/23/17 09:00 3/3/18 08:44 11/24/17 08:46 100 MLS/HR
[2017-11-25] MEDS: LEVOFLOXACIN / D5W 750 MG in PREMIXED IN D5W 150 ML IV SCH (08:28)
[2017-11-25] MEDS: ATORVASTATIN 40 MG TAB PO SCH (08:29)
[2017-11-25] MEDS: MONTELUKAST SOD 10 MG TAB PO SCH (08:29)
[2017-11-25] MEDS: ASPIRIN 81 MG ECTAB PO SCH (08:29)
--- NOTE | 2017-11-25 12:04 | Pulmonology Progress Note ---
Pulmonary Progress Note Date of Service Nov 25, 2017. Attending Dr. Hu Subjective Denies any increased cough or dyspnea. Using flutter but unable to expectorate sputum. Has been ambulating around the hospital room without difficulty. Reports fragmented and poor sleep. No fevers, chills or chest pain. Appetite is in-tact. Nebulizer is palliative. Anxious for bronchoscopy. Objective 62-yo male admitted through [facility] 11/15/17 with progressive cough and hypoxic respiratory failure with bilateral infiltrative changes and cavitary lesion on imaging. Prior records were reviewed. PMHx includes: ACOS/COPD (FEV1 07/2015: 50%), SCARLET, h/o CVA-2012, HLD, Gout, esophageal dysmotility, diastolic dysfunction, and morbid obesity. Former tobacco: 40-pack year. 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 Patient was admitted through [facility] 11/15/17 with progressive dyspnea and cough. W/U notable for hypoxia requiring BiPAP & HFNC and leukocytosis -Pct: negative. Imaging notable of multifocal bilateral airspace opacities, bronchial wall thickening, and thin walled lesion superior segment LLL x 3.5cm. W/U including bacterial, fungal, AFB and connective tissue thus-far unremarkable. Bronchoscopy recommended pending improved clinical stability and O2 need. W/U: - Influenza: negative - Aspergillus niger, fumigatus, flavus: negative - Aspergillus AG EIA: not detected - Quant Gold: negative, AFB sputum 11/16/17: no AFB - Legionella: pending - PRAMOD/CCP, Anti-proteinase 2, anti-myeloperoxidase, ANCA, VAIBHAV-1 AB, Sm AB, AM/MERRY GO ROUND ATTENDANT , GGM AB: negative Physical Exam: Constitutional: WDWN male sitting in chair at bedside, NAD Head: + facial symmetry, EOMi, PERRLA, O2 via NC Respiratory: Non-labored respirations. Cough x 1 -brief. No wheeze or rales. Slight diminished left base. CV: RRR, no MRG. Warm and perfused peripherally. Abdomen: Soft, active bowel sounds MSK/Extremities: Moving and developed symmetrically. +2 pedal edema. Assessment & Plan 62-year-old admitted with hypoxic respiratory failure with evidence of bilateral infiltrative changes and small cavitary pulmonary lesions with LLL thin walled cystic lung lesion: 1. Hypoxemic: - O2 titrated > 89% - current 6L today - Bubble study if continued hypoxia despite clinical and radiographic improvement 2. H/O ACOS/COPD: - Q6-hour levalbuterol - Ipratropium and will need to transition to LABA/LAMA - Continue pulmonary toilet & current steroid dose while stabilizing for procedure 3. Cavitary process with diffuse inflammatory changes: - W/U thus-far is unremarkable - Consideration of septic emboli - PRACHI recommended when able - Hypersensitivity panel tomorrow AM, Beta d3 glucan - Bronchoscopy with CD4/8 once stable consistently 2-3LPM or better- may require wedge biopsy Discussed with Dr. Andrews and Dr. Hu Data Medications: Current Inpatient Medications Medications (Trade) Dose Ordered Sig/Linda Route Start Time Stop Time Status Last Admin Dose Admin Acetaminophen (Tylenol Tab) 650 mg Q4H PRN PO 11/15/17 18:00 12/15/17 17:59 Al Hydrox/Mg Hydrox/Simethicone (Maalox Max Susp) 15 ml Q4H PRN PO 11/15/17 18:00 12/15/17 17:59 Magnesium Hydroxide (Milk Of Magnesia Susp) 30 ml Q12H PRN PO 11/15/17 18:00 12/15/17 17:59 Nitroglycerin (Nitrostat Tab) 0.4 mg UD PRN SL 11/15/17 18:00 12/15/17 17:59 Polyethylene (Miralax Powder Packet) 17 gm DAILY PRN PO 11/15/17 18:00 12/15/17 17:59 Atorvastatin Calcium (Lipitor Tab) 80 mg DAILY PO 11/16/17 09:00 12/16/17 08:59 11/25/17 08:29 80 MG Montelukast Sodium (Singulair Tab) 10 mg QAM PO 11/16/17 09:00 12/16/17 08:59 11/25/17 08:29 10 MG Albuterol (Ventolin Hfa Inhaler) 2 puffs QID PRN INH 11/15/17 18:45 12/15/17 18:44 Miscellaneous Information (Order Awaiting Action) 1 ea QS N/A 11/16/17 00:00 12/16/17 00:00 11/21/17 07:44 1 EA Ipratropium [place] (Atrovent 0.02% 0.5MG/2.5ML Neb) 0.5 mg Q6R INH 11/15/17 21:00 12/15/17 20:59 11/25/17 07:18 0.5 MG Levalbuterol (Xopenex 1.25MG/ 0.5ML Neb) 1.25 mg Q6R INH 11/15/17 21:00 12/15/17 20:59 11/25/17 07:18 1.25 MG Levalbuterol (Xopenex 1.25MG/ 0.5ML Neb) 1.25 mg Q2H PRN INH 11/15/17 19:00 12/15/17 18:59 11/20/17 05:11 1.25 MG Ipratropium [place] (Atrovent 0.02% 0.5MG/2.5ML Neb) 0.5 mg Q2H PRN INH 11/15/17 19:00 12/15/17 18:59 11/20/17 05:11 0.5 MG Methylprednisolone Sodium Succinate 40 mg/Syringe 0.64 ml @ 1.5 mls/min Q6H IV 11/18/17 16:00 12/18/17 15:59 11/25/17 04:49 1.5 MLS/MIN Heparin Sodium (Porcine) (Heparin Sq 5000 Unit/0.5ml) 5,000 unit Q8 SQ 11/22/17 22:00 12/22/17 21:59 11/25/17 04:50 5,000 UNIT Aspirin (Ecotrin Tab) 81 mg QAM PO 11/23/17 09:00 12/23/17 08:59 11/25/17 08:29 81 MG Levofloxacin 750 mg/Prmx 150 ml @ 100 mls/hr Q24H IV 11/23/17 09:00 11/30/17 08:44 11/25/17 08:28 100 MLS/HR Vital Signs: Date Time Temp Pulse Resp B/P (MAP) Pulse Ox O2 Delivery O2 Flow Rate FiO2 11/25/17 08:14 36.6 68 24 168/80 (109) 95 Diffusion Mask 6.0 11/25/17 08:00 Nasal Cannula 6.0 11/25/17 07:18 64 20 95 Mask 6.0 11/25/17 04:00 Oxymask 6.0 11/25/17 03:30 36.2 73 22 139/74 (95) 94 Mask 6.0 11/25/17 02:00 71 20 95 Mask 6.0 11/24/17 23:59 Oxymask 6.0 11/24/17 23:40 36.6 78 23 154/81 (105) 92 Nasal Cannula 6.0 11/24/17 20:00 Oxymask 7.0 11/24/17 19:17 72 20 93 Mask 6.0 11/24/17 18:57 36.7 65 22 131/64 (86) 92 Oxymask 7.0 11/24/17 16:00 Nasal Cannula 5.0 11/24/17 15:10 36.9 76 20 145/69 (94) 93 Oxymask 6.0 11/24/17 14:08 74 20 94 Mask 7.0 11/24/17 12:00 Nasal Cannula 5.0 11/24/17 11:25 36.9 71 18 143/68 (93) 96 Oxymask 6.0
--- NOTE | 2017-11-25 19:31 | Progress Note ---
Medicine Progress Note Date & Time of Visit: Nov 25, 2017 at 19:29. Subjective seen resting in bed, comfortable states he feels that breathing is about the same, no dyspnea less cough no hemoptysis denies other symptoms Objective Last 8 Hrs Date Time Temp Pulse Resp B/P (MAP) Pulse Ox O2 Delivery O2 Flow Rate FiO2 11/25/17 18:56 66 18 94 Nasal Cannula 6.0 11/25/17 16:00 Nasal Cannula 6.0 11/25/17 15:40 36.7 71 18 143/65 (91) 94 Nasal Cannula 6.0 Humidified Air 11/25/17 13:45 64 20 94 Mask 6.0 11/25/17 12:12 37.0 82 22 145/70 (95) 91 Nasal Cannula 6.0 11/25/17 12:00 Nasal Cannula 6.0 Physical Exam: General-oriented 3 not in distress. Speaks in sentences, no accessory muscle use Neck- no JVD Lungs- mild rhonchi bilaterally- same as yesterday, no wheezing Heart- regular rhythm; no murmur, normal rate Abdomen- normal bowel sounds, non distended, soft, nontender Extremities- no pretibial edema, no calf tenderness Neuro- alert, oriented x 3; no gross focal neurologic deficits Skin- warm & dry Assessment & Plan ACUTE HYPOXEMIC RESPIRATORY FAILURE LIKELY SECONDARY TO MULTIFOCAL PNEUMONIA CTA chest showed Extensive multifocal airspace opacities throughout the lungs, including a 3.3 cm cavitary opacity within the superior segment of the left lower lobe NO evidence of PE on CTA chest blood cx and sputum cx no growth Quantifero negative aspergillus ab: negative anca: negative still on 6 L today Continue Levaquin and Solu-Medrol wean off O2 accordingly Pulmonary on board, Dr. Andrews consulted repeat Ct chest done possible Bronchoscopy contemplated when 02 supplementation requirement is less CAROTID ARTERY DISEASE : aspirin, Statin continued stable FULL CODE DVT PROPHYLAXIS : Heparin SC CODE STATUS FULL CODE Consultants: Pulm ID DISPOSITION Anticipate discharge home medically stable and cleared by pulmonary Consultants: Pulm ID Current Inpatient Medications: Current Inpatient Medications Medications (Trade) Dose Ordered Sig/Linda Route Start Time Stop Time Status Last Admin Dose Admin Acetaminophen (Tylenol Tab) 650 mg Q4H PRN PO 11/15/17 18:00 12/15/17 17:59 Al Hydrox/Mg Hydrox/Simethicone (Maalox Max Susp) 15 ml Q4H PRN PO 11/15/17 18:00 12/15/17 17:59 Magnesium Hydroxide (Milk Of Magnesia Susp) 30 ml Q12H PRN PO 11/15/17 18:00 12/15/17 17:59 Nitroglycerin (Nitrostat Tab) 0.4 mg UD PRN SL 11/15/17 18:00 12/15/17 17:59 Polyethylene (Miralax Powder Packet) 17 gm DAILY PRN PO 11/15/17 18:00 12/15/17 17:59 Atorvastatin Calcium (Lipitor Tab) 80 mg DAILY PO 11/16/17 09:00 12/16/17 08:59 11/25/17 08:29 80 MG Montelukast Sodium (Singulair Tab) 10 mg QAM PO 11/16/17 09:00 12/16/17 08:59 11/25/17 08:29 10 MG Albuterol (Ventolin Hfa Inhaler) 2 puffs QID PRN INH 11/15/17 18:45 12/15/17 18:44 Miscellaneous Information (Order Awaiting Action) 1 ea QS N/A 11/16/17 00:00 12/16/17 00:00 11/21/17 07:44 1 EA Ipratropium [place] (Atrovent 0.02% 0.5MG/2.5ML Neb) 0.5 mg Q6R INH 11/15/17 21:00 12/15/17 20:59 11/25/17 18:54 0.5 MG Levalbuterol (Xopenex 1.25MG/ 0.5ML Neb) 1.25 mg Q6R INH 11/15/17 21:00 12/15/17 20:59 11/25/17 18:54 1.25 MG Levalbuterol (Xopenex 1.25MG/ 0.5ML Neb) 1.25 mg Q2H PRN INH 11/15/17 19:00 12/15/17 18:59 11/20/17 05:11 1.25 MG Ipratropium [place] (Atrovent 0.02% 0.5MG/2.5ML Neb) 0.5 mg Q2H PRN INH 11/15/17 19:00 3/18/18 18:59 11/20/17 05:11 0.5 MG Methylprednisolone Sodium Succinate 40 mg/Syringe 0.64 ml @ 1.5 mls/min Q6H IV 11/18/17 16:00 12/18/17 15:59 11/25/17 16:08 1.5 MLS/MIN Heparin Sodium (Porcine) (Heparin Sq 5000 Unit/0.5ml) 5,000 unit Q8 SQ 11/22/17 22:00 12/22/17 21:59 11/25/17 14:11 5,000 UNIT Aspirin (Ecotrin Tab) 81 mg QAM PO 11/23/17 09:00 12/23/17 08:59 11/25/17 08:29 81 MG Levofloxacin 750 mg/Prmx 150 ml @ 100 mls/hr Q24H IV 11/23/17 09:00 11/30/17 08:44 11/25/17 08:28 100 MLS/HR
[2017-11-26] VITALS (13 sets, daily range): BP systolic 109–168; BP diastolic 59–72; PULSE 59–80; TEMP 36.3–37; O2SAT 93–98
[2017-11-26] MEDS: IPRATROPIUM BROMIDE NEB SOLN 0.02% 2.5 ML VIAL INH SCH ×4 (02:05→18:55)
[2017-11-26] MEDS: LEVALBUTEROL 1.25MG/0.5ML NEB INH SCH ×4 (02:05→18:55)
[2017-11-26] MEDS: METHYLPREDNISOLONE IV 40 MG in SYRINGE 0 ML IV SCH ×3 (04:00→16:24)
[2017-11-26] MEDS: HEPARIN SOD 5000 UNIT/0.5 ML CARP SQ SCH ×3 (06:14→21:08)
[2017-11-26] MEDS: MONTELUKAST SOD 10 MG TAB PO SCH (07:27)
[2017-11-26] MEDS: ATORVASTATIN 40 MG TAB PO SCH (07:27)
[2017-11-26] MEDS: ASPIRIN 81 MG ECTAB PO SCH (07:27)
[2017-11-26] MEDS: LEVOFLOXACIN / D5W 750 MG in PREMIXED IN D5W 150 ML IV SCH (07:27)
--- NOTE | 2017-11-26 10:33 | Progress Note ---
Subjective Date of Service: Nov 26, 2017. Subjective Pt evaluation today including: conversation w/ patient, physical exam, lab review, review of studies, review of inpatient medication list Saw/examined the patient in room 205 He is frustrated; telling me he wants to get things done currently he is on 5L of O2 via nasal cannula - denies any shortness of breath or chest pain No other issues to note at this time Problem List Medical Problems: (1) Acute respiratory failure Status: Acute (2) Elevated troponin Status: Acute (3) Hypoxia Status: Acute (4) Hypoxia Status: Acute (5) Multifocal pneumonia Status: Acute Review of Systems Constitutional: No fever, No chills Respiratory: No cough, No sputum, No wheezing, No shortness of breath, No dyspnea on exertion, No dyspnea at rest, No hemoptysis Cardiac: No chest pain, No edema, No palpitations Medications Current Inpatient Medications Medications (Trade) Dose Ordered Sig/Linda Route Start Time Stop Time Status Last Admin Dose Admin Acetaminophen (Tylenol Tab) 650 mg Q4H PRN PO 11/15/17 18:00 12/15/17 17:59 Al Hydrox/Mg Hydrox/Simethicone (Maalox Max Susp) 15 ml Q4H PRN PO 11/15/17 18:00 12/15/17 17:59 Magnesium Hydroxide (Milk Of Magnesia Susp) 30 ml Q12H PRN PO 11/15/17 18:00 12/15/17 17:59 Nitroglycerin (Nitrostat Tab) 0.4 mg UD PRN SL 11/15/17 18:00 12/15/17 17:59 Polyethylene (Miralax Powder Packet) 17 gm DAILY PRN PO 11/15/17 18:00 12/15/17 17:59 Atorvastatin Calcium (Lipitor Tab) 80 mg DAILY PO 11/16/17 09:00 12/16/17 08:59 11/26/17 07:27 80 MG Montelukast Sodium (Singulair Tab) 10 mg QAM PO 11/16/17 09:00 12/16/17 08:59 11/26/17 07:27 10 MG Albuterol (Ventolin Hfa Inhaler) 2 puffs QID PRN INH 11/15/17 18:45 12/15/17 18:44 Miscellaneous Information (Order Awaiting Action) 1 ea QS N/A 11/16/17 00:00 12/16/17 00:00 11/21/17 07:44 1 EA Ipratropium [place] (Atrovent 0.02% 0.5MG/2.5ML Neb) 0.5 mg Q6R INH 11/15/17 21:00 12/15/17 20:59 11/26/17 07:02 0.5 MG Levalbuterol (Xopenex 1.25MG/ 0.5ML Neb) 1.25 mg Q6R INH 11/15/17 21:00 12/15/17 20:59 11/26/17 07:02 1.25 MG Levalbuterol (Xopenex 1.25MG/ 0.5ML Neb) 1.25 mg Q2H PRN INH 11/15/17 19:00 12/15/17 18:59 11/20/17 05:11 1.25 MG Ipratropium [place] (Atrovent 0.02% 0.5MG/2.5ML Neb) 0.5 mg Q2H PRN INH 11/15/17 19:00 12/15/17 18:59 11/20/17 05:11 0.5 MG Methylprednisolone Sodium Succinate 40 mg/Syringe 0.64 ml @ 1.5 mls/min Q6H IV 11/18/17 16:00 12/18/17 15:59 11/26/17 04:00 1.5 MLS/MIN Heparin Sodium (Porcine) (Heparin Sq 5000 Unit/0.5ml) 5,000 unit Q8 SQ 11/22/17 22:00 12/22/17 21:59 11/26/17 06:14 5,000 UNIT Aspirin (Ecotrin Tab) 81 mg QAM PO 11/23/17 09:00 12/23/17 08:59 11/26/17 07:27 81 MG Levofloxacin 750 mg/Prmx 150 ml @ 100 mls/hr Q24H IV 11/23/17 09:00 11/30/17 08:44 11/26/17 07:27 100 MLS/HR Objective Vital Signs Date Time Temp Pulse Resp B/P (MAP) Pulse Ox O2 Delivery O2 Flow Rate FiO2 11/26/17 08:17 36.5 67 22 168/72 (104) 98 Nasal Cannula 5.0 11/26/17 08:00 94 Nasal Cannula 6.0 11/26/17 07:02 67 18 97 Nasal Cannula 6.0 11/26/17 04:00 36.5 59 17 132/63 (86) 97 6.0 11/26/17 04:00 94 Nasal Cannula 6.0 11/26/17 02:05 71 18 97 Nasal Cannula 6.0 11/26/17 00:00 94 Nasal Cannula 6.0 11/25/17 23:38 36.2 61 20 137/64 (88) 95 Nasal Cannula 5.0 11/25/17 20:00 94 Nasal Cannula 6.0 11/25/17 19:21 36.6 65 20 127/65 (85) 94 Nasal Cannula 6.0 Humidified Air 11/25/17 18:56 66 18 94 Nasal Cannula 6.0 11/25/17 16:00 Nasal Cannula 6.0 11/25/17 15:40 36.7 71 18 143/65 (91) 94 Nasal Cannula 6.0 Humidified Air 11/25/17 13:45 64 20 94 Mask 6.0 11/25/17 12:12 37.0 82 22 145/70 (95) 91 Nasal Cannula 6.0 11/25/17 12:00 Nasal Cannula 6.0 Physical Exam General Appearance: no apparent distress Respiratory/Chest: chest non-tender, lungs clear, normal breath sounds, no respiratory distress, no accessory muscle use Cardiovascular: regular rate, rhythm, no edema, no murmur Abdomen: normal bowel sounds, non tender, soft Extremities: normal inspection, no pedal edema Neurologic/Psychiatric: no motor/sensory deficits, alert, normal mood/affect Skin: normal color Laboratory Results Last 24 Hours Test 11/26/17 03:47 Assessment and Plan This is a 62 year old male with a PMH of moderate persistent asthma, former tobacco use, hx. of carotid artery disease and possible CVA - presents with shortness of breath, dyspnea on exertion and found cavitary multifocal pneumonia Acute Hypoxic Respiratory Failure Multifocal Pneumonia with Cavitation CTA on admission suggests multifocal pneumonia with cavitation repeat chest CT on 11/20 - L lower lobe cavitation is persistent currently patient is requiring 5L of O2 via nasal cannula (11/26) - this has been weaned from high flow oxygen and 6L of O2 via nasal cannula symptomatically doing much better plan for now is to continue Levaquin and Solu-medrol as per pulm once we can wean him down to 2-3L of O2 safely; will need bronchoscopy and PRACHI thus far, work-up is negative including blood cultures, sputum culture, AFB sputum negative, Quantiferon TB negative will await further recommendations by pulmonology Carotid Artery Disease history of CVA will continue aspirin and statin at this time DVT ppx subq heparin FULL CODE
--- NOTE | 2017-11-26 10:59 | Progress Note ---
Progress Note Date of Service Nov 26, 2017. Progress Note Spoke with the patient's sister who is angry that the patient is still here without a plan. I let her know about the plan to wean the patient's O2 requirements to 2-3L prior to doing a bronchoscopy as well as a PRACHI. She tells me that no one is discussing patient's case with each other. I let her know that I will discuss case with pulmonology and have them call her. She seems to have left satisfied with this answer, though she still tells me she is not happy with his care.
--- NOTE | 2017-11-26 14:06 | PULMONARY PROGRESS NOTE ---
DATE: 11/26/2017 TIME: 01:40 p.m. SUBJECTIVE: The patient denies complaints other than being frustrated at still being in the hospital. He denies shortness of breath. He describes his cough as being minimal. He has not brought up any phlegm for many days. OBJECTIVE: GENERAL: The patient is cooperative, alert and oriented. He is in no distress. VITAL SIGNS: Temperature is 37 degrees. He has had no fevers for at least 5 days. The heart rate was 60 per minute. The rhythm is regular. Blood pressure 132/59. LUNGS: Lung crowe were clear bilaterally. Respiratory rate was 16. Saturation was 97% on 5 liter nasal cannula. EXTREMITIES: Showed no cyanosis, clubbing or edema. It appears that no labs were done today. IMPRESSIONS: 1. Bilateral multifocal airspace opacifications. 2. Cavitary lung disease. 3. Mediastinal adenopathy. COMMENTS AND RECOMMENDATIONS: The patient's saturation is good on 5 liters. I have turned his oxygen down to 2 liters. Nursing will check this in 1-2 hours. If his saturations are staying adequately, I will speak with Dr. Andrews and see what his plans are regarding possible bronchoscopy.
[2017-11-27] VITALS (7 sets, daily range): BP systolic 117–140; BP diastolic 60–64; PULSE 56–68; TEMP 36.2–36.7; O2SAT 94–98
[2017-11-27] MEDS: IPRATROPIUM BROMIDE NEB SOLN 0.02% 2.5 ML VIAL INH SCH ×2 (01:23→06:56)
[2017-11-27] MEDS: LEVALBUTEROL 1.25MG/0.5ML NEB INH SCH ×2 (01:23→06:56)
[2017-11-27] MEDS: HEPARIN SOD 5000 UNIT/0.5 ML CARP SQ SCH (05:40)
[2017-11-27 06:34] LABS: HEMATOCRIT 36.7 % (42-52); HEMOGLOBIN 12.8 g/dL (14.0-18.0); MEAN CELL VOLUME 84.6 fL (80-100); MEAN CORPUSCULAR HEMOGLOBIN 29.5 pg (25-34); MEAN CORPUSCULAR HGB CONC 34.9 g/dl (32-36); MEAN PLATELET VOLUME 9.1 fL (7.4-10.4); PLATELET COUNT 216 K/uL (130-400); RED CELL DISTRIBUTION WIDTH CV 15.8 % (11.5-14.5); WHITE BLOOD COUNT 13.39 K/uL (4.8-10.8)
[2017-11-27 06:59] LABS: CALCIUM 7.8 mg/dl (8.5-10.1); CREATININE 0.63 mg/dl (0.60-1.40); POTASSIUM 3.8 mmol/L (3.5-5.1)
[2017-11-27] MEDS: ATORVASTATIN 40 MG TAB PO SCH (07:34)
[2017-11-27] MEDS: MONTELUKAST SOD 10 MG TAB PO SCH (07:34)
[2017-11-27] MEDS: LEVOFLOXACIN / D5W 750 MG in PREMIXED IN D5W 150 ML IV SCH (07:35)
[2017-11-27] MEDS: ASPIRIN 81 MG ECTAB PO SCH (07:35)
[2017-11-27] MEDS ORDERED: MOMETASONE INH SCH (09:00)
[2017-11-27] MEDS ORDERED: FORMOTEROL INH SCH (09:00)
--- NOTE | 2017-11-27 10:25 | Consultant Recommendations ---
Court Stenographer Recommendations Date of Service Nov 27, 2017. Court Stenographer Recommendations 1. Followup in Pul at 1850 in [address] scan of the chest in 6 weeks. This will be ordered by pulmonology at the 2 week followup visit. 3. Slow prednisone taper starting at 40 mg daily and tapering by 5 mg every 3 days. 4. Stop antibiotic unless otherwise recommended by ID.
--- NOTE | 2017-11-27 10:41 | PULMONARY PROGRESS NOTE ---
DATE: 11/27/2017 The patient was seen with Alejandra Zhang, nurse practitioner student. PROBLEM LIST: Includes: 1. Bilateral multifocal airspace opacification. 2. Cavitary lung lesion. 3. Mediastinal adenopathy. SUBJECTIVE: The patient had his oxygen turned down to 2 liters yesterday. He continues to saturate at the mid 90% range and is feeling well on the 2 liters, reports that overall he feels well, he has been up walking around in his room. Denies any significant shortness of breath, no cough, no congestion, no chest heaviness. Denies any other problems. He is confused about what the plan is for him as Dr. Andrews was in and talked with him prior to myself and Alejandra evaluating him today. OBJECTIVE: GENERAL: The patient is a 62-year-old male sitting at bedside. He is alert, oriented x3. Mood and affect is good. He is interactive and cooperative. He is able to complete sentences without becoming dyspneic. VITAL SIGNS: Temp 36.7, pulse 68, respirations 20, blood pressure is 133/63, and pulse ox 96% on 2 liters. NECK: Supple. No mass, no adenopathy. CHEST: Diminished breath sounds bilaterally. No wheeze, rale or rhonchi noted. CARDIOVASCULAR: Regular rate and rhythm. EXTREMITIES: No edema. LABORATORY DATA: White count 13,000, H&H 12.8/36.7, platelet count 216,000. IMAGING DATA: No new imaging data. IMPRESSION: This is a 62-year-old male with cavitary lesion in the left lower lobe as well as bilateral multifocal airspace opacifications. I had a long discussion with Dr. Andrews regarding this patient and feeling is that we are not going to do any type of procedure at this time. Because in terms of doing bronchoscopic evaluation with the patient being on antibiotic and steroids, the yield would be very low as well as the fact that he is continuing to improve. In regards to the cavitary lung disease, will repeat CAT scan in about 6 weeks to see if anything still there. If it is, then the patient most likely will be referred to Dr. Vasques for possible wedge resection. At this time, unless contraindicated or ID feels otherwise, Levaquin can be stopped. Will work on a slow prednisone taper tapering by 5 mg every 3 days. The patient is to be followed up in the office in 2 weeks. Will set up for repeat CAT scan in 6 weeks. The patient did ask that we come back and have discussion with his sister. I am agreeable to do this and we will get this set up. The patient will need a 2-step as well which I believe that Dr. Astudillo is ordering. Will recheck patient in the morning. MTDD
--- NOTE | 2017-11-27 12:36 | Progress Note ---
Subjective Date of Service: Nov 27, 2017. Subjective Pt evaluation today including: conversation w/ patient, conversation w/ family , physical exam, lab review, review of studies, conversation w/ it architecture consultant, review of inpatient medication list Saw/examined the patient in room 205 family at bedside (sister) pulmonology in the room as well patient doing well, denies shortness of breath/chest pain/palpitations two step performed, no O2 required Problem List Medical Problems: (1) Acute respiratory failure Status: Acute (2) Elevated troponin Status: Acute (3) Hypoxia Status: Acute (4) Hypoxia Status: Acute (5) Multifocal pneumonia Status: Acute Review of Systems Constitutional: No fever, No chills Respiratory: No cough, No sputum, No wheezing, No shortness of breath, No dyspnea on exertion, No dyspnea at rest, No hemoptysis Cardiac: No chest pain, No edema, No palpitations Medications Current Inpatient Medications Medications (Trade) Dose Ordered Sig/Linda Route Start Time Stop Time Status Last Admin Dose Admin Acetaminophen (Tylenol Tab) 650 mg Q4H PRN PO 11/15/17 18:00 12/15/17 17:59 Al Hydrox/Mg Hydrox/Simethicone (Maalox Max Susp) 15 ml Q4H PRN PO 11/15/17 18:00 12/15/17 17:59 Magnesium Hydroxide (Milk Of Magnesia Susp) 30 ml Q12H PRN PO 11/15/17 18:00 12/15/17 17:59 Nitroglycerin (Nitrostat Tab) 0.4 mg UD PRN SL 11/15/17 18:00 12/15/17 17:59 Polyethylene (Miralax Powder Packet) 17 gm DAILY PRN PO 11/15/17 18:00 12/15/17 17:59 Atorvastatin Calcium (Lipitor Tab) 80 mg DAILY PO 11/16/17 09:00 12/16/17 08:59 11/27/17 07:34 80 MG Montelukast Sodium (Singulair Tab) 10 mg QAM PO 11/16/17 09:00 12/16/17 08:59 11/27/17 07:34 10 MG Albuterol (Ventolin Hfa Inhaler) 2 puffs QID PRN INH 11/15/17 18:45 12/15/17 18:44 Ipratropium [place] (Atrovent 0.02% 0.5MG/2.5ML Neb) 0.5 mg Q6R INH 11/15/17 21:00 12/15/17 20:59 11/27/17 06:56 0.5 MG Levalbuterol (Xopenex 1.25MG/ 0.5ML Neb) 1.25 mg Q6R INH 11/15/17 21:00 12/15/17 20:59 11/27/17 06:56 1.25 MG Levalbuterol (Xopenex 1.25MG/ 0.5ML Neb) 1.25 mg Q2H PRN INH 11/15/17 19:00 12/15/17 18:59 11/20/17 05:11 1.25 MG Ipratropium [place] (Atrovent 0.02% 0.5MG/2.5ML Neb) 0.5 mg Q2H PRN INH 11/15/17 19:00 12/15/17 18:59 11/20/17 05:11 0.5 MG Heparin Sodium (Porcine) (Heparin Sq 5000 Unit/0.5ml) 5,000 unit Q8 SQ 11/22/17 22:00 12/22/17 21:59 11/26/17 21:08 5,000 UNIT Aspirin (Ecotrin Tab) 81 mg QAM PO 11/23/17 09:00 12/23/17 08:59 11/27/17 07:35 81 MG Prednisone (PredniSONE TAB) 40 mg DAILY PO 11/27/17 09:00 12/27/17 08:59 11/27/17 07:34 40 MG Mometasone Furoate/ Formoterol Fumar (Dulera 100-5 Mcg/Act) 2 puffs BID INH 11/27/17 09:00 12/27/17 08:59 11/27/17 07:35 2 PUFFS Levofloxacin (Levaquin Tab) 750 mg DAILY@11 PO 11/28/17 11:00 11/29/17 11:01 Objective Vital Signs Date Time Temp Pulse Resp B/P (MAP) Pulse Ox O2 Delivery O2 Flow Rate FiO2 11/27/17 12:00 Room Air 11/27/17 11:43 36.2 68 18 117/60 (79) 94 Room Air 1.0 11/27/17 08:00 96 Nasal Cannula 2.0 2/28/18 07:55 36.7 68 20 133/63 (86) 95 Room Air 11/27/17 06:56 56 16 97 Nasal Cannula 2.0 11/27/17 04:00 Nasal Cannula 2.0 11/27/17 03:33 36.5 64 23 140/64 (89) 98 Nasal Cannula 2.0 11/27/17 01:24 67 16 98 Nasal Cannula 2.0 11/26/17 23:59 Nasal Cannula 2.0 11/26/17 23:35 36.4 68 22 155/72 (99) 98 Nasal Cannula 2.0 11/26/17 20:00 Nasal Cannula 2.0 11/26/17 19:10 36.3 80 20 151/63 (92) 96 Nasal Cannula 2.0 11/26/17 18:57 73 18 96 Nasal Cannula 2.0 11/26/17 16:00 Nasal Cannula 2.0 11/26/17 15:45 36.7 69 21 143/64 (90) 95 Nasal Cannula 2.0 11/26/17 14:12 64 18 93 Nasal Cannula 2.0 Physical Exam General Appearance: no apparent distress Respiratory/Chest: chest non-tender, lungs clear, normal breath sounds, no respiratory distress, no accessory muscle use Cardiovascular: regular rate, rhythm, no edema, no murmur Extremities: normal inspection, no pedal edema Laboratory Results Last 24 Hours Test 11/27/17 05:41 White Blood Count 13.39 K/uL Red Blood Count 4.34 M/uL Hemoglobin 12.8 g/dL Hematocrit 36.7 % Mean Corpuscular Volume 84.6 fL Mean Corpuscular Hemoglobin 29.5 pg Mean Corpuscular Hemoglobin Concent 34.9 g/dl RDW Standard Deviation 49.0 fL RDW Coefficient of Variation 15.8 % Platelet Count 216 K/uL Mean Platelet Volume 9.1 fL Sodium Level 131 mmol/L Potassium Level 3.8 mmol/L Chloride Level 94 mmol/L Carbon Dioxide Level 28 mmol/L Anion Gap 9.0 mmol/L Blood Urea Nitrogen 19 mg/dl Creatinine 0.63 mg/dl Est Creatinine Clear Calc Drug Dose 127.2 ml/min Estimated GFR () 120.7 Estimated GFR (Non- 104.1 BUN/Creatinine Ratio 30.5 Random Glucose 128 mg/dl Calcium Level 7.8 mg/dl Magnesium Level 2.2 mg/dl Assessment and Plan This is a 62 year old male with a PMH of moderate persistent asthma, former tobacco use, hx. of carotid artery disease and possible CVA - presents with shortness of breath, dyspnea on exertion and found cavitary multifocal pneumonia Acute Hypoxic Respiratory Failure Multifocal Pneumonia with Cavitation 11/27 appreciate pulmonology input patient doing well, can d/c home today prednisone taper 40mg and decrease by 5mg q3 days d/c antibiotics outpatient pulm follow-up in [address] in 6 weeks 11/26 CTA on admission suggests multifocal pneumonia with cavitation repeat chest CT on 11/20 - L lower lobe cavitation is persistent currently patient is requiring 5L of O2 via nasal cannula (11/26) - this has been weaned from high flow oxygen and 6L of O2 via nasal cannula symptomatically doing much better plan for now is to continue Levaquin and Solu-medrol as per pulm once we can wean him down to 2-3L of O2 safely; will need bronchoscopy and PRACHI thus far, work-up is negative including blood cultures, sputum culture, AFB sputum negative, Quantiferon TB negative will await further recommendations by pulmonology Carotid Artery Disease history of CVA will continue aspirin and statin at this time DVT ppx subq heparin FULL CODE
[2017-11-27] MEDS ORDERED: PRED10TA PO (12:44)
--- NOTE | 2017-11-27 12:51 | Discharge Instructions ---
Discharge Instructions Date of Service Nov 27, 2017. Admission Reason for Admission: Respiratory Failure Discharge Discharge Diagnosis / Problem: Pneumonia with Cavitation Discharge Goals Goal(s): Decrease discomfort, Improve function, Diagnostic testing, Therapeutic intervention Activity Recommendations Activity Limitations: resume your previous activity . Instructions / Follow-Up Instructions / Follow-Up Please follow-up with Dr. Haywood (covering for Dr. Sylvesetr) on December 02 at 1:45PM Please follow-up with Michael Bueno PA-C for pulmonology on December 13 at 10:00AM * You will be on a prednisone taper as follows * Take 4 tablets (40mg) on 11/28, 11/29, 11/30 * Take 3.5 tablets (35mg) on 12/01, 12/02, 12/03 * Take 3 tablets (30mg) on 12/04, 12/05, 12/06 * Take 2.5 tablets (25mg) on 12/07, 12/08, 12/09 * Take 2 tablets (20mg) on 12/10, 12/11, 12/12 * Take 1.5 tablets (15mg) on 12/13, 12/14, 12/15 * Take 1 tablet (10mg) on 12/16, 12/17, 12/18 * Take 0.5 tablet (5mg) on 12/19, 12/20, 12/[address] scan of the chest in 6 weeks Current Hospital Diet Patient's current hospital diet: AHA Diet (Heart Healthy) Discharge Diet Recommended Diet: AHA Diet (Heart Healthy) Pending Studies Studies pending at discharge: no Medical Emergencies . Who to Call and When: Medical Emergencies: If at any time you feel your situation is an emergency, please call 911 immediately. . Non-Emergent Contact Non-Emergency issues call your: Primary Care Provider, [employer] Executive Director . . "Provider Documentation" section prepared by Janet Rizzo. . Pantry Goods Worker Recommendations Pantry Goods Worker Recommendations: 1. Followup in Pul at 1850 in [address] scan of the chest in 6 weeks. This will be ordered by pulmonology at the 2 week followup visit. 3. Slow prednisone taper starting at 40 mg daily and tapering by 5 mg every 3 days. 4. Stop antibiotic unless otherwise recommended by ID. VTE Core Measure Inpt VTE Proph given/why not?: Unfractionated heparin SQ
--- NOTE | 2017-11-27 12:53 | Discharge Summary ---
Discharge Summary Date of Service Nov 27, 2017. Discharge Summary Admission Date: Nov 15, 2017 at 15:06 Discharge Date: Nov 27, 2017 Discharge Disposition: Home Principal Diagnosis: Acute Hypoxic Respiratory Failure Multifocal Pneumonia Cavitary Lung Disease Mediastinal Adenopathy Carotid Artery Disease Consultations: Pulm ID Medication Reconciliation New Medications: Prednisone Tab (Prednisone) 10 Mg Tab 10 MG PO DAILY for 24 Days, #54 TAB Continued Medications: Albuterol Sulfate (Proair Respiclick) 108 Mcg/Act Aer 2 PUFFS INH QID PRN for SOB/Wheezing Aspirin (Aspirin Ec) 81 Mg Tab 81 MG PO QAM Atorvastatin (Lipitor) 80 Mg Tab 80 MG PO DAILY Mometasone Furoate-Formoterol (Dulera 100/5 Mcg) 1 Aer Aer 2 PUFFS INH BID Montelukast Sodium (Singulair) 10 Mg Tab 10 MG PO QAM Admission Information HPI (per Admitting provider): 62 yo M with past medical hx of Asthma , COPD , carotid artery disease , presented to Clinic at [facility] with complain of progressive SOB pt mentions that past 2-3 weeks , he has been experiencing SOB , WU, coughing , nasal congestion and wheeze pt was evaluated at the Clinic on Nov 08 for similar symptom and prescribed oral prednisone taper and Z pack -with no improvement of symptom pt was found to be tachypneic, Spo2 77% in RA , pt was directed to ER on arrival to ER ,pt continued to be hypoxic , required Bipap support CT chest shows bilateral multifocal pneumonia with cavitary lesions Physical Exam (per Admitting): General Appearance: no apparent distress Head: normocephalic, atraumatic Eyes: sclerae normal Neck: no JVD Respiratory/Chest: + decreased breath sounds, + crackles Cardiovascular: regular rate, rhythm Abdomen/GI: normal bowel sounds, non tender, soft Neurologic/Psych: no motor/sensory deficits, alert, oriented x 3 Hospital Course This is a 62 year old male with a PMH of moderate persistent asthma, former tobacco use, hx. of carotid artery disease and possible CVA - presents with shortness of breath, dyspnea on exertion and found cavitary multifocal pneumonia Acute Hypoxic Respiratory Failure Multifocal Pneumonia with Cavitation 11/27 appreciate pulmonology input patient doing well, can d/c home today prednisone taper 40mg and decrease by 5mg q3 days d/c antibiotics outpatient pulm follow-up in [address] in 6 weeks 11/26 CTA on admission suggests multifocal pneumonia with cavitation repeat chest CT on 11/20 - L lower lobe cavitation is persistent currently patient is requiring 5L of O2 via nasal cannula (11/26) - this has been weaned from high flow oxygen and 6L of O2 via nasal cannula symptomatically doing much better plan for now is to continue Levaquin and Solu-medrol as per pulm once we can wean him down to 2-3L of O2 safely; will need bronchoscopy and PRACHI thus far, work-up is negative including blood cultures, sputum culture, AFB sputum negative, Quantiferon TB negative will await further recommendations by pulmonology Carotid Artery Disease history of CVA will continue aspirin and statin at this time DVT ppx subq heparin FULL CODE Total time spent on discharge = 50 minutes This includes examination of the patient, discharge planning, medication reconciliation, and communication with other providers. Discharge Instructions Please follow-up with Dr. Haywood (covering for Dr. Sylvester) on December 02 at 1:45PM Please follow-up with Michael Bueno PA-C for pulmonology on December 13 at 10:00AM * You will be on a prednisone taper as follows * Take 4 tablets (40mg) on 11/28, 11/29, 11/30 * Take 3.5 tablets (35mg) on 12/01, 12/02, 12/03 * Take 3 tablets (30mg) on 12/04, 12/05, 12/06 * Take 2.5 tablets (25mg) on 12/07, 12/08, 12/09 * Take 2 tablets (20mg) on 12/10, 12/11, 12/12 * Take 1.5 tablets (15mg) on 12/13, 12/14, 12/15 * Take 1 tablet (10mg) on 12/16, 12/17, 12/18 * Take 0.5 tablet (5mg) on 12/19, 12/20, 12/[address] scan of the chest in 6 weeks
[2017-11-28] MEDS ORDERED: LEVOFLOXACIN 750 MG TAB PO SCH (11:00)
== END 2017-11-27 13:15 | disposition home or self-care (01) | DRG 193 ==
LOC: C.EDB 13:11 → UNDOADMIN 15:06 → C.2E 15:06 → C.MSICU 17:21 → C.2E 17:21
PROVIDERS: ADMIT Hospitalist; ATTEND Family Medicine
DX: J18.9 Pneumonia, unspecified organism (principal); J96.00 Acute respiratory failure, unspecified whether with hypoxia or hypercapnia; R91.1 Solitary pulmonary nodule; J45.909 Unspecified asthma, uncomplicated; J44.9 Chronic obstructive pulmonary disease, unspecified; R59.0 Localized enlarged lymph nodes; Z82.49 Family history of ischemic heart disease and other diseases of the circulatory system; Z79.82 Long term (current) use of aspirin; Z79.02 Long term (current) use of antithrombotics/antiplatelets; Z87.891 Personal history of nicotine dependence

== ENCOUNTER → 2018-01-20 | Outpatient (CLI) | payer OTHER ==
[~2018-01-20] MED LIST changes: -ALBINS/ INH; -ATOR-24 PO; +ATOR-26 PO; -INDO-22 PO; -LVQ750 PO; -SENNTAB23 PO
--- NOTE | 2018-01-20 10:19 | DIAGNOSTIC IMAGING REPORT ---
(CHEST) THORAX WITHOUT CLINICAL HISTORY: J98.4 Lung [id number] ASTHMA COMPARISON STUDY: November 20, 2017 CT DOSE: 450.85 mGycm TECHNIQUE: CT of the thorax was performed from the thoracic inlet to the lung bases. Images are reviewed in the axial, sagittal, and coronal planes. IV contrast was not administered for this examination. A dose lowering technique was utilized adhering to the principles of ALARA. FINDINGS: Thyroid: Imaged portions of the thyroid gland are normal in appearance. Thoracic aorta: The thoracic aorta is normal in course and caliber, noting standard 3 vessel arch anatomy. Heart: The heart is normal in size. There is no pericardial effusion. There are coronary artery calcifications. Lungs and pleural spaces: There are no pleural effusions. There are dependent atelectatic changes present. There is pulmonary emphysema. There are mild left lower lobe bronchiectatic changes. There has been marked improvement in the previously identified multifocal groundglass opacities. The cystic lesion within the left lower lobe now represents a 2 cm groundglass nodule containing a 1 cm solid component. Within the left upper lobe there is a 13 mm groundglass nodule containing a 4 mm solid component. There are enlarging clustered left apical pulmonary nodules the largest of which measures 10 mm. Mediastinum: There are borderline enlarged esophageal lymph nodes. Vicki: There is no evidence of pathologic hilar adenopathy given the limitations of a noncontrast study Axilla: There is no evidence of pathologic axillary lymphadenopathy Upper abdomen: There is a nonspecific 8 mm hypodensity with the right lobe of the liver there is mild low density thickening of the left adrenal gland. Skeletal structures: There are no lytic or blastic osseous lesions. IMPRESSION: 1. Marked improvement in the previous identified bilateral groundglass pulmonary opacities 2. The previously identified cystic nodule within the superior segment the left lower lobe, now corresponds to a 2 cm groundglass nodule with a 1 cm solid component 3. 13 mm groundglass left upper lobe pulmonary nodule containing a 4 mm solid component 4. Enlarging left upper lobe clustered nodules, the largest of which measures 1 cm. 5. Emphysema 6. Mild left lower lobe bronchiectasis 7. The above-mentioned pulmonary nodules are indeterminate and malignancy cannot be excluded. A three-month follow-up CT scan is recommended. Electronically signed by: Chris Soto M.D. 01/20/2018 10:18 AM Dictated Date/Time: 01/20/2018 10:06 AM
== END | disposition home or self-care (01) ==
LOC: C.CTS 09:50
PROVIDERS: ATTEND Internal Medicine Critical Care Medicine
DX: J98.4 Other disorders of lung (principal); E41 Nutritional marasmus

== ENCOUNTER → 2018-04-28 | Outpatient (CLI) | payer OTHER ==
--- NOTE | 2018-04-28 11:34 | DIAGNOSTIC IMAGING REPORT ---
(CHEST) THORAX WITHOUT CLINICAL HISTORY: R91.8 Pulmonary nodules/lesions, COMPARISON STUDY: 01/20/2018 CT DOSE: 564.81 mGy.cm TECHNIQUE: CT of the thorax was performed from the thoracic inlet to the lung bases. Images are reviewed in the axial, sagittal, and coronal planes. IV contrast was not administered for this examination. A dose lowering technique was utilized adhering to the principles of ALARA. FINDINGS: Thyroid: Imaged portions of the thyroid gland are normal in appearance. Thoracic aorta: The thoracic aorta is normal in course and caliber, noting standard 3 vessel arch anatomy. Heart: The heart is normal in size. There are coronary artery calcifications present. Lungs and pleural spaces: There is minimal lower lobe cylindrical bronchiectasis. There are lower lobe atelectatic changes. There has been interval improvement in the previously identified 2 cm left lower lobe groundglass nodule with a previously identified 1 cm solid component. This likely represents a resolving inflammatory process. Within the left upper lobe, there is persistent nodularity with a stable dominant 1 cm nodule. Mediastinum: There are stable borderline enlarged paraesophageal lymph nodes Vicki: There is no evidence of pathologic hilar adenopathy given the limitations of a noncontrast study. Axilla: There is no evidence of pathologic axillary lymphadenopathy Upper abdomen: There is stable left adrenal gland thickening likely representing adenomatous hyperplasia. Skeletal structures: There are no lytic or blastic osseous lesions. IMPRESSION: 1. Partial resolution of the left lower lobe mixed solid and groundglass opacity. In all likelihood this represents a resolving inflammatory process 2. Stable indeterminate 10 mm left apical pulmonary nodule with adjacent micronodules. Further 6 month follow-up is recommended. 3. Mild emphysema. Cylindrical bronchiectasis. 4. Stable borderline enlarged paraesophageal lymph nodes Electronically signed by: Chris Soto M.D. 04/28/2018 11:33 AM Dictated Date/Time: 04/28/2018 11:19 AM
== END | disposition home or self-care (01) ==
LOC: C.CTS 11:09
PROVIDERS: ATTEND Internal Medicine Critical Care Medicine
DX: R91.8 Other nonspecific abnormal finding of lung field (principal)